=== PATIENT | male | born 1940 | race Caucasian/White ===

== ENCOUNTER 2017-10-26 11:43 | Inpatient (IN) ==
--- NOTE | 2017-10-26 12:15 | Emergency Department Note ---
Disposition Clinical Impression: Dysuria, Acute kidney injury superimposed on chronic kidney disease, Cystitis, Supratherapeutic INR, Ureter, stricture Anemia Qualifiers: Anemia type: unspecified type Qualified Code(s): D64.9 - Anemia, unspecified GI bleed Qualifiers: GI bleed type/associated pathology: unspecified gastrointestinal hemorrhage type Qualified Code(s): K92.2 - Gastrointestinal hemorrhage, unspecified Disposition: Admitted As Inpatient Condition: Fair Referrals: Elysia Sullivan TECHNICAL ASSISTANCE CONSULTANT [Primary Care Provider] - Forms: ED Satisfaction Letter Time of Disposition: 14:42 General Adult HPI - General Chief complaint: ED Urogenital-Male Stated complaint: "UTI, pneumonia" Time Seen by Provider: 10/26/17 11:57 Source: patient Mode of arrival: ambulatory Limitations: no limitations Nursing Notes Reviewed: Yes Vital Signs Reviewed: Yes - History of Present Illness HPI Narrative: 77-year-old male with a history of recurrent UTIs, CKD 3, and prostate radiotherapy, obstructive uropathy, congestive heart failure presents for evaluation of "UTI and pneumonia". Patient states that he does have a history of UTIs in the past. Patient notes over the past few days she has felt some dysuria and feels like he is having a UTI. Patient is incontinent of urine which is at his baseline. Patient does have remote history of radiotherapy with prostate. Patient states he has a history of outlet obstruction and does follow with Dr. Vázquez. States he has appointment with him in 2 days. Patient denies any fevers but does know a nonproductive cough for the past 3 weeks. Denies any chest pain. Denies any abdominal pain. Does not note any significant change in lower extremity edema. States he continues to urinate. No diarrhea or constipation. Also states that he is on Coumadin for his A. fib. Pain Scale: 0 - Related Data Home Medications Medication Instructions Recorded Confirmed Diltiazem HCl [Tiazac] 360 mg PO DAILY 03/16/15 10/26/17 Sotalol [Betapace] 120 mg PO Q12HR 03/16/15 10/26/17 Ergocalciferol (VITAMIN D2) 400 unit PO DAILY 12/08/15 10/26/17 [Vitamin D] Latanoprost [Xalatan] 1 drop OP DAILY 12/08/15 10/26/17 Warfarin [Coumadin] 2 mg PO DAILY 12/08/15 10/26/17 Furosemide [Lasix] 20 mg PO DAILY 10/26/17 10/26/17 Glimepiride [Amaryl] 4 mg PO DAILY 10/26/17 10/26/17 Insulin Glargine,Hum.rec.anlog 30 unit SQ HS 10/26/17 10/26/17 [Rogeraglpatti [place] U-100] Previous Rx's Medication Instructions Recorded Ferrous Sulfate 325 mg PO TIDWM #90 tablet 12/10/15 Allergies Allergy/AdvReac Type Severity Reaction Status Date / Time Erythromycin Base Allergy Mild Rash Verified 10/26/17 14:08 All systems ED: reviewed and negative except as stated. Constitutional: Denies: fever Cardiovascular: Denies: chest pain Respiratory: Reports: cough, dyspnea Gastrointestinal: Denies: abdominal pain, nausea, vomiting Genitourinary: Reports: dysuria Past Medical History - Past Medical History Source: patient Medical history: Reports: cancer, CHF, diabetes, hypertension, other Surgical history: Reports: cholecystectomy, other Psychiatric history: Reports: no psych history - Social History Smoking Status: Never smoker Smokeless Tobacco Status: No Alcohol use: Reports: none Drug use: Reports: none Physical Exam - General Limitations: no limitations General appearance: alert, in no apparent distress, obese - Head Head exam: atraumatic, normocephalic, normal inspection - Eye Eye exam: Present: normal appearance, EOMI - ENT ENT exam: normal exam, mucous membranes moist - Neck Neck exam: Present: normal inspection - Chest Chest inspection: Present: normal inspection, symmetric chest wall rise - Respiratory Respiratory exam: Present: other (Diminished bibasilar). Absent: respiratory distress, accessory muscle use - Cardiovascular Cardiovascular exam: Present: regular rate, normal rhythm - Abdominal Exam Abdominal exam: Present: soft, Non-Tender, distention. Absent: guarding, rebound - Extremities Exam Extremities exam: Present: normal inspection, pedal edema (2+ bilateral) - Expanded Lower Extremity Exam Neurovascular/Tendon exam: Present: normal capillary refill - Back Exam Back exam: Present: normal inspection. Absent: CVA tenderness (R), CVA tenderness (L) - Neurological Exam Neurological exam: Present: alert, oriented X3, CN II-XII intact - Skin Skin exam: Present: warm, dry, intact, normal color Course Course Narrative: Patient seen and examined. Prior CT scan results reviewed shows obstructive uropathy pattern with cystitis. Patient will get basic labs including urinalysis, patient also get a troponin and BNP given complaint of dyspnea cough. Patient will also get a CT scan and pelvis to further evaluate the ureters and any potential outlet obstruction. Patient's urine culture results obtained in the past showed Pseudomonas. Disposition pending. - Reevaluation(s) Reevaluation #1: Patient seen and examined. Patient's resting comfortably. No needs at this time. Time: 14:34 - Consultations Consultation #1: Spoke with Dr. Andrew who will see the patient consult. Time: 14:41 Vital Signs Temperature 98.6 F 10/26/17 11:47 Pulse Rate 73 10/26/17 11:47 Respiratory Rate 16 10/26/17 11:47 Blood Pressure 116/70 10/26/17 11:47 O2 Sat by Pulse Oximetry 97 10/26/17 11:47 Temperature 98.6 F 10/26/17 11:58 Pulse Rate 73 10/26/17 14:52 Respiratory Rate 14 10/26/17 14:52 Blood Pressure 107/59 10/26/17 14:52 O2 Sat by Pulse Oximetry 98 10/26/17 14:52 Oxygen Delivery Oxygen Delivery Room Air Medical Decision Making - MDM Narrative Medical decision making narrative: Patient presents for concerns of UTI with dysuria. Patient also has a history of ureteral strictures also with urology. [id number] strictures likely secondary to his radiation therapy in the past. Patient does appear to have acute on chronic kidney disease likely secondary to post renal obstruction. Patient also has evidence of UTI. Fluid was placed for accurate I'sas the patient is incontinent of urine at baseline. Patient's started on the most appropriate antibiotic given past cultures. CT the pelvis revealed the hydronephrosis and ureteral strictures. Discussed the findings with urologist who will see the patient. Patient is super therapeutic on INR but has no evidence of bleeding. Stool occult blood testing was performed however the patient denies any dark tarry stools or blood in his stool. Patient's CT reading does show evidence of an enlarged appendix however the patient does not have clinical signs symptoms of acute appendicitis likely secondary to the cystitis and inflammation. - Lab Data Lab results reviewed: Yes I reviewed the patient's lab results. Result diagrams: 10/26/17 12:39 10/26/17 12:39 Lab Results 10/26/17 10/26/17 10/26/17 Range/Units 12:39 12:39 12:39 WBC 10.2 (4.3-11.1) K/mcL RBC 2.68 L (4.19-5.50) M/mcL Hgb 7.3 L (12.9-16.9) g/dL Hct 23.6 L (37.5-50.1) % MCV 88.1 (83.0-100.0) fL MCH 27.2 L (28.0-33.3) pg MCHC 30.9 L (31.6-35.5) g/dL RDW 14.8 H (11.5-14.5) % Plt Count 412 H (140-400) K/mcL MPV 9.4 (9.4-12.4) fL Immature Gran % 0.8 (0-4) % Seg Neutrophils % 81.3 % Lymphocytes % 6.9 % Monocytes % 8.8 % Eosinophils % 1.7 % Basophils % 0.5 % Neutrophils # 8.3 (1.6-8.9) K/mcL Lymphocytes # 0.7 (0.6-4.6) K/mcL Monocytes # 0.9 (0.0-1.3) K/mcL Eosinophils # 0.2 (0.0-0.6) K/mcL Basophils # 0.1 (0.0-0.2) K/mcL PT (9.4-12.1) Seconds INR Sodium 136 (136-145) mEq/L Potassium 4.1 (3.5-5.1) mEq/L Chloride 102 (98-107) mEq/L Carbon Dioxide 25 (23-29) mEq/L BUN 52 H (8-23) mg/dL Creatinine 4.23 H (0.70-1.30) mg/dL Est GFR ( Amer) 17 L (> 60) Est GFR (Non-Af Amer) 14 L (> 60) BUN/Creatinine Ratio 12 (6-26) Glucose 75 (70-105) mg/dL Calculated Osmolality 295 (280-300) Lactic Acid 0.5 (0.5-2.2) mmol/L Calcium 8.7 (8.6-10.3) mg/dL Total Bilirubin 0.3 (0.3-1.0) mg/dL Direct Bilirubin 0.1 (0.0-0.2) mg/dL Indirect Bilirubin 0.2 (0.0-1.2) mg/dL AST 8 L (13-39) Units/L ALT 6 L (7-52) Units/L Alkaline Phosphatase 76 (34-104) Units/L Troponin I < 0.03 (< 0.04) ng/mL B-Natriuretic Peptide (Less than 100) pg/mL Serum Total Protein 6.9 (6.4-8.9) g/dL Albumin 3.1 L (3.5-5.7) g/dL Globulin 3.8 H (2.4-3.5) g/dL Albumin/Globulin Ratio 0.8 L (1.1-2.2) Urine Color (Yellow) Urine Clarity (Clear) Urine pH (5.0-8.0) pH Units Ur Specific [place] (1.010-1.025) Urine Protein (Neg-Trace) mg/dL Urine Glucose (UA) (Normal) mg/dL Urine Ketones (Negative) mg/dL Urine Blood (Negative) Urine Nitrite (Negative) Urine Bilirubin (Negative) Urine Urobilinogen (Normal) mg/dL Ur Leukocyte Esterase (Negative) Urine Microscopic RBC (0-3) per hpf Urine Microscopic WBC (0-3) per hpf Ur Squamous Epith Cells (None-Few) per lpf Urine Bacteria (None-Few) per hpf Ur Culture Indicated? (NO) Stool Occult Bld Scrn (Negative) 10/26/17 10/26/17 10/26/17 Range/Units 12:39 12:39 12:54 WBC (4.3-11.1) K/mcL RBC (4.19-5.50) M/mcL Hgb (12.9-16.9) g/dL Hct (37.5-50.1) % MCV (83.0-100.0) fL MCH (28.0-33.3) pg MCHC (31.6-35.5) g/dL RDW (11.5-14.5) % Plt Count (140-400) K/mcL MPV (9.4-12.4) fL Immature Gran % (0-4) % Seg Neutrophils % % Lymphocytes % % Monocytes % % Eosinophils % % Basophils % % Neutrophils # (1.6-8.9) K/mcL Lymphocytes # (0.6-4.6) K/mcL Monocytes # (0.0-1.3) K/mcL Eosinophils # (0.0-0.6) K/mcL Basophils # (0.0-0.2) K/mcL PT 44.9 H* (9.4-12.1) Seconds INR 4.0 Sodium (136-145) mEq/L Potassium (3.5-5.1) mEq/L Chloride (98-107) mEq/L Carbon Dioxide (23-29) mEq/L BUN (8-23) mg/dL Creatinine (0.70-1.30) mg/dL Est GFR ( Amer) (> 60) Est GFR (Non-Af Amer) (> 60) BUN/Creatinine Ratio (6-26) Glucose (70-105) mg/dL Calculated Osmolality (280-300) Lactic Acid (0.5-2.2) mmol/L Calcium (8.6-10.3) mg/dL Total Bilirubin (0.3-1.0) mg/dL Direct Bilirubin (0.0-0.2) mg/dL Indirect Bilirubin (0.0-1.2) mg/dL AST (13-39) Units/L ALT (7-52) Units/L Alkaline Phosphatase (34-104) Units/L Troponin I (< 0.04) ng/mL B-Natriuretic Peptide 604 H (Less than 100) pg/mL Serum Total Protein (6.4-8.9) g/dL Albumin (3.5-5.7) g/dL Globulin (2.4-3.5) g/dL Albumin/Globulin Ratio (1.1-2.2) Urine Color Yellow (Yellow) Urine Clarity Turbid A (Clear) Urine pH 7.5 (5.0-8.0) pH Units Ur Specific [place] 1.005 L (1.010-1.025) Urine Protein 100 H (Neg-Trace) mg/dL Urine Glucose (UA) Normal (Normal) mg/dL Urine Ketones Negative (Negative) mg/dL Urine Blood Large H (Negative) Urine Nitrite Positive A (Negative) Urine Bilirubin Negative (Negative) Urine Urobilinogen Normal (Normal) mg/dL Ur Leukocyte Esterase Large H (Negative) Urine Microscopic RBC 15-30 H (0-3) per hpf Urine Microscopic WBC TNTC H (0-3) per hpf Ur Squamous Epith Cells Many H (None-Few) per lpf Urine Bacteria Few (None-Few) per hpf Ur Culture Indicated? NO. A (NO) Stool Occult Bld Scrn (Negative) 10/26/17 Range/Units 14:30 WBC (4.3-11.1) K/mcL RBC (4.19-5.50) M/mcL Hgb (12.9-16.9) g/dL Hct (37.5-50.1) % MCV (83.0-100.0) fL MCH (28.0-33.3) pg MCHC (31.6-35.5) g/dL RDW (11.5-14.5) % Plt Count (140-400) K/mcL MPV (9.4-12.4) fL Immature Gran % (0-4) % Seg Neutrophils % % Lymphocytes % % Monocytes % % Eosinophils % % Basophils % % Neutrophils # (1.6-8.9) K/mcL Lymphocytes # (0.6-4.6) K/mcL Monocytes # (0.0-1.3) K/mcL Eosinophils # (0.0-0.6) K/mcL Basophils # (0.0-0.2) K/mcL PT (9.4-12.1) Seconds INR Sodium (136-145) mEq/L Potassium (3.5-5.1) mEq/L Chloride (98-107) mEq/L Carbon Dioxide (23-29) mEq/L BUN (8-23) mg/dL Creatinine (0.70-1.30) mg/dL Est GFR ( Amer) (> 60) Est GFR (Non-Af Amer) (> 60) BUN/Creatinine Ratio (6-26) Glucose (70-105) mg/dL Calculated Osmolality (280-300) Lactic Acid (0.5-2.2) mmol/L Calcium (8.6-10.3) mg/dL Total Bilirubin (0.3-1.0) mg/dL Direct Bilirubin (0.0-0.2) mg/dL Indirect Bilirubin (0.0-1.2) mg/dL AST (13-39) Units/L ALT (7-52) Units/L Alkaline Phosphatase (34-104) Units/L Troponin I (< 0.04) ng/mL B-Natriuretic Peptide (Less than 100) pg/mL Serum Total Protein (6.4-8.9) g/dL Albumin (3.5-5.7) g/dL Globulin (2.4-3.5) g/dL Albumin/Globulin Ratio (1.1-2.2) Urine Color (Yellow) Urine Clarity (Clear) Urine pH (5.0-8.0) pH Units Ur Specific [place] (1.010-1.025) Urine Protein (Neg-Trace) mg/dL Urine Glucose (UA) (Normal) mg/dL Urine Ketones (Negative) mg/dL Urine Blood (Negative) Urine Nitrite (Negative) Urine Bilirubin (Negative) Urine Urobilinogen (Normal) mg/dL Ur Leukocyte Esterase (Negative) Urine Microscopic RBC (0-3) per hpf Urine Microscopic WBC (0-3) per hpf Ur Squamous Epith Cells (None-Few) per lpf Urine Bacteria (None-Few) per hpf Ur Culture Indicated? (NO) Stool Occult Bld Scrn Positive A (Negative) - Radiology Data Radiology results reviewed: Yes I reviewed the patient's radiology results. Abdomen/Pelvis CT 10/26/17 12:10 IMPRESSION: Again identified is similar appearing moderate bilateral hydronephrosis, greater on the right as well as hydroureter, likely related to underlying ureteral strictures distally within the ureters or at the ureteral vesicular junction. A Lewis catheter is noted within a decompressed bladder. The appendix in the right lower quadrant measures 2 mm greater in dimension than on the previous examination, with mild increased stranding seen adjacent to the distal appendix. It measures 9.6 mm, previously measuring 7.4 mm. The mild stranding in the retroperitoneum is seen bilaterally, though appears minimally increased on the right when compared to the previous examination. This could be an incidental finding, though early acute appendicitis cannot be excluded. The base of the appendix is normal in caliber, and appears unchanged from the previous examination. Diverticulosis without acute diverticulitis. Other similar findings when compared to the previous examination as above. D/ / Camron Rea MD / Camron Rea MD Interpreting Provider: Camron Rea MD Chest X-Ray 10/26/17 12:12 IMPRESSION: 1. Mild bibasilar atelectasis. 2. No acute focal airspace consolidation. D/ / Oc Brock MD / Oc Brock MD Interpreting Provider: Oc Brock MD - EKG Data EKG #1 EKG attestation: Yes I reviewed and interpreted this EKG. EKG results narrative: AV paced rhythm. No ST elevation. [place]/QRS: left axis deviation T wave inversions noted in: III, aVF Interpretation: no acute changes, nonspecific ST-T wave changes S.B.A.R. - S.B.A.R. Situation: Demographics Background: Presenting Complaint Assessment: Vital Signs, Patient/Family Expectation Recommendation: Barrier(s) to disposition, Recommendation based on pending studies, treatments, or consults S.B.A.R. Report Given to: Dr. Riojas [email or web address] Repor Time: 15:00
--- NOTE | 2017-10-26 12:41 | Emergency Department Note ---
Disposition Clinical Impression: Dysuria, Acute kidney injury superimposed on chronic kidney disease, Cystitis, Supratherapeutic INR, Anemia Disposition: Admitted As Inpatient Condition: Fair Referrals: Elysia Sullivan CNP [Primary Care Provider] - Forms: ED Satisfaction Letter General Adult HPI - General Chief complaint: ED Urogenital-Male Stated complaint: "UTI, pneumonia" Time Seen by Provider: 10/26/17 11:57 Source: patient Mode of arrival: ambulatory Limitations: no limitations Nursing Notes Reviewed: Yes Vital Signs Reviewed: Yes - History of Present Illness Pain Scale: 0 - Related Data Home Medications Medication Instructions Recorded Confirmed Diltiazem HCl [Tiazac] 360 mg PO DAILY 03/16/15 10/26/17 Sotalol [Betapace] 120 mg PO Q12HR 03/16/15 10/26/17 Ergocalciferol (VITAMIN D2) 400 unit PO DAILY 12/08/15 10/26/17 [Vitamin D] Latanoprost [Xalatan] 1 drop OP DAILY 12/08/15 10/26/17 Warfarin [Coumadin] 2 mg PO DAILY 12/08/15 10/26/17 Furosemide [Lasix] 20 mg PO DAILY 10/26/17 10/26/17 Glimepiride [Amaryl] 4 mg PO DAILY 10/26/17 10/26/17 Insulin Glargine,Hum.rec.anlog 30 unit SQ HS 10/26/17 10/26/17 [Basaglar Kwikpen U-100] Previous Rx's Medication Instructions Recorded Ferrous Sulfate 325 mg PO TIDWM #90 tablet 12/10/15 Allergies Allergy/AdvReac Type Severity Reaction Status Date / Time Erythromycin Base Allergy Mild Rash Verified 10/26/17 14:08 Constitutional: Denies: fever Cardiovascular: Denies: chest pain Respiratory: Reports: cough, dyspnea Gastrointestinal: Denies: abdominal pain, nausea, vomiting Genitourinary: Reports: dysuria Past Medical History - Past Medical History Medical history: Reports: cancer, CHF, diabetes, hypertension, other Surgical history: Reports: cholecystectomy, other Psychiatric history: Reports: no psych history - Social History Smoking Status: Never smoker Smokeless Tobacco Status: No Alcohol use: Reports: none Drug use: Reports: none Physical Exam - General Limitations: no limitations General appearance: alert, in no apparent distress, obese Course Vital Signs Temperature 98.6 F 10/26/17 11:47 Pulse Rate 73 10/26/17 11:47 Respiratory Rate 16 10/26/17 11:47 Blood Pressure 116/70 10/26/17 11:47 O2 Sat by Pulse Oximetry 97 10/26/17 11:47 Temperature 98.6 F 10/26/17 11:58 Pulse Rate 73 10/26/17 11:58 Respiratory Rate 16 10/26/17 11:58 Blood Pressure 116/70 10/26/17 11:58 O2 Sat by Pulse Oximetry 97 10/26/17 11:58 Oxygen Delivery Oxygen Delivery Room Air Medical Decision Making - MDM Narrative Medical decision making narrative: 1430 hrs.: Patient's creatinine has worsened. He does have white cells in his urine a few bacteria so we will culture that. And his CT is pending. Abdomen/Pelvis CT 10/26/17 12:10 IMPRESSION: Again identified is similar appearing moderate bilateral hydronephrosis, greater on the right as well as hydroureter, likely related to underlying ureteral strictures distally within the ureters or at the ureteral vesicular junction. A Lewis catheter is noted within a decompressed bladder. The appendix in the right lower quadrant measures 2 mm greater in dimension than on the previous examination, with mild increased stranding seen adjacent to the distal appendix. It measures 9.6 mm, previously measuring 7.4 mm. The mild stranding in the retroperitoneum is seen bilaterally, though appears minimally increased on the right when compared to the previous examination. This could be an incidental finding, though early acute appendicitis cannot be excluded. The base of the appendix is normal in caliber, and appears unchanged from the previous examination. Diverticulosis without acute diverticulitis. Other similar findings when compared to the previous examination as above. D/ / Camron Rea MD / Camron Rea MD Interpreting Provider: Camron Rea MD Chest X-Ray 10/26/17 12:12 IMPRESSION: 1. Mild bibasilar atelectasis. 2. No acute focal airspace consolidation. D/ / Oc Brock MD / Oc Brock MD Interpreting Provider: Oc Brock MD 1430 hrs.: We will speak with urology and then determine whether he needs to be evaluated by them acutely. - Lab Data Result diagrams: 10/26/17 12:39 10/26/17 12:39 Lab Results 10/26/17 10/26/17 10/26/17 Range/Units 12:39 12:39 12:39 WBC 10.2 (4.3-11.1) K/mcL RBC 2.68 L (4.19-5.50) M/mcL Hgb 7.3 L (12.9-16.9) g/dL Hct 23.6 L (37.5-50.1) % MCV 88.1 (83.0-100.0) fL MCH 27.2 L (28.0-33.3) pg MCHC 30.9 L (31.6-35.5) g/dL RDW 14.8 H (11.5-14.5) % Plt Count 412 H (140-400) K/mcL MPV 9.4 (9.4-12.4) fL Immature Gran % 0.8 (0-4) % Seg Neutrophils % 81.3 % Lymphocytes % 6.9 % Monocytes % 8.8 % Eosinophils % 1.7 % Basophils % 0.5 % Neutrophils # 8.3 (1.6-8.9) K/mcL Lymphocytes # 0.7 (0.6-4.6) K/mcL Monocytes # 0.9 (0.0-1.3) K/mcL Eosinophils # 0.2 (0.0-0.6) K/mcL Basophils # 0.1 (0.0-0.2) K/mcL PT (9.4-12.1) Seconds INR Sodium 136 (136-145) mEq/L Potassium 4.1 (3.5-5.1) mEq/L Chloride 102 (98-107) mEq/L Carbon Dioxide 25 (23-29) mEq/L BUN 52 H (8-23) mg/dL Creatinine 4.23 H (0.70-1.30) mg/dL Est GFR ( Amer) 17 L (> 60) Est GFR (Non-Af Amer) 14 L (> 60) BUN/Creatinine Ratio 12 (6-26) Glucose 75 (70-105) mg/dL Calculated Osmolality 295 (280-300) Lactic Acid 0.5 (0.5-2.2) mmol/L Calcium 8.7 (8.6-10.3) mg/dL Total Bilirubin 0.3 (0.3-1.0) mg/dL Direct Bilirubin 0.1 (0.0-0.2) mg/dL Indirect Bilirubin 0.2 (0.0-1.2) mg/dL AST 8 L (13-39) Units/L ALT 6 L (7-52) Units/L Alkaline Phosphatase 76 (34-104) Units/L Troponin I < 0.03 (< 0.04) ng/mL B-Natriuretic Peptide (Less than 100) pg/mL Serum Total Protein 6.9 (6.4-8.9) g/dL Albumin 3.1 L (3.5-5.7) g/dL Globulin 3.8 H (2.4-3.5) g/dL Albumin/Globulin Ratio 0.8 L (1.1-2.2) Urine Color (Yellow) Urine Clarity (Clear) Urine pH (5.0-8.0) pH Units Ur Specific [place] (1.010-1.025) Urine Protein (Neg-Trace) mg/dL Urine Glucose (UA) (Normal) mg/dL Urine Ketones (Negative) mg/dL Urine Blood (Negative) Urine Nitrite (Negative) Urine Bilirubin (Negative) Urine Urobilinogen (Normal) mg/dL Ur Leukocyte Esterase (Negative) Urine Microscopic RBC (0-3) per hpf Urine Microscopic WBC (0-3) per hpf Ur Squamous Epith Cells (None-Few) per lpf Urine Bacteria (None-Few) per hpf Ur Culture Indicated? (NO) 10/26/17 10/26/17 10/26/17 Range/Units 12:39 12:39 12:54 WBC (4.3-11.1) K/mcL RBC (4.19-5.50) M/mcL Hgb (12.9-16.9) g/dL Hct (37.5-50.1) % MCV (83.0-100.0) fL MCH (28.0-33.3) pg MCHC (31.6-35.5) g/dL RDW (11.5-14.5) % Plt Count (140-400) K/mcL MPV (9.4-12.4) fL Immature Gran % (0-4) % Seg Neutrophils % % Lymphocytes % % Monocytes % % Eosinophils % % Basophils % % Neutrophils # (1.6-8.9) K/mcL Lymphocytes # (0.6-4.6) K/mcL Monocytes # (0.0-1.3) K/mcL Eosinophils # (0.0-0.6) K/mcL Basophils # (0.0-0.2) K/mcL PT 44.9 H* (9.4-12.1) Seconds INR 4.0 Sodium (136-145) mEq/L Potassium (3.5-5.1) mEq/L Chloride (98-107) mEq/L Carbon Dioxide (23-29) mEq/L BUN (8-23) mg/dL Creatinine (0.70-1.30) mg/dL Est GFR ( Amer) (> 60) Est GFR (Non-Af Amer) (> 60) BUN/Creatinine Ratio (6-26) Glucose (70-105) mg/dL Calculated Osmolality (280-300) Lactic Acid (0.5-2.2) mmol/L Calcium (8.6-10.3) mg/dL Total Bilirubin (0.3-1.0) mg/dL Direct Bilirubin (0.0-0.2) mg/dL Indirect Bilirubin (0.0-1.2) mg/dL AST (13-39) Units/L ALT (7-52) Units/L Alkaline Phosphatase (34-104) Units/L Troponin I (< 0.04) ng/mL B-Natriuretic Peptide 604 H (Less than 100) pg/mL Serum Total Protein (6.4-8.9) g/dL Albumin (3.5-5.7) g/dL Globulin (2.4-3.5) g/dL Albumin/Globulin Ratio (1.1-2.2) Urine Color Yellow (Yellow) Urine Clarity Turbid A (Clear) Urine pH 7.5 (5.0-8.0) pH Units Ur Specific [place] 1.005 L (1.010-1.025) Urine Protein 100 H (Neg-Trace) mg/dL Urine Glucose (UA) Normal (Normal) mg/dL Urine Ketones Negative (Negative) mg/dL Urine Blood Large H (Negative) Urine Nitrite Positive A (Negative) Urine Bilirubin Negative (Negative) Urine Urobilinogen Normal (Normal) mg/dL Ur Leukocyte Esterase Large H (Negative) Urine Microscopic RBC 15-30 H (0-3) per hpf Urine Microscopic WBC TNTC H (0-3) per hpf Ur Squamous Epith Cells Many H (None-Few) per lpf Urine Bacteria Few (None-Few) per hpf Ur Culture Indicated? NO. A (NO) Attestation Statement - Attestation Attestation: This documentation is done with the assistance of Dragon dictation. Despite efforts made to ensure accuracy, there may be inaccuracies in medicare contact specialist or spelling and typographical errors. I examined this patient and my medical decision-making was reviewed with the Resident Physician. I agree with the documented findings, disposition and treatment plan as described except to the extent set forth below. Pt seen and eval with Dr. De Paz and myself, I agree with his eval and mgt plan. Pt with chronic UTI and CKI, ? uti or obstruction now. WIll check labs, urine, CT and most likely admit.
[2017-10-26 13:04] LABS: Basophils # 0.1 K/mcL (0.0-0.2); Basophils % 0.5 %; Eosinophils # 0.2 K/mcL (0.0-0.6); Eosinophils % 1.7 %; Hematocrit 23.6 % (37.5-50.1); Hemoglobin 7.3 g/dL (12.9-16.9); Immature Granulocytes % 0.8 % (0-4); Lymphocytes # 0.7 K/mcL (0.6-4.6); Lymphocytes % 6.9 %; Mean Corpuscular HGB Conc 30.9 g/dL (31.6-35.5); Mean Corpuscular Hemoglobin 27.2 pg (28.0-33.3); Mean Corpuscular Volume 88.1 fL (83.0-100.0); Mean Platelet Volume 9.4 fL (9.4-12.4); Monocytes # 0.9 K/mcL (0.0-1.3); Monocytes % 8.8 %; Neutrophils # 8.3 K/mcL (1.6-8.9); Platelet Count 412 K/mcL (140-400); Red Blood Count 2.68 M/mcL (4.19-5.50); Red Cell Distribution Width 14.8 % (11.5-14.5); Segmented Neutrophils % 81.3 %
[2017-10-26 13:08] LABS: Bilirubin,Urine Negative (Negative); Blood,Urine Large (Negative); Clarity,Urine Turbid (Clear); Color,Urine Yellow (Yellow); Glucose,Urine (UA) Normal (Normal); Ketones,Urine Negative (Negative); Leukocyte Esterase,Urine Large (Negative); Nitrite,Urine Positive (Negative); PH,Urine 7.5 pH Units (5.0-8.0); Protein,Urine 100 mg/dL (Neg-Trace); Specific Gravity,Urine 1.005 (1.010-1.025); Urobilinogen,Urine Normal (Normal)
[2017-10-26 13:10] LABS: Bacteria,Urine Few per hpf (None-Few); Squamous Epithelial Cell,Urine Many per lpf (None-Few); WBC,Urine TNTC per hpf (0-3)
[2017-10-26 13:12] LABS: Prothrombin Time 44.9 Seconds (9.4-12.1)
[2017-10-26] MEDS ORDERED: Piperacillin/Tazobactam 3.375 GM in 0.9 % Sodium Chloride Mini Bag 100 ML IVPB ONE (13:15)
[2017-10-26 13:18] LABS: Troponin I < 0.03 ng/mL (< 0.04)
[2017-10-26 13:20] LABS: RBC,Urine 15-30 per hpf (0-3)
[2017-10-26 13:38] LABS: Alanine Aminotransferase 6 Units/L (7-52); Albumin 3.1 g/dL (3.5-5.7); Albumin/Globulin Ratio 0.8 (1.1-2.2); Alkaline Phosphatase 76 Units/L (34-104); Aspartate Amino Transferase 8 Units/L (13-39); BUN/Creatinine Ratio 12 (6-26); Bilirubin,Direct 0.1 mg/dL (0.0-0.2); Bilirubin,Indirect 0.2 mg/dL (0.0-1.2); Bilirubin,Total 0.3 mg/dL (0.3-1.0); Blood Urea Nitrogen 52 mg/dL (8-23); Calcium 8.7 mg/dL (8.6-10.3); Carbon Dioxide 25 mEq/L (23-29); Chloride 102 mEq/L (98-107); Globulin 3.8 g/dL (2.4-3.5); Glucose 75 mg/dL (70-105); Osmolality,Calculated 295 (280-300); Potassium 4.1 mEq/L (3.5-5.1); Sodium 136 mEq/L (136-145); Total Protein 6.9 g/dL (6.4-8.9); eGFR For Non-African Americans 14 (> 60)
[2017-10-26] MEDS ORDERED: *HR* Phytonadione 5 MG TABLET PO ONE (15:26)
[2017-10-26] MEDS ORDERED: Naloxone 0.4 MG/ML INJ IVP PRN (15:55)
[2017-10-26] MEDS ORDERED: Dextrose Gel 15 GM/37.5 ML TUBE PO PRN ×2 (16:02)
[2017-10-26] MEDS ORDERED: *HR* Dextrose 50 % in Water (Syg) 50 ML SYRINGE IVP PRN (16:02)
[2017-10-26] MEDS ORDERED: D5% in Water 1,000 ML IVC PRN (16:02)
[2017-10-26] MEDS ORDERED: 0.9 % Sodium Chloride 1,000 ML IVC SCH (16:15)
--- NOTE | 2017-10-26 17:13 | Internal Med History&Physical ---
Date of Encounter: 10/26/17 Time of Encounter: 17:00 Internal Medicine - H&P: HPI Chief complaint: Burning on urination intermittently for 3-5 weeks History of present illness: Mr. Rojas is a 77 year old male with pmh of recurrent UTIS, CKD stage 3, afib , prostate cancer s/p radiation with bladder damage and urinary incontinence presenting with complaints of burning on urination intermittently for 3-5 weeks and generally not feeling well. Patient notes he has been incontinent of urine since he got radiation for prostate cancer and he has been having recurrent UTIs since then about 8 years ago. He noticed he has been having more intense burning on urination recently and he also had a non productive cough, and felt like he was getting sick and that's why he came to the ER. In the ER a CT abdomen showed bilateral hydronephrosis and ureteral strictures. His creatinine was also noted to have worsened to 4 from a baseline of 2. Urology was consulted and he received one dose of zosyn and one dose of oral vitamin K for a supratherapeutic INR of 4. Past Med Surg Social Fam HX - Past Medical History Medical history: cancer, CHF, diabetes, hypertension, other Additional medical history: irregular heart beat. prostate cancer with radiation Psychiatric history: no psych history - Past Surgical History Surgical History: cholecystectomy, other Additional surgical history: pacer - Social History Smoking Status: Never smoker Smokeless Tobacco Status: No Alcohol use: none Drug use: none - Family History Father Hx Family Respiratory Disorders: Yes (Lung cancer) Internal Medicine - H&P: Meds Diltiazem HCl [Tiazac] 360 mg PO DAILY 03/16/15 [History] Sotalol [Betapace] 120 mg PO Q12HR 03/16/15 [History] Ergocalciferol (VITAMIN D2) [Vitamin D] 400 unit PO DAILY 12/08/15 [History] Latanoprost [Xalatan] 1 drop OP DAILY 12/08/15 [History] Warfarin [Coumadin] 2 mg PO DAILY 12/08/15 [History] Ferrous Sulfate 325 mg PO TIDWM #90 tablet 12/10/15 [Rx] Furosemide [Lasix] 20 mg PO DAILY 10/26/17 [History] Glimepiride [Amaryl] 4 mg PO DAILY 10/26/17 [History] Insulin Glargine,Hum.rec.anlog [Javon Alford U-100] 30 unit SQ HS 10/26/17 [ History] 3 Allergy/AdvReac Type Severity Reaction Status Date / Time Erythromycin Base Allergy Mild Rash Verified 10/26/17 14:08 All Systems PM: A 10-system review of systems was performed and is negative for pertinent findings except as documented above in the HPI. - Constitutional Constitutional: no chills, no fever(s), no night sweats - EENT Eyes: no change in vision, no discharge, no pain, no photophobia Ears: no ear discharge, no ear pain, no tinnitus Nose, mouth and throat: no dysphagia, no nasal discharge, no neck pain, no sore throat - Cardiovascular Cardiovascular ROS IM: no chest pain, no diaphoresis, no dyspnea, no lightheadedness, no palpitations, no syncope - Respiratory Respiratory: no cough, no dyspnea, no wheezing, no excessive phlegm production - Gastrointestinal Gastrointestinal: no abdominal pain, no diarrhea, no hematemesis, no hematochezia, no melena, no nausea, no vomiting - Genitourinary Genitourinary ROS male: dysuria, urinary incontinence - Musculoskeletal Musculoskeletal ROS IM: no numbness, no tingling - Integumentary Integumentary IM: no rash, no unusual bruising - Neurological Neurological ROS: no confusion, no convulsions, no focal weakness, no numbness, no tingling, no tremor(s) - Hematologic/Lymphatic Hematologic/Lymphatic: no easy bruising - Constitutional Vitals: Temp Pulse Resp BP Pulse Ox 98.6 F 70 15 100/85 97 10/26/17 11:58 10/26/17 16:17 10/26/17 16:17 10/26/17 16:17 10/26/17 16:17 Exam: Gen - Awake, alert, oriented x 3, no acute distress HEENT - NCAT, PERRLA, EOMI, hearing grossly intact, oropharynx benign CV - RRR, normal S1 and S2, no M/R/G, no BLE edema Resp - Normal WOB, CTAB, no W/R/R GI - Soft, NT/ND, no masses, normal bowel sounds, no HSP Skin - Warm, dry, no rashes/lesions/ulcers Psych - Normal mood and affect, no depression or anxiety - Head Head exam: Present: atraumatic, normocephalic - Eye Eye exam: Present: PERRL, conjuntiva pink, sclera anicteric Pupils: Present: PERRL - Neck Neck exam general surgery: Present: supple, trachea midline. Absent: lymphadenopathy - Respiratory Respiratory exam: Present: CTAB. Absent: accessory muscle use, rales, rhonchi, wheezes - Cardiovascular Cardiovascular exam: Present: RRR, +S1, +S2. Absent: diastolic murmur, gallop, rubs, systolic murmur - GI/Abdominal GI/Abdominal exam: Present: normal bowel sounds, soft, no peritoneal signs. Absent: distended, tenderness - Extremities Exam Extremities exam: Present: pedal edema, warm, radial pulses palpable and symmetrical. Absent: calf tenderness, cyanotic - Neurological Exam Neurological exam: Present: CN II-XII intact, oriented X3, no focal deficits. Absent: pronater drift, facial droop, speech deficit - Skin Skin exam: Present: dry, intact Internal Med - H&P Results - Labs CBC & Chem 7: 10/26/17 12:39 10/26/17 12:39 Labs: Short CBC 10/26/17 Range/Units 12:39 WBC 10.2 (4.3-11.1) K/mcL Hgb 7.3 L (12.9-16.9) g/dL Hct 23.6 L (37.5-50.1) % Plt Count 412 H (140-400) K/mcL Neutrophils # 8.3 (1.6-8.9) K/mcL BMP 10/26/17 12:39 Sodium 136 Potassium 4.1 Chloride 102 Carbon Dioxide 25 BUN 52 H Creatinine 4.23 H Glucose 75 Calcium 8.7 Cardiac Enzymes 10/26/17 Range/Units 12:39 Troponin I < 0.03 (< 0.04) ng/mL Liver Function 10/26/17 Range/Units 12:39 Total Bilirubin 0.3 (0.3-1.0) mg/dL Direct Bilirubin 0.1 (0.0-0.2) mg/dL AST 8 L (13-39) Units/L ALT 6 L (7-52) Units/L Alkaline Phosphatase 76 (34-104) Units/L Albumin 3.1 L (3.5-5.7) g/dL Urine 10/26/17 Range/Units 12:54 Urine Color Yellow (Yellow) Urine Clarity Turbid A (Clear) Urine pH 7.5 (5.0-8.0) pH Units Ur Specific Thomas 1.005 L (1.010-1.025) Urine Protein 100 H (Neg-Trace) mg/dL Urine Glucose (UA) Normal (Normal) mg/dL - Impressions ITS Impressions Abdomen/Pelvis CT 10/26/17 12:10 IMPRESSION: Again identified is similar appearing moderate bilateral hydronephrosis, greater on the right as well as hydroureter, likely related to underlying ureteral strictures distally within the ureters or at the ureteral vesicular junction. A Lewis catheter is noted within a decompressed bladder. The appendix in the right lower quadrant measures 2 mm greater in dimension than on the previous examination, with mild increased stranding seen adjacent to the distal appendix. It measures 9.6 mm, previously measuring 7.4 mm. The mild stranding in the retroperitoneum is seen bilaterally, though appears minimally increased on the right when compared to the previous examination. This could be an incidental finding, though early acute appendicitis cannot be excluded. The base of the appendix is normal in caliber, and appears unchanged from the previous examination. Diverticulosis without acute diverticulitis. Other similar findings when compared to the previous examination as above. D/ / Camron Rea MD / Camron Rea MD Interpreting Provider: Camron Rea MD Chest X-Ray 10/26/17 12:12 IMPRESSION: 1. Mild bibasilar atelectasis. 2. No acute focal airspace consolidation. D/ / Oc Brock MD / Oc Brock MD Interpreting Provider: Oc Brock MD - Assessment and plan (1) Acute renal failure Current Visit: Yes Status: Acute Assessment and plan: Acute renal failure on CKD stage 3 likely 2/2 to hydronephrosis and strictures. Urology has been consulted. Will keep NPO from midnight for possible stent palcement. Pt has a history of CHF and pedal edema so will hold off on IV fluids at this time. Will however discontinue lasix. Consider renal consult in am if creatinine worsens Qualifiers: Acute renal failure type: unspecified Qualified Code(s): N17.9 - Acute kidney failure, unspecified (2) GI bleed Current Visit: Yes Status: Acute Assessment and plan: Acute blood loss anemia r/o GI bleed. Patient denies any blood in stools or urine. But hemoglobin noted to be 7.3 from a baseline of 9.4 in August. Will type and screen. Start on protonix 40mg IV BID. Transfuse for hemoglobin <7. Gi consult in am as patient is stable. Call needs to be made Qualifiers: Qualified Code(s): K92.2 - Gastrointestinal hemorrhage, unspecified (3) Ureter, stricture Current Visit: Yes Status: Acute Assessment and plan: Ureteral strictures with hydronephrosis. Urology following and appreciate recs (4) Complicated UTI (urinary tract infection) Current Visit: Yes Status: Acute Assessment and plan: Persistent incontinence and recurrent UTIs s/p radiation therapy for prostate cancer. Urinalysis shows mmultiple WBCs and patient has dysuria. Obtain urine cultures and start on cefepime. Previous urine cultures were positive for pseudomonas (5) Supratherapeutic INR Current Visit: Yes Status: Acute Assessment and plan: INR was 4.0 on admission. denies hematuria or active bleed. he is on coumadin for afib. Will hold coumadin. Received one 2.5mg dose of vitamin k orally in ER. Repeat INr in am (6) Hydronephrosis Current Visit: Yes Status: Acute Assessment and plan: See plan for ureteral stricture Qualifiers: Hydronephrosis type: other Qualified Code(s): N13.39 - Other hydronephrosis (7) Congestive heart failure Current Visit: Yes Status: Acute Assessment and plan: NO acute exacerbation. Will however hold lasix. LAst echo showed low normal LVEF Qualifiers: Qualified Code(s): I50.9 - Heart failure, unspecified (8) Diabetes mellitus Current Visit: No Status: Chronic Assessment and plan: Continue home insulin regimen Qualifiers: Diabetes mellitus type: type 2 Diabetes mellitus axminster weaver insulin use: without axminster weaver use Diabetes mellitus complication status: without complication Qualified Code(s): E11.9 - Type 2 diabetes mellitus without complications (9) DVT prophylaxis Current Visit: Yes Status: Acute Assessment and plan: On coumadin (10) Atrial fibrillation Current Visit: Yes Status: Acute Assessment and plan: Rate controlled on cardizem. Warfarin held due to supratherapeutic INR Qualifiers: Atrial fibrillation type: unspecified Qualified Code(s): I48.91 - Unspecified atrial fibrillation - Time Spent With Patient Total time spent is greater than 50% in coordination of care (as documented) at patient's floor/unit and/or counseling patient:
--- NOTE | 2017-10-26 19:23 | Urology - Consult Note ---
Date of Encounter: 10/26/17 Time of Encounter: 19:20 - Assessment and Plan (1) Acute renal failure Current Visit: Yes Status: Acute Assessment and plan: 69-year-old man with acute renal failure. 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 He now has an indwelling catheter. We will follow his creatinine to see if it improves. If not, we can consider bilateral nephrostomy tubes versus bilateral ureteral stents. Qualifiers: Acute renal failure type: unspecified Qualified Code(s): N17.9 - Acute kidney failure, unspecified (2) Dysuria Current Visit: Yes Status: Acute Assessment and plan: He has a history of dysuria and purulent urine. He is currently on cefepime. We will await the results of his urine cultures. (3) Hydronephrosis Current Visit: Yes Status: Acute Assessment and plan: 77-year-old man with bilateral hydroureteronephrosis. This is likely due to poor compliance of the bladder and reflux nephropathy. It is possible that he has bilateral ureteral strictures secondary to radiation therapy for his prostate cancer. He is making good urine at this time. We will follow his creatinine. If it worsens or does not significantly improve, we may need to provide ureteral stent drainage bilaterally. Qualifiers: Hydronephrosis type: other Qualified Code(s): N13.39 - Other hydronephrosis Urology CN:HPI Consult date: 10/26/17 Reason for consult Urology: Other (uti) History of present illness: 77-year-old man well-known to the urology service was admitted for cough, dysuria, possible urinary tract infection, and malaise. He has a long-standing history of prostate cancer. His most recent PSA in July 2017 was undetectable. He previously had radiation therapy for his prostate cancer. Since his radiation his bladder has become noncompliant. He did have Botox, but that was not successful. CT scan from September 2017 shows worsening bilateral hydroureteronephrosis. He was admitted for worsening kidney failure. A Lewis catheter has been placed and his urine is draining somewhat purulent urine. He denies any fevers at this time. Past Med Surg Social Fam HX - Past Medical History Medical history: cancer, CHF, diabetes, hypertension, other Additional medical history: irregular heart beat. prostate cancer with radiation Psychiatric history: no psych history - Past Surgical History Surgical History: cholecystectomy, other Additional surgical history: pacer - Social History Smoking Status: Never smoker Smokeless Tobacco Status: No Alcohol use: none Drug use: none - Family History Father Hx Family Respiratory Disorders: Yes (Lung cancer) Medications and Allergies Diltiazem HCl [Tiazac] 360 mg PO DAILY 03/16/15 [History] Sotalol [Betapace] 120 mg PO Q12HR 03/16/15 [History] Ergocalciferol (VITAMIN D2) [Vitamin D] 400 unit PO DAILY 12/08/15 [History] Latanoprost [Xalatan] 1 drop OP DAILY 12/08/15 [History] Warfarin [Coumadin] 2 mg PO DAILY 12/08/15 [History] Ferrous Sulfate 325 mg PO TIDWM #90 tablet 12/10/15 [Rx] Furosemide [Lasix] 20 mg PO DAILY 10/26/17 [History] Glimepiride [Amaryl] 4 mg PO DAILY 10/26/17 [History] Insulin Glargine,Hum.rec.anlog [Basaglar Kwikpen U-100] 30 unit SQ HS 10/26/17 [ History] 3 Allergy/AdvReac Type Severity Reaction Status Date / Time Erythromycin Base Allergy Mild Rash Verified 10/26/17 14:08 Review of Systems - Constitutional no chills, no fever(s) - EENT Nose, mouth and throat: no dizziness - Cardiovascular no chest pain - Respiratory cough, no dyspnea - Gastrointestinal no nausea, no vomiting - Genitourinary dysuria, no flank pain, no hematuria - Musculoskeletal no back pain - Integumentary no erythema, no rash - Neurological no weakness - Psychiatric no suicidal ideation - Hematologic/Lymphatic no easy bleeding - Allergic/Immunologic no wheezing Exam Initial Vital Signs Temp Pulse Resp BP Pulse Ox 98.6 F 73 16 116/70 97 10/26/17 11:47 10/26/17 11:47 10/26/17 11:47 10/26/17 11:47 10/26/17 11:47 - General physical appearance Present: well developed, well nourished, no distress - Eyes Absent: icteric - ENT Present: normal nares - Neck Present: trachea midline - Respiratory Present: normal respiratory effort - Cardiovascular Cardiovascular exam IM: RRR - Abdomen Abdomen: Present: soft - Integumentary Present: no rash - Neurologic Present: normal coordination - Musculoskeletal Present: other (grossly normal) Urology Results - Labs 10/26/17 12:39 10/26/17 12:39 Abnormal lab results RBC 2.68 M/mcL (4.19-5.50) L 10/26/17 12:39 Hgb 7.3 g/dL (12.9-16.9) L 10/26/17 12:39 Hct 23.6 % (37.5-50.1) L 10/26/17 12:39 MCH 27.2 pg (28.0-33.3) L 10/26/17 12:39 MCHC 30.9 g/dL (31.6-35.5) L 10/26/17 12:39 RDW 14.8 % (11.5-14.5) H 10/26/17 12:39 Plt Count 412 K/mcL (140-400) H 10/26/17 12:39 PT 44.9 Seconds (9.4-12.1) H* 10/26/17 12:39 BUN 52 mg/dL (8-23) H 10/26/17 12:39 Creatinine 4.23 mg/dL (0.70-1.30) H 10/26/17 12:39 Est GFR ( Amer) 17 (> 60) L 10/26/17 12:39 Est GFR (Non-Af Amer) 14 (> 60) L 10/26/17 12:39 AST 8 Units/L (13-39) L 10/26/17 12:39 ALT 6 Units/L (7-52) L 10/26/17 12:39 B-Natriuretic Peptide 604 pg/mL (Less than 100) H 10/26/17 12:39 Albumin 3.1 g/dL (3.5-5.7) L 10/26/17 12:39 Globulin 3.8 g/dL (2.4-3.5) H 10/26/17 12:39 Albumin/Globulin Ratio 0.8 (1.1-2.2) L 10/26/17 12:39 Urine Clarity Turbid (Clear) A 10/26/17 12:54 Ur Specific Dyess 1.005 (1.010-1.025) L 10/26/17 12:54 Urine Protein 100 mg/dL (Neg-Trace) H 10/26/17 12:54 Urine Blood Large (Negative) H 10/26/17 12:54 Urine Nitrite Positive (Negative) A 10/26/17 12:54 Ur Leukocyte Esterase Large (Negative) H 10/26/17 12:54 Urine Microscopic RBC 15-30 per hpf (0-3) H 10/26/17 12:54 Urine Microscopic WBC TNTC per hpf (0-3) H 10/26/17 12:54 Ur Squamous Epith Cells Many per lpf (None-Few) H 10/26/17 12:54 Ur Culture Indicated? NO. (NO) A 10/26/17 12:54 Stool Occult Bld Scrn Positive (Negative) A 10/26/17 14:30 All other labs normal. - Imaging CT scan - abdomen: report reviewed, image reviewed CT scan - pelvis: report reviewed, image reviewed Consult Discharge Plan - Plan Referrals: Elysia Sullivan LO[employer]ING [employer]IT OPERATOR [Primary Care Provider] -
[2017-10-26] MEDS: Pantoprazole 40 MG VIAL IVP SCH (21:11)
[2017-10-26] MEDS: Cefepime HCl 1,000 MG in Water for inj. (sterile) 20 ML 10 ML IVP SCH (21:14)
[2017-10-26] MEDS: Insulin LISPRO 300 UNITS/3 ML VIAL SQ SCH (21:16)
[2017-10-26] MEDS: Insulin DETEMIR 100 UNIT/ML X5UNITS SQ SCH (21:27)
[2017-10-27 04:49] LABS: Basophils % 0.3 %; Eosinophils # 0.1 K/mcL (0.0-0.6); Eosinophils % 1.5 %; Hematocrit 24.5 % (37.5-50.1); Hemoglobin 7.7 g/dL (12.9-16.9); Lymphocytes # 1.3 K/mcL (0.6-4.6); Lymphocytes % 13.4 %; Mean Corpuscular HGB Conc 31.4 g/dL (31.6-35.5); Mean Corpuscular Volume 89.1 fL (83.0-100.0); Mean Platelet Volume 9.6 fL (9.4-12.4); Monocytes % 10.4 %; Neutrophils # 6.9 K/mcL (1.6-8.9); Platelet Count 482 K/mcL (140-400); Red Blood Count 2.75 M/mcL (4.19-5.50); Red Cell Distribution Width 14.9 % (11.5-14.5); Segmented Neutrophils % 73.4 %
[2017-10-27 05:07] LABS: Calcium 8.8 mg/dL (8.6-10.3); Magnesium 2.1 mg/dL (1.6-2.6); Phosphorous 4.5 mg/dL (2.7-4.5); Potassium 3.7 mEq/L (3.5-5.1)
[2017-10-27] MEDS: Pantoprazole 40 MG VIAL IVP SCH ×2 (05:07→18:44)
[2017-10-27] MEDS: Cefepime HCl 1,000 MG in Water for inj. (sterile) 20 ML 10 ML IVP SCH ×2 (05:07→18:43)
--- NOTE | 2017-10-27 06:48 | Urology Progress Note ---
Date of Encounter: 10/27/17 Time of Encounter: 06:46 - Assessment and Plan (1) Acute renal failure Current Visit: Yes Status: Acute Qualifiers: Acute renal failure type: unspecified Qualified Code(s): N17.9 - Acute kidney failure, unspecified (2) Dysuria Current Visit: Yes Status: Acute Assessment and plan: Urine culture is still pending. (3) Hydronephrosis Current Visit: Yes Status: Acute Assessment and plan: 77-year-old man with bilateral hydronephrosis. He is making good urine output. Creatinine seems to be improving today. I think it is reasonable to follow for now. We can consider renal and bladder ultrasound in 1-2 days depending upon how his creatinine does to see if the hydronephrosis is resolving. I will hold off on placing stents at this time. If his creatinine does not improve, then we can consider this further. Qualifiers: Hydronephrosis type: other Qualified Code(s): N13.39 - Other hydronephrosis Progress Note Narrative: Doing well today. Urine is clear to cloudy. Creatinine has improved today. Objective Initial Vital Signs Temp Pulse Resp BP Pulse Ox 98.6 F 73 16 116/70 97 10/26/17 11:47 10/26/17 11:47 10/26/17 11:47 10/26/17 11:47 10/26/17 11:47 - General physical appearance Present: well developed, well nourished, no distress - Respiratory Present: normal respiratory effort - Abdomen Present: soft - Genitourinary Present: normal penis with no external lesions Urine Appearance: Present: Clear - Labs 10/27/17 03:49 10/27/17 03:49 Diabetes panel 10/27/17 Range/Units 03:49 Sodium 137 (136-145) mEq/L Potassium 3.7 (3.5-5.1) mEq/L Chloride 103 (98-107) mEq/L Carbon Dioxide 25 (23-29) mEq/L BUN 51 H (8-23) mg/dL Creatinine 3.99 H (0.70-1.30) mg/dL Glucose 43 L (70-105) mg/dL Calcium 8.8 (8.6-10.3) mg/dL Calcium panel 10/27/17 Range/Units 03:49 Calcium 8.8 (8.6-10.3) mg/dL Phosphorus 4.5 (2.7-4.5) mg/dL Pituitary panel 10/27/17 Range/Units 03:49 Sodium 137 (136-145) mEq/L Potassium 3.7 (3.5-5.1) mEq/L Chloride 103 (98-107) mEq/L Carbon Dioxide 25 (23-29) mEq/L BUN 51 H (8-23) mg/dL Creatinine 3.99 H (0.70-1.30) mg/dL Glucose 43 L (70-105) mg/dL Calcium 8.8 (8.6-10.3) mg/dL Adrenal panel 10/27/17 Range/Units 03:49 Sodium 137 (136-145) mEq/L Potassium 3.7 (3.5-5.1) mEq/L Chloride 103 (98-107) mEq/L Carbon Dioxide 25 (23-29) mEq/L BUN 51 H (8-23) mg/dL Creatinine 3.99 H (0.70-1.30) mg/dL Glucose 43 L (70-105) mg/dL Calcium 8.8 (8.6-10.3) mg/dL Consult Discharge Plan - Plan Referrals: Elysia Sullivan CNP [Primary Care Provider] -
[2017-10-27 07:48] LABS: INR 2.8; Prothrombin Time 31.8 Seconds (9.4-12.1)
[2017-10-27] MEDS: Insulin LISPRO 300 UNITS/3 ML VIAL SQ SCH ×3 (08:22→18:17)
--- NOTE | 2017-10-27 08:32 | Event Note ---
Date of Encounter: 10/27/17 Time of Encounter: 08:30 Patient seen and examined sitting upright in bed in no apparent distress. CBI discontinued. Patient is nonverbal. I explained catheter irrigation procedure to patient. I irrigated 1000cc through [address] catheter dislodging multiple small clots. Patient tolerated well.
[2017-10-27] MEDS ORDERED: *HR* Glimepiride 4 MG TABLET PO SCH (09:00)
--- NOTE | 2017-10-27 10:07 | Gastroenterology Consult Note ---
<Sarah Serrato - Last Filed: 10/27/17 10:04> Date of Encounter: 10/27/17 Time of Encounter: 09:15 - Assessment and plan (1) Anemia Status: Chronic Assessment and plan: Pt presents with UTI symptoms and was found to have hgb of 7.3. He denies jovanna GI bleeding but stool was positive for occult blood. He had some blood clots in his urine and a large amount of blood in UA. He was advised EGD and colonoscopy and he is very reluctant to have done at this time. Would monitor H&H, if stable could do scopes as an outpatient, if continues to decrease will need EGD/ colon tomorrow. He denies any abdominal pain or GERD. He needs vitamin K for supratherapeutic INR. He reports having EGD/colonoscopy 7-8 years ago at [facility] will send for those records. Qualifiers: Anemia type: unspecified type Qualified Code(s): D64.9 - Anemia, unspecified (2) UTI (urinary tract infection) Status: Acute Qualifiers: Urinary tract infection type: site unspecified Hematuria presence: without hematuria Qualified Code(s): N39.0 - Urinary tract infection, site not specified (3) Generalized weakness Status: Acute - Time Spent With Patient Total time spent is greater than 50% in coordination of care (as documented) at patient's floor/unit and/or counseling patient: GI History of Present Illness - Data of Consult Patient: new to practice Consult date: 10/27/17 Requesting Physician: Joanna Garcia MD - Consult Narrative Reason for consult: anemia History of present illness: Mr. Rojas is a 77 year old male with pmh of recurrent UTIS, CKD stage 3, afib , prostate cancer s/p radiation with bladder damage and urinary incontinence. He presented with complaints of burning on urination intermittently for 3-5 weeks and generally not feeling well. Patient notes he has been incontinent of urine sincet radiation for prostate cancer and he has been having recurrent UTIs since then about 8 years ago. He noticed he has been having more intense burning on urination recently and he also had a non productive cough, and felt like he was getting sick and that's why he came to the ER. In the ER a CT abdomen showed bilateral hydronephrosis and ureteral strictures. His creatinine was also noted to have worsened to 4 from a baseline of 2. Urology was consulted and he received one dose of zosyn and one dose of oral vitamin K for a supratherapeutic INR of 4. Hgb was 7.3 on admission and GI was consulted for anemia rule out GI bleed. Hgb currently 7.7 and INR currently 2.8. He denies any abdominal pain, nausea, vomiting, diarrhea, bloody or tarry stools. He reports colonoscopy 7-8 years ago in [facility]. He had bergman cath with bladder irrigation and small blood clots were removed. Past Med Surg Social Fam HX - Past Medical History Medical history: cancer, CHF, diabetes, hypertension, other Additional medical history: irregular heart beat. prostate cancer with radiation Psychiatric history: no psych history - Past Surgical History Surgical History: cholecystectomy, other Additional surgical history: pacer - Social History Smoking Status: Never smoker Smokeless Tobacco Status: No Alcohol use: none Drug use: none - Family History Father Hx Family Respiratory Disorders: Yes (Lung cancer) Review of Systems: GI: as per [facility] GENERAL: denies fever, has some chills EYES: denies yellow discoloration ENT: denies pain with swallowing or difficulty swallowing CARDIO: denies chest pain, palpitations RESP: Shortness of breath with exertion : cloudy, dark urine NEURO: chronic weakness HEME: Denies any bruising MS: chronic back and joint pain. DERM: denies rash or itching PSYCH: Denies history of anxiety or depression - Constitutional Vitals: Temp Pulse Resp BP Pulse Ox 97.9 F 70 18 111/71 94 10/27/17 07:16 10/27/17 07:16 10/27/17 07:16 10/27/17 07:16 10/27/17 07:16 Exam: CONSTITUTIONAL:~alert, no acute distress.~HEAD:~normocephalic.~EYES:~no jaundice.~NECK:~no obvious swelling.~HEART:~irregular rate and rhythm, no murmurs.~LUNGS:~bilateral good air entry.~ABDOMEN:~non distended, soft, non tender, no masses palpable, no organomegaly, obese.~RECTAL EXAM:~Deferred.~ EXTREMITIES:~no clubbing, cyanosis, 2+ BLE edema.~SKIN:~pallor noted, no stigmata of chronic liver disease.~NEUROLOGIC:~no obvious focal defect.~~~~ Results - Labs CBC & Chem 7: 10/27/17 03:49 10/27/17 03:49 Labs: Last Result Calcium 8.8 mg/dL (8.6-10.3) 10/27/17 03:49 Troponin I < 0.03 ng/mL (< 0.04) 10/26/17 12:39 Entire Visit Hgb 7.7 g/dL (12.9-16.9) L 10/27/17 03:49 Hct 24.5 % (37.5-50.1) L 10/27/17 03:49 PT 31.8 Seconds (9.4-12.1) H 10/27/17 07:32 Total Bilirubin 0.3 mg/dL (0.3-1.0) 10/26/17 12:39 AST 8 Units/L (13-39) L 10/26/17 12:39 ALT 6 Units/L (7-52) L 10/26/17 12:39 - ABG ABG results: PT/INR, D-dimer PT 31.8 Seconds (9.4-12.1) H 10/27/17 07:32 Consult Discharge Plan - Plan Referrals: Umesh Andrew MD [Partnered Physician] - Sullivan,Elysia Kaufman CNP [Primary Care Provider] - 11/06/17 9:00 am (Please follow up as schedule...) <Clem Barney - Last Filed: 11/24/17 14:49> Date of Encounter: 10/27/17 - Time Spent With Patient Total time spent is greater than 50% in coordination of care (as documented) at patient's floor/unit and/or counseling patient: GI History of Present Illness - Data of Consult Requesting Physician: Joanna Garcia MD - Consult Narrative History of present illness: Mr. Rojas is a 77 year old male - Constitutional Vitals: Temp Pulse Resp BP Pulse Ox 98 F 75 16 125/76 95 11/02/17 15:10 11/02/17 15:10 11/02/17 15:10 11/02/17 15:10 11/02/17 15:10 Results - Labs CBC & Chem 7: 11/02/17 05:38 11/02/17 05:38 Labs: Last Result Calcium 8.6 mg/dL (8.6-10.3) 11/02/17 05:38 Troponin I < 0.03 ng/mL (< 0.04) 10/26/17 12:39 Entire Visit Hgb 8.5 g/dL (12.9-16.9) L 11/02/17 05:38 Hct 27.1 % (37.5-50.1) L 11/02/17 05:38 PT 22.0 Seconds (9.4-12.1) H 11/02/17 05:38 Total Bilirubin 0.3 mg/dL (0.3-1.0) 10/26/17 12:39 AST 8 Units/L (13-39) L 10/26/17 12:39 ALT 6 Units/L (7-52) L 10/26/17 12:39 - ABG ABG results: PT/INR, D-dimer PT 22.0 Seconds (9.4-12.1) H 11/02/17 05:38 - Attending Attestation Patient with severe anemia. Has hematuria also. Refuses endoscopy. So will hold off. Please reconsult us if, things change. I have personally performed a face to face evaluation on this patient. I have reviewed and agree with the care plan. History and Exam by me shows:
[2017-10-27] MEDS ORDERED: *HR* Phytonadione 5 MG TABLET PO ONE (10:21)
[2017-10-27 10:36] LABS: Hematocrit 24.3 % (37.5-50.1); Hemoglobin 7.7 g/dL (12.9-16.9)
[2017-10-27] MEDS: Diltiazem CD (24hr) 180 MG CAPSULE PO SCH (10:40)
[2017-10-27] MEDS: Cholecalciferol (D-3) 1,000 UNIT TABLET PO SCH (10:41)
[2017-10-27] MEDS: Latanoprost 2.5 ML BOTTLE BOTH EYES SCH (12:48)
--- NOTE | 2017-10-27 16:23 | Electrocardiograph Report ---
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
[2017-10-27] MEDS ORDERED: 0.9 % Sodium Chloride 250 ML ONE (18:37)
[2017-10-27] MEDS: *HR* OxyCODONE/APAP 5/325 TABLET PO PRN (18:41)
--- NOTE | 2017-10-27 19:55 | Anesthesia Evaluation PreOp ---
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 Urinary incontinence), Diabetes Type II (IDDM), Other (Prostate Ca s/p radiation) Anesthesia History: No Prior Anesthetic Complications, Past Anesthesia ([place]) Alcohol Use: none Drug use: none Medications and Allergies Diltiazem HCl [Tiazac] 360 mg PO DAILY 03/16/15 [History] Sotalol [Betapace] 120 mg PO Q12HR 03/16/15 [History] Ergocalciferol (VITAMIN D2) [Vitamin D] 400 unit PO DAILY 12/08/15 [History] Latanoprost [Xalatan] 1 drop OP DAILY 12/08/15 [History] Warfarin [Coumadin] 2 mg PO DAILY 12/08/15 [History] Ferrous Sulfate 325 mg PO TIDWM #90 tablet 12/10/15 [Rx] Furosemide [Lasix] 20 mg PO DAILY 10/26/17 [History] Glimepiride [Amaryl] 4 mg PO DAILY 10/26/17 [History] Insulin Glargine,Hum.rec.anlog [Basaglar Kwikpen U-100] 30 unit SQ HS 10/26/17 [ History] 3 Allergy/AdvReac Type Severity Reaction Status Date / Time Erythromycin Base Allergy Mild Rash Verified 10/26/17 14:08 - Meds/Allergy Pre-op Review Medications Reviewed: Yes Allergies Reviewed: Yes Beta Blockers on Current Med List: Yes (Sotalol) If Beta Blockers taken, Date/Time (Last Dose taken): 10/27/2017 @ 0843 Anesthesia Results - Labs 10/27/17 10:08 10/27/17 03:49 Laboratory Tests 08/20/17 10/26/17 10/26/17 14:08 12:39 14:30 WBC Hgb Hct Plt Count PT INR Sodium Potassium Chloride Carbon Dioxide BUN Creatinine Est GFR (Non-Af Amer) Glucose Est Mean Plasma Glucose 194 Hemoglobin A1c 8.4 H B-Natriuretic Peptide 604 H Stool Occult Bld Scrn Positive A 10/27/17 10/27/17 10/27/17 03:49 03:49 07:32 WBC 9.4 Hgb Hct Plt Count 482 H PT 31.8 H INR 2.8 Sodium 137 Potassium 3.7 Chloride 103 Carbon Dioxide 25 BUN 51 H Creatinine 3.99 H Est GFR (Non-Af Amer) 15 L Glucose 43 L Est Mean Plasma Glucose Hemoglobin A1c B-Natriuretic Peptide Stool Occult Bld Scrn 10/27/17 10:08 WBC Hgb 7.7 L Hct 24.3 L Plt Count PT INR Sodium Potassium Chloride Carbon Dioxide BUN Creatinine Est GFR (Non-Af Amer) Glucose Est Mean Plasma Glucose Hemoglobin A1c B-Natriuretic Peptide Stool Occult Bld Scrn Impressions Abdomen/Pelvis CT 10/26/17 12:10 IMPRESSION: Again identified is similar appearing moderate bilateral hydronephrosis, greater on the right as well as hydroureter, likely related to underlying ureteral strictures distally within the ureters or at the ureteral vesicular junction. A Lewis catheter is noted within a decompressed bladder. The appendix in the right lower quadrant measures 2 mm greater in dimension than on the previous examination, with mild increased stranding seen adjacent to the distal appendix. It measures 9.6 mm, previously measuring 7.4 mm. The mild stranding in the retroperitoneum is seen bilaterally, though appears minimally increased on the right when compared to the previous examination. This could be an incidental finding, though early acute appendicitis cannot be excluded. The base of the appendix is normal in caliber, and appears unchanged from the previous examination. Diverticulosis without acute diverticulitis. Other similar findings when compared to the previous examination as above. D/ / Camron Rea MD / Camron Rea MD Interpreting Provider: Camron Rea MD Chest X-Ray 10/26/17 12:12 IMPRESSION: 1. Mild bibasilar atelectasis. 2. No acute focal airspace consolidation. D/ / Oc Brock MD / Oc Brock MD Interpreting Provider: Oc Brock MD - Imaging EKG: image reviewed (78bpm - ELECTRONICAL ATRIAL PACING LEFT ANTERIOR FASCICULAR BLOCK LOW QRS IN THE PRECORDIAL LEADS Electronically Signed On 2017 16:21:59 EDT by Marifer James) Additional studies: ECHO 08/06/2017 EV/EV echocardiogram w enhance Impressions: Technically sub-optimal due to poor echocardiographic windows. Unable to determine LVEF due to poor windows. Definity given, but never visualized in the LV. Grossly, LVEF appears low normal. Mild concentric left ventricular hypertrophy. Right ventricle was not well visualized. Grossly, it is normal in size and function. Atypical septal motion consistent with paced rhythm. No evidence of pulmonary hypertension. No obvious significant valvular dysfunction. Anesthesia Exam Vital Signs Temp Pulse Resp BP Pulse Ox 10/27/17 19:37 98.3 F 71 71 104/61 91 10/27/17 19:20 98.2 F 90 16 109/67 97 10/27/17 16:12 98.1 F 71 16 103/67 97 10/27/17 11:52 97.7 F 76 16 113/71 98 10/27/17 07:16 97.9 F 70 18 111/71 94 10/27/17 04:46 97.8 F 69 16 115/73 100 10/27/17 01:38 97.7 F 74 15 99/61 96 10/26/17 21:15 95 10/26/17 20:40 98.1 F 70 18 111/74 95 Intake and Output 10/27/17 10/27/17 10/27/17 07:59 15:59 23:59 Intake Total 240 / 240 Output Total 400 / 400 1000 / 1000 Balance -390 / -390 -760 / -760 Intake: IV Fluids Maxipime 1,000 MG In Water for inj. (sterile) 10 ML @ 300 mls/ hr IVP Q12HR JOSETTE Rx#:[id number] Oral 240 / 240 Blood Product 0 / 0 Rbcs Leuko Poor As-1 Unit 0 / 0 [id number] Output: Catheter 400 / 400 1000 / 1000 2-way Urethral 400 / 400 Other: Meal Lunch Percent of Meal Consumed 100% Weight 117.9 kg Blood Glucose* 48 94 88 Patient Weight 10/27/17 23:59 Weight 117.9 kg Height: 5'11" Weight: 259# BMI = 36.3 - HEENT Pupil (Motor): Pupils equal, EOMI Mallampati: II Teeth: Edentulous Denture Type: Upper: Complete, Lower: Complete Oral Opening: Greater than 3 - RESIDENTIAL LIVING ASSISTANT LOC: Oriented RESIDENTIAL LIVING ASSISTANT Motor: Normal RUE, Normal LUE, Normal RLE, Normal LLE, Normal Face RESIDENTIAL LIVING ASSISTANT Sensory: Normal: RUE, LUE, RLE, LLE, Face - Cardiac Rhythm: Regular Murmur: None - Pulmonary Breath Sounds: bilateral Clear Respiratory Effort: Symmetrical Anesthesia Assess/Plan ASA Score: 3 Modified [place] Scale for Level of Consciousness: Cooperative, oriented, and tranquil Anesthetic Plan: General Monitoring Plan: Standard Monitors Recovery Plan: PACU Anes Supervising Prov Stmt: Pt seen/evaluated, R&B discussed, questions answered and consent obtained. Krish Hernandez MD
--- NOTE | 2017-10-27 20:32 | Internal Med Progress Note ---
Hospitalist Progress Note - Encounter Date of Encounter: 10/27/17 Time of Encounter: 11:16 - Subjective Interval History: Patient was seen and examined bedside. Denies new complaints. Breathing well. has urinary catheter which shows some more clear urine today. Doing bowel movement no blood in stool. He is ambulating with walker. - Exam Vitals: Temp Pulse Resp BP Pulse Ox 98.3 F 71 71 104/61 91 10/27/17 19:37 10/27/17 19:37 10/27/17 19:37 10/27/17 19:37 10/27/17 19:37 Exam: Gen - Awake, alert, oriented x 3, no acute distress HEENT - NCAT, PERRLA, EOMI, hearing grossly intact, oropharynx benign CV - RRR, normal S1 and S2, no M/R/G, no BLE edema Resp - Normal WOB, CTAB, no W/R/R GI - Soft, NT/ND, no masses, normal bowel sounds, no HSP Skin - Warm, dry, no rashes/lesions/ulcers Psych - Normal mood and affect, no depression or anxiety - Assessment and Plan (1) Supratherapeutic INR Current Visit: Yes Status: Acute Assessment and Plan: INR was 4.0 on admission. denies hematuria or active bleed. he is on coumadin for afib. Received one 2.5mg dose of vitamin k orally in ER. INR 1.5. Will resume coumadin if okay with GI. Hb stable at 8.3 (2) Ureter, stricture Current Visit: Yes Status: Acute Assessment and Plan: Ureteral strictures with hydronephrosis. Urology following and appreciate recs. Hold off on placing stents. Will reconsider if worsening renal function. Follow -up labs (3) Diabetes mellitus Current Visit: No Status: Chronic Assessment and Plan: hypoglycemic at time. No eating welll. Will decrease insulin levemir. (4) Acute renal failure Current Visit: Yes Status: Acute Assessment and Plan: Acute renal failure on CKD stage 3 likely 2/2 to hydronephrosis and strictures. Urology has been consulted. Pt has a history of CHF and pedal edema so will hold off on IV fluids at this time. lasix discontinued. (5) Complicated UTI (urinary tract infection) Current Visit: Yes Status: Acute Assessment and Plan: Persistent incontinence and recurrent UTIs s/p radiation therapy for prostate cancer. Urinalysis shows multiple WBCs and patient has dysuria. Continue cefepime. Previous urine cultures were positive for pseudomonas (6) Hydronephrosis Current Visit: Yes Status: Acute Assessment and Plan: urology following. Hold of stents and monitor renal function. (7) Congestive heart failure Current Visit: Yes Status: Acute Assessment and Plan: NO acute exacerbation. Will however hold lasix. LAst echo showed low normal LVEF (8) DVT prophylaxis Current Visit: Yes Status: Acute Assessment and Plan: On coumadin (9) Atrial fibrillation Current Visit: Yes Status: Acute Assessment and Plan: Rate controlled on cardizem. Warfarin held due to supratherapeutic INR (10) GI bleed Current Visit: Yes Status: Acute Assessment and Plan: Acute blood loss anemia r/o GI bleed. Patient denies any blood in stools or urine. But hemoglobin noted to be 7.3 from a baseline of 9.4 in August. c/w protonix 40mg IV BID. Hb stable. GI rec appreciated. - Time Spent with Patient Total time spent is greater than 50% in coordination of care (as documented) at patient's floor/unit and/or counseling patient: Internal Medicine: Result - Labs CBC & Chem 7: 10/28/17 00:35 10/27/17 03:49 Labs: Short CBC 10/27/17 10/27/17 Range/Units 03:49 10:08 WBC 9.4 (4.3-11.1) K/mcL Hgb 7.7 L 7.7 L (12.9-16.9) g/dL Hct 24.5 L 24.3 L (37.5-50.1) % Plt Count 482 H (140-400) K/mcL Neutrophils # 6.9 (1.6-8.9) K/mcL BMP 10/27/17 03:49 Sodium 137 Potassium 3.7 Chloride 103 Carbon Dioxide 25 BUN 51 H Creatinine 3.99 H Glucose 43 L Calcium 8.8 - ABG Interpretation ABG results: PT/INR, D-dimer PT 31.8 Seconds (9.4-12.1) H 10/27/17 07:32 Consult Discharge Plan - Plan Referrals: Elysia Sullivan BUTTON TUFTING MACHINE OPERATOR [Primary Care Provider] - (3) Diabetes mellitus Qualifiers: Diabetes mellitus type: type 2 Diabetes mellitus computer terminal operator insulin use: without retirement use Diabetes mellitus complication status: without complication Qualified Code(s): E11.9 - Type 2 diabetes mellitus without complications (4) Acute renal failure Qualifiers: Acute renal failure type: unspecified Qualified Code(s): N17.9 - Acute kidney failure, unspecified (6) Hydronephrosis Qualifiers: Hydronephrosis type: other Qualified Code(s): N13.39 - Other hydronephrosis (9) Atrial fibrillation Qualifiers: Atrial fibrillation type: unspecified Qualified Code(s): I48.91 - Unspecified atrial fibrillation
[2017-10-27] MEDS: Insulin DETEMIR 100 UNIT/ML X5UNITS SQ SCH (21:26)
[2017-10-28 01:15] LABS: Hematocrit 25.6 % (37.5-50.1); Hemoglobin 8.3 g/dL (12.9-16.9)
[2017-10-28] MEDS: *HR* OxyCODONE/APAP 5/325 TABLET PO PRN ×3 (03:42→22:17)
[2017-10-28] MEDS: Pantoprazole 40 MG VIAL IVP SCH (05:42)
[2017-10-28] MEDS: Cefepime HCl 1,000 MG in Water for inj. (sterile) 20 ML 10 ML IVP SCH ×2 (05:44→18:00)
[2017-10-28 07:31] LABS: INR 1.5; Prothrombin Time 16.9 Seconds (9.4-12.1)
[2017-10-28 08:55] LABS: Calcium 8.7 mg/dL (8.6-10.3); Potassium 3.9 mEq/L (3.5-5.1)
--- NOTE | 2017-10-28 09:09 | Internal Med Progress Note ---
Hospitalist Progress Note - Encounter Date of Encounter: 10/28/17 Time of Encounter: 09:08 - Subjective Interval History: Patient was seen and examined bedside. Denies new complaints. Breathing well. has urinary catheter which shows some more clear urine today. Doing bowel movement no blood in stool. He is ambulating with walker. - Exam Vitals: Temp Pulse Resp BP Pulse Ox 97.8 F 69 16 105/67 95 10/28/17 06:47 10/28/17 06:47 10/28/17 06:47 10/28/17 06:47 10/28/17 06:47 Exam: Gen - Awake, alert, oriented x 3, no acute distress HEENT - NCAT, PERRLA, EOMI, hearing grossly intact, oropharynx benign CV - RRR, normal S1 and S2, no M/R/G, no BLE edema Resp - Normal WOB, CTAB, no W/R/R GI - Soft, NT/ND, no masses, normal bowel sounds, no HSP Skin - Warm, dry, no rashes/lesions/ulcers Psych - Normal mood and affect, no depression or anxiety - Assessment and Plan (1) Supratherapeutic INR Current Visit: Yes Status: Acute Assessment and Plan: INR was 4.0 on admission. denies hematuria or active bleed. he is on coumadin for afib. Received one 2.5mg dose of vitamin k orally in ER. INR 1.5. Will resume coumadin if okay with GI. Hb stable at 8.3 (2) Ureter, stricture Current Visit: Yes Status: Acute Assessment and Plan: Ureteral strictures with hydronephrosis. Urology following and appreciate recs. Hold off on placing stents. Will reconsider if worsening renal function. Follow -up labs (3) Diabetes mellitus Current Visit: No Status: Chronic Assessment and Plan: hypoglycemic at time. No eating welll. Will decrease insulin levemir. (4) Acute renal failure Current Visit: Yes Status: Acute Assessment and Plan: Acute renal failure on CKD stage 3 likely 2/2 to hydronephrosis and strictures. Urology has been consulted. Pt has a history of CHF and pedal edema so will hold off on IV fluids at this time. lasix discontinued. (5) Complicated UTI (urinary tract infection) Current Visit: Yes Status: Acute Assessment and Plan: Urinalysis shows multiple WBCs and patient has dysuria. Continue cefepime. Previous urine cultures were positive for pseudomonas (6) Hydronephrosis Current Visit: Yes Status: Acute Assessment and Plan: urology following. Hold of stents and monitor renal function. (7) Congestive heart failure Current Visit: Yes Status: Acute Assessment and Plan: NO acute exacerbation. Will however hold lasix. LAst echo showed low normal LVEF (8) DVT prophylaxis Current Visit: Yes Status: Acute Assessment and Plan: On coumadin (9) Atrial fibrillation Current Visit: Yes Status: Acute Assessment and Plan: Rate controlled on cardizem. Warfarin held due to supratherapeutic INR (10) GI bleed Current Visit: Yes Status: Acute Assessment and Plan: Acute blood loss anemia r/o GI bleed. Patient denies any blood in stools or urine. But hemoglobin noted to be 7.3 from a baseline of 9.4 in August. c/w protonix 40mg IV BID. Hb stable. GI rec appreciated. - Time Spent with Patient Total time spent is greater than 50% in coordination of care (as documented) at patient's floor/unit and/or counseling patient: Internal Medicine: Result - Labs CBC & Chem 7: 10/28/17 00:35 10/28/17 07:43 Labs: Short CBC 10/27/17 10/28/17 Range/Units 10:08 00:35 Hgb 7.7 L 8.3 L (12.9-16.9) g/dL Hct 24.3 L 25.6 L (37.5-50.1) % BMP 10/28/17 07:43 Sodium 139 Potassium 3.9 Chloride 106 Carbon Dioxide 24 BUN 45 H Creatinine 3.64 H Glucose 50 L Calcium 8.7 - ABG Interpretation ABG results: PT/INR, D-dimer PT 16.9 Seconds (9.4-12.1) H 10/28/17 06:57 Consult Discharge Plan - Plan Referrals: Elysia Sulliavn, AREA DEVELOPMENT MANAGER [Primary Care Provider] - (3) Diabetes mellitus Qualifiers: Diabetes mellitus type: type 2 Diabetes mellitus termite control 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
[2017-10-28] MEDS: Diltiazem CD (24hr) 180 MG CAPSULE PO SCH (09:58)
[2017-10-28] MEDS: Cholecalciferol (D-3) 1,000 UNIT TABLET PO SCH (09:58)
[2017-10-28] MEDS: Insulin LISPRO 300 UNITS/3 ML VIAL SQ SCH ×3 (09:59→17:35)
[2017-10-28] MEDS: Latanoprost 2.5 ML BOTTLE BOTH EYES SCH (10:00)
--- NOTE | 2017-10-28 10:19 | Urology Progress Note ---
<Rivka Monroy N - Last Filed: 10/28/17 10:16> Date of Encounter: 10/28/17 Time of Encounter: 09:15 - Assessment and Plan (1) Hydronephrosis Current Visit: Yes Status: Acute Assessment and plan: Patient is a 77-year-old male who presents with bilateral hydronephrosis. Bilateral stent placement has been considered pending creatinine result. Creatinine has continued to trend downward, therefore we may proceed with a renal, bladder ultrasound to see if hydronephrosis is resolving. Qualifiers: Hydronephrosis type: other Qualified Code(s): N13.39 - Other hydronephrosis (2) Complicated UTI (urinary tract infection) Current Visit: Yes Status: Acute Assessment and plan: Patient is a 77-year-old male who presents with a urinary tract infection that is cultured for gram-negative rods. Final sensitivity report is pending. At this time, we will continue the indwelling Lewis catheter and await final culture results. Progress Note Subjective: no new complaints, feels better Narrative: Patient is a 77 year old male who presents with bilateral hydronephrosis. Patient states he is feeling better and has no new concerns. Tolerating normal diet. Blood sugar has been lower, thus causing him more lightheadedness. Patient denies discomfort or feeling of obstruction with catheter. Objective Initial Vital Signs Temp Pulse Resp BP Pulse Ox 98.6 F 73 16 116/70 97 10/26/17 11:47 10/26/17 11:47 10/26/17 11:47 10/26/17 11:47 10/26/17 11:47 - General physical appearance Present: well developed, no distress, no pain - Respiratory Present: normal expansion, normal respiratory effort - Abdomen Present: soft, non tender - Genitourinary Urine Appearance: Present: Clear - Integumentary Present: no rash, no abnormal pigmentation - Musculoskeletal Present: normal posture - Psychiatric Present: oriented to time, oriented to person, oriented to place, speech is normal, memory intact - Labs 10/28/17 00:35 10/28/17 07:43 Diabetes panel 10/28/17 Range/Units 07:43 Sodium 139 (136-145) mEq/L Potassium 3.9 (3.5-5.1) mEq/L Chloride 106 (98-107) mEq/L Carbon Dioxide 24 (23-29) mEq/L BUN 45 H (8-23) mg/dL Creatinine 3.64 H (0.70-1.30) mg/dL Glucose 50 L (70-105) mg/dL Calcium 8.7 (8.6-10.3) mg/dL Calcium panel 10/28/17 Range/Units 07:43 Calcium 8.7 (8.6-10.3) mg/dL Pituitary panel 10/28/17 Range/Units 07:43 Sodium 139 (136-145) mEq/L Potassium 3.9 (3.5-5.1) mEq/L Chloride 106 (98-107) mEq/L Carbon Dioxide 24 (23-29) mEq/L BUN 45 H (8-23) mg/dL Creatinine 3.64 H (0.70-1.30) mg/dL Glucose 50 L (70-105) mg/dL Calcium 8.7 (8.6-10.3) mg/dL Adrenal panel 10/28/17 Range/Units 07:43 Sodium 139 (136-145) mEq/L Potassium 3.9 (3.5-5.1) mEq/L Chloride 106 (98-107) mEq/L Carbon Dioxide 24 (23-29) mEq/L BUN 45 H (8-23) mg/dL Creatinine 3.64 H (0.70-1.30) mg/dL Glucose 50 L (70-105) mg/dL Calcium 8.7 (8.6-10.3) mg/dL Consult Discharge Plan - Plan Referrals: Elysia Sullivan CNP [Primary Care Provider] - <Umesh Andrew - Last Filed: 10/28/17 12:34> Date of Encounter: 10/28/17 - Assessment and Plan (1) Acute renal failure Current Visit: Yes Status: Acute Qualifiers: Acute renal failure type: unspecified Qualified Code(s): N17.9 - Acute kidney failure, unspecified (2) Dysuria Current Visit: Yes Status: Acute (3) Hydronephrosis Current Visit: Yes Status: Acute Assessment and plan: Attending addendum: Patient seen and examined with PA. Creatinine improves. Will hold off on stent placement at this time. Await final sensitivities for urine culture. Continue Lewis catheter. Urology will follow along. Qualifiers: Hydronephrosis type: other Qualified Code(s): N13.39 - Other hydronephrosis Objective Initial Vital Signs Temp Pulse Resp BP Pulse Ox 98.6 F 73 16 116/70 97 10/26/17 11:47 10/26/17 11:47 10/26/17 11:47 10/26/17 11:47 10/26/17 11:47 - Labs 10/28/17 00:35 10/28/17 07:43 Diabetes panel 10/28/17 Range/Units 07:43 Sodium 139 (136-145) mEq/L Potassium 3.9 (3.5-5.1) mEq/L Chloride 106 (98-107) mEq/L Carbon Dioxide 24 (23-29) mEq/L BUN 45 H (8-23) mg/dL Creatinine 3.64 H (0.70-1.30) mg/dL Glucose 50 L (70-105) mg/dL Calcium 8.7 (8.6-10.3) mg/dL Calcium panel 10/28/17 Range/Units 07:43 Calcium 8.7 (8.6-10.3) mg/dL Pituitary panel 10/28/17 Range/Units 07:43 Sodium 139 (136-145) mEq/L Potassium 3.9 (3.5-5.1) mEq/L Chloride 106 (98-107) mEq/L Carbon Dioxide 24 (23-29) mEq/L BUN 45 H (8-23) mg/dL Creatinine 3.64 H (0.70-1.30) mg/dL Glucose 50 L (70-105) mg/dL Calcium 8.7 (8.6-10.3) mg/dL Adrenal panel 10/28/17 Range/Units 07:43 Sodium 139 (136-145) mEq/L Potassium 3.9 (3.5-5.1) mEq/L Chloride 106 (98-107) mEq/L Carbon Dioxide 24 (23-29) mEq/L BUN 45 H (8-23) mg/dL Creatinine 3.64 H (0.70-1.30) mg/dL Glucose 50 L (70-105) mg/dL Calcium 8.7 (8.6-10.3) mg/dL
[2017-10-28] MEDS: Benzonatate 100 MG CAPSULE PO PRN ×2 (13:26→22:17)
[2017-10-28] MEDS ORDERED: *HR* Warfarin 4 MG TABLET PO ONE (18:00)
[2017-10-28] MEDS: Warfarin perPT PO SCH (18:00)
[2017-10-28] MEDS ORDERED: *HR* Warfarin 2 MG TABLET PO SCH (18:00)
[2017-10-28] MEDS: Insulin DETEMIR 100 UNIT/ML X5UNITS SQ SCH (20:56)
[2017-10-29] MEDS: Cefepime HCl 1,000 MG in Water for inj. (sterile) 20 ML 10 ML IVP SCH ×2 (05:20→17:16)
[2017-10-29 06:51] LABS: Basophils # 0.1 K/mcL (0.0-0.2); Basophils % 0.8 %; Eosinophils # 0.5 K/mcL (0.0-0.6); Eosinophils % 6.2 %; Hematocrit 25.8 % (37.5-50.1); Immature Granulocytes % 2.4 % (0-4); Lymphocytes # 0.9 K/mcL (0.6-4.6); Lymphocytes % 10.6 %; Mean Corpuscular Hemoglobin 27.8 pg (28.0-33.3); Mean Corpuscular Volume 89.6 fL (83.0-100.0); Mean Platelet Volume 9.5 fL (9.4-12.4); Monocytes # 0.8 K/mcL (0.0-1.3); Neutrophils # 5.9 K/mcL (1.6-8.9); Platelet Count 383 K/mcL (140-400); Red Blood Count 2.88 M/mcL (4.19-5.50); Red Cell Distribution Width 15.1 % (11.5-14.5)
[2017-10-29 07:00] LABS: INR 1.5; Prothrombin Time 16.7 Seconds (9.4-12.1)
[2017-10-29 07:09] LABS: Calcium 8.6 mg/dL (8.6-10.3); Potassium 3.9 mEq/L (3.5-5.1)
[2017-10-29] MEDS: Latanoprost 2.5 ML BOTTLE BOTH EYES SCH (08:15)
[2017-10-29] MEDS: Cholecalciferol (D-3) 1,000 UNIT TABLET PO SCH (08:15)
[2017-10-29] MEDS: Diltiazem CD (24hr) 180 MG CAPSULE PO SCH (08:15)
[2017-10-29] MEDS: Insulin LISPRO 300 UNITS/3 ML VIAL SQ SCH ×3 (08:15→17:15)
--- NOTE | 2017-10-29 08:58 | Urology Progress Note ---
Date of Encounter: 10/29/17 Time of Encounter: 08:56 - Assessment and Plan (1) Hydronephrosis Current Visit: Yes Status: Acute Assessment and plan: Patient is a 77 year old male who presents with bilateral hydronephrosis. Creatinine is consistently improving. Will hold on stent placement for now. Qualifiers: Hydronephrosis type: other Qualified Code(s): N13.39 - Other hydronephrosis (2) Complicated UTI (urinary tract infection) Current Visit: Yes Status: Acute Assessment and plan: Patient is a 77 year old male who presents with complicated urinary tract infection. Preliminary culture is sensitive for gram negative rods. Awaiting final sensitivity report. Progress Note Subjective: no new complaints, feels better Narrative: Patient is a 77 year old male who presents with bilateral hydronephrosis and complicated urinary tract infection. Patient is seen and examined sitting upright in bed with at bedside. Patient is tolerating normal diet. Urine output is sufficient. Patient states feeling much better, and his energy level is improving. Patient denies fever, chills, hematuria. Objective Initial Vital Signs Temp Pulse Resp BP Pulse Ox 98.6 F 73 16 116/70 97 10/26/17 11:47 10/26/17 11:47 10/26/17 11:47 10/26/17 11:47 10/26/17 11:47 - General physical appearance Present: well developed, well nourished, no distress, no pain - Respiratory Present: normal expansion, normal respiratory effort - Abdomen Present: soft, non tender - Genitourinary Urine Appearance: Present: Clear - Integumentary Present: no rash, no abnormal pigmentation - Musculoskeletal Present: normal posture - Psychiatric Present: oriented to time, oriented to person, oriented to place, speech is normal - Labs 10/29/17 05:45 10/29/17 05:45 Diabetes panel 10/29/17 Range/Units 05:45 Sodium 136 (136-145) mEq/L Potassium 3.9 (3.5-5.1) mEq/L Chloride 105 (98-107) mEq/L Carbon Dioxide 23 (23-29) mEq/L BUN 40 H (8-23) mg/dL Creatinine 3.27 H (0.70-1.30) mg/dL Glucose 190 H (70-105) mg/dL Calcium 8.6 (8.6-10.3) mg/dL Calcium panel 10/29/17 Range/Units 05:45 Calcium 8.6 (8.6-10.3) mg/dL Pituitary panel 10/29/17 Range/Units 05:45 Sodium 136 (136-145) mEq/L Potassium 3.9 (3.5-5.1) mEq/L Chloride 105 (98-107) mEq/L Carbon Dioxide 23 (23-29) mEq/L BUN 40 H (8-23) mg/dL Creatinine 3.27 H (0.70-1.30) mg/dL Glucose 190 H (70-105) mg/dL Calcium 8.6 (8.6-10.3) mg/dL Adrenal panel 10/29/17 Range/Units 05:45 Sodium 136 (136-145) mEq/L Potassium 3.9 (3.5-5.1) mEq/L Chloride 105 (98-107) mEq/L Carbon Dioxide 23 (23-29) mEq/L BUN 40 H (8-23) mg/dL Creatinine 3.27 H (0.70-1.30) mg/dL Glucose 190 H (70-105) mg/dL Calcium 8.6 (8.6-10.3) mg/dL Consult Discharge Plan - Plan Referrals: Elysia Sullivan CNP [Primary Care Provider] -
--- NOTE | 2017-10-29 09:03 | Internal Med Progress Note ---
Hospitalist Progress Note - Encounter Date of Encounter: 10/29/17 Time of Encounter: 11:12 - Subjective Interval History: Patient was seen and examined bedside. Denies new complaints. - Exam Vitals: Temp Pulse Resp BP Pulse Ox 97.7 F 73 16 111/74 98 10/29/17 06:54 10/29/17 06:54 10/29/17 06:54 10/29/17 06:54 10/29/17 07:53 Exam: Gen - Awake, alert, oriented x 3, no acute distress HEENT - NCAT, PERRLA, EOMI, hearing grossly intact, oropharynx benign CV - RRR, normal S1 and S2, no M/R/G, no BLE edema Resp - Normal WOB, CTAB, no W/R/R GI - Soft, NT/ND, no masses, normal bowel sounds, no HSP Skin - Warm, dry, no rashes/lesions/. DTI on buttocks Psych - Normal mood and affect, no depression or anxiety - Assessment and Plan (1) Supratherapeutic INR Current Visit: Yes Status: Acute Assessment and Plan: INR was 4.0 on admission. denies hematuria or active bleed. he is on coumadin for afib. Received one 2.5mg dose of vitamin k orally in ER. INR 1.5. coumadin resumed. Hb stable. Will monitor. (2) Ureter, stricture Current Visit: Yes Status: Acute Assessment and Plan: Ureteral strictures with hydronephrosis. Urology following and appreciate recs. - Hold off on placing stents. renal function improving. Continue bergman. (3) Diabetes mellitus Current Visit: No Status: Chronic Assessment and Plan: hypoglycemic at time. No eating welll. levemir dose decreased. Monitor BG. (4) Acute renal failure Current Visit: Yes Status: Acute Assessment and Plan: Acute renal failure on CKD stage 3 likely 2/2 to hydronephrosis and strictures. Pt has a history of CHF and pedal edema so will hold off on IV fluids at this time. lasix discontinued. - Improving renal function with indwelling bergman. (5) Complicated UTI (urinary tract infection) Current Visit: Yes Status: Acute Assessment and Plan: Urinalysis shows multiple WBCs and patient has dysuria. - Continue empiric cefepime. - urine growing gram negative rods. Previous urine cultures were positive for pseudomonas (6) Hydronephrosis Current Visit: Yes Status: Acute Assessment and Plan: urology following. Hold of stents as renal function improving. continue bergman (7) Congestive heart failure Current Visit: Yes Status: Acute Assessment and Plan: NO acute exacerbation. Will however hold lasix. LAst echo showed low normal LVEF (8) DVT prophylaxis Current Visit: Yes Status: Acute Assessment and Plan: On coumadin (9) Atrial fibrillation Current Visit: Yes Status: Acute Assessment and Plan: Rate controlled on cardizem. Warfarin held due to supratherapeutic INR. Now resumed. (10) GI bleed Current Visit: Yes Status: Acute Assessment and Plan: Acute blood loss anemia r/o GI bleed. Patient denies any blood in stools or urine. But hemoglobin noted to be 7.3 from a baseline of 9.4 in August. c/w protonix 40mg IV BID. Hb stable. Patient want to EGD/Colosocopy as outpatient as outpatient. If hemoglobin drops further GI will reconsider scoping. (11) Debility Current Visit: Yes Status: Acute Assessment and Plan: Patient appears significantly weak, however denies palpable physical therapy. Unclear current level of strength. The last social services counselor consult to the patient in order to figure out what is except removed to plan for discharge. DVT Prophylaxis: On coumdin - Time Spent with Patient Total time spent is greater than 50% in coordination of care (as documented) at patient's floor/unit and/or counseling patient: Internal Medicine: Result - Labs CBC & Chem 7: 10/29/17 05:45 10/29/17 05:45 Labs: Short CBC 10/29/17 Range/Units 05:45 WBC 8.3 (4.3-11.1) K/mcL Hgb 8.0 L (12.9-16.9) g/dL Hct 25.8 L (37.5-50.1) % Plt Count 383 (140-400) K/mcL Neutrophils # 5.9 (1.6-8.9) K/mcL BMP 10/29/17 05:45 Sodium 136 Potassium 3.9 Chloride 105 Carbon Dioxide 23 BUN 40 H Creatinine 3.27 H Glucose 190 H Calcium 8.6 - ABG Interpretation ABG results: PT/INR, D-dimer PT 16.7 Seconds (9.4-12.1) H 10/29/17 05:45 Consult Discharge Plan - Plan Referrals: Elysia Sullivan, [employer] [employer] [Primary Care Provider] - (3) Diabetes mellitus Qualifiers: Diabetes mellitus type: type 2 Diabetes mellitus buttermaker insulin use: without buttermaker use Diabetes mellitus complication status: without complication Qualified Code(s): E11.9 - Type 2 diabetes mellitus without complications (4) Acute renal failure Qualifiers: Acute renal failure type: unspecified Qualified Code(s): N17.9 - Acute kidney failure, unspecified (6) Hydronephrosis Qualifiers: Hydronephrosis type: other Qualified Code(s): N13.39 - Other hydronephrosis (9) Atrial fibrillation Qualifiers: Atrial fibrillation type: unspecified Qualified Code(s): I48.91 - Unspecified atrial fibrillation
[2017-10-29] MEDS: Benzonatate 100 MG CAPSULE PO PRN (12:04)
[2017-10-29] MEDS: Warfarin perPT PO SCH (17:16)
[2017-10-29] MEDS ORDERED: *HR* Warfarin 2 MG TABLET PO ONE (18:00)
[2017-10-29] MEDS: Insulin DETEMIR 100 UNIT/ML X5UNITS SQ SCH (20:34)
[2017-10-30 05:39] LABS: INR 1.8; Prothrombin Time 19.8 Seconds (9.4-12.1)
[2017-10-30] MEDS: Cefepime HCl 1,000 MG in Water for inj. (sterile) 20 ML 10 ML IVP SCH ×2 (06:29→17:00)
[2017-10-30] MEDS ORDERED: Warfarin perPT PO PRN (07:45)
[2017-10-30] MEDS: Diltiazem CD (24hr) 180 MG CAPSULE PO SCH (07:48)
[2017-10-30] MEDS: Cholecalciferol (D-3) 1,000 UNIT TABLET PO SCH (07:48)
[2017-10-30] MEDS: Insulin LISPRO 300 UNITS/3 ML VIAL SQ SCH ×3 (07:48→17:00)
[2017-10-30] MEDS: Latanoprost 2.5 ML BOTTLE BOTH EYES SCH (07:51)
--- NOTE | 2017-10-30 10:08 | Internal Med Progress Note ---
Hospitalist Progress Note - Encounter Date of Encounter: 10/30/17 Time of Encounter: 10:07 - Subjective Interval History: Patient was seen and examined bedside. Denies new complaints. Sitting in chair. ambulating somewhat with walker - Exam Vitals: Temp Pulse Resp BP Pulse Ox 98.1 F 75 16 121/73 97 10/30/17 07:02 10/30/17 07:02 10/30/17 07:02 10/30/17 07:02 10/30/17 07:02 Exam: Gen - Awake, alert, oriented x 3, no acute distress HEENT - NCAT, PERRLA, EOMI, hearing grossly intact, oropharynx benign CV - RRR, normal S1 and S2, no M/R/G, no BLE edema Resp - Normal WOB, CTAB, no W/R/R GI - Soft, NT/ND, no masses, normal bowel sounds, no HSP Skin - Warm, dry, no rashes/lesions/. DTI on buttocks. Lichenification on the legs Psych - Normal mood and affect, no depression or anxiety - Assessment and Plan (1) Acute renal failure Current Visit: Yes Status: Acute Assessment and Plan: - Acute renal failure on CKD stage 3 likely 2/2 to hydronephrosis and strictures. - Pt has a history of CHF and is on lasix at home. Currently Lasix is discontinued. - Improving renal function with indwelling bergman. (2) Supratherapeutic INR Current Visit: Yes Status: Acute Assessment and Plan: INR was 4.0 on admission. denies hematuria or active bleed. he is on coumadin for afib. Received one 2.5mg dose of vitamin k orally in ER. - coumadin resumed. - Hb was stable. Will monitor. (3) Ureter, stricture Current Visit: Yes Status: Acute Assessment and Plan: - Ureteral strictures with hydronephrosis. Urology following and appreciate recs. - Hold off on placing stents. renal function improving. Continue bergman on DC. (4) Diabetes mellitus Current Visit: No Status: Chronic Assessment and Plan: - hypoglycemic occasionally previously. Levemir was decreased. Now BG slighlty elevated. - eating well now. - levemir dose increased to 20. Monitor BG. (5) Complicated UTI (urinary tract infection) Current Visit: Yes Status: Acute Assessment and Plan: - Urinalysis shows multiple WBCs and patient has dysuria. - Continue empiric cefepime. - urine growing gram negative rods. Previous urine cultures on previous admissions were positive for pseudomonas. Waiting final culture and sensitivity - May need PICC line placement based on C&S (6) Hydronephrosis Current Visit: Yes Status: Acute Assessment and Plan: - urology following. - Hold of stents as renal function improving. - continue bergman (7) Congestive heart failure Current Visit: Yes Status: Acute Assessment and Plan: - NO acute exacerbation. - Holding lasix due to EDIS. LAst echo showed low normal LVEF (8) DVT prophylaxis Current Visit: Yes Status: Acute Assessment and Plan: On coumadin (9) Atrial fibrillation Current Visit: Yes Status: Acute Assessment and Plan: -Rate controlled on cardizem. - Warfarin held due to supratherapeutic INR. Now resumed. (10) GI bleed Current Visit: Yes Status: Acute Assessment and Plan: - Acute blood loss anemia r/o GI bleed. Patient denies any blood in stools or urine. But hemoglobin noted to be 7.3 from a baseline of 9.4 in August. - PPI changed to PO. Hb stable. - Patient want to EGD/Colosocopy as outpatient. If hemoglobin drops further GI will reconsider scoping. GI onboard. (11) Debility Current Visit: Yes Status: Acute Assessment and Plan: -Patient appears significantly weak, however denies physical therapy. - Patient want to go home. DVT Prophylaxis: On coumdin - Time Spent with Patient Total time spent is greater than 50% in coordination of care (as documented) at patient's floor/unit and/or counseling patient: Internal Medicine: Result - Labs CBC & Chem 7: 10/29/17 05:45 10/29/17 05:45 - ABG Interpretation ABG results: PT/INR, D-dimer PT 19.8 Seconds (9.4-12.1) H 10/30/17 04:32 Consult Discharge Plan - Plan Referrals: Elysia Sullivan CNP [Primary Care Provider] - 11/06/17 9:00 am (Please follow up as schedule...) (1) Acute renal failure Qualifiers: Acute renal failure type: unspecified Qualified Code(s): N17.9 - Acute kidney failure, unspecified (4) Diabetes mellitus Qualifiers: Diabetes mellitus type: type 2 Diabetes mellitus jail insulin use: without jail use Diabetes mellitus complication status: without complication Qualified Code(s): E11.9 - Type 2 diabetes mellitus without complications (6) Hydronephrosis Qualifiers: Hydronephrosis type: other Qualified Code(s): N13.39 - Other hydronephrosis (9) Atrial fibrillation Qualifiers: Atrial fibrillation type: unspecified Qualified Code(s): I48.91 - Unspecified atrial fibrillation
[2017-10-30] MEDS ORDERED: *HR* Warfarin 2 MG TABLET PO ONE (18:00)
[2017-10-30] MEDS: Insulin DETEMIR 100 UNIT/ML X5UNITS SQ SCH (22:27)
[2017-10-31] MEDS: Cefepime HCl 1,000 MG in Water for inj. (sterile) 20 ML 10 ML IVP SCH (05:44)
[2017-10-31 05:51] LABS: Prothrombin Time 22.9 Seconds (9.4-12.1)
[2017-10-31] MEDS: Cholecalciferol (D-3) 1,000 UNIT TABLET PO SCH (07:56)
[2017-10-31] MEDS: Latanoprost 2.5 ML BOTTLE BOTH EYES SCH (07:56)
[2017-10-31] MEDS: Diltiazem CD (24hr) 180 MG CAPSULE PO SCH (07:56)
[2017-10-31] MEDS: Insulin LISPRO 300 UNITS/3 ML VIAL SQ SCH ×3 (08:20→16:51)
--- NOTE | 2017-10-31 09:25 | Internal Med Progress Note ---
Hospitalist Progress Note - Encounter Date of Encounter: 10/31/17 Time of Encounter: 09:18 - Subjective Interval History: Patient was seen and examined bedside. Denies new complaints. Sitting in chair. ambulating with walker by himself. Does not want to see PT. - Exam Vitals: Temp Pulse Resp BP Pulse Ox 98.9 F 75 16 119/72 98 10/31/17 08:08 10/31/17 08:08 10/31/17 08:08 10/31/17 08:08 10/31/17 08:08 Exam: Gen - Awake, alert, oriented x 3, no acute distress HEENT - NCAT, PERRLA, EOMI, hearing grossly intact, oropharynx benign CV - RRR, normal S1 and S2, no M/R/G, no BLE edema Resp - Normal WOB, CTAB, no W/R/R GI - Soft, NT/ND, no masses, normal bowel sounds, no HSP Skin - Warm, dry, no rashes/lesions/. DTI on buttocks. Lichenification on the legs Psych - Normal mood and affect, no depression or anxiety - Assessment and Plan (1) Complicated UTI (urinary tract infection) Current Visit: Yes Status: Acute Assessment and Plan: - Urinalysis shows multiple WBCs and patient has dysuria. - Continue empiric cefepime. - urine growing gram negative rods. Previous urine cultures on previous admissions were positive for pseudomonas. Waiting final culture and sensitivity - May need PICC line placement based on C&S (2) Acute renal failure Current Visit: Yes Status: Acute Assessment and Plan: - Acute renal failure on CKD stage 3 likely 2/2 to hydronephrosis and strictures. - Pt has a history of CHF and is on lasix at home. Currently Lasix is discontinued. - Improving renal function with indwelling bergman. (3) Supratherapeutic INR Current Visit: Yes Status: Acute Assessment and Plan: INR was 4.0 on admission. denies hematuria or active bleed. he is on coumadin for afib. Received one 2.5mg dose of vitamin k orally in ER. - coumadin resumed. - Hb was stable. Will monitor. (4) Ureter, stricture Current Visit: Yes Status: Acute Assessment and Plan: - Ureteral strictures with hydronephrosis. Urology following and appreciate recs. - Hold off on placing stents. renal function improving. Continue bergman on DC. (5) Diabetes mellitus Current Visit: No Status: Chronic Assessment and Plan: - hypoglycemic occasionally previously. Levemir was decreased. Now BG slighlty elevated. - eating well now. - levemir dose increased to 20. Monitor BG. (6) Hydronephrosis Current Visit: Yes Status: Acute Assessment and Plan: - urology on case. - Hold of stents as renal function improving. - continue bergman (7) Congestive heart failure Current Visit: Yes Status: Acute Assessment and Plan: - NO acute exacerbation. - Holding lasix due to EDIS. LAst echo showed low normal LVEF (8) DVT prophylaxis Current Visit: Yes Status: Acute Assessment and Plan: On coumadin (9) Atrial fibrillation Current Visit: Yes Status: Acute Assessment and Plan: -Rate controlled on cardizem. - Warfarin held due to supratherapeutic INR. Now resumed. (10) GI bleed Current Visit: Yes Status: Acute Assessment and Plan: - Acute blood loss anemia r/o GI bleed. Patient denies any blood in stools or urine. But hemoglobin noted to be 7.3 from a baseline of 9.4 in August. - PPI changed to PO. Hb stable. - Patient want to EGD/Colosocopy as outpatient. If hemoglobin drops further GI will reconsider scoping. GI onboard. (11) Debility Current Visit: Yes Status: Acute - Time Spent with Patient Total time spent is greater than 50% in coordination of care (as documented) at patient's floor/unit and/or counseling patient: 25 - 35 minutes Internal Medicine: Result - Labs CBC & Chem 7: 10/29/17 05:45 10/29/17 05:45 - ABG Interpretation ABG results: PT/INR, D-dimer PT 22.9 Seconds (9.4-12.1) H 10/31/17 05:08 Consult Discharge Plan - Plan Referrals: Elysia Sullivan CNP [Primary Care Provider] - 11/06/17 9:00 am (Please follow up as schedule...) (2) Acute renal failure Qualifiers: Acute renal failure type: unspecified Qualified Code(s): N17.9 - Acute kidney failure, unspecified (5) Diabetes mellitus Qualifiers: Diabetes mellitus type: type 2 Diabetes mellitus senior living insulin use: without senior living use Diabetes mellitus complication status: without complication Qualified Code(s): E11.9 - Type 2 diabetes mellitus without complications (6) Hydronephrosis Qualifiers: Hydronephrosis type: other Qualified Code(s): N13.39 - Other hydronephrosis (9) Atrial fibrillation Qualifiers: Atrial fibrillation type: unspecified Qualified Code(s): I48.91 - Unspecified atrial fibrillation
[2017-10-31] MEDS ORDERED: *HR* Warfarin 2 MG TABLET PO ONE (18:00)
[2017-10-31] MEDS: Insulin DETEMIR 100 UNIT/ML X5UNITS SQ SCH (20:22)
[2017-11-01 05:18] LABS: Prothrombin Time 22.3 Seconds (9.4-12.1)
[2017-11-01] MEDS: Cefepime HCl 1,000 MG in Water for inj. (sterile) 20 ML 10 ML IVP SCH (05:20)
[2017-11-01] MEDS: Diltiazem CD (24hr) 180 MG CAPSULE PO SCH (08:31)
[2017-11-01] MEDS: Latanoprost 2.5 ML BOTTLE BOTH EYES SCH (08:31)
[2017-11-01] MEDS: Cholecalciferol (D-3) 1,000 UNIT TABLET PO SCH (08:31)
[2017-11-01] MEDS: Insulin LISPRO 300 UNITS/3 ML VIAL SQ SCH ×3 (08:31→17:15)
[2017-11-01] MEDS ORDERED: Insulin DETEMIR 100 UNIT/ML X5UNITS SQ SCH (10:30)
--- NOTE | 2017-11-01 10:36 | Internal Med Progress Note ---
Hospitalist Progress Note - Encounter Date of Encounter: 11/01/17 Time of Encounter: 08:16 - Subjective Interval History: Patient was seen and examined bedside. Denies new complaints. Sitting in chair. - Exam Vitals: Temp Pulse Resp BP Pulse Ox 97.6 F 75 18 127/79 97 11/01/17 07:29 11/01/17 07:29 11/01/17 07:29 11/01/17 07:29 11/01/17 07:29 Exam: Gen - Awake, alert, oriented x 3, no acute distress HEENT - NCAT, PERRLA, EOMI, hearing grossly intact, oropharynx benign CV - RRR, normal S1 and S2, no M/R/G, no BLE edema Resp - Normal WOB, CTAB, no W/R/R GI - Soft, NT/ND, no masses, normal bowel sounds, no HSP Skin - Warm, dry, no rashes/lesions/. DTI on buttocks. Lichenification on the legs Psych - Normal mood and affect, no depression or anxiety - Assessment and Plan (1) Complicated UTI (urinary tract infection) Current Visit: Yes Status: Acute (2) Acute renal failure Current Visit: Yes Status: Acute (3) Supratherapeutic INR Current Visit: Yes Status: Acute (4) Ureter, stricture Current Visit: Yes Status: Acute (5) Diabetes mellitus Current Visit: No Status: Chronic (6) Hydronephrosis Current Visit: Yes Status: Acute (7) Congestive heart failure Current Visit: Yes Status: Acute (8) DVT prophylaxis Current Visit: Yes Status: Acute (9) Atrial fibrillation Current Visit: Yes Status: Acute (10) GI bleed Current Visit: Yes Status: Acute (11) Debility Current Visit: Yes Status: Acute - Summary of Assessment and Plan Summary of Assessment and Plan: Acute renal failure - Acute renal failure on CKD stage 3 likely 2/2 to hydronephrosis and strictures. - Pt has a history of CHF and is on lasix at home. Currently Lasix is discontinued. - Improving renal function with indwelling bergman. Bilateral Hydronephrosis - urology following. - Hold of stents as renal function improving. - continue Bergman - f/u labs tomorrow. Complicated UTI - Urinalysis shows multiple WBCs and patient has dysuria. - Continue empiric cefepime. - urine growing gram negative rods. Previous urine cultures on previous admissions were positive for pseudomonas. Waiting final culture and sensitivity - May need PICC line placement based on C&S Ureter, stricture - Ureteral strictures with hydronephrosis. Urology following and appreciate recs. - Hold off on placing stents. renal function improving. Continue bergman on DC. Supratherapeutic INR - INR was 4.0 on admission. No hematuria or active bleed. - On coumadin for afib. Received one 2.5mg dose of vitamin k orally in ER. Initially held - coumadin now resumed and bridged with coumadin. INR now therapeutic. - Hb stable. Will monitor. - f/u labs tomorrow. Diabetes mellitus - hypoglycemic occasionally previously. Levemir was decreased. Now BG slighlty elevated. - eating well now. - levemir dose increased to 25 today. Monitor BG. Congestive heart failure - NO acute exacerbation. - Holding lasix due to EDIS. LAst echo showed low normal LVEF Atrial fibrillation -Rate controlled on cardizem. - Warfarin held due to supratherapeutic INR. Now resumed. GI bleed - Acute blood loss anemia r/o GI bleed. Stool occult positive. Initial Hb 7.3 from a baseline of 9.4 in August. - PPI changed to PO. Hb stable. - Patient wants to do EGD/Colosocopy as outpatient. If hemoglobin drops further GI will reconsider scoping. GI onboard. Debility - Patient appears significantly weak, however denies physical therapy. - Patient want to go home. DVT Prophylaxis: On coumdin Regular diet Awaiting culture and sensitivity for disposition. - Time Spent with Patient Total time spent is greater than 50% in coordination of care (as documented) at patient's floor/unit and/or counseling patient: Internal Medicine: Result - Labs CBC & Chem 7: 10/29/17 05:45 10/29/17 05:45 - ABG Interpretation ABG results: PT/INR, D-dimer PT 22.3 Seconds (9.4-12.1) H 11/01/17 04:55 Consult Discharge Plan - Plan Referrals: Elysia Sullivan CNP [Primary Care Provider] - 11/06/17 9:00 am (Please follow up as schedule...) (2) Acute renal failure Qualifiers: Acute renal failure type: unspecified Qualified Code(s): N17.9 - Acute kidney failure, unspecified (5) Diabetes mellitus Qualifiers: Diabetes mellitus type: type 2 Diabetes mellitus detention insulin use: without long term care administrator use Diabetes mellitus complication status: without complication Qualified Code(s): E11.9 - Type 2 diabetes mellitus without complications (6) Hydronephrosis Qualifiers: Hydronephrosis type: other Qualified Code(s): N13.39 - Other hydronephrosis (9) Atrial fibrillation Qualifiers: Atrial fibrillation type: unspecified Qualified Code(s): I48.91 - Unspecified atrial fibrillation
[2017-11-01] MEDS ORDERED: *HR* Warfarin 2 MG TABLET PO ONE (18:00)
[2017-11-02] MEDS: Cefepime HCl 1,000 MG in Water for inj. (sterile) 20 ML 10 ML IVP SCH (05:41)
[2017-11-02 06:21] LABS: Basophils # 0.1 K/mcL (0.0-0.2); Basophils % 0.6 %; Eosinophils # 0.5 K/mcL (0.0-0.6); Hematocrit 27.1 % (37.5-50.1); Hemoglobin 8.5 g/dL (12.9-16.9); Immature Granulocytes % 3.9 % (0-4); Lymphocytes # 1.4 K/mcL (0.6-4.6); Lymphocytes % 12.8 %; Mean Corpuscular HGB Conc 31.4 g/dL (31.6-35.5); Mean Corpuscular Hemoglobin 28.6 pg (28.0-33.3); Mean Corpuscular Volume 91.2 fL (83.0-100.0); Mean Platelet Volume 9.5 fL (9.4-12.4); Monocytes # 0.7 K/mcL (0.0-1.3); Monocytes % 6.6 %; Neutrophils # 7.5 K/mcL (1.6-8.9); Platelet Count 372 K/mcL (140-400); Red Blood Count 2.97 M/mcL (4.19-5.50); Red Cell Distribution Width 15.3 % (11.5-14.5); Segmented Neutrophils % 71.1 %
[2017-11-02 06:39] LABS: Calcium 8.6 mg/dL (8.6-10.3)
[2017-11-02] MEDS: Insulin LISPRO 300 UNITS/3 ML VIAL SQ SCH ×3 (09:22→17:27)
[2017-11-02] MEDS: Diltiazem CD (24hr) 180 MG CAPSULE PO SCH (09:24)
[2017-11-02] MEDS: Cholecalciferol (D-3) 1,000 UNIT TABLET PO SCH (09:24)
[2017-11-02] MEDS: Latanoprost 2.5 ML BOTTLE BOTH EYES SCH (09:24)
--- NOTE | 2017-11-02 10:16 | Internal Med Progress Note ---
Hospitalist Progress Note - Encounter Date of Encounter: 11/02/17 Time of Encounter: 10:38 - Subjective Interval History: Patient was seen and examined bedside. Denies new complaints. Sitting in chair. - Exam Vitals: Temp Pulse Resp BP Pulse Ox 97.9 F 75 18 143/80 97 11/02/17 07:50 11/02/17 07:50 11/02/17 07:50 11/02/17 07:50 11/02/17 07:50 Exam: Gen - Awake, alert, oriented x 3, no acute distress HEENT - NCAT, PERRLA, EOMI, hearing grossly intact, oropharynx benign CV - RRR, normal S1 and S2, no M/R/G, no BLE edema Resp - Normal WOB, CTAB, no W/R/R GI - Soft, NT/ND, no masses, normal bowel sounds, no HSP Skin - Warm, dry, no rashes/lesions/. DTI on buttocks. Lichenification on the legs Psych - Normal mood and affect, no depression or anxiety - Assessment and Plan (1) Complicated UTI (urinary tract infection) Current Visit: Yes Status: Acute (2) Acute renal failure Current Visit: Yes Status: Acute (3) Supratherapeutic INR Current Visit: Yes Status: Acute (4) Ureter, stricture Current Visit: Yes Status: Acute (5) Diabetes mellitus Current Visit: No Status: Chronic (6) Hydronephrosis Current Visit: Yes Status: Acute (7) Congestive heart failure Current Visit: Yes Status: Acute (8) DVT prophylaxis Current Visit: Yes Status: Acute (9) Atrial fibrillation Current Visit: Yes Status: Acute (10) GI bleed Current Visit: Yes Status: Acute (11) Debility Current Visit: Yes Status: Acute - Summary of Assessment and Plan Summary of Assessment and Plan: Acute renal failure - Acute renal failure on CKD stage 3 likely 2/2 to hydronephrosis and strictures. - Pt has a history of CHF and is on lasix at home. Currently Lasix is discontinued. - Improving renal function with indwelling bergman. Bilateral Hydronephrosis - urology following. - Hold of stents as renal function improving. - continue Bergman - Renal function improving. Complicated UTI - Urinalysis shows multiple WBCs and patient has dysuria. - Culture growing Psuedomonas sensitive to Cefepime - Will need PICC line for 7 days of antibiotic treatment. Ureter, stricture - Ureteral strictures with hydronephrosis. Urology following and appreciate recs. - Hold off on placing stents. renal function improving. Continue bergman on DC. Supratherapeutic INR - INR was 4.0 on admission. No hematuria or active bleed. - On coumadin for afib. Received one 2.5mg dose of vitamin k orally in ER. Initially held - coumadin now resumed and bridged with coumadin. INR now therapeutic. - Hb stable. Will monitor. - f/u labs tomorrow. Diabetes mellitus - hypoglycemic occasionally previously. Levemir was decreased. Now BG slighlty elevated. - eating well now. - levemir dose increased to 25 today. Monitor BG. Congestive heart failure - NO acute exacerbation. - Holding lasix due to EDIS. LAst echo showed low normal LVEF Atrial fibrillation - Rate controlled on cardizem. - Warfarin held due to supratherapeutic INR. Now resumed. GI bleed - Acute blood loss anemia r/o GI bleed. Stool occult positive. Initial Hb 7.3 from a baseline of 9.4 in August. - PPI changed to PO. Hb stable. - Patient wants to do EGD/Colosocopy as outpatient. If hemoglobin drops further GI will reconsider scoping. GI onboard. Debility - Patient appears significantly weak, however denies physical therapy. - Patient want to go home. DVT Prophylaxis: On coumdin Regular diet Plan for picc line and DC with 7 days of iv abx. - Time Spent with Patient Total time spent is greater than 50% in coordination of care (as documented) at patient's floor/unit and/or counseling patient: Internal Medicine: Result - Labs CBC & Chem 7: 11/02/17 05:38 11/02/17 05:38 Labs: Short CBC 11/02/17 Range/Units 05:38 WBC 10.6 (4.3-11.1) K/mcL Hgb 8.5 L (12.9-16.9) g/dL Hct 27.1 L (37.5-50.1) % Plt Count 372 (140-400) K/mcL Neutrophils # 7.5 (1.6-8.9) K/mcL BMP 11/02/17 05:38 Sodium 138 Potassium 4.0 Chloride 108 H Carbon Dioxide 23 BUN 40 H Creatinine 2.30 H Glucose 174 H Calcium 8.6 - ABG Interpretation ABG results: PT/INR, D-dimer PT 22.0 Seconds (9.4-12.1) H 11/02/17 05:38 Consult Discharge Plan - Plan Referrals: Elysia Sullivan CNP [Primary Care Provider] - 11/06/17 9:00 am (Please follow up as schedule...) (2) Acute renal failure Qualifiers: Acute renal failure type: unspecified Qualified Code(s): N17.9 - Acute kidney failure, unspecified (5) Diabetes mellitus Qualifiers: Diabetes mellitus type: type 2 Diabetes mellitus intermediate school teacher insulin use: without intermediate school teacher use Diabetes mellitus complication status: without complication Qualified Code(s): E11.9 - Type 2 diabetes mellitus without complications (6) Hydronephrosis Qualifiers: Hydronephrosis type: other Qualified Code(s): N13.39 - Other hydronephrosis (9) Atrial fibrillation Qualifiers: Atrial fibrillation type: unspecified Qualified Code(s): I48.91 - Unspecified atrial fibrillation
[2017-11-02 15:14] VITALS: BP 125/76
--- NOTE | 2017-11-02 16:13 | Discharge Summary ---
- NOTES TO OUTPATIENT PROVIDER Notes to Outpatient Provider: On known IV cefepime. We will need to monitor renal function. We will also need EGD/colonoscopy for possible slow GI bleeding. We will need to follow with urology. Will have indwelling Lewis until then. Orders not resulted at time of discharge: Pending orders 11/03/17 04:00 PT/INR [Prothrombin Time INR] [COAG] AM 0400 11/04/17 04:00 PT/INR [Prothrombin Time INR] [COAG] AM 0400 11/05/17 04:00 PT/INR [Prothrombin Time INR] [COAG] AM 0400 Date of Encounter: 11/02/17 Time of Encounter: 16:10 - Discharge Diagnosis (1) Complicated UTI (urinary tract infection) Priority: Primary Status: Acute (2) Acute renal failure Priority: Primary Status: Acute Qualifiers: Acute renal failure type: unspecified Qualified Code(s): N17.9 - Acute kidney failure, unspecified (3) Supratherapeutic INR Priority: Primary Status: Acute (4) Ureter, stricture Priority: Primary Status: Acute (5) Diabetes mellitus Priority: Secondary Status: Chronic Qualifiers: Diabetes mellitus type: type 2 Diabetes mellitus longterm insulin use: without longterm use Diabetes mellitus complication status: without complication Qualified Code(s): E11.9 - Type 2 diabetes mellitus without complications (6) Hydronephrosis Priority: Primary Status: Acute Qualifiers: Hydronephrosis type: other Qualified Code(s): N13.39 - Other hydronephrosis (7) Congestive heart failure Priority: Secondary Status: Acute Qualifiers: Qualified Code(s): I50.9 - Heart failure, unspecified (8) DVT prophylaxis Priority: Secondary Status: Acute (9) Atrial fibrillation Priority: Secondary Status: Acute Qualifiers: Atrial fibrillation type: unspecified Qualified Code(s): I48.91 - Unspecified atrial fibrillation (10) GI bleed Priority: Secondary Status: Acute Qualifiers: Qualified Code(s): K92.2 - Gastrointestinal hemorrhage, unspecified (11) Debility Priority: Secondary Status: Acute Hospital course: Mr. Rojas is a 77 year old male with past medical history of prostate cancer status post radiation, hypertension, diabetes, CHF, security stage III, A. fib was admitted and treated for complicated UTI with cefepime. Patient also had supratherapeutic INR for which Coumadin was held initially and later on resumed. Patient also had a worsening renal function which resolved after placement of Lewis catheter gradually. Urology followed the patient. No stenting was done. Cultures grew pseudomonas aeruginosa sensitive to cefepime. Patient also had positive stool occult blood, and GI was consulted, however she did not wanted to undergo EGD or colonoscopy and would like to do as outpatient. His Lasix were held due to ARF. His renal function is gradually getting better. Patient will be discharged home with IV cefepime for 8 more days. We will need to follow up for renal function monitoring, EGD/ colonoscopy and with the urology for definitive management of urethral strictures. . Discharge discussed with: patient, family, nurse, social work, case management - Time Spent with Patient Total time spent providing and/or coordinating discharge services: Greater than 30 minutes - Discharge Medications Home Medications: Diltiazem HCl [Tiazac] 360 mg PO DAILY 03/16/15 [History] Sotalol [Betapace] 120 mg PO Q12HR 03/16/15 [History] Ergocalciferol (VITAMIN D2) [Vitamin D] 400 unit PO DAILY 12/08/15 [History] Latanoprost [Xalatan] 1 drop OP DAILY 12/08/15 [History] Warfarin [Coumadin] 2 mg PO DAILY 12/08/15 [History] Ferrous Sulfate 325 mg PO TIDWM #90 tablet 12/10/15 [Rx] Glimepiride [Amaryl] 4 mg PO DAILY 10/26/17 [History] Insulin Glargine,Hum.rec.anlog [Basaglar Kwikpen U-100] 30 unit SQ HS 10/26/17 [ History] Allergies/Adverse Reactions: 3 Allergy/AdvReac Type Severity Reaction Status Date / Time Erythromycin Base Allergy Mild Rash Verified 10/26/17 14:08 Date of admission: 10/28/17 14:08 Primary care physician: Elysia Sullivan CNP Consults: 11/02/17 12:30 Consult to Invasive Line Access Team [CONS] Routine Reason for Consult: d/c with iv atb Line Type: EPIV Discharging clinician: Joanna Garcia - Constitutional Vitals: Temp Pulse Resp BP Pulse Ox 98 F 75 16 125/76 95 08/27/18 15:10 11/02/17 15:10 11/02/17 15:10 11/02/17 15:10 11/02/17 15:10 Exam: Gen - Awake, alert, oriented x 3, no acute distress HEENT - NCAT, PERRLA, EOMI, hearing grossly intact, oropharynx benign CV - RRR, normal S1 and S2, no M/R/G, no BLE edema Resp - Normal WOB, CTAB, no W/R/R GI - Soft, NT/ND, no masses, normal bowel sounds, no HSP Skin - Warm, dry, no rashes/lesions/. DTI on buttocks. Lichenification on the legs Psych - Normal mood and affect, no depression or anxiety - Patient Status Disposition: Home, Self-Care - Discharge Instructions Follow Up With: Elysia Sullivan CNP [Primary Care Provider] - 11/06/17 9:00 am (Please follow up as schedule...) Umesh Andrew MD [Partnered Physician] -
--- NOTE | 2017-11-02 16:26 | Physician Discharge Referral ---
Home Health/Hosp Referral Info Transfer to: Home Health - Diagnosis (1) Complicated UTI (urinary tract infection) Priority: Primary Status: Acute (2) Acute renal failure Priority: Primary Status: Acute (3) Supratherapeutic INR Priority: Primary Status: Acute (4) Ureter, stricture Priority: Primary Status: Acute (5) Diabetes mellitus Priority: Secondary Status: Chronic (6) Hydronephrosis Priority: Primary Status: Acute (7) Congestive heart failure Priority: Secondary Status: Acute (8) DVT prophylaxis Priority: Secondary Status: Acute (9) Atrial fibrillation Priority: Secondary Status: Acute (10) GI bleed Priority: Secondary Status: Acute (11) Debility Priority: Secondary Status: Acute - Respiratory Orders Smoking Cessation: Smoking cessation has been advised. For more information, call the [employer] Tobacco Quit Line at 8-304-LQNN-NOW. - Diet/Nutrition Diet/Nutrition Orders: Cardiac - Activity Activity Orders: Up ad fernando - Services Needed Following services are medically necessary services: Home Health Aide - Transfer Medications Home Medications: Diltiazem HCl [Tiazac] 360 mg PO DAILY 03/16/15 [History] Sotalol [Betapace] 120 mg PO Q12HR 03/16/15 [History] Ergocalciferol (VITAMIN D2) [Vitamin D] 400 unit PO DAILY 12/08/15 [History] Latanoprost [Xalatan] 1 drop OP DAILY 12/08/15 [History] Warfarin [Coumadin] 2 mg PO DAILY 12/08/15 [History] Ferrous Sulfate 325 mg PO TIDWM #90 tablet 12/10/15 [Rx] Glimepiride [Amaryl] 4 mg PO DAILY 10/26/17 [History] Insulin Glargine,Hum.rec.anlog [Basaglar Kwikpen U-100] 30 unit SQ HS 10/26/17 [ History] Allergies/Adverse Reactions: 3 Allergy/AdvReac Type Severity Reaction Status Date / Time Erythromycin Base Allergy Mild Rash Verified 10/26/17 14:08 Certification: Further, I certify that my clinical findings support that this patient is homebound (i.e. absences from home require considerable and taxing effort and are for medical reasons or christian services or infrequently or short duration when for other reasons) because: Homebound Reason: Patient requires assistance of a person or device to safely leave home Attestation: My signature below is to certify that this patient is under my care and that I, or nurse practitioner, or a physician's shop assistant working with me, has a face-to -face encounter with this patient.
[2017-11-02] MEDS ORDERED: Cefepime HCl 1,000 MG in Water for inj. (sterile) 20 ML 10 ML IVP SCH (18:00)
[2017-11-02] MEDS ORDERED: *HR* Warfarin 2 MG TABLET PO ONE (18:00)
== END 2017-11-02 19:15 | disposition home or self-care (01) | DRG 690 ==
LOC: EMEROOARM 11:43 → 2ANU 11:43 → SUATTDRO 17:31 → 2ANU 18:09
PROVIDERS: ADMIT Internal Medicine; ATTEND Internal Medicine

== ENCOUNTER 2017-12-22 12:26 | Inpatient (IN) ==
[2017-12-22] MEDS ORDERED: 0.9 % Sodium Chloride 1,000 ML IVC ONE (12:37)
[2017-12-22] MEDS ORDERED: Isovue-370 500 ML INFUS..BTL IV ONE (12:43)
[2017-12-22] MEDS ORDERED: Ondansetron 4 MG/2 ML VIAL IVP ONE (12:44)
--- NOTE | 2017-12-22 12:51 | Urgent Care Visit Notes ---
History of Present Illness - General Stated complaint: General Weakness Time Seen by Provider: 12/22/17 12:31 - History of Present Illness Pt Subjective Complaint: generalized weakness/fatigue Onset (ago): day(s) Duration: gradually worsening Location: generalized Migration: none Pain Severity: moderate Pain Scale: 4 Associated symptoms: Reports: nausea/vomiting, myalgias, syncope. Denies: chest pain, confusion, dark stools, diaphoresis, fever/chills, rash, shortness of breath - Related Data Home Medications Medication Instructions Recorded Confirmed Diltiazem HCl [Tiazac] 360 mg PO DAILY 03/16/15 10/26/17 Sotalol [Betapace] 120 mg PO Q12HR 03/16/15 10/26/17 Ergocalciferol (VITAMIN D2) 400 unit PO DAILY 12/08/15 10/26/17 [Vitamin D] Latanoprost [Xalatan] 1 drop OP DAILY 12/08/15 10/26/17 Warfarin [Coumadin] 2 mg PO DAILY 12/08/15 10/26/17 Glimepiride [Amaryl] 4 mg PO DAILY 10/26/17 10/26/17 Insulin Glargine,Hum.rec.anlog 30 unit SQ HS 10/26/17 10/26/17 [Basaglar Kwikpen U-100] Previous Rx's Medication Instructions Recorded Ferrous Sulfate 325 mg PO TIDWM #90 tablet 12/10/15 Cefepime HCl/Dextrose, Iso-Osm 2 gm IV BID #19 [id number] 12/15/17 [Cefepime 2 gm Injection] Allergies Allergy/AdvReac Type Severity Reaction Status Date / Time Erythromycin Base Allergy Mild Rash Verified 10/26/17 14:08 All systems ED: reviewed and negative except as stated. Review of Systems: As Per HPI Constitutional: Reports: as per HPI, weakness. Denies: fever, chills Eyes: Reports: as per HPI. Denies: eye pain ENT ED: Reports: as per HPI. Denies: ear pain, throat pain Cardiovascular: Reports: as per HPI. Denies: chest pain, palpitations Respiratory: Reports: as per HPI. Denies: cough, dyspnea, wheezes Gastrointestinal: Reports: as per HPI, nausea, vomiting. Denies: abdominal pain, diarrhea, constipation Genitourinary: Reports: as per HPI. Denies: urgency, dysuria Musculoskeletal: Reports: as per HPI. Denies: back pain, neck pain Integumentary: Reports: as per HPI. Denies: rash, abrasion Neurological: Reports: as per HPI, weakness. Denies: headache, numbness, paresthesias Psychiatric: Reports: as per HPI. Denies: anxiety, depression Endocrine: Reports: as per HPI, fatigue Hematological/Lymphatic: Reports: as per HPI. Denies: easy bleeding Allergic/Immunologic: Reports: as per HPI. Denies: facial swelling Past Medical History - Past Medical History Medical history: Reports: cancer, CHF, diabetes, hypertension, other Surgical history: Reports: cholecystectomy, other Psychiatric history: Reports: no psych history - Social History Smoking Status: Never smoker Smokeless Tobacco Status: No Alcohol use: Reports: none Drug use: Reports: none Course Vital Signs Pulse Rate 74 12/22/17 12:42 Respiratory Rate 15 12/22/17 12:42 Blood Pressure 130/109 12/22/17 12:42 O2 Sat by Pulse Oximetry 99 12/22/17 12:42 Pulse Rate 74 12/22/17 12:42 Respiratory Rate 15 12/22/17 12:42 Blood Pressure 130/109 12/22/17 12:42 O2 Sat by Pulse Oximetry 99 12/22/17 12:42 Oxygen Delivery Oxygen Delivery Room Air
[2017-12-22 13:34] LABS: VBG HCO3 22 mEq/L (21-27); VBG PCO2 45 mmHg (41-51); VBG PH 7.29 pH Units (7.32-7.42); VBG PO2 34 mmHg (25-50)
[2017-12-22 13:40] LABS: Basophils # 0.1 K/mcL (0.0-0.2); Basophils % 0.5 %; Eosinophils # 0.6 K/mcL (0.0-0.6); Eosinophils % 5.5 %; Hematocrit 28.3 % (37.5-50.1); Hemoglobin 8.8 g/dL (12.9-16.9); Immature Granulocytes % 1.9 % (0-4); Lymphocytes # 1.1 K/mcL (0.6-4.6); Lymphocytes % 10.1 %; Mean Corpuscular HGB Conc 31.1 g/dL (31.6-35.5); Mean Corpuscular Hemoglobin 27.8 pg (28.0-33.3); Mean Corpuscular Volume 89.6 fL (83.0-100.0); Mean Platelet Volume 9.7 fL (9.4-12.4); Monocytes # 0.8 K/mcL (0.0-1.3); Neutrophils # 8.4 K/mcL (1.6-8.9); Platelet Count 390 K/mcL (140-400); Red Blood Count 3.16 M/mcL (4.19-5.50); Red Cell Distribution Width 14.8 % (11.5-14.5)
[2017-12-22 13:45] LABS: INR 4.2
[2017-12-22 13:51] LABS: Prothrombin Time 47.5 Seconds (9.4-12.1)
[2017-12-22 14:01] LABS: Troponin I < 0.03 ng/mL (< 0.04)
[2017-12-22 14:07] LABS: Alanine Aminotransferase 5 Units/L (7-52); Albumin 2.9 g/dL (3.5-5.7); Albumin/Globulin Ratio 0.8 (1.1-2.2); Alkaline Phosphatase 88 Units/L (34-104); Aspartate Amino Transferase 6 Units/L (13-39); BUN/Creatinine Ratio 14 (6-26); Bilirubin,Direct 0.1 mg/dL (0.0-0.2); Bilirubin,Indirect 0.3 mg/dL (0.0-1.2); Bilirubin,Total 0.4 mg/dL (0.3-1.0); Blood Urea Nitrogen 44 mg/dL (8-23); Calcium 8.8 mg/dL (8.6-10.3); Carbon Dioxide 23 mEq/L (23-29); Chloride 109 mEq/L (98-107); Globulin 3.8 g/dL (2.4-3.5); Glucose 126 mg/dL (70-105); Lipase 14 Units/L (11-82); Magnesium 1.8 mg/dL (1.6-2.6); Osmolality,Calculated 303 (280-300); Potassium 4.3 mEq/L (3.5-5.1); Sodium 140 mEq/L (136-145); Total Protein 6.7 g/dL (6.4-8.9); eGFR For Non-African Americans 19 (> 60)
[2017-12-22 14:14] LABS: Thyroid Stimulating Hormone 6.141 mcIU/mL (0.340-5.600)
--- NOTE | 2017-12-22 14:17 | Emergency Department Note ---
Disposition Clinical Impression: Supratherapeutic INR, TIA (transient ischemic attack) Hypothyroidism Qualifiers: Hypothyroidism type: unspecified Qualified Code(s): E03.9 - Hypothyroidism, unspecified Disposition: Admitted As Inpatient Condition: Good Referrals: Elysia Sullivan CNP [Primary Care Provider] - Forms: ED Satisfaction Letter Time of Disposition: 16:22 General Adult HPI - General Chief complaint: ED Weakness Stated complaint: General Weakness Time Seen by Provider: 12/22/17 12:31 Source: patient Mode of arrival: ambulatory Limitations: no limitations Nursing Notes Reviewed: Yes Vital Signs Reviewed: Yes - History of Present Illness HPI Narrative: 77 year old male presents to the ED with complaints of not feeling well and vomitting at [facility] and formerly [facility] that he is not nauseated and is not haing adbominal pernell but he is having generlized weakness and fatigue and is unsure why. He has a history of supratherapuetic INR and is currenlty on coumadin for pacemaker in addition to having slurred speech over the past 3 days. Darek states that he henderson snot typically have slurred speech and this si a first time occurance and it has been improving. Toshia states that he henderson snot have a history of strokes or brain aneurysms and denies any headaches or neck pain at this time. He states that he has a history of prostate cancer and then he was getting radation but has not currently recieved any treatment as he is in remission. Vomitting started today NBNB. No chest pain or abdominal pain, no othr neuro defecits. He states that his dog did pounce on him the other tday and he has some skin tears to the bilateral hands but thery are not painful and they do not appear infected Pain Scale: 4 - Related Data Home Medications Medication Instructions Recorded Confirmed Diltiazem HCl [Tiazac] 360 mg PO DAILY 03/16/15 12/22/17 Sotalol [Betapace] 120 mg PO Q12HR 03/16/15 12/22/17 Ergocalciferol (VITAMIN D2) 400 unit PO DAILY 12/08/15 12/22/17 [Vitamin D] Latanoprost [Xalatan] 1 drop OP DAILY 12/08/15 12/22/17 Warfarin [Coumadin] 2 mg PO DAILY 12/08/15 12/22/17 Insulin Glargine,Hum.rec.anlog 30 unit SQ HS 10/26/17 12/22/17 [Basaglar Kwikpen U-100] Brimonidine 0.2% [Alphagan] 1 drop BOTH EYES DAILY 12/22/17 12/22/17 Furosemide [Lasix] 20 mg PO DAILY 12/22/17 12/22/17 Previous Rx's Medication Instructions Recorded Ferrous Sulfate 325 mg PO TIDWM #90 tablet 12/10/15 Cefepime HCl/Dextrose, Iso-Osm 2 gm IV BID #19 [email or web address] 12/15/17 [Cefepime 2 gm Injection] Allergies Allergy/AdvReac Type Severity Reaction Status Date / Time Erythromycin Base Allergy Mild Rash Verified 10/26/17 14:08 Review of Systems: As Per HPI Constitutional: Reports: as per HPI, weakness. Denies: fever, chills Eyes: Reports: as per HPI. Denies: eye pain ENT ED: Reports: as per HPI. Denies: ear pain, throat pain Cardiovascular: Reports: as per HPI. Denies: chest pain, palpitations Respiratory: Reports: as per HPI. Denies: cough, dyspnea, wheezes Gastrointestinal: Reports: as per HPI, nausea, vomiting. Denies: abdominal pain , diarrhea, constipation Genitourinary: Reports: as per HPI. Denies: urgency, dysuria Musculoskeletal: Reports: as per HPI. Denies: back pain, neck pain Integumentary: Reports: as per HPI. Denies: rash, abrasion Neurological: Reports: as per HPI, weakness, other (slurred speech). Denies: headache, numbness, paresthesias Psychiatric: Reports: as per HPI. Denies: anxiety, depression Endocrine: Reports: as per HPI, fatigue Hematological/Lymphatic: Reports: as per HPI. Denies: easy bleeding Allergic/Immunologic: Reports: as per HPI. Denies: facial swelling Past Medical History - Past Medical History Medical history: Reports: cancer, CHF, diabetes, hypertension, other Surgical history: Reports: cholecystectomy, other Psychiatric history: Reports: no psych history - Social History Smoking Status: Never smoker Smokeless Tobacco Status: No Alcohol use: Reports: none Drug use: Reports: none Physical Exam bilateral mutliple arm ecchymosis for coumadin therapy. Skin tear to the dorsal side of bilateral hands, without infection or bleeding - General Limitations: no limitations General appearance: alert, in no apparent distress - Head Head exam: atraumatic, normocephalic, normal inspection - Eye Eye exam: Present: normal appearance, PERRL, EOMI - Expanded Eye Exam Pupils: Bilateral: reactive - ENT ENT exam: normal exam, normal oropharynx, mucous membranes moist - Expanded ENT Exam External ear exam: Present: normal external inspection Mouth exam: Present: normal external inspection Teeth exam: Present: normal inspection Throat exam: Present: normal inspection - Neck Neck exam: Present: normal inspection, full ROM, trachea midline - Chest Chest inspection: Present: normal inspection, symmetric chest wall rise - Respiratory Respiratory exam: Present: normal lung sounds bilaterally - Cardiovascular Cardiovascular exam: Present: regular rate, normal rhythm, normal heart sounds - Abdominal Exam Abdominal exam: Present: soft, Non-Tender. Absent: tenderness, distention, guarding, rebound, rigidity - Extremities Exam Extremities exam: Present: normal inspection, full ROM. Absent: tenderness, pedal edema - Expanded Upper Extremity Exam Shoulder exam: Present: normal inspection, full ROM Arm exam: Present: normal inspection, full ROM Elbow exam: Present: normal inspection, full ROM Forearm/Wrist exam: Present: normal inspection, full ROM Hand exam: Present: normal inspection, full ROM Vascular exam: Normal: capillary refill, radial pulse - Expanded Lower Extremity Exam Hip/Pelvis exam: Present: normal inspection, full ROM Upper leg exam: Present: normal inspection, full ROM Knee exam: Present: normal inspection, full ROM Lower leg exam: Present: normal inspection, full ROM Ankle exam: Present: normal inspection, full ROM Foot/toe exam: Present: normal inspection, full ROM Neurovascular/Tendon exam: Absent: motor deficit, sensory deficit, tendon deficit - Back Exam Back exam: Present: normal inspection, full ROM. Absent: tenderness - Neurological Exam Neurological exam: Present: alert, oriented X3 - Expanded Neurological Exam Patient oriented to: Present: person, place, time Speech: Present: fluid speech Cranial nerves: EOM function (II, III, IV, ): Normal, facial sensation (V): Normal, facial palsy (VII): Normal, gag reflex (IX): Normal, spinal accessory function (XI): Normal, tongue deviation (XII): Normal Cerebellar function: finger to nose: Normal, heel to travis: Normal Cerebellar function: normal gait, Romberg normal Motor strength - LUE: 5/5 Motor strength - RUE: 5/5 Motor strength - LLE: 5/5 Motor strength - RLE: 5/5 Upper motor neuron exam: silas neglect: Absent bilaterally, pronator drift: Absent bilaterally Sensory exam upper extremity: light touch: Normal, pin prick: Normal Sensory exam lower extremity: light touch: Normal, pin prick: Normal Coma Scale Eye Opening: Spontaneous Coma Scale Motor Response: Obeys Commands Coma Scale Verbal Response: Oriented Coma Scale Total: 15 - Psychiatric Psychiatric exam: Present: normal affect, normal mood - Skin Skin exam: Present: warm, dry, intact, normal color Course Course Narrative: we will do a generlaized weakness workup and HCT to rule out bleed and TIA workup - Reevaluation(s) Reevaluation #1: florencia benoit on results and is agreeable to admission. Time: 16:21 - Consultations Consultation #1: dicussed case with hospitalist and he accepts patine to his service Time: 16:21 Vital Signs Pulse Rate 74 12/22/17 12:42 Respiratory Rate 15 12/22/17 12:42 Blood Pressure 130/109 12/22/17 12:42 O2 Sat by Pulse Oximetry 99 12/22/17 12:42 Temperature 98.1 F 12/22/17 15:00 Pulse Rate 75 12/22/17 15:00 Respiratory Rate 15 12/22/17 15:00 Blood Pressure 148/82 12/22/17 15:00 O2 Sat by Pulse Oximetry 99 12/22/17 15:00 Oxygen Delivery Oxygen Delivery Room Air Medical Decision Making - Medical Records Medical records reviewed: Yes I reviewed the patient's medical records. - Lab Data Lab results reviewed: Yes I reviewed the patient's lab results. Result diagrams: 12/22/17 12:37 12/22/17 12:37 Lab Results 12/22/17 12/22/17 12/22/17 Range/Units 12:37 12:37 12:37 WBC 11.1 (4.3-11.1) K/mcL RBC 3.16 L (4.19-5.50) M/mcL Hgb 8.8 L (12.9-16.9) g/dL Hct 28.3 L (37.5-50.1) % MCV 89.6 (83.0-100.0) fL MCH 27.8 L (28.0-33.3) pg MCHC 31.1 L (31.6-35.5) g/dL RDW 14.8 H (11.5-14.5) % Plt Count 390 (140-400) K/mcL MPV 9.7 (9.4-12.4) fL Immature Gran % 1.9 (0-4) % Seg Neutrophils % 75.0 % Lymphocytes % 10.1 % Monocytes % 7.0 % Eosinophils % 5.5 % Basophils % 0.5 % Neutrophils # 8.4 (1.6-8.9) K/mcL Lymphocytes # 1.1 (0.6-4.6) K/mcL Monocytes # 0.8 (0.0-1.3) K/mcL Eosinophils # 0.6 (0.0-0.6) K/mcL Basophils # 0.1 (0.0-0.2) K/mcL PT 47.5 H* (9.4-12.1) Seconds INR 4.2 VBG pH (7.32-7.42) pH Units VBG pCO2 (41-51) mmHg VBG pO2 (25-50) mmHg VBG HCO3 (21-27) mEq/L Sodium 140 (136-145) mEq/L Potassium 4.3 (3.5-5.1) mEq/L Chloride 109 H (98-107) mEq/L Carbon Dioxide 23 (23-29) mEq/L BUN 44 H (8-23) mg/dL Creatinine 3.21 H (0.70-1.30) mg/dL Est GFR ( Amer) 23 L (> 60) Est GFR (Non-Af Amer) 19 L (> 60) BUN/Creatinine Ratio 14 (6-26) Glucose 126 H (70-105) mg/dL Calculated Osmolality 303 H (280-300) Lactic Acid (0.5-2.2) mmol/L Calcium 8.8 (8.6-10.3) mg/dL Phosphorus 3.0 (2.7-4.5) mg/dL Magnesium 1.8 (1.6-2.6) mg/dL Total Bilirubin 0.4 (0.3-1.0) mg/dL Direct Bilirubin 0.1 (0.0-0.2) mg/dL Indirect Bilirubin 0.3 (0.0-1.2) mg/dL AST 6 L (13-39) Units/L ALT 5 L (7-52) Units/L Alkaline Phosphatase 88 (34-104) Units/L Troponin I < 0.03 (< 0.04) ng/mL Serum Total Protein 6.7 (6.4-8.9) g/dL Albumin 2.9 L (3.5-5.7) g/dL Globulin 3.8 H (2.4-3.5) g/dL Albumin/Globulin Ratio 0.8 L (1.1-2.2) Lipase 14 (11-82) Units/L Beta-Hydroxybutyric Acd (0.02-0.27) mmol/L TSH 6.141 H (0.340-5.600) mcIU/mL Blood Type Antibody Screen 12/22/17 12/22/17 12/22/17 Range/Units 13:07 13:19 13:19 WBC (4.3-11.1) K/mcL RBC (4.19-5.50) M/mcL Hgb (12.9-16.9) g/dL Hct (37.5-50.1) % MCV (83.0-100.0) fL MCH (28.0-33.3) pg MCHC (31.6-35.5) g/dL RDW (11.5-14.5) % Plt Count (140-400) K/mcL MPV (9.4-12.4) fL Immature Gran % (0-4) % Seg Neutrophils % % Lymphocytes % % Monocytes % % Eosinophils % % Basophils % % Neutrophils # (1.6-8.9) K/mcL Lymphocytes # (0.6-4.6) K/mcL Monocytes # (0.0-1.3) K/mcL Eosinophils # (0.0-0.6) K/mcL Basophils # (0.0-0.2) K/mcL PT (9.4-12.1) Seconds INR VBG pH (7.32-7.42) pH Units VBG pCO2 (41-51) mmHg VBG pO2 (25-50) mmHg VBG HCO3 (21-27) mEq/L Sodium (136-145) mEq/L Potassium (3.5-5.1) mEq/L Chloride (98-107) mEq/L Carbon Dioxide (23-29) mEq/L BUN (8-23) mg/dL Creatinine (0.70-1.30) mg/dL Est GFR ( Amer) (> 60) Est GFR (Non-Af Amer) (> 60) BUN/Creatinine Ratio (6-26) Glucose (70-105) mg/dL Calculated Osmolality (280-300) Lactic Acid 0.5 (0.5-2.2) mmol/L Calcium (8.6-10.3) mg/dL Phosphorus (2.7-4.5) mg/dL Magnesium (1.6-2.6) mg/dL Total Bilirubin (0.3-1.0) mg/dL Direct Bilirubin (0.0-0.2) mg/dL Indirect Bilirubin (0.0-1.2) mg/dL AST (13-39) Units/L ALT (7-52) Units/L Alkaline Phosphatase (34-104) Units/L Troponin I (< 0.04) ng/mL Serum Total Protein (6.4-8.9) g/dL Albumin (3.5-5.7) g/dL Globulin (2.4-3.5) g/dL Albumin/Globulin Ratio (1.1-2.2) Lipase (11-82) Units/L Beta-Hydroxybutyric Acd 0.26 (0.02-0.27) mmol/L TSH (0.340-5.600) mcIU/mL Blood Type O POSITIVE Antibody Screen NEGATIVE 12/22/17 Range/Units 13:30 WBC (4.3-11.1) K/mcL RBC (4.19-5.50) M/mcL Hgb (12.9-16.9) g/dL Hct (37.5-50.1) % MCV (83.0-100.0) fL MCH (28.0-33.3) pg MCHC (31.6-35.5) g/dL RDW (11.5-14.5) % Plt Count (140-400) K/mcL MPV (9.4-12.4) fL Immature Gran % (0-4) % Seg Neutrophils % % Lymphocytes % % Monocytes % % Eosinophils % % Basophils % % Neutrophils # (1.6-8.9) K/mcL Lymphocytes # (0.6-4.6) K/mcL Monocytes # (0.0-1.3) K/mcL Eosinophils # (0.0-0.6) K/mcL Basophils # (0.0-0.2) K/mcL PT (9.4-12.1) Seconds INR VBG pH 7.29 L (7.32-7.42) pH Units VBG pCO2 45 (41-51) mmHg VBG pO2 34 (25-50) mmHg VBG HCO3 22 (21-27) mEq/L Sodium (136-145) mEq/L Potassium (3.5-5.1) mEq/L Chloride (98-107) mEq/L Carbon Dioxide (23-29) mEq/L BUN (8-23) mg/dL Creatinine (0.70-1.30) mg/dL Est GFR ( Amer) (> 60) Est GFR (Non-Af Amer) (> 60) BUN/Creatinine Ratio (6-26) Glucose (70-105) mg/dL Calculated Osmolality (280-300) Lactic Acid (0.5-2.2) mmol/L Calcium (8.6-10.3) mg/dL Phosphorus (2.7-4.5) mg/dL Magnesium (1.6-2.6) mg/dL Total Bilirubin (0.3-1.0) mg/dL Direct Bilirubin (0.0-0.2) mg/dL Indirect Bilirubin (0.0-1.2) mg/dL AST (13-39) Units/L ALT (7-52) Units/L Alkaline Phosphatase (34-104) Units/L Troponin I (< 0.04) ng/mL Serum Total Protein (6.4-8.9) g/dL Albumin (3.5-5.7) g/dL Globulin (2.4-3.5) g/dL Albumin/Globulin Ratio (1.1-2.2) Lipase (11-82) Units/L Beta-Hydroxybutyric Acd (0.02-0.27) mmol/L TSH (0.340-5.600) mcIU/mL Blood Type Antibody Screen - Radiology Data Radiology results reviewed: Yes I reviewed the patient's radiology results. - EKG Data EKG #1 EKG attestation: Yes I reviewed and interpreted this EKG. EKG results narrative: atrial-paced rhythm with rate of 75. NO STEMI. nnormal intervals. no change from 10/26/17
[2017-12-22] MEDS ORDERED: Naloxone 0.4 MG/ML INJ IVP PRN (16:26)
[2017-12-22] MEDS ORDERED: Dextrose Gel 15 GM/37.5 ML TUBE PO PRN ×2 (16:34)
[2017-12-22] MEDS ORDERED: *HR* Dextrose 50 % in Water (Syg) 50 ML SYRINGE IVP PRN (16:34)
[2017-12-22] MEDS ORDERED: D5% in Water 1,000 ML IVC PRN (16:34)
[2017-12-22] MEDS ORDERED: *HR* Phytonadione 10 MG/ML AMPUL SQ ONE (16:37)
--- NOTE | 2017-12-22 17:04 | Internal Med History&Physical ---
Date of Encounter: 12/22/17 Time of Encounter: 17:04 Internal Medicine - H&P: HPI Chief complaint: generalized weakness. slurred speech Admitted From: Home Plans for Post Hospital Care: Home History of present illness: Mr. Rojas is a 77 year old male PMH A. fib s/p pacemaker, CHF?, DM, HTN, CKD stage 3, prostate CA s/p radiation about 8 years ago, chronic UTI. Patient was sent from his PCP office due to slurred speech and generalized weakness. As per patient's when they arrived to the PCP office the patient had some changes in his speech for which he was sent to the ED, the patient denies any focal weakness. Slurred speech resolved, before arriving to the ED. Patient reports that after he had radiation done for his prostate CA, his strength in the lower extremities has significantly worsen. Reports that a the begenning he was able to ambulate using a walker, but that for the past couple of months he can just take a couple of steps with the walker. recently he has been having difficulty getting up from sitting position due to the weakness. Past Med Surg Social Fam HX - Past Medical History Medical history: cancer, CHF, diabetes, hypertension, other Additional medical history: irregular heart beat. prostate cancer with radiation Psychiatric history: no psych history - Past Surgical History Surgical History: cholecystectomy, other Additional surgical history: pacer - Social History Smoking Status: Never smoker Smokeless Tobacco Status: No Alcohol use: none Drug use: none - Family History Father Hx Family Respiratory Disorders: Yes (Lung cancer) Internal Medicine - H&P: Meds Diltiazem HCl [Tiazac] 360 mg PO DAILY 03/16/15 [History] Sotalol [Betapace] 120 mg PO Q12HR 03/16/15 [History] Ergocalciferol (VITAMIN D2) [Vitamin D] 400 unit PO DAILY 12/08/15 [History] Latanoprost [Xalatan] 1 drop OP DAILY 12/08/15 [History] Warfarin [Coumadin] 2 mg PO DAILY 12/08/15 [History] Ferrous Sulfate 325 mg PO TIDWM #90 tablet 12/10/15 [Rx] Insulin Glargine,Hum.rec.anlog [Basaglar Kwikpen U-100] 30 unit SQ HS 10/26/17 [ History] Cefepime HCl/Dextrose, Iso-Osm [Cefepime 2 gm Injection] 2 gm IV BID #19 [email or web address] 12/15/17 [Rx] Brimonidine 0.2% [Alphagan] 1 drop BOTH EYES DAILY 12/22/17 [History] Furosemide [Lasix] 20 mg PO DAILY 12/22/17 [History] 3 Allergy/AdvReac Type Severity Reaction Status Date / Time Erythromycin Base Allergy Mild Rash Verified 10/26/17 14:08 All Systems PM: A 10-system review of systems was performed and is negative for pertinent findings except as documented above in the HPI. - Constitutional Constitutional: weakness, no chills, no fever(s), no falls, no lethargy, no malaise, no weight gain - EENT Eyes: no blurry vision, no floaters, no photophobia Nose, mouth and throat: no bleeding gums, no mouth pain - Cardiovascular Cardiovascular ROS IM: no chest pain, no dyspnea, no dyspnea on exertion, no lightheadedness, no paroxysmal nocturnal dyspnea - Respiratory Respiratory: no cough, no wheezing - Gastrointestinal Gastrointestinal: belching, nausea, vomiting, no abdominal pain, no diarrhea, no loose stools - Genitourinary Genitourinary ROS male: no dysuria, no hematuria, no nocturia - Musculoskeletal Musculoskeletal ROS IM: no back pain - Neurological Neurological ROS: weakness, no lack of coordination - Endocrine Endocrine IM: no cold intolerance, no fatigue - Allergic/Immunologic Allergic/Immunologic: no wheezing (rest of the physical exam negative. ) - Constitutional Vitals: Temp Pulse Resp BP Pulse Ox 98.1 F 75 15 148/82 99 12/22/17 15:00 12/22/17 15:00 12/22/17 15:00 12/22/17 15:00 12/22/17 15:00 Exam: General: Patient is alert, oriented, in mild distress due to weakness. Head: atraumatic, normocephalic, ENT: mucous membranes dry, normal external ear exam Respiratory: Clear to auscultation bilaterally, no rales, crackles or wheezing. Cardiovascular: irregularly, irregular, normal s1 and s2, No rubs, gallops, or murmors. Abdomen: Obese, Bowel sounds present normoactive x-4 quadrants. Abdomen is soft , nondistended. No guarding or rebound. Musculoskeletal: 1+ pitting edema in the lower extr. Stage II sacral decubitus ulcer. strength 5/5 in the upper ext, 2/5 in the lower extr b/l. Skin: warm, dry, intact. Neuro: Alert and oriented x4. Sensation light touch intact. Cranial nerves 2- 12 is intact. Not aphasic, gait is steady, rapid hand movements intact, finger- to-nose intact. Abnormal heel to travis due to weakness. Psych: Patient's affect is normal Internal Med - H&P Results - Labs CBC & Chem 7: 12/22/17 12:37 12/22/17 12:37 - Assessment and plan (1) Slurred speech Current Visit: Yes Status: Acute Assessment and plan: patient sent from his PCP office due to slurred speech and generalized weakness. Possible due to TIA? slurred speech has resolved. Head CT negative for acute abnormalities Aspirin 81mg/PO Neurology consult Patient unable to have an MRI of the brain of to having a Pacemaker. (2) Nausea & vomiting Current Visit: No Status: Acute Assessment and plan: Patient reports 3 episodes of non bilious, non bloody vomiting started on Ondansetron 4mg/IV Q4HR PRN for nausea and vomiting. started on gentle iv fluids. Qualifiers: Vomiting type: unspecified Vomiting Intractability: intractable Qualified Code(s): R11.2 - Nausea with vomiting, unspecified (3) Supratherapeutic INR Current Visit: Yes Status: Acute Assessment and plan: Patient on warfarin due to A. fib with high CHADSVASC score Hold today's dose of warfarin INR in the morning Vitamin k 10mg SubQ x1 (4) Complicated UTI (urinary tract infection) Current Visit: No Status: Acute Assessment and plan: Patient with a history of complicated UTI. Recently discharged on cefepime to complete a day. We will resume antibiotic. ID consult for antibiotic management. (5) Acute kidney injury superimposed on chronic kidney disease Current Visit: No Status: Acute Assessment and plan: Possible due to Low preload due to dehydration in the setting of nausea & vomiting. Interstitial nephritis? unlikely Plan Avoid nephrotoxic medications started on gentle IV hydration with D5/0.45% @75mls/hr Consider nephrology evaluation. (6) DVT prophylaxis Current Visit: No Status: Acute Assessment and plan: Patient on Warfarin with supra therapeutic INR. Will hold warfarin dose. (7) Generalized weakness Current Visit: No Status: Acute Assessment and plan: Patient with a Hx of Protaste CA. Reports worsening lower extremities weakness. Pt/OT Lumbar spine CT w/o contrast. (8) A-fib Current Visit: No Status: Chronic Assessment and plan: On cardizem, sotalol and Warfarin. Will continue home dose of Cardizem. Hold Warfarin dose. Qualifiers: Atrial fibrillation type: chronic Qualified Code(s): I48.2 - Chronic atrial fibrillation (9) Anemia Current Visit: No Status: Chronic Assessment and plan: H&H stable. No signs of active bleeding. Will continue to monitor. Consider transfusing if Hb <7 or Hct <23 or patient becomes hemodynamically unstable. Qualifiers: Anemia type: unspecified type Qualified Code(s): D64.9 - Anemia, unspecified (10) Diabetes mellitus Current Visit: No Status: Chronic Assessment and plan: Carb controlled diet. Started on Low dose levemir plus Lispro sliding scale. 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 will continue cardizem. Hold furosemide for now. Qualifiers: Hypertension type: essential hypertension Qualified Code(s): I10 - Essential (primary) hypertension (12) Sacral decubitus ulcer, stage II Current Visit: Yes Status: Chronic Assessment and plan: wound care daily. - Time Spent With Patient Total time spent is greater than 50% in coordination of care (as documented) at patient's floor/unit and/or counseling patient: 25 - 35 minutes
[2017-12-22 18:03] LABS: Bilirubin,Urine Negative (Negative); Blood,Urine Moderate (Negative); Clarity,Urine Turbid (Clear); Color,Urine Yellow (Yellow); Glucose,Urine (UA) Normal (Normal); Ketones,Urine Negative (Negative); Leukocyte Esterase,Urine Large (Negative); Nitrite,Urine Negative (Negative); PH,Urine 6.5 pH Units (5.0-8.0); Protein,Urine 100 mg/dL (Neg-Trace); Specific Gravity,Urine 1.012 (1.010-1.025); Urobilinogen,Urine Normal (Normal)
[2017-12-22 18:05] LABS: Hyaline Casts,Urine None Seen per lpf (None-Few); RBC,Urine 30-50 per hpf (0-3); Squamous Epithelial Cell,Urine Moderate per lpf (None-Few); WBC,Urine TNTC per hpf (0-3)
[2017-12-22 18:25] LABS: Bacteria,Urine Many per hpf (None-Few)
[2017-12-22] MEDS: D5% in 0.45% NACL 1,000 ML IVC SCH (18:53)
[2017-12-22] MEDS: Ondansetron 4 MG/2 ML VIAL IVP SCH (20:29)
[2017-12-22] MEDS: Insulin DETEMIR 100 UNIT/ML X5UNITS SQ SCH (20:30)
[2017-12-23] MEDS: Ondansetron 4 MG/2 ML VIAL IVP SCH ×7 (00:59→23:45)
[2017-12-23 06:05] LABS: Hematocrit 24.9 % (37.5-50.1); Hemoglobin 7.9 g/dL (12.9-16.9); Mean Corpuscular HGB Conc 31.7 g/dL (31.6-35.5); Mean Corpuscular Hemoglobin 28.2 pg (28.0-33.3); Mean Corpuscular Volume 88.9 fL (83.0-100.0); Platelet Count 362 K/mcL (140-400); Red Cell Distribution Width 15.1 % (11.5-14.5)
[2017-12-23 06:28] LABS: Calcium 8.5 mg/dL (8.6-10.3); Magnesium 1.8 mg/dL (1.6-2.6); Phosphorous 3.6 mg/dL (2.7-4.5); Potassium 4.3 mEq/L (3.5-5.1)
--- NOTE | 2017-12-23 07:51 | Electrocardiograph Report ---
[facility] Test Date: 2017-12-22 Pat Name: Rich Rojas Department: [id number] Room: 3B53 Gender: M [employer]: : 1940 Requested By: Lynette Miller Order Number: [id number] Reading MD: Mars Robles Measurements Intervals [place] Rate: 75 P: MT: 159 QRS: -30 QRSD: 125 T: -26 QT: 519 QTc: 580 Interpretive Statements Atrial-paced rhythm Nonspecific intraventricular conduction delay Nonspecific T abnormalities, diffuse leads Electronically Signed On 12-23-2017 7:49:27 EDT by Mars Robles
[2017-12-23] MEDS: Aspirin Enteric Coated 81 MG Tablet PO SCH (09:25)
[2017-12-23] MEDS: Insulin LISPRO 300 UNITS/3 ML VIAL SQ SCH ×3 (09:25→17:25)
[2017-12-23] MEDS: D5% in 0.45% NACL 1,000 ML IVC SCH (09:25)
[2017-12-23] MEDS: Diltiazem CD (24hr) 180 MG CAPSULE PO SCH (09:25)
[2017-12-23] MEDS: Fluticasone Propionate Nasal 50 MCG/SPRAY BOTTLE NS SCH (09:26)
[2017-12-23] MEDS ORDERED: Cefepime HCl 2,000 MG in Water for inj. (sterile) 20 ML 20 ML IVP SCH (10:01)
--- NOTE | 2017-12-23 10:03 | Internal Med Progress Note ---
Hospitalist Progress Note - Encounter Date of Encounter: 12/23/17 Time of Encounter: 11:00 - Exam Vitals: Temp Pulse Resp BP Pulse Ox 98 F 75 18 140/78 97 12/23/17 08:47 12/23/17 07:50 12/23/17 07:50 12/23/17 08:47 12/23/17 08:47 Exam: General: Patient is alert, oriented, in mild distress due to weakness. Head: atraumatic, normocephalic, ENT: mucous membranes dry, normal external ear exam Respiratory: Clear to auscultation bilaterally, no rales, crackles or wheezing. Cardiovascular: irregularly, irregular, normal s1 and s2, No rubs, gallops, or murmors. Abdomen: Obese, Bowel sounds present normoactive x-4 quadrants. Abdomen is soft , nondistended. No guarding or rebound. Musculoskeletal: 1+ pitting edema in the lower extr. Stage II sacral decubitus ulcer. strength 5/5 in the upper ext, 2/5 in the lower extr b/l. Skin: warm, dry, intact. Neuro: Alert and oriented x4. Sensation light touch intact. Cranial nerves 2- 12 is intact. Not aphasic, gait is steady, rapid hand movements intact, finger- to-nose intact. Abnormal heel to travis due to weakness. Psych: Patient's affect is normal - Assessment and Plan (1) TIA (transient ischemic attack) Current Visit: Yes Status: Acute Assessment and Plan: r/o acute CVA. patient sent from his PCP office due to slurred speech and generalized weakness. Possible due to TIA? slurred speech has resolved. Head CT negative for acute abnormalities. Patient has pacemaker and is unable to get MRI Aspirin 81mg/PO . Neuro consulted and appreciate recs (2) Complicated UTI (urinary tract infection) Current Visit: No Status: Acute Assessment and Plan: Patient with a history of complicated UTI. Recently discharged on cefepime and says he is due for 8 more days of IV antibiotics Came in with nausea and vomiting. Continue IV cefepime (3) Generalized weakness Current Visit: No Status: Acute Assessment and Plan: Patient with a Hx of Protaste CA. Reports worsening lower extremities weakness. Pt/OT Lumbar spine CT w/o contrast. (4) A-fib Current Visit: No Status: Chronic Assessment and Plan: On cardizem, sotalol and Warfarin. Will continue home dose of Cardizem. Hold Warfarin dose. (5) Diabetes mellitus Current Visit: No Status: Chronic Assessment and Plan: Carb controlled diet. Started on Low dose levemir plus Lispro sliding scale. (6) Hypertension Current Visit: No Status: Chronic Assessment and Plan: BP well controlled patient on cardizem and furosemide. will continue cardizem. Hold furosemide for now. (7) Anemia Current Visit: No Status: Chronic Assessment and Plan: H&H stable. No signs of active bleeding. Will continue to monitor. Consider transfusing if Hb <7 or Hct <23 or patient becomes hemodynamically unstable. (8) Acute kidney injury superimposed on chronic kidney disease Current Visit: No Status: Acute Assessment and Plan: Possible due to Low preload due to dehydration in the setting of nausea & vomiting. Continue IV fluids (9) Supratherapeutic INR Current Visit: Yes Status: Acute Assessment and Plan: Patient on warfarin due to A. fib with high CHADSVASC score INR was 4.0 on admission. Warfarin was held and one dose of vitamin K given Repeat coags today. Warfarin dosing per pharmacy (10) Sacral decubitus ulcer, stage II Current Visit: Yes Status: Chronic Assessment and Plan: wound care daily. (11) DVT prophylaxis Current Visit: No Status: Acute Assessment and Plan: Patient on Warfarin with supra therapeutic INR. Will hold warfarin dose. - Time Spent with Patient Total time spent is greater than 50% in coordination of care (as documented) at patient's floor/unit and/or counseling patient: Internal Medicine: Result - Labs CBC & Chem 7: 12/23/17 05:20 12/23/17 05:20 Labs: Short CBC 12/23/17 Range/Units 05:20 WBC 10.3 (4.3-11.1) K/mcL Hgb 7.9 L (12.9-16.9) g/dL Hct 24.9 L (37.5-50.1) % Plt Count 362 (140-400) K/mcL BMP 12/23/17 05:20 Sodium 140 Potassium 4.3 Chloride 110 H Carbon Dioxide 19 L BUN 44 H Creatinine 3.16 H Glucose 158 H Calcium 8.5 L Urine 12/22/17 Range/Units 17:40 Urine Color Yellow (Yellow) Urine Clarity Turbid A (Clear) Urine pH 6.5 (5.0-8.0) pH Units Ur Specific [place] 1.012 (1.010-1.025) Urine Protein 100 H (Neg-Trace) mg/dL Urine Glucose (UA) Normal (Normal) mg/dL - ABG Interpretation ABG results: PT/INR, D-dimer PT 47.5 Seconds (9.4-12.1) H* 12/22/17 12:37 - Impressions Impressions Lumbar Spine CT 12/22/17 17:14 IMPRESSION: Grade 1 anterolisthesis at L4-5. The central canal is severely stenotic at this level. Moderate central canal stenosis at L2-L3 and L3-L4. Moderate scoliosis. Severe bilateral hydronephrosis which is partially visualized on this finding. Renal stone CT may be of value if clinically warranted. No evidence for osseous metastatic disease within the lumbar spine. D/ / 12/22/2017 22:36:28 Chucky Ramírez MD / hni Interpreting Provider: Chucky Ramírez MD Consult Discharge Plan - Plan Referrals: Elysia Sullivan ROLLER MACHINE OPERATOR [Primary Care Provider] - (4) A-fib Qualifiers: Atrial fibrillation type: chronic Qualified Code(s): I48.2 - Chronic atrial fibrillation (5) Diabetes mellitus Qualifiers: Diabetes mellitus type: type 2 Diabetes mellitus snf insulin use: without snf use Diabetes mellitus complication status: without complication Qualified Code(s): E11.9 - Type 2 diabetes mellitus without complications (6) Hypertension Qualifiers: Hypertension type: essential hypertension Qualified Code(s): I10 - Essential (primary) hypertension (7) Anemia Qualifiers: Anemia type: unspecified type Qualified Code(s): D64.9 - Anemia, unspecified
--- NOTE | 2017-12-23 10:35 | Neurology - Consult Note ---
<Giles Acosta N - Last Filed: 12/23/17 15:55> Date of Encounter: 12/23/17 Time of Encounter: 10:35 Assessment and Plan (1) Slurred speech Current Visit: Yes Status: Acute 77-year-old male with multiple episodes of transient and intermittent slurred speech over the past few days. Symptoms persist for a few minutes and spontaneously resolve. This is associated with a sensation of generalized weakness which improved as well. Patient has a history of A. fib and is on Coumadin and his INR was supratherapeutic on admission. Unable to obtain MRI as patient has pacemaker in place. CT head was normal, CT lumbar spine did show severe central spinal stenosis at the L4-L5 level. -History and physical exam not consistent with an acute infarct or TIA -Patient has a history of A. fib but is on anticoagulation and his INR was supratherapeutic on admission -Symptoms probably secondary to metabolic encephalopathy, possibly from an EDIS -We will obtain carotid ultrasound and echocardiogram History of Present Illness Chief complaint: Generalized weakness, slurred speech HPI: Mr. Rojas is a 77 year old male with a past medical history of A. fib on Coumadin, pacemaker placement, and previous prostate cancer who presents to the hospital from his PCPs office due to slurring of his speech and generalized lower extremity weakness. Patient states that he visited his PCP due to changes in his speech and he was advised to go to the ED. On arrival to the ED his speech had improved and was back to baseline. He states that over the past few days he has experienced acute onset slurring of his speech which lasts a few minutes and then resolve spontaneously. These episodes have been occurring almost daily with the most recent episode overnight while in the hospital which was unwitnessed. As per his lower extremity weakness he says that this has been ongoing since his prostate cancer surgery and aggressively getting worse. Stating that he has had to transition from walking independently to using a cane to now having to be reliant on a mobility scooter. He is also had a three- year history of urinary incontinence. Denies any headaches, neck pain, or lower back pain. Denies any unilateral sensory or motor changes. He describes his speech changes as slurred speech, he denies difficulty with producing words for creating proper sentences. He denies any confusion, vision changes, or any other focal neurological deficits. Past Med Surg Social Fam HX - Past Medical History Medical history: cancer, CHF, diabetes, hypertension, other Additional medical history: irregular heart beat. prostate cancer with radiation Psychiatric history: no psych history - Past Surgical History Surgical History: cholecystectomy, other Additional surgical history: pacer - Social History Smoking Status: Never smoker Smokeless Tobacco Status: No Alcohol use: none Drug use: none - Family History Father Living Status: Age at : 57 Hx Family Respiratory Disorders: Yes (Lung cancer) Hx Family Cancer: Yes (lung cancer) Mother Living Status: Age at : 80 Hx Family Cancer: Yes (breast cancer) Hx Family Genitourinary Disorders: Yes (kidney) Medications and Allergies Diltiazem HCl [Tiazac] 360 mg PO DAILY 03/16/15 [History] Sotalol [Betapace] 120 mg PO Q12HR 03/16/15 [History] Ergocalciferol (VITAMIN D2) [Vitamin D] 400 unit PO DAILY 12/08/15 [History] Latanoprost [Xalatan] 1 drop OP DAILY 12/08/15 [History] Warfarin [Coumadin] 2 mg PO DAILY 12/08/15 [History] Ferrous Sulfate 325 mg PO TIDWM #90 tablet 12/10/15 [Rx] Insulin Glargine,Hum.rec.anlog [Basaglar Kwikpen U-100] 30 unit SQ HS 10/26/17 [ History] Cefepime HCl/Dextrose, Iso-Osm [Cefepime 2 gm Injection] 2 gm IV BID #19 froz.piggy 12/15/17 [Rx] Brimonidine 0.2% [Alphagan] 1 drop BOTH EYES DAILY 12/22/17 [History] Furosemide [Lasix] 20 mg PO DAILY 12/22/17 [History] 3 Allergy/AdvReac Type Severity Reaction Status Date / Time Erythromycin Base Allergy Mild Rash Verified 10/26/17 14:08 All Systems: The remainder of the systems were reviewed and are negative - Constitutional Constitutional ROS IM: as per HPI Physical Examination - Vital Signs Vital Signs: Initial Vital Signs Pulse Resp BP Pulse Ox 74 15 130/109 99 12/22/17 12:42 12/22/17 12:42 12/22/17 12:42 12/22/17 12:42 - Exam Exam: Constitutional: Awake and alert, resting comfortably in bed Neurological: -Cranial Nerves: Left pupil is poorly responsive to light, patient states that he has had an intraocular bleed on that side and his vision is severely compromised on the left and that this is at his baseline. Extraocular muscles are intact. Facial sensation and strength are intact and symmetrical, there is no facial droop. Speech is fluent. Hearing grossly intact. Uvula is midline and tongue protrudes midline. Normal SCM and trapezius strength. -Upper extremities: Patient can raise both arms against gravity, but has proximal right-sided weakness at the shoulder which he states is at his baseline and he attributes to overuse injury. Rest of upper extremity strength is symmetrical bilaterally, and sensation is intact throughout. 1/4 biceps reflex bilaterally. No pronator drift. -Lower extremities: Nonpitting edema present both sides. Patient has decreased sensation slightly at both feet which he attributes to his neuropathy. Babinski 's negative. Strength is 4/5 bilaterally and symmetric. Patellar reflexes are intact and 2/4. Results - Laboratory Findings CBC and BMP: 12/23/17 05:20 12/23/17 05:20 Abnormal lab findings: Abnormal lab results RBC 2.80 M/mcL (4.19-5.50) L 12/23/17 05:20 Hgb 7.9 g/dL (12.9-16.9) L 12/23/17 05:20 Hct 24.9 % (37.5-50.1) L 12/23/17 05:20 RDW 15.1 % (11.5-14.5) H 12/23/17 05:20 PT 47.5 Seconds (9.4-12.1) H* 12/22/17 12:37 VBG pH 7.29 pH Units (7.32-7.42) L 12/22/17 13:30 Chloride 110 mEq/L (98-107) H 12/23/17 05:20 Carbon Dioxide 19 mEq/L (23-29) L 12/23/17 05:20 BUN 44 mg/dL (8-23) H 12/23/17 05:20 Creatinine 3.16 mg/dL (0.70-1.30) H 12/23/17 05:20 Est GFR ( Amer) 23 (> 60) L 12/23/17 05:20 Est GFR (Non-Af Amer) 19 (> 60) L 12/23/17 05:20 Glucose 158 mg/dL (70-105) H 12/23/17 05:20 Calculated Osmolality 304 (280-300) H 12/23/17 05:20 Calcium 8.5 mg/dL (8.6-10.3) L 12/23/17 05:20 AST 6 Units/L (13-39) L 12/22/17 12:37 ALT 5 Units/L (7-52) L 12/22/17 12:37 Albumin 2.9 g/dL (3.5-5.7) L 12/22/17 12:37 Globulin 3.8 g/dL (2.4-3.5) H 12/22/17 12:37 Albumin/Globulin Ratio 0.8 (1.1-2.2) L 12/22/17 12:37 TSH 6.141 mcIU/mL (0.340-5.600) H 12/22/17 12:37 Urine Clarity Turbid (Clear) A 12/22/17 17:40 Urine Protein 100 mg/dL (Neg-Trace) H 12/22/17 17:40 Urine Blood Moderate (Negative) H 12/22/17 17:40 Ur Leukocyte Esterase Large (Negative) H 12/22/17 17:40 Urine Microscopic RBC 30-50 per hpf (0-3) H 12/22/17 17:40 Urine Microscopic WBC TNTC per hpf (0-3) H 12/22/17 17:40 Ur Squamous Epith Cells Moderate per lpf (None-Few) H 12/22/17 17:40 Urine Bacteria Many per hpf (None-Few) H 12/22/17 17:40 Ur Culture Indicated? YES (NO) A 12/22/17 17:40 Consult Discharge Plan - Plan Referrals: Nate,Elysia Kaufman DECK CADET [Primary Care Provider] - <Samara Lizama - Last Filed: 12/23/17 16:22> Date of Encounter: 12/23/17 History of Present Illness HPI: Mr. Rojas is a 77 year old male All Systems: The remainder of the systems were reviewed and are negative Physical Examination - Vital Signs Vital Signs: Initial Vital Signs Pulse Resp BP Pulse Ox 74 15 130/109 99 12/22/17 12:42 12/22/17 12:42 12/22/17 12:42 12/22/17 12:42 Results - Laboratory Findings CBC and BMP: 12/23/17 05:20 12/23/17 05:20 Abnormal lab findings: Abnormal lab results RBC 2.80 M/mcL (4.19-5.50) L 12/23/17 05:20 Hgb 7.9 g/dL (12.9-16.9) L 12/23/17 05:20 Hct 24.9 % (37.5-50.1) L 12/23/17 05:20 RDW 15.1 % (11.5-14.5) H 12/23/17 05:20 PT 33.1 Seconds (9.4-12.1) H 12/23/17 14:00 VBG pH 7.29 pH Units (7.32-7.42) L 12/22/17 13:30 Chloride 110 mEq/L (98-107) H 12/23/17 05:20 Carbon Dioxide 19 mEq/L (23-29) L 12/23/17 05:20 BUN 44 mg/dL (8-23) H 12/23/17 05:20 Creatinine 3.16 mg/dL (0.70-1.30) H 12/23/17 05:20 Est GFR ( Amer) 23 (> 60) L 12/23/17 05:20 Est GFR (Non-Af Amer) 19 (> 60) L 12/23/17 05:20 Glucose 158 mg/dL (70-105) H 12/23/17 05:20 Calculated Osmolality 304 (280-300) H 12/23/17 05:20 Calcium 8.5 mg/dL (8.6-10.3) L 12/23/17 05:20 AST 6 Units/L (13-39) L 12/22/17 12:37 ALT 5 Units/L (7-52) L 12/22/17 12:37 Albumin 2.9 g/dL (3.5-5.7) L 12/22/17 12:37 Globulin 3.8 g/dL (2.4-3.5) H 12/22/17 12:37 Albumin/Globulin Ratio 0.8 (1.1-2.2) L 12/22/17 12:37 TSH 6.141 mcIU/mL (0.340-5.600) H 12/22/17 12:37 Urine Clarity Turbid (Clear) A 12/22/17 17:40 Urine Protein 100 mg/dL (Neg-Trace) H 12/22/17 17:40 Urine Blood Moderate (Negative) H 12/22/17 17:40 Ur Leukocyte Esterase Large (Negative) H 12/22/17 17:40 Urine Microscopic RBC 30-50 per hpf (0-3) H 12/22/17 17:40 Urine Microscopic WBC TNTC per hpf (0-3) H 12/22/17 17:40 Ur Squamous Epith Cells Moderate per lpf (None-Few) H 12/22/17 17:40 Urine Bacteria Many per hpf (None-Few) H 12/22/17 17:40 Ur Culture Indicated? YES (NO) A 12/22/17 17:40
[2017-12-23] MEDS: 0.9 % Sodium Chloride 1,000 ML IVC SCH (12:34)
[2017-12-23 14:34] LABS: INR 2.9; Prothrombin Time 33.1 Seconds (9.4-12.1)
--- NOTE | 2017-12-23 17:56 | Infectious Disease Consult ---
Date of Encounter: 12/23/17 Time of Encounter: 17:51 Assessment and Plan (1) [id number] kidney injury Status: Acute Assessment and plan: Likely multifactorial secondary to sepsis and dehydration Nephrology to evaluate Dose adjust antibiotics based on the new creatinine clearance Qualifiers: Acute renal failure type: unspecified Chronic kidney disease stage: stage 4 (severe) Qualified Code(s): N17.9 - Acute kidney failure, unspecified; N18.4 - Chronic kidney disease, stage 4 (severe) (2) UTI (urinary tract infection) Status: Acute Assessment and plan: Initial UTI noted on 10/26/2017 with pseudomonas aeruginosa resistant to fluoroquinolone Treated with cefepime for 14 days Recurrence of infection with milky urine on 12/15/2017 Unable to get a urine culture because the urinalysis was contaminated with epithelial cells but there was clear pyuria, nitrites and leukocyte esterase Patient was restarted on cefepime and is currently doing well clinically My measured creatinine clearance on the patient is less than 30 about 28 so I will switch the cefepime 21 g every 24 hours from 2 g every 24 hours We will ask pharmacy to help with the dosing Duration of treatment probably 14 days total through 12/29/2017 Monitor labs and for drug toxicity and dose adjust antibiotics based on the creatinine clearance Qualifiers: Urinary tract infection type: site unspecified Hematuria presence: with hematuria Qualified Code(s): N39.0 - Urinary tract infection, site not specified; R31.9 - Hematuria, unspecified (3) Supratherapeutic INR Status: Acute (4) TIA (transient ischemic attack) Status: Acute (5) Sacral decubitus ulcer, stage II Status: Chronic Assessment and plan: Patient needs wound care to follow Infectious Disease HPI - Data of Consult Patient: new to practice Consult date: 12/23/17 Requesting Physician: Pavel Carr MD Primary Care Provider: Elysia Sullivan CNP - Consult Narrative Reason for consult: Complicated UTI History of present illness: Mr. Rojas is a 77 year old male Patient is a 77-year-old gentleman who presented to [facility] on 12/22/2017 with generalized weakness and slurred speech. We are consulted today for chronic UTI and antibiotic recommendations. Patient is an 77-year-old gentleman with extensive past medical history mentioned below including diabetes mellitus type 2, CHF, hypertension, chronic kidney disease stage III and history of prostate cancer apparently has been having urinary incontinence and recurrent UTI. Patient was admitted here back in October and on 10/26/2017 was found to have pseudomonas aeruginosa in the urine that was resistant to fluoroquinolones otherwise sensitive to everything else. Patient was discharged on cefepime with a PICC line placement or 2 weeks. Patient apparently was doing well until about a week ago where he presented to [facility] because his urine was milky colored per patient and family. At that time patient had a urinalysis done which showed positive nitrites large leukocyte esterase and WBCs are too numerous to count but there was also many epithelial cells and the culture was not sent. Apparently patient was restarted on cefepime and discharged home on 12/15/2017. Currently patient is asymptomatic has no urinary symptoms. Denies any dysuria. Denies any suprapubic tenderness. Denies any CVA tenderness or pain. Patient denies any nausea or vomiting. Apparently has been having altered mental status per family but that is not new Since admission, patient has been afebrile, no tachycardia and no leukocytosis. CC: Pavel Carr MD Past Med Surg Social Fam HX - Past Medical History Medical history: cancer, CHF, diabetes, hypertension, other Additional medical history: irregular heart beat. prostate cancer with radiation Psychiatric history: no psych history - Past Surgical History Surgical History: cholecystectomy, other Additional surgical history: pacer - Social History Smoking Status: Never smoker Smokeless Tobacco Status: No Alcohol use: none Drug use: none - Family History Father Living Status: Age at : 57 Hx Family Respiratory Disorders: Yes (Lung cancer) Hx Family Cancer: Yes (lung cancer) Mother Living Status: Age at : 80 Hx Family Cancer: Yes (breast cancer) Hx Family Genitourinary Disorders: Yes (kidney) Infectious Disease-CN:Meds Diltiazem HCl [Tiazac] 360 mg PO DAILY 03/16/15 [History] Sotalol [Betapace] 120 mg PO Q12HR 03/16/15 [History] Ergocalciferol (VITAMIN D2) [Vitamin D] 400 unit PO DAILY 12/08/15 [History] Latanoprost [Xalatan] 1 drop OP DAILY 12/08/15 [History] Warfarin [Coumadin] 2 mg PO DAILY 12/08/15 [History] Ferrous Sulfate 325 mg PO TIDWM #90 tablet 12/10/15 [Rx] Insulin Glargine,Hum.rec.anlog [Basaglar Kwikpen U-100] 30 unit SQ HS 10/26/17 [ History] Cefepime HCl/Dextrose, Iso-Osm [Cefepime 2 gm Injection] 2 gm IV BID #19 froz.piggy 12/15/17 [Rx] Brimonidine 0.2% [Alphagan] 1 drop BOTH EYES DAILY 12/22/17 [History] Furosemide [Lasix] 20 mg PO DAILY 12/22/17 [History] 3 Allergy/AdvReac Type Severity Reaction Status Date / Time Erythromycin Base Allergy Mild Rash Verified 10/26/17 14:08 Review of systems: 10 point review of systems done, negative other for what is mentioned in history of present illness Exam - Constitutional Vitals: Temp Pulse Resp BP Pulse Ox 98.2 F 74 18 132/66 93 12/23/17 15:41 12/23/17 15:41 12/23/17 15:41 12/23/17 15:41 12/23/17 15:41 Infectious Disease CN: Results - Labs CBC & Chem 7: 12/23/17 05:20 12/23/17 05:20 Serology: Serology 12/22/17 Range/Units 17:40 Urine Color Yellow (Yellow) Urine Clarity Turbid A (Clear) Urine pH 6.5 (5.0-8.0) pH Units Ur Specific [place] 1.012 (1.010-1.025) Urine Protein 100 H (Neg-Trace) mg/dL Urine Glucose (UA) Normal (Normal) mg/dL Urine Ketones Negative (Negative) mg/dL Urine Blood Moderate H (Negative) Urine Nitrite Negative (Negative) Urine Bilirubin Negative (Negative) Urine Urobilinogen Normal (Normal) mg/dL Ur Leukocyte Esterase Large H (Negative) Urine Microscopic RBC 30-50 H (0-3) per hpf Urine Microscopic WBC TNTC H (0-3) per hpf Ur Squamous Epith Cells Moderate H (None-Few) per lpf Urine Bacteria Many H (None-Few) per hpf Hyaline Casts None Seen (None-Few) per lpf Ur Culture Indicated? YES A (NO) Consult Discharge Plan - Plan Referrals: Elysia Sullivan WILDLIFE ECOLOGY PROFESSOR [Primary Care Provider] -
[2017-12-23] MEDS ORDERED: *HR* Warfarin 2 MG TABLET PO ONE (18:00)
[2017-12-23] MEDS ORDERED: Warfarin perPT PO PRN (18:00)
[2017-12-23] MEDS ORDERED: Perflutren Lipid Microsphere 1.3 ML in 0.9 % Sodium Chloride 8.7 ML IVP ONE (20:02)
[2017-12-23] MEDS: Insulin DETEMIR 100 UNIT/ML X5UNITS SQ SCH (20:52)
[2017-12-24] MEDS: 0.9 % Sodium Chloride 1,000 ML IVC SCH (01:42)
[2017-12-24] MEDS: Ondansetron 4 MG/2 ML VIAL IVP SCH ×5 (04:00→20:40)
[2017-12-24] MEDS: Insulin LISPRO 300 UNITS/3 ML VIAL SQ SCH ×3 (07:30→16:56)
[2017-12-24] MEDS ORDERED: Cefepime HCl 1,000 MG in Water for inj. (sterile) 20 ML 10 ML IVP SCH (09:00)
[2017-12-24 11:04] LABS: INR 1.7
[2017-12-24 11:42] LABS: Basophils % 0.4 %; Eosinophils # 0.4 K/mcL (0.0-0.6); Eosinophils % 3.8 %; Hemoglobin 7.4 g/dL (12.9-16.9); Immature Granulocytes % 1.8 % (0-4); Immature Platelets 3.3 % (1.1-6.1); Mean Corpuscular HGB Conc 30.8 g/dL (31.6-35.5); Mean Corpuscular Volume 90.9 fL (83.0-100.0); Mean Platelet Volume 10.2 fL (9.4-12.4); Monocytes # 0.8 K/mcL (0.0-1.3); Monocytes % 7.8 %; Platelet Count 349 K/mcL (140-400); Red Blood Count 2.64 M/mcL (4.19-5.50); Red Cell Distribution Width 15.5 % (11.5-14.5); Segmented Neutrophils % 76.2 %
[2017-12-24 11:49] LABS: Calcium 8.1 mg/dL (8.6-10.3); Potassium 4.2 mEq/L (3.5-5.1)
[2017-12-24 12:33] LABS: Prothrombin Time 19.2 Seconds (9.4-12.1)
[2017-12-24] MEDS ORDERED: Lidocaine Viscous Oral Soln 15 ML SOLUTION MM PRN (13:26)
[2017-12-24] MEDS ORDERED: *HR* FentaNYL (PF) 100 MCG/2 ML VIAL IVP PRN (13:26)
[2017-12-24] MEDS ORDERED: *HR* Midazolam HCl 5 MG/5 ML VIAL IVP PRN (13:27)
[2017-12-24] MEDS ORDERED: Tetracaine/Benzocaine/Butamben 1 SPRAY AEROSOL MM ONE (13:27)
[2017-12-24] MEDS ORDERED: 0.9 % Sodium Chloride 500 ML IVC ONE (13:27)
--- NOTE | 2017-12-24 13:36 | Infectious Disease Progress No ---
Date of Encounter: 12/24/17 Time of Encounter: 10:10 - Assessment and Plan (1) UTI (urinary tract infection) Current Visit: No Status: Acute Initial UTI noted on 10/26/17 with Pseudomonas aeruginosa resistant to fluoroquinolones. Treated with cefepime x 14 days. Recurrence of infection with milky urine on 12/15/17. Urinalysis positive, but appeared contaminated. Culture is pending. Doing well clinically on Cefepime. Continue cefepime 1 gram Q24H, dose-adjusted for diminished CrCl. Duration of treatment depends on the clinical picture, but likely a total of 14 days. Treat through 12/29/17. Monitor renal function and dose-adjust antibiotics. No further recommendations from the ID team. We will sign off. Please re-consult if needed. Qualifiers: Urinary tract infection type: site unspecified Hematuria presence: with hematuria Qualified Code(s): N39.0 - Urinary tract infection, site not specified; R31.9 - Hematuria, unspecified (2) Uyrav-mu-umjwrhw kidney injury Current Visit: Yes Status: Acute Likely multifactorial secondary to sepsis and dehydration. Recommend nephrology to evaluate. Continue to trend. Dose-adjust antibiotics. Avoid nephrotoxins. Qualifiers: Acute renal failure type: unspecified Chronic kidney disease stage: stage 4 (severe) Qualified Code(s): N17.9 - Acute kidney failure, unspecified; N18.4 - Chronic kidney disease, stage 4 (severe) (3) Sacral decubitus ulcer, stage II Current Visit: Yes Status: Chronic Wound care and aggressive offloading. Wound care team to evaluate for dressing change recommendations. (4) Supratherapeutic INR Current Visit: Yes Status: Resolved (5) TIA (transient ischemic attack) Current Visit: Yes Status: Acute Neurology consulted and following. - Subjective Interval history: Patient seen and examined. No acute events noted overnight. Patient states that he felt terrible earlier this morning, but now feels great. Denies fevers, chills, or rigors. Denies chest pain, shortness of breath, or cough. Denies nausea, vomiting, or diarrhea. Denies abdominal pain or urinary complaints. States he was having hallucinations yesterday and thinks it might be from the antibiotics. Denies oral thrush or skin rashes. Infect Dis PN-Objective Data - Labs CBC & Chem 7: 12/25/17 06:14 12/24/17 05:45 Labs: Laboratory Results - last 24 hr 12/22/17 12/23/17 12/23/17 20:24 14:00 16:37 WBC RBC Hgb Hct MCV MCH MCHC RDW Plt Count MPV Immature Gran % Seg Neutrophils % Lymphocytes % Monocytes % Eosinophils % Basophils % Neutrophils # Lymphocytes # Monocytes # Eosinophils # Basophils # Immature Plt Fraction PT 33.1 H INR 2.9 Sodium Potassium Chloride Carbon Dioxide BUN Creatinine Est GFR ( Amer) Est GFR (Non-Af Amer) BUN/Creatinine Ratio Glucose POC Glucose 167 H 205 H Calculated Osmolality Calcium 12/23/17 12/24/17 12/24/17 20:27 05:45 05:45 WBC RBC Hgb Hct MCV MCH MCHC RDW Plt Count MPV Immature Gran % Seg Neutrophils % Lymphocytes % Monocytes % Eosinophils % Basophils % Neutrophils # Lymphocytes # Monocytes # Eosinophils # Basophils # Immature Plt Fraction PT 19.2 H INR 1.7 Sodium 138 Potassium 4.2 Chloride 113 H Carbon Dioxide 19 L BUN 46 H Creatinine 3.53 H Est GFR ( Amer) 20 L Est GFR (Non-Af Amer) 17 L BUN/Creatinine Ratio 13 Glucose 144 H POC Glucose 176 H Calculated Osmolality 300 Calcium 8.1 L 12/24/17 05:45 WBC 10.5 RBC 2.64 L Hgb 7.4 L Hct 24.0 L MCV 90.9 MCH 28.0 MCHC 30.8 L RDW 15.5 H Plt Count 349 MPV 10.2 Immature Gran % 1.8 Seg Neutrophils % 76.2 Lymphocytes % 10.0 Monocytes % 7.8 Eosinophils % 3.8 Basophils % 0.4 Neutrophils # 8.0 Lymphocytes # 1.0 Monocytes # 0.8 Eosinophils # 0.4 Basophils # 0.0 Immature Plt Fraction 3.3 PT INR Sodium Potassium Chloride Carbon Dioxide BUN Creatinine Est GFR ( Amer) Est GFR (Non-Af Amer) BUN/Creatinine Ratio Glucose POC Glucose Calculated Osmolality Calcium Cultures: Cultures 12/22/17 13:28 Blood Culture - Preliminary Peripheral Venipuncture Culture is incubating and being continuously monitored for growth. Final report to follow. 12/22/17 13:19 Blood Culture - Preliminary Peripheral Venipuncture Culture is incubating and being continuously monitored for growth. Final report to follow. Serology 12/22/17 Range/Units 17:40 Urine Color Yellow (Yellow) Urine Clarity Turbid A (Clear) Urine pH 6.5 (5.0-8.0) pH Units Ur Specific [place] 1.012 (1.010-1.025) Urine Protein 100 H (Neg-Trace) mg/dL Urine Glucose (UA) Normal (Normal) mg/dL Urine Ketones Negative (Negative) mg/dL Urine Blood Moderate H (Negative) Urine Nitrite Negative (Negative) Urine Bilirubin Negative (Negative) Urine Urobilinogen Normal (Normal) mg/dL Ur Leukocyte Esterase Large H (Negative) Urine Microscopic RBC 30-50 H (0-3) per hpf Urine Microscopic WBC TNTC H (0-3) per hpf Ur Squamous Epith Cells Moderate H (None-Few) per lpf Urine Bacteria Many H (None-Few) per hpf Hyaline Casts None Seen (None-Few) per lpf Ur Culture Indicated? YES A (NO) - Impressions Impressions Echocardiogram Limited Views 12/23/17 15:55 Impressions: Technically challenging due to poor echocardiographic windows. Probably low normal to mild left ventricular systolic dysfunction. Unable to evaluate segmental wall motion due to technical quality. Atypical septal motion consistent with paced rhythm. Definity echo contrast was used. LV chamber size is upper limits of normal. Exam - Constitutional Vitals: Temp Pulse Resp BP Pulse Ox 98.5 F 71 15 141/71 97 12/23/17 23:31 12/23/17 23:31 12/23/17 23:31 12/23/17 23:31 12/23/17 23:31 General appearance: cooperative, morbidly obese, no acute distress - Head Head exam: Present: atraumatic, normal inspection, normocephalic - Eye Eye exam: Present: EOMI, normal appearance, PERRL Pupils: Present: normal accommodation - ENT ENT exam: Present: mucous membranes moist - Neck Neck exam: Present: normal inspection - Respiratory Respiratory exam: Present: CTAB. Absent: rales, respiratory distress, rhonchi, wheezes - Cardiovascular Cardiovascular exam: Present: RRR, +S1, +S2 - GI/Abdominal GI/Abdominal exam: Present: distended (obese), normal bowel sounds, soft. Absent: tenderness - Extremities Exam Extremities exam: Present: normal inspection. Absent: joint swelling, pedal edema, tenderness - Neurological Exam Neurological exam: Present: alert, oriented X3, no focal deficits - Psychiatric Psychiatric exam: Present: normal affect, normal mood - Skin Skin exam: Present: dry, intact, normal color, warm Consult Discharge Plan - Plan Referrals: Elysia Sullivan CNP [Primary Care Provider] - (YOUR APPOINTMENT HAS BEEN REQUESTED. OUR OFFICES WILL CALL YOU WITH AN APPOINTMENT TIME AND DATE.) - Attending Attestation I examined this patient and my medical decision-making was reviewed with the Resident Physician. I agree with the documented findings, disposition and treatment plan as described except to the extent set forth below.
--- NOTE | 2017-12-24 16:14 | Neurology Progress Note ---
Date of Encounter: 12/24/17 Time of Encounter: 16:11 Assessment and Plan (1) Altered mental status Current Visit: Yes Status: Acute Likely secondary to encephalopathy secondary to medical conditions especially renal insufficiency. He has had mild right sided weakness which is chronic in nature. Speech is fluent. Visual hallucinations likely provoked by encephalopathy, no intervention appears necessary at this time. Is already on coumadin with therapeutic INR, (4.2-->1.7 now) New infarct unlikely. Await carotid doppler result, if returns unremarkable then will continue medical treatment with no change. Please continue medical and supportive care. Will sign off at this time please call if any questions Qualifiers: Altered mental status type: disorientation Qualified Code(s): R41.0 - Disorientation, unspecified Subjective Principal diagnosis: Weakness and hallucinations and confusion Interval history: Patient seen and examined. He has been doing the same, has fatigue and grogginess but no focal neurological deficits. He still has episodes of visual hallucinations by seeing cat out of the window, and also also sentences on a paper, this occurred while he was wide awake and in the midst of him talking normal to his relatives. He is mildly weak to the right arm and leg which is chronic. Speech is fluent. NO headaches Echocardiography completed and please refer to the bulk of report for details Objective - Constitutional Vitals: Temp Pulse Resp BP Pulse Ox 97.7 F 75 18 115/73 98 12/24/17 15:15 12/24/17 15:15 12/24/17 15:15 12/24/17 15:15 12/24/17 15:15 - Neurological Exam Motor Examination: Present: other (Moves all extremities, right slightly weaker. Legs with difficulty flex his hips) Motor examination - right side: 4/5: deltoids, biceps, triceps, wrist flexion, wrist extension, head setter, hip flexors, tibialis Anterior, quadriceps, toe extension (EHL), plantarflexion Motor examination - left side: 5/5: deltoids, biceps, triceps, wrist flexion, wrist extension, hip flexors, head setter, quadriceps, tibialis Anterior, toe extension (EHL), plantarflexion Sensation intact: Present: intact Posture: Present: other (None) Reflexes: Biceps: 1+, Triceps: 1+, Brachioradialis: 1+, Patella: 1+, Achilles: 1+ Mental Status Examination: Present: awake, alert, oriented to person, oriented to place, oriented to time, follows commands appropriately, answers questions appropriately, no agnosia, no aphasia, no aproxia Cranial nerve examination: Present: PERRL, EOMI, visual hill intact, corneal reflexes brisk symmetrically, sensory to face intact, mastication intact, no facial asymmetry is present, no dysarthria, hearing is intact symmetrically, soft palate elevates bilaterally upon phonation, gag reflex intact Results - Laboratory Findings CBC and BMP: 12/24/17 05:45 12/24/17 05:45 Abnormal lab findings: Abnormal lab results RBC 2.64 M/mcL (4.19-5.50) L 12/24/17 05:45 Hgb 7.4 g/dL (12.9-16.9) L 12/24/17 05:45 Hct 24.0 % (37.5-50.1) L 12/24/17 05:45 MCHC 30.8 g/dL (31.6-35.5) L 12/24/17 05:45 RDW 15.5 % (11.5-14.5) H 12/24/17 05:45 PT 19.2 Seconds (9.4-12.1) H 12/24/17 05:45 VBG pH 7.29 pH Units (7.32-7.42) L 12/22/17 13:30 Chloride 113 mEq/L (98-107) H 12/24/17 05:45 Carbon Dioxide 19 mEq/L (23-29) L 12/24/17 05:45 BUN 46 mg/dL (8-23) H 12/24/17 05:45 Creatinine 3.53 mg/dL (0.70-1.30) H 12/24/17 05:45 Est GFR ( Amer) 20 (> 60) L 12/24/17 05:45 Est GFR (Non-Af Amer) 17 (> 60) L 12/24/17 05:45 Glucose 144 mg/dL (70-105) H 12/24/17 05:45 POC Glucose 176 mg/dL (70-99) H 12/23/17 20:27 Calcium 8.1 mg/dL (8.6-10.3) L 12/24/17 05:45 AST 6 Units/L (13-39) L 12/22/17 12:37 ALT 5 Units/L (7-52) L 12/22/17 12:37 Albumin 2.9 g/dL (3.5-5.7) L 12/22/17 12:37 Globulin 3.8 g/dL (2.4-3.5) H 12/22/17 12:37 Albumin/Globulin Ratio 0.8 (1.1-2.2) L 12/22/17 12:37 TSH 6.141 mcIU/mL (0.340-5.600) H 12/22/17 12:37 Urine Clarity Turbid (Clear) A 12/22/17 17:40 Urine Protein 100 mg/dL (Neg-Trace) H 12/22/17 17:40 Urine Blood Moderate (Negative) H 12/22/17 17:40 Ur Leukocyte Esterase Large (Negative) H 12/22/17 17:40 Urine Microscopic RBC 30-50 per hpf (0-3) H 12/22/17 17:40 Urine Microscopic WBC TNTC per hpf (0-3) H 12/22/17 17:40 Ur Squamous Epith Cells Moderate per lpf (None-Few) H 12/22/17 17:40 Urine Bacteria Many per hpf (None-Few) H 12/22/17 17:40 Ur Culture Indicated? YES (NO) A 12/22/17 17:40 - Diagnostic Findings Additional findings: limited echo w enhance Impressions: Technically challenging due to poor echocardiographic windows. Probably low normal to mild left ventricular systolic dysfunction. Unable to evaluate segmental wall motion due to technical quality. Atypical septal motion consistent with paced rhythm. Definity echo contrast was used. LV chamber size is upper limits of normal. Consult Discharge Plan - Plan Referrals: Elysia Sullivan HR PAYROLL COORDINATOR [Primary Care Provider] - (YOUR APPOINTMENT HAS BEEN REQUESTED. OUR OFFICES WILL CALL YOU WITH AN APPOINTMENT TIME AND DATE.)
[2017-12-24] MEDS: Diltiazem CD (24hr) 180 MG CAPSULE PO SCH (16:45)
[2017-12-24] MEDS: Fluticasone Propionate Nasal 50 MCG/SPRAY BOTTLE NS SCH (16:45)
[2017-12-24] MEDS: Aspirin Enteric Coated 81 MG Tablet PO SCH (16:45)
[2017-12-24] MEDS: traMADol 50 MG TABLET PO PRN ×2 (16:59→23:07)
[2017-12-24] MEDS ORDERED: *HR* Warfarin 2 MG TABLET PO ONE (18:00)
--- NOTE | 2017-12-24 18:39 | Internal Med Progress Note ---
Hospitalist Progress Note - Encounter Date of Encounter: 12/24/17 Time of Encounter: 15:00 - Subjective Interval History: Mr. Rojas is a 77-year-old male who was admitted through the emergency room for possible TIA due to slurred speech. He states that he is having visual hullcinsations. Reports seeing a cat on the outside window of his room yesterda y. Also states that his family member brought him a cup of soda pop, and the cup had writing that referred to him as Grandpa,. Reports they took a picture to show him that therer was no writing on the cup, and he could see the writing in the picuture as well. Today states he awoke around 4 AM, and thought he had been moved to another room . States that the room was backwards, and that someone had, moved the wall closet and window; switching them and there positions. Reports that he knows he is seeing things that are not there, "but they are still there". Reports that he sits and sleeps in a recliner chair, and is unable to get out of the chair w/o assistance. He has developed stage 1 and 2 decubitus on the buttock and testicles. States he has purchased a lift chair, however, he must pay someone to deliver it to his home. Review of echo shows limited views,, and is technically challenging d/t poor echocardiography windows. Urine c/s no growth blood c/s pending HGB low @ 7.4. HCT 24, RBC 2.64 - Exam Vitals: Temp Pulse Resp BP Pulse Ox 97.7 F 75 18 115/73 98 12/24/17 15:15 12/24/17 15:15 12/24/17 15:15 12/24/17 15:15 12/24/17 15:15 Exam: as above - Assessment and Plan (1) A-fib Current Visit: No Status: Chronic Assessment and Plan: On cardizem, sotalol and Warfarin. Will continue home dose of Cardizem. Hold Warfarin dose. (2) Diabetes mellitus Current Visit: No Status: Chronic Assessment and Plan: glucose 144 today will continue with insulin and monitoring bloods sugars per protocol (3) Hypertension Current Visit: No Status: Chronic Assessment and Plan: controlled at present time. will continue with present treatment (4) Anemia Current Visit: No Status: Chronic Assessment and Plan: H&H decreased < 8, with decreased RBC of 2.64 . Will transfuse 1 unit RPC. and repeat CBC with dif (5) Generalized weakness Current Visit: No Status: Acute Assessment and Plan: reports he had chemo for prostate cancer, however, a few years after completion of treatment, started with mild leg weakness. Now states that he must use a walker for short distance of ambulation. Reports that he sleeps and sits in a recliner, and once he is seated he is unable to stand w/o assistance. Reports that he sits most of the day and night in the recliner, is incontinent of urine, wears depends. Reports his bathroom is no handicap accissable to narrow doors and he is unable to get his walker through the doors . Reports no control of his bladder since irritation of the prostate. PT/OT was consulted, patient refused to talk with them today. Unwilling to attempt to get out of bed. Bilateral leg strength 2+ with push pull of the feet dorsal flexion, and pulling feet back in flexion of the ankles, Patellar DTR's 2+. Will get aids social worker involved for home PT (6) Acute kidney injury superimposed on chronic kidney disease Current Visit: No Status: Acute Assessment and Plan: see todays labs will continue with current treatment (7) Supratherapeutic INR Current Visit: Yes Status: Resolved Assessment and Plan: INR 1.7 today will continue to monitor (8) Complicated UTI (urinary tract infection) Current Visit: No Status: Resolved Assessment and Plan: Urine negative for significant growth. Will d/c IV ATB. (9) DVT prophylaxis Current Visit: No Status: Acute Assessment and Plan: will continue per protochol, Coumadin dosing per pharmacy . (10) TIA (transient ischemic attack) Current Visit: Yes Status: Acute Assessment and Plan: Continues with visual hullcinations, neurology consult pending (11) Sacral decubitus ulcer, stage II Current Visit: Yes Status: Chronic Assessment and Plan: Stage 1 and 2 decubitus on the buttock, testicle, d/t prolonged sitting , and decreased mobility , urinary incontinence Wound care consult - Time Spent with Patient Total time spent is greater than 50% in coordination of care (as documented) at patient's floor/unit and/or counseling patient: less than 15 minutes Plan of Care Discussed with: patient Internal Medicine: Result - Labs CBC & Chem 7: 12/24/17 05:45 12/24/17 05:45 Labs: Short CBC 12/24/17 Range/Units 05:45 WBC 10.5 (4.3-11.1) K/mcL Hgb 7.4 L (12.9-16.9) g/dL Hct 24.0 L (37.5-50.1) % Plt Count 349 (140-400) K/mcL Neutrophils # 8.0 (1.6-8.9) K/mcL BMP 12/24/17 05:45 Sodium 138 Potassium 4.2 Chloride 113 H Carbon Dioxide 19 L BUN 46 H Creatinine 3.53 H Glucose 144 H Calcium 8.1 L - ABG Interpretation ABG results: PT/INR, D-dimer PT 19.2 Seconds (9.4-12.1) H 12/24/17 05:45 - Impressions Impressions Echocardiogram Limited Views 12/23/17 15:55 Impressions: Technically challenging due to poor echocardiographic windows. Probably low normal to mild left ventricular systolic dysfunction. Unable to evaluate segmental wall motion due to technical quality. Atypical septal motion consistent with paced rhythm. Definity echo contrast was used. LV chamber size is upper limits of normal. Consult Discharge Plan - Plan Referrals: Elysia Sullivan, [facility] THERAPIST [Primary Care Provider] - (YOUR APPOINTMENT HAS BEEN REQU ESTED. OUR OFFICES WILL CALL YOU WITH AN APPOINTMENT TIME AND DATE.) __ (1) A-fib Qualifiers: Atrial fibrillation type: chronic Qualified Code(s): I48.2 - Chronic atrial fibrillation (2) Diabetes mellitus Qualifiers: Diabetes mellitus type: type 2 Diabetes mellitus halfway insulin use: without halfway use Diabetes mellitus complication status: without complication Qualified Code(s): E11.9 - Type 2 diabetes mellitus without complications (3) Hypertension Qualifiers: Hypertension type: essential hypertension Qualified Code(s): I10 - Essential (primary) hypertension (4) Anemia Qualifiers: Anemia type: other cause Other causes of anemia: chronic disease, other Qualified Code(s): D63.8 - Anemia in other chronic diseases classified elsewhere
[2017-12-24] MEDS ORDERED: 0.9 % Sodium Chloride 500 ML ONE (20:30)
[2017-12-24] MEDS: Insulin DETEMIR 100 UNIT/ML X5UNITS SQ SCH (20:54)
[2017-12-25] MEDS: Ondansetron 4 MG/2 ML VIAL IVP SCH ×6 (00:14→21:02)
[2017-12-25] MEDS: 0.9 % Sodium Chloride 1,000 ML IVC SCH ×2 (04:34→17:20)
[2017-12-25 06:31] LABS: Basophils % 0.4 %; Eosinophils # 0.5 K/mcL (0.0-0.6); Eosinophils % 4.3 %; Hematocrit 28.3 % (37.5-50.1); Hemoglobin 8.7 g/dL (12.9-16.9); Immature Granulocytes % 1.5 % (0-4); Lymphocytes % 8.9 %; Mean Corpuscular HGB Conc 30.7 g/dL (31.6-35.5); Mean Corpuscular Hemoglobin 28.2 pg (28.0-33.3); Mean Corpuscular Volume 91.9 fL (83.0-100.0); Mean Platelet Volume 9.9 fL (9.4-12.4); Monocytes # 0.8 K/mcL (0.0-1.3); Monocytes % 7.3 %; Neutrophils # 8.7 K/mcL (1.6-8.9); Platelet Count 294 K/mcL (140-400); Red Blood Count 3.08 M/mcL (4.19-5.50); Red Cell Distribution Width 15.3 % (11.5-14.5); Segmented Neutrophils % 77.6 %
[2017-12-25 07:02] LABS: INR 1.4; Prothrombin Time 16.3 Seconds (9.4-12.1)
[2017-12-25] MEDS: Diltiazem CD (24hr) 180 MG CAPSULE PO SCH (08:21)
[2017-12-25] MEDS: Aspirin Enteric Coated 81 MG Tablet PO SCH (08:21)
[2017-12-25] MEDS: Insulin LISPRO 300 UNITS/3 ML VIAL SQ SCH ×3 (08:22→18:11)
[2017-12-25] MEDS: Fluticasone Propionate Nasal 50 MCG/SPRAY BOTTLE NS SCH (08:23)
[2017-12-25] MEDS: Cefepime HCl 1,000 MG in Water for inj. (sterile) 20 ML 10 ML IVP SCH (10:08)
--- NOTE | 2017-12-25 11:57 | Infectious Disease Progress No ---
Date of Encounter: 12/25/17 Time of Encounter: 11:54 - Assessment and Plan (1) UTI (urinary tract infection) Current Visit: No Status: Acute Initial UTI noted on 10/26/17 with Pseudomonas aeruginosa resistant to fluoroquinolones. Treated with cefepime x 14 days. Recurrence of infection with milky urine on 12/15/17. Urinalysis positive, but appeared contaminated. Repeat culture on 12/22/2017 no growth Doing well clinically on Cefepime. Continue cefepime 1 gram Q24H, dose-adjusted for diminished CrCl. Treat through 12/29/17. Monitor renal function and dose-adjust antibiotics. No further recommendations from the ID team. We will sign off. Please re-consult if needed. Family had multiple concerns about taking the patient home with confusion points and with the fact that he has week and has not been out of bed. I did relay this information to the case making machine operator who informed me that the patient has been refusing PT/OT. I requested that the hospital school speak with the family and addressed their concerns. I did notify the family that the repeat urine culture was negative and the patient has no sepsis criteria and clinically from an infectious disease point of view things are going as planned no further recommendations needed. Qualifiers: Urinary tract infection type: site unspecified Hematuria presence: with hematuria Qualified Code(s): N39.0 - Urinary tract infection, site not specified; R31.9 - Hematuria, unspecified (2) [id number] kidney injury Current Visit: Yes Status: Acute Likely multifactorial secondary to sepsis and dehydration. Recommend nephrology to evaluate. Continue to trend. Dose-adjust antibiotics. Avoid nephrotoxins. Qualifiers: Acute renal failure type: unspecified Chronic kidney disease stage: stage 4 (severe) Qualified Code(s): N17.9 - Acute kidney failure, unspecified; N18.4 - Chronic kidney disease, stage 4 (severe) (3) Sacral decubitus ulcer, stage II Current Visit: Yes Status: Chronic Wound care and aggressive offloading. Wound care team to evaluate for dressing change recommendations. (4) Supratherapeutic INR Current Visit: Yes Status: Resolved (5) TIA (transient ischemic attack) Current Visit: Yes Status: Acute Neurology consulted and following. - Subjective Interval history: Patient seen and examined. Appears comfortable. Family at bedside. No chest pain. No shortness of breath. No cough. No nausea or vomiting, no diarrhea or constipation. No urinary symptoms. Lori tells me that he still has moments of confusion. Infect Dis PN-Objective Data - Labs CBC & Chem 7: 12/25/17 06:14 12/25/17 11:30 Labs: Laboratory Results - last 24 hr 12/22/17 12/23/17 12/23/17 13:19 07:25 11:37 WBC RBC Hgb Hct MCV MCH MCHC RDW Plt Count MPV Immature Gran % Seg Neutrophils % Lymphocytes % Monocytes % Eosinophils % Basophils % Neutrophils # Lymphocytes # Monocytes # Eosinophils # Basophils # Immature Plt Fraction PT INR Sodium Potassium Chloride Carbon Dioxide BUN Creatinine Est GFR ( Amer) Est GFR (Non-Af Amer) BUN/Creatinine Ratio Glucose POC Glucose 145 H 165 H Calculated Osmolality Calcium Blood Type O POSITIVE Antibody Screen NEGATIVE Crossmatch See Detail 12/23/17 12/24/17 12/24/17 16:37 05:45 05:45 WBC RBC Hgb Hct MCV MCH MCHC RDW Plt Count MPV Immature Gran % Seg Neutrophils % Lymphocytes % Monocytes % Eosinophils % Basophils % Neutrophils # Lymphocytes # Monocytes # Eosinophils # Basophils # Immature Plt Fraction PT 19.2 H INR 1.7 Sodium 138 Potassium 4.2 Chloride 113 H Carbon Dioxide 19 L BUN 46 H Creatinine 3.53 H Est GFR ( Amer) 20 L Est GFR (Non-Af Amer) 17 L BUN/Creatinine Ratio 13 Glucose 144 H POC Glucose 205 H Calculated Osmolality 300 Calcium 8.1 L Blood Type Antibody Screen Crossmatch 12/24/17 12/24/17 12/24/17 05:45 07:41 11:49 WBC 10.5 RBC 2.64 L Hgb 7.4 L Hct 24.0 L MCV 90.9 MCH 28.0 MCHC 30.8 L RDW 15.5 H Plt Count 349 MPV 10.2 Immature Gran % 1.8 Seg Neutrophils % 76.2 Lymphocytes % 10.0 Monocytes % 7.8 Eosinophils % 3.8 Basophils % 0.4 Neutrophils # 8.0 Lymphocytes # 1.0 Monocytes # 0.8 Eosinophils # 0.4 Basophils # 0.0 Immature Plt Fraction 3.3 PT INR Sodium Potassium Chloride Carbon Dioxide BUN Creatinine Est GFR ( Amer) Est GFR (Non-Af Amer) BUN/Creatinine Ratio Glucose POC Glucose 143 H 125 H Calculated Osmolality Calcium Blood Type Antibody Screen Crossmatch 12/24/17 12/24/17 12/25/17 16:34 19:52 06:14 WBC RBC Hgb Hct MCV MCH MCHC RDW Plt Count MPV Immature Gran % Seg Neutrophils % Lymphocytes % Monocytes % Eosinophils % Basophils % Neutrophils # Lymphocytes # Monocytes # Eosinophils # Basophils # Immature Plt Fraction PT 16.3 H INR 1.4 Sodium Potassium Chloride Carbon Dioxide BUN Creatinine Est GFR ( Amer) Est GFR (Non-Af Amer) BUN/Creatinine Ratio Glucose POC Glucose 120 H 183 H Calculated Osmolality Calcium Blood Type Antibody Screen Crossmatch 12/25/17 06:14 WBC 11.2 H RBC 3.08 L Hgb 8.7 L Hct 28.3 L MCV 91.9 MCH 28.2 MCHC 30.7 L RDW 15.3 H Plt Count 294 MPV 9.9 Immature Gran % 1.5 Seg Neutrophils % 77.6 Lymphocytes % 8.9 Monocytes % 7.3 Eosinophils % 4.3 Basophils % 0.4 Neutrophils # 8.7 Lymphocytes # 1.0 Monocytes # 0.8 Eosinophils # 0.5 Basophils # 0.0 Immature Plt Fraction PT INR Sodium Potassium Chloride Carbon Dioxide BUN Creatinine Est GFR ( Amer) Est GFR (Non-Af Amer) BUN/Creatinine Ratio Glucose POC Glucose Calculated Osmolality Calcium Blood Type Antibody Screen Crossmatch Cultures: Cultures 12/22/17 13:28 Blood Culture - Preliminary Peripheral Venipuncture Culture is incubating and being continuously monitored for growth. Final report to follow. 12/22/17 13:19 Blood Culture - Preliminary Peripheral Venipuncture Culture is incubating and being continuously monitored for growth. Final report to follow. 12/22/17 17:40 Urine Culture - Final Urine,Catheterized No significant growth. Serology 12/22/17 Range/Units 17:40 Urine Color Yellow (Yellow) Urine Clarity Turbid A (Clear) Urine pH 6.5 (5.0-8.0) pH Units Ur Specific [place] 1.012 (1.010-1.025) Urine Protein 100 H (Neg-Trace) mg/dL Urine Glucose (UA) Normal (Normal) mg/dL Urine Ketones Negative (Negative) mg/dL Urine Blood Moderate H (Negative) Urine Nitrite Negative (Negative) Urine Bilirubin Negative (Negative) Urine Urobilinogen Normal (Normal) mg/dL Ur Leukocyte Esterase Large H (Negative) Urine Microscopic RBC 30-50 H (0-3) per hpf Urine Microscopic WBC TNTC H (0-3) per hpf Ur Squamous Epith Cells Moderate H (None-Few) per lpf Urine Bacteria Many H (None-Few) per hpf Hyaline Casts None Seen (None-Few) per lpf Ur Culture Indicated? YES A (NO) Exam - Constitutional Vitals: Temp Pulse Resp BP Pulse Ox 98.0 F 76 17 126/71 97 12/25/17 11:26 12/25/17 11:26 12/25/17 11:26 12/25/17 11:26 12/25/17 11:26 General appearance: cooperative, no febrile - Respiratory Respiratory exam: Present: CTAB. Absent: wheezes - Cardiovascular Cardiovascular exam: Present: RRR, +S1, +S2 - GI/Abdominal GI/Abdominal exam: Present: soft. Absent: tenderness - Extremities Exam Extremities exam: Present: full ROM, normal inspection Consult Discharge Plan - Plan Referrals: Elysia Sullivan CNP [Primary Care Provider] - (YOUR APPOINTMENT HAS BEEN REQUESTED. OUR OFFICES WILL CALL YOU WITH AN APPOINTMENT TIME AND DATE.)
[2017-12-25 12:37] LABS: Calcium 8.1 mg/dL (8.6-10.3); Potassium 4.5 mEq/L (3.5-5.1)
--- NOTE | 2017-12-25 13:28 | Discharge Summary ---
- NOTES TO OUTPATIENT PROVIDER Notes to Outpatient Provider: follow up with urology about chronic stable hydronephrosis. monitor renal functions and electrolytes frequently. restart lasix once renal function return back to baseline. follow TFTs and adjust Synthroid accordingly in 4 weeks Orders not resulted at time of discharge: Pending orders 12/22/17 12:37 Occult Blood,Stool [BF] Stat 12/22/17 13:28 Culture,Blood [BC] Stat 12/24/17 13:06 Complete Blood Count [HEME] Stat 12/26/17 04:00 CBC [Complete Blood Count] [HEME] AM 0400 12/27/17 04:00 CBC [Complete Blood Count] [HEME] AM 0400 12/28/17 04:00 CBC [Complete Blood Count] [HEME] AM 0400 12/29/17 04:00 CBC [Complete Blood Count] [HEME] AM 0400 Date of Encounter: 12/25/17 Time of Encounter: 13:24 - Discharge Diagnosis (1) TIA (transient ischemic attack) Priority: Primary Status: Acute (2) A-fib Priority: Secondary Status: Chronic Qualifiers: Atrial fibrillation type: chronic Qualified Code(s): I48.2 - Chronic atrial fibrillation (3) Diabetes mellitus Priority: Secondary Status: Chronic Qualifiers: Diabetes mellitus type: type 2 Diabetes mellitus bed bug exterminator insulin use: without custodial use Diabetes mellitus complication status: without complication Qualified Code(s): E11.9 - Type 2 diabetes mellitus without complications (4) Hypertension Priority: Secondary Status: Chronic Qualifiers: Hypertension type: essential hypertension Qualified Code(s): I10 - Essential (primary) hypertension (5) Anemia Priority: Secondary Status: Chronic Qualifiers: Anemia type: other cause Other causes of anemia: chronic disease, other Qualified Code(s): D63.8 - Anemia in other chronic diseases classified elsewhere (6) Generalized weakness Priority: Secondary Status: Acute (7) Acute kidney injury superimposed on chronic kidney disease Priority: Secondary Status: Acute (8) Supratherapeutic INR Priority: Secondary Status: Resolved (9) Complicated UTI (urinary tract infection) Priority: Secondary Status: Resolved (10) DVT prophylaxis Priority: Secondary Status: Acute (11) Sacral decubitus ulcer, stage II Priority: Secondary Status: Chronic (12) Hypothyroidism Priority: Secondary Status: Acute Qualifiers: Hypothyroidism type: acquired Qualified Code(s): E03.9 - Hypothyroidism, unspecified Hospital course: Mr. Rojas is a 77-year-old gentleman with history of history of A. fib on Coumadin, pacemaker placement, and previous prostate cancer who presented to [facility] on 12/22/2017 with generalized weakness and slurred speech. On arrival to the ED his speech had improved and was back to baseline. He states that over the past few days he has experienced acute onset slurring of his speech which lasts a few minutes and then resolve spontaneously. These episodes have been occurring almost daily with the most recent episode overnight while in the hospital which was unwitnessed. As per his lower extremity weakness he says that this has been ongoing since his prostate cancer surgery. CT head, carotid doppler and TTE performed, results below. neurology consulted and recommendations followed - to continue current medical management with out change I discussed the lumbar CT findings with him adn he reports that he has had this problem for a long period and does not wish to have invasive surgery performed. will refer him to Spine center as OP. patient has been following with [facility] for his ongoing urological difficulties. his care was discussed with Dr. gilbert who reported that the patient has a choice to have IR perform nephrostomies or to go on dialysis in near future. i discussed Dr. Gilbert's with patient and family at bedside and he would not like to have invasive surgery performed at this time. i discussed with the family that his renal function and Creatitine has been anywhere from 3-4 sin ce october 2017. they understand however he would not like invasive measure currently. risks and benefits discussed in depth and he understands. I also discussed the other findings on CT A/P with Dr. Gilbert who recommended to have him follow up at urology office as OP. ID was consulted for complicated UTI and he is to finish IV Abx until 12/29 - dose adjusted to his CrCl PT/OT came to bed side to work with patient however he refused. i discusssed with the patient and family the need to have PT/ot evaluate him. PT/OT recommended ECF however he is refusing ECF. family is assuming care/ responsi bility for the patient and SW and CM have made referral for [employer] [employer] and PT for home. he is to follow up with coumadin clinic for INR checks. TSH was found mildly elevated- synthroid 25 mcg started for his PCP to follow TFTs in 4 weeks and titrate he was counseled on oral hydration for PCP to follow renal functions and resume lasix as per their discretion nursing staff aware to provide patietn with OP appointmment with PCP, coumadin clinic, urology and spine center carotid duplex : Findings: Bilateral carotid system has nonstenotic plaque. CT A/P IMPRESSION: 1. No acute process 2. Stable severe hydroureteronephrosis to the level of the urinary bladder 3. Colonic diverticulosis 4. Wall thickening of the urinary bladder could be due to chronic outlet obstruction. Stable fat stranding of the prevesical fat is of uncertain etiology, but should be correlated with any previous surgery or bladder rupture 5. Fluid collection adjacent to the bulbar urethra may represent a urethral diverticulum or urinoma if there has been previous urethral perforation CXR: IMPRESSION: Negative low volume portable chest. head ct: IMPRESSION: No acute intracranial abnormality. lumbar spine CT: IMPRESSION: Grade 1 anterolisthesis at L4-5. The central canal is severely stenotic at this level. Moderate central canal stenosis at L2-L3 and L3-L4. Moderate scoliosis. Severe bilateral hydronephrosis which is partially visualized on this finding. Renal stone CT may be of value if clinically warranted. No evidence for osseous metastatic disease within the lumbar spine. TTE: Impressions: Technically challenging due to poor echocardiographic windows. Probably low normal to mild left ventricular systolic dysfunction. Unable to evaluate segmental wall motion due to technical quality. Atypical septal motion consistent with paced rhythm. Definity echo contrast was used. LV chamber size is upper limits of normal. Discharge discussed with: patient, family, nurse, social work, case management, chain sales consultant - Time Spent with Patient Total time spent providing and/or coordinating discharge services: Greater than 30 minutes (40) - Discharge Medications Prescriptions: Aspirin Enteric Coated [Aspirin EC] 81 mg PO DAILY #30 tablet. Levothyroxine [Synthroid] 25 mcg PO 0630 #30 tablet Home Medications: Diltiazem HCl [Tiazac] 360 mg PO DAILY 03/16/15 [History] Sotalol [Betapace] 120 mg PO Q12HR 03/16/15 [History] Ergocalciferol (VITAMIN D2) [Vitamin D] 400 unit PO DAILY 12/08/15 [History] Latanoprost [Xalatan] 1 drop OP DAILY 12/08/15 [History] Warfarin [Coumadin] 2 mg PO DAILY 12/08/15 [History] Ferrous Sulfate 325 mg PO TIDWM #90 tablet 12/10/15 [Rx] Insulin Glargine,Hum.rec.anlog [Basaglar Kwikpen U-100] 30 unit SQ HS 10/26/17 [History] Brimonidine 0.2% [Alphagan] 1 drop BOTH EYES DAILY 12/22/17 [History] Aspirin Enteric Coated [Aspirin EC] 81 mg PO DAILY #30 tablet. 12/25/17 [Rx] Levothyroxine [Synthroid] 25 mcg PO 0630 #30 tablet 12/25/17 [Rx] Allergies/Adverse Reactions: Allergy/AdvReac Type Severity Reaction Status Date / Time Erythromycin Base Allergy Mild Rash Verified 10/26/17 14:08 Date of admission: 12/22/17 16:26 Primary care physician: Elysia Sullivan CNP Consults: 12/22/17 16:36 Consult to Neurology [CONS] Routine Consulting Provider: Neurology [facility] Reason for Consult: slurred speech. Call Completed: No 12/22/17 17:03 Consult to Infectious Diseases [CONS] Routine Consulting Provider: Infectious Disease [facility] Reason for Consult: On cefepine. Antibiotics clarification. Call Completed: No 12/22/17 17:15 Consult to Physical Therapy [CONS] Routine Comment: Evaluate, develop and implement POC Reason for Consult: Generalized weakness Does patient have active BEDREST order?: No Is patient medically & hemodynamically stable?: Yes 12/24/17 18:37 Consult to Wound Care [CONS] Routine Reason for Consult: stage 1 and 2 decubitus buttock and scrotum Time Notified: 18:38 Call Completed: No 12/24/17 18:51 Consult to Airplane Navigator [CONS] Routine Reason for SW Consult: home evaluation for PT and OT to be completed in home visit, to increase mobility 12/25/17 10:45 Consult to Urology [CONS] Routine Consulting Provider: [facility] Reason for Consult: kala, has severe hydronephrosis- follows with [facility] OP Call Completed: No 12/25/17 12:47 Consult to Occupational Therapy [CONS] Stat Comment: Evaluate, develop and implement POC Reason for Consult: WEAKNESS, POSSIBLE PLACEMENT Does patient have active BEDREST order?: No Is patient medically & hemodynamically stable?: Yes Consult to Physical Therapy [CONS] Stat Comment: Evaluate, develop and implement POC Reason for Consult: WEAKNESS, EVAL FOR PLACEMENT Does patient have active BEDREST order?: No Is patient medically & hemodynamically stable?: Yes - Constitutional Vitals: Temp Pulse Resp BP Pulse Ox 98.0 F 76 17 126/71 97 12/25/17 11:26 12/25/17 11:26 12/25/17 11:26 12/25/17 11:26 12/25/17 11:26 Exam: Constitutional: Awake and alert, resting comfortably in bed NC/At, poor dentition anicteric, EOMI intact irregular rate, S1 and s2 , no murmurs lunsg are clear to auscultation Abdomen is obese, bs +ve, soft , nontender and non-distended could not appreciate organomegaly Neurological: -Cranial Nerves: Left pupil is poorly responsive to light, patient states that he has had an intraocular bleed on that side and his vision is severely compromised on the left and that this is at his baseline. Extraocular muscles are intact. Facial sensation and strength are intact and symmetrical, there is no facial droop. Speech is fluent. Hearing grossly intact. Uvula is midline and tongue protrudes midline. Normal SCM and trapezius strength. -Upper extremities: Patient can raise both arms against gravity, but has proximal right-sided weakness at the shoulder which he states is at his baseline and he attributes to overuse injury. Rest of upper extremity strength is symmetrical bilaterally, and sensation is intact throughout. 1/4 biceps reflex bilaterally. No pronator drift. -Lower extremities: Nonpitting edema present both sides. Patient has decreased sensation slightly at both feet which he attributes to his neuropathy. Babinski's negative. Strength is 4/5 bilaterally and symmetric. Patellar reflexes are intact and 2/4. - Patient Status Disposition: Home Health Service Condition: Good Functional capacity at discharge: uses cane/walker Overall status at discharge: patient is progressing back to baseline - Discharge Instructions Follow Up With: Elysia Sullivan CNP [Primary Care Provider] - (YOUR APPOINTMENT HAS BEEN REQUESTED. OUR OFFICES WILL CALL YOU WITH AN APPOINTMENT TIME AND DATE.) - Diet and Activity Activity: ambulate only with your walker, as per physical therapy Diet: advance to your usual diet
--- NOTE | 2017-12-25 17:09 | Physician Discharge Referral ---
Home Health/Hosp Referral Info Transfer to: Home Health Provider in Charge Post Discharge: PCP - Diagnosis (1) TIA (transient ischemic attack) Priority: Primary Status: Acute (2) A-fib Priority: Secondary Status: Chronic (3) Diabetes mellitus Priority: Secondary Status: Chronic (4) Hypertension Priority: Secondary Status: Chronic (5) Anemia Priority: Secondary Status: Chronic (6) Generalized weakness Priority: Secondary Status: Acute (7) Acute kidney injury superimposed on chronic kidney disease Priority: Secondary Status: Acute (8) Supratherapeutic INR Priority: Secondary Status: Resolved (9) Complicated UTI (urinary tract infection) Priority: Secondary Status: Resolved (10) DVT prophylaxis Priority: Secondary Status: Acute (11) Sacral decubitus ulcer, stage II Priority: Secondary Status: Chronic (12) Hypothyroidism Priority: Secondary Status: Acute - Respiratory Orders Smoking Cessation: Smoking cessation has been advised. For more information, call the [place] Tobacco Quit Line at 6-816-VGFD-NOW. - Services Needed Following services are medically necessary services: Nursing, Home Health Aide, Physical Therapy - Transfer Medications Prescriptions: Aspirin Enteric Coated [Aspirin EC] 81 mg PO DAILY #30 tablet. Atorvastatin [Lipitor] 40 mg PO HS #30 tablet Levothyroxine [Synthroid] 25 mcg PO 0630 #30 tablet Home Medications: Diltiazem HCl [Tiazac] 360 mg PO DAILY 03/16/15 [History] Sotalol [Betapace] 120 mg PO Q12HR 03/16/15 [History] Ergocalciferol (VITAMIN D2) [Vitamin D] 400 unit PO DAILY 12/08/15 [History] Latanoprost [Xalatan] 1 drop OP DAILY 12/08/15 [History] Warfarin [Coumadin] 2 mg PO DAILY 12/08/15 [History] Ferrous Sulfate 325 mg PO TIDWM #90 tablet 12/10/15 [Rx] Insulin Glargine,Hum.rec.anlog [Basaglar Kwikpen U-100] 30 unit SQ HS 10/26/17 [History] Brimonidine 0.2% [Alphagan] 1 drop BOTH EYES DAILY 12/22/17 [History] Aspirin Enteric Coated [Aspirin EC] 81 mg PO DAILY #30 tablet. 12/25/17 [Rx] Atorvastatin [Lipitor] 40 mg PO HS #30 tablet 12/25/17 [Rx] Levothyroxine [Synthroid] 25 mcg PO 0630 #30 tablet 12/25/17 [Rx] Allergies/Adverse Reactions: Allergy/AdvReac Type Severity Reaction Status Date / Time Erythromycin Base Allergy Mild Rash Verified 10/26/17 14:08 Certification: Further, I certify that my clinical findings support that this patient is homebound (i.e. absences from home require considerable and taxing effort and are for medical reasons or taoism services or infrequently or short duration when for other reasons) because: Homebound Reason: Patient requires assistance of a person or device to safely leave home Attestation: My signature below is to certify that this patient is under my care and that I, or nurse practitioner, or a physician's teachers assistant working with me, has a [id number] encounter with this patient.
--- NOTE | 2017-12-25 17:45 | Urology - Consult Note ---
Date of Encounter: 12/25/17 Time of Encounter: 17:43 - Assessment and Plan (1) Prostate cancer Current Visit: Yes Status: Acute Assessment and plan: Status post radiation therapy in the past. Last PSA less than 0.01. No evidenc e of recurrence at this time. (2) Ygwih-nb-djembws kidney injury Current Visit: Yes Status: Acute Assessment and plan: Patient serum creatinine continues to rise. Likely related to distal obstruction given bilateral hydronephrosis with dilated ureters Qualifiers: Acute renal failure type: unspecified Chronic kidney disease stage: stage 4 (severe) Qualified Code(s): N17.9 - Acute kidney failure, unspecified; N18.4 - Chronic kidney disease, stage 4 (severe) (3) Hydronephrosis Current Visit: No Status: Acute Assessment and plan: Likely secondary to either reflux or distal obstruction. I discussed with the patient options regarding his hydronephrosis and rising creatinine. These included observation, catheter drainage, nephrostomy tubes. At this point we are going to proceed with catheter placement. We will need to repeat serum creatinine tomorrow to see if we have any improvement. Patient was prepped and draped in normal sterile fashion. I then proceeded placed a 16-Upper Sorbian catheter into the patient's bladder. There was some resistance around the meatus and in the prostatic urethra but I was able to ne gotiate a catheter into the patient's bladder. Immediate return of cloudy urine was noted. There was some bloody urine at the end. I have encouraged the patient to drink more fluids. Patient will most likely need to keep this catheter indefinitely depending on improvement of serum creatinine. Qualifiers: Hydronephrosis type: other Qualified Code(s): N13.39 - Other hydronephrosis Urology CN:HPI Consult date: 12/25/17 Reason for consult Urology: Hydronephrosis Requesting physician: Cierra Hi History of present illness: Rich is a 77-year-old male well-known to the urology service secondary to prostate cancer status post radiation therapy in the past. Patient has had bilateral hydronephrosis for quite some time. Patient now admitted secondary to lower extremity weakness. CT scan done 2 days ago showed significant bilateral hydronephrosis. Patient's serum creatinine has progressively increased to 4. Patient denies any change in his voiding pattern but does have continual leakage requiring a adult diaper. Patient's most recent PSA is less than 0.01. Past Med Surg Social Fam HX - Past Medical History Medical history: cancer, CHF, diabetes, hypertension, other Additional medical history: irregular heart beat. prostate cancer with radiation Psychiatric history: no psych history - Past Surgical History Surgical History: cholecystectomy, other Additional surgical history: pacer - Social History Smoking Status: Never smoker Smokeless Tobacco Status: No Alcohol use: none Drug use: none - Family History Father Living Status: Age at : 57 Hx Family Respiratory Disorders: Yes (Lung cancer) Hx Family Cancer: Yes (lung cancer) Mother Living Status: Age at : 80 Hx Family Cancer: Yes (breast cancer) Hx Family Genitourinary Disorders: Yes (kidney) Medications and Allergies Diltiazem HCl [Tiazac] 360 mg PO DAILY 03/16/15 [History] Sotalol [Betapace] 120 mg PO Q12HR 03/16/15 [History] Ergocalciferol (VITAMIN D2) [Vitamin D] 400 unit PO DAILY 12/08/15 [History] Latanoprost [Xalatan] 1 drop OP DAILY 12/08/15 [History] Warfarin [Coumadin] 2 mg PO DAILY 12/08/15 [History] Ferrous Sulfate 325 mg PO TIDWM #90 tablet 12/10/15 [Rx] Insulin Glargine,Hum.rec.anlog [Basaglar Kwikpen U-100] 30 unit SQ HS 10/26/17 [History] Brimonidine 0.2% [Alphagan] 1 drop BOTH EYES DAILY 12/22/17 [History] Aspirin Enteric Coated [Aspirin EC] 81 mg PO DAILY #30 tablet.dr 12/25/17 [Rx] Atorvastatin [Lipitor] 40 mg PO HS #30 tablet 12/25/17 [Rx] Levothyroxine [Synthroid] 25 mcg PO 0630 #30 tablet 12/25/17 [Rx] Allergy/AdvReac Type Severity Reaction Status Date / Time Erythromycin Base Allergy Mild Rash Verified 10/26/17 14:08 Review of Systems - Constitutional no chills, no fever(s) - EENT Nose, mouth and throat: no dizziness - Cardiovascular no chest pain - Respiratory no cough - Gastrointestinal no abdominal pain, no nausea, no vomiting - Musculoskeletal no back pain - Integumentary no erythema, no swelling - Neurological no confusion - Psychiatric no anxiety - Hematologic/Lymphatic no lymphadenopathy - Allergic/Immunologic no wheezing Exam Initial Vital Signs Pulse Resp BP Pulse Ox 74 15 130/109 99 12/22/17 12:42 12/22/17 12:42 12/22/17 12:42 12/22/17 12:42 General/Neuological: alert and oriented x 3 Eyes: normal pupils, non-icteric Neck: no lymphadenopathy noted, supple to touch Cardiovascular: RRR, no murmurs Respiratory: normal respiratory effort, clear bilaterally ABD: soft, nontender, no masses palpated, good bowel sounds Back: no pain on percussion bilaterally : normal phallus, normal scrotum, testicles and epididymides normal, urethral meatus normal. Skin: no rashes noted Musculoskeletal: normal gait, FROMx4 Urology Results - Labs 12/25/17 06:14 12/25/17 11:30 Abnormal lab results WBC 11.2 K/mcL (4.3-11.1) H 12/25/17 06:14 RBC 3.08 M/mcL (4.19-5.50) L 12/25/17 06:14 Hgb 8.7 g/dL (12.9-16.9) L 12/25/17 06:14 Hct 28.3 % (37.5-50.1) L 12/25/17 06:14 MCHC 30.7 g/dL (31.6-35.5) L 12/25/17 06:14 RDW 15.3 % (11.5-14.5) H 12/25/17 06:14 PT 16.3 Seconds (9.4-12.1) H 12/25/17 06:14 VBG pH 7.29 pH Units (7.32-7.42) L 12/22/17 13:30 Chloride 113 mEq/L (98-107) H 12/25/17 11:30 Carbon Dioxide 19 mEq/L (23-29) L 12/25/17 11:30 BUN 47 mg/dL (8-23) H 12/25/17 11:30 Creatinine 4.06 mg/dL (0.70-1.30) H 12/25/17 11:30 Est GFR ( Amer) 17 (> 60) L 12/25/17 11:30 Est GFR (Non-Af Amer) 14 (> 60) L 12/25/17 11:30 Glucose 131 mg/dL (70-105) H 12/25/17 11:30 POC Glucose 179 mg/dL (70-99) H 12/25/17 16:01 Calcium 8.1 mg/dL (8.6-10.3) L 12/25/17 11:30 AST 6 Units/L (13-39) L 12/22/17 12:37 ALT 5 Units/L (7-52) L 12/22/17 12:37 Albumin 2.9 g/dL (3.5-5.7) L 12/22/17 12:37 Globulin 3.8 g/dL (2.4-3.5) H 12/22/17 12:37 Albumin/Globulin Ratio 0.8 (1.1-2.2) L 12/22/17 12:37 TSH 6.141 mcIU/mL (0.340-5.600) H 12/22/17 12:37 Urine Clarity Turbid (Clear) A 12/22/17 17:40 Urine Protein 100 mg/dL (Neg-Trace) H 12/22/17 17:40 Urine Blood Moderate (Negative) H 12/22/17 17:40 Ur Leukocyte Esterase Large (Negative) H 12/22/17 17:40 Urine Microscopic RBC 30-50 per hpf (0-3) H 12/22/17 17:40 Urine Microscopic WBC TNTC per hpf (0-3) H 12/22/17 17:40 Ur Squamous Epith Cells Moderate per lpf (None-Few) H 12/22/17 17:40 Urine Bacteria Many per hpf (None-Few) H 12/22/17 17:40 Ur Culture Indicated? YES (NO) A 12/22/17 17:40 Diabetes panel 12/25/17 Range/Units 11:30 Sodium 138 (136-145) mEq/L Potassium 4.5 (3.5-5.1) mEq/L Chloride 113 H (98-107) mEq/L Carbon Dioxide 19 L (23-29) mEq/L BUN 47 H (8-23) mg/dL Creatinine 4.06 H (0.70-1.30) mg/dL Glucose 131 H (70-105) mg/dL Calcium 8.1 L (8.6-10.3) mg/dL Calcium panel 12/25/17 Range/Units 11:30 Calcium 8.1 L (8.6-10.3) mg/dL Pituitary panel 12/25/17 Range/Units 11:30 Sodium 138 (136-145) mEq/L Potassium 4.5 (3.5-5.1) mEq/L Chloride 113 H (98-107) mEq/L Carbon Dioxide 19 L (23-29) mEq/L BUN 47 H (8-23) mg/dL Creatinine 4.06 H (0.70-1.30) mg/dL Glucose 131 H (70-105) mg/dL Calcium 8.1 L (8.6-10.3) mg/dL Adrenal panel 12/25/17 Range/Units 11:30 Sodium 138 (136-145) mEq/L Potassium 4.5 (3.5-5.1) mEq/L Chloride 113 H (98-107) mEq/L Carbon Dioxide 19 L (23-29) mEq/L BUN 47 H (8-23) mg/dL Creatinine 4.06 H (0.70-1.30) mg/dL Glucose 131 H (70-105) mg/dL Calcium 8.1 L (8.6-10.3) mg/dL All other labs normal. Consult Discharge Plan - Plan Additional Instructions: Coumadin Clinic appointment needing scheduled as soon as possible. Unable to schedule due to office being closed. Referrals: Vamshi Harrison Jr, MD [Partnered Physician] - (Your appointment has been requested. Our offices will call you with an appointment ) Elysia Sullivan CNP [Primary Care Provider] - (YOUR APPOINTMENT HAS BEEN REQUESTED. OUR OFFICES WILL CALL YOU WITH AN APPOINTMENT TIME AND DATE.) Rosalio Vázquez MD [Partnered Physician] - (Your appointment has been scheduled. Our offices will call you with an appointment time and date) Prescriptions: Aspirin Enteric Coated [Aspirin EC] 81 mg PO DAILY #30 tablet. Atorvastatin [Lipitor] 40 mg PO HS #30 tablet Levothyroxine [Synthroid] 25 mcg PO 0630 #30 tablet
[2017-12-25] MEDS ORDERED: *HR* Warfarin 4 MG TABLET PO ONE (18:00)
[2017-12-25] MEDS: Latanoprost 2.5 ML BOTTLE LEFT EYE SCH (21:03)
[2017-12-25] MEDS: Insulin DETEMIR 100 UNIT/ML X5UNITS SQ SCH (21:03)
[2017-12-26] MEDS: Ondansetron 4 MG/2 ML VIAL IVP SCH ×6 (00:39→20:38)
[2017-12-26 06:00] LABS: Basophils % 0.4 %; Eosinophils # 0.4 K/mcL (0.0-0.6); Eosinophils % 3.3 %; Hematocrit 27.9 % (37.5-50.1); Hemoglobin 8.7 g/dL (12.9-16.9); Immature Granulocytes % 1.5 % (0-4); Lymphocytes # 0.9 K/mcL (0.6-4.6); Lymphocytes % 8.8 %; Mean Corpuscular HGB Conc 31.2 g/dL (31.6-35.5); Mean Corpuscular Hemoglobin 27.6 pg (28.0-33.3); Mean Corpuscular Volume 88.6 fL (83.0-100.0); Mean Platelet Volume 9.9 fL (9.4-12.4); Monocytes # 0.7 K/mcL (0.0-1.3); Monocytes % 6.5 %; Neutrophils # 8.4 K/mcL (1.6-8.9); Platelet Count 312 K/mcL (140-400); Red Blood Count 3.15 M/mcL (4.19-5.50); Red Cell Distribution Width 15.8 % (11.5-14.5); Segmented Neutrophils % 79.5 %
[2017-12-26 06:19] LABS: Calcium 8.4 mg/dL (8.6-10.3); Potassium 4.7 mEq/L (3.5-5.1)
--- NOTE | 2017-12-26 07:33 | Urology Progress Note ---
Date of Encounter: 12/26/17 Time of Encounter: 07:31 - Assessment and Plan (1) Prostate cancer Current Visit: Yes Status: Acute (2) Byvbx-be-lojlutb kidney injury Current Visit: Yes Status: Acute Assessment and plan: Improving with catheter drainage. Recommend to keep catheter in place and repeat serum creatinine tomorrow. Qualifiers: Acute renal failure type: unspecified Chronic kidney disease stage: stage 4 (severe) Qualified Code(s): N17.9 - Acute kidney failure, unspecified; N18.4 - Chronic kidney disease, stage 4 (severe) (3) Hydronephrosis Current Visit: No Status: Acute Qualifiers: Hydronephrosis type: other Qualified Code(s): N13.39 - Other hydronephrosis Progress Note Narrative: Patient seen this morning. Patient does appear slightly more confused this morning than yesterday evening. Serum creatinine down to 3.65. Good urine output overnight. Objective Initial Vital Signs Pulse Resp BP Pulse Ox 74 15 130/109 99 12/22/17 12:42 12/22/17 12:42 12/22/17 12:42 12/22/17 12:42 - General physical appearance Present: well developed, well nourished - Respiratory Present: normal expansion - Abdomen Present: soft - Genitourinary Present: other (Catheter draining clear urine) - Labs 12/26/17 05:45 12/26/17 05:45 Diabetes panel 12/25/17 12/26/17 Range/Units 11:30 05:45 Sodium 138 138 (136-145) mEq/L Potassium 4.5 4.7 (3.5-5.1) mEq/L Chloride 113 H 113 H (98-107) mEq/L Carbon Dioxide 19 L 17 L (23-29) mEq/L BUN 47 H 44 H (8-23) mg/dL Creatinine 4.06 H 3.65 H (0.70-1.30) mg/dL Glucose 131 H 156 H (70-105) mg/dL Calcium 8.1 L 8.4 L (8.6-10.3) mg/dL Calcium panel 12/25/17 12/26/17 Range/Units 11:30 05:45 Calcium 8.1 L 8.4 L (8.6-10.3) mg/dL Pituitary panel 12/25/17 12/26/17 Range/Units 11:30 05:45 Sodium 138 138 (136-145) mEq/L Potassium 4.5 4.7 (3.5-5.1) mEq/L Chloride 113 H 113 H (98-107) mEq/L Carbon Dioxide 19 L 17 L (23-29) mEq/L BUN 47 H 44 H (8-23) mg/dL Creatinine 4.06 H 3.65 H (0.70-1.30) mg/dL Glucose 131 H 156 H (70-105) mg/dL Calcium 8.1 L 8.4 L (8.6-10.3) mg/dL Adrenal panel 12/25/17 12/26/17 Range/Units 11:30 05:45 Sodium 138 138 (136-145) mEq/L Potassium 4.5 4.7 (3.5-5.1) mEq/L Chloride 113 H 113 H (98-107) mEq/L Carbon Dioxide 19 L 17 L (23-29) mEq/L BUN 47 H 44 H (8-23) mg/dL Creatinine 4.06 H 3.65 H (0.70-1.30) mg/dL Glucose 131 H 156 H (70-105) mg/dL Calcium 8.1 L 8.4 L (8.6-10.3) mg/dL Consult Discharge Plan - Plan Additional Instructions: Coumadin Clinic appointment needing scheduled as soon as possible. Unable to schedule due to office being closed. Referrals: Vamshi Harrison Jr, MD [Partnered Physician] - (Your appointment has been requested. Our offices will call you with an appointment ) Elysia Sullivan CNP [Primary Care Provider] - (YOUR APPOINTMENT HAS BEEN REQUESTED. OUR OFFICES WILL CALL YOU WITH AN APPOINTMENT TIME AND DATE.) Rosalio Vázquez MD [Partnered Physician] - (Your appointment has been scheduled. Our offices will call you with an appointment time and date) Prescriptions: Aspirin Enteric Coated [Aspirin EC] 81 mg PO DAILY #30 tablet. Atorvastatin [Lipitor] 40 mg PO HS #30 tablet Levothyroxine [Synthroid] 25 mcg PO 0630 #30 tablet
[2017-12-26] MEDS: Diltiazem CD (24hr) 180 MG CAPSULE PO SCH (08:42)
[2017-12-26] MEDS: Aspirin Enteric Coated 81 MG Tablet PO SCH (08:42)
[2017-12-26] MEDS: Cefepime HCl 1,000 MG in Water for inj. (sterile) 20 ML 10 ML IVP SCH (08:43)
[2017-12-26] MEDS: Fluticasone Propionate Nasal 50 MCG/SPRAY BOTTLE NS SCH (08:45)
[2017-12-26] MEDS: Insulin LISPRO 300 UNITS/3 ML VIAL SQ SCH ×3 (08:45→16:58)
--- NOTE | 2017-12-26 10:49 | Internal Med Progress Note ---
Hospitalist Progress Note - Encounter Date of Encounter: 12/26/17 Time of Encounter: 08:00 - Subjective Interval History: reports that he feels much better after catheter was placed. denies fever, chills, N/v/D. is tolerating PO diet denies pain - Exam Vitals: Temp Pulse Resp BP Pulse Ox 97.6 F 70 15 114/69 92 12/26/17 07:49 12/26/17 07:49 12/26/17 07:49 12/26/17 07:49 12/26/17 07:49 Exam: Constitutional: Awake and alert, resting comfortably in bed NC/At, poor dentition anicteric, EOMI intact irregular rate, S1 and s2 , no murmurs lunsg are clear to auscultation Abdomen is obese, bs +ve, soft , nontender and non-distended could not appreciate organomegaly Neurological: -Cranial Nerves: Left pupil is poorly responsive to light, patient states that he has had an intraocular bleed on that side and his vision is severely compromised on the left and that this is at his baseline. Extraocular muscles are intact. Facial sensation and strength are intact and symmetrical, there is no facial droop. Speech is fluent. Hearing grossly intact. Uvula is midline and tongue protrudes midline. Normal SCM and trapezius strength. -Upper extremities: Patient can raise both arms against gravity, but has proximal right-sided weakness at the shoulder which he states is at his baseline and he attributes to overuse injury. Rest of upper extremity strength is symmetrical bilaterally, and sensation is intact throughout. 1/4 biceps reflex bilaterally. No pronator drift. -Lower extremities: Nonpitting edema present both sides. Patient has decreased sensation slightly at both feet which he attributes to his neuropathy. Babinski's negative. Strength is 4/5 bilaterally and symmetric. Patellar reflexes are intact and 2/4. - Assessment and Plan (1) Acute renal failure Current Visit: Yes Status: Acute Assessment and Plan: most likely secondary to chronic hydronephrosis / obstruction urology was consulted and bergman catheter placed on 12/25 will follow BMP daily for renal functions creatinine is trending down strict i/O patient has refused nehrostomy tube placement he is refusing dialysis (2) Hydronephrosis Current Visit: No Status: Acute Assessment and Plan: urology consulted S/P bergman placement follows with [facility] as OP CT A/P IMPRESSION: 1. No acute process 2. Stable severe hydroureteronephrosis to the level of the urinary bladder 3. Colonic diverticulosis 4. Wall thickening of the urinary bladder could be due to chronic outlet obstruction. Stable fat stranding of the prevesical fat is of uncertain etiology, but should be correlated with any previous surgery or bladder rupture 5. Fluid collection adjacent to the bulbar urethra may represent a urethral diverticulum or urinoma if there has been previous urethral perforation (3) TIA (transient ischemic attack) Current Visit: Yes Status: Acute Assessment and Plan: neurology on board recommended current management on statin and ASA Pt/Ot on board outpatient follow up with spine surgery- is refusing invasive procedures CT head: IMPRESSION: No acute intracranial abnormality. Chronic small-vessel white matter ischemic changes. Generalized cerebral atrophy. Doppler Findings: Bilateral carotid system has nonstenotic plaque lumbar spine CT: IMPRESSION: Grade 1 anterolisthesis at L4-5. The central canal is severely stenotic at this level. Moderate central canal stenosis at L2-L3 and L3-L4. Moderate scoliosis. Severe bilateral hydronephrosis which is partially visualized on this finding. Renal stone CT may be of value if clinically warranted. No evidence for osseous metastatic disease within the lumbar spine. (4) A-fib Current Visit: No Status: Chronic Assessment and Plan: rate controlled - continue home medications on coumadin - pharmacy to dose INR sub therapeutic (5) Hypertension Current Visit: No Status: Chronic Assessment and Plan: controlled at present time. will continue with present treatment (6) Anemia Current Visit: No Status: Chronic Assessment and Plan: remains stable >8 continue to monitor h/H (7) Complicated UTI (urinary tract infection) Current Visit: No Status: Resolved Assessment and Plan: on cefepime to contiue until 12/29 (8) Hypothyroidism Current Visit: Yes Status: Acute Assessment and Plan: TSH 6.141 started on synthroid 25 mcg for PCP to follow TFTs in 4-6 weeks (9) Sacral decubitus ulcer, stage II Current Visit: Yes Status: Chronic Assessment and Plan: Stage 1 and 2 decubitus on the buttock, testicle, d/t prolonged sitting , and decreased mobility , urinary incontinence - bergman placed by urology Wound care consult (10) Diabetes mellitus Current Visit: No Status: Chronic Assessment and Plan: continue long acting and SS as per protocol (11) Supratherapeutic INR Current Visit: Yes Status: Resolved Assessment and Plan: resolved. restarted on Coumadin for pharmacy to dose (12) DVT prophylaxis Current Visit: No Status: Acute Assessment and Plan: on coumadin . - Time Spent with Patient Total time spent is greater than 50% in coordination of care (as documented) at patient's floor/unit and/or counseling patient: Internal Medicine: Result - Labs CBC & Chem 7: 12/26/17 05:45 12/26/17 05:45 Labs: Short CBC 12/26/17 Range/Units 05:45 WBC 10.6 (4.3-11.1) K/mcL Hgb 8.7 L (12.9-16.9) g/dL Hct 27.9 L (37.5-50.1) % Plt Count 312 (140-400) K/mcL Neutrophils # 8.4 (1.6-8.9) K/mcL BMP 12/25/17 12/26/17 11:30 05:45 Sodium 138 138 Potassium 4.5 4.7 Chloride 113 H 113 H Carbon Dioxide 19 L 17 L BUN 47 H 44 H Creatinine 4.06 H 3.65 H Glucose 131 H 156 H Calcium 8.1 L 8.4 L - ABG Interpretation ABG results: PT/INR, D-dimer PT 16.3 Seconds (9.4-12.1) H 12/25/17 06:14 Consult Discharge Plan - Plan Additional Instructions: Coumadin Clinic appointment needing scheduled as soon as possible. Unable to schedule due to office being closed. Referrals: Vamshi Harrison Jr, MD [Partnered Physician] - (Your appointment has been requested. Our offices will call you with an appointment ) Elysia Sullivan CNP [Primary Care Provider] - (YOUR APPOINTMENT HAS BEEN REQUESTED. OUR OFFICES WILL CALL YOU WITH AN APPOINTMENT TIME AND DATE.) Rosalio Vázquez MD [Partnered Physician] - (Your appointment has been deborah eduled. Our offices will call you with an appointment time and date) Prescriptions: Aspirin Enteric Coated [Aspirin EC] 81 mg PO DAILY #30 tablet. Atorvastatin [Lipitor] 40 mg PO HS #30 tablet Levothyroxine [Synthroid] 25 mcg PO 0630 #30 tablet (2) Hydronephrosis Qualifiers: Hydronephrosis type: other Qualified Code(s): N13.39 - Other hydronephrosis (4) A-fib Qualifiers: Atrial fibrillation type: chronic Qualified Code(s): I48.2 - Chronic atrial fibrillation (5) Hypertension Qualifiers: Hypertension type: essential hypertension Qualified Code(s): I10 - Essential (primary) hypertension (6) Anemia Qualifiers: Anemia type: other cause Other causes of anemia: chronic disease, other Qualified Code(s): D63.8 - Anemia in other chronic diseases classified elsewhere (8) Hypothyroidism Qualifiers: Hypothyroidism type: acquired Qualified Code(s): E03.9 - Hypothyroidism, unspecified (10) Diabetes mellitus Qualifiers: Diabetes mellitus type: type 2 Diabetes mellitus senior care insulin use: without senior care use Diabetes mellitus complication status: without complication Qualified Code(s): E11.9 - Type 2 diabetes mellitus without complications
[2017-12-26] MEDS: traMADol 50 MG TABLET PO PRN ×2 (12:33→20:37)
[2017-12-26 15:08] LABS: INR 1.7; Prothrombin Time 18.9 Seconds (9.4-12.1)
[2017-12-26] MEDS ORDERED: Aspirin Enteric Coated 81 MG Tablet PO ONE (15:37)
[2017-12-26] MEDS ORDERED: Ondansetron 4 MG/2 ML VIAL IVP ONE (15:37)
[2017-12-26] MEDS ORDERED: *HR* Water for inj. (Sterile) 20 ML VIAL IV ONE (15:37)
[2017-12-26] MEDS ORDERED: Diltiazem CD (24hr) 180 MG CAPSULE PO ONE (15:37)
[2017-12-26] MEDS ORDERED: *HR* Warfarin 4 MG TABLET PO ONE (16:00)
[2017-12-26] MEDS ORDERED: *HR* Warfarin 2 MG TABLET PO ONE (18:00)
[2017-12-26] MEDS: Insulin DETEMIR 100 UNIT/ML X5UNITS SQ SCH (20:38)
[2017-12-26] MEDS: Latanoprost 2.5 ML BOTTLE LEFT EYE SCH (20:39)
[2017-12-27] MEDS: Ondansetron 4 MG/2 ML VIAL IVP SCH ×6 (00:47→20:55)
[2017-12-27] MEDS: Levothyroxine 25 MCG TABLET PO SCH (05:47)
[2017-12-27] MEDS: D5% in 0.45% NACL 1,000 ML IVC SCH (07:22)
[2017-12-27] MEDS: 0.9 % Sodium Chloride 1,000 ML IVC SCH (07:22)
[2017-12-27] MEDS: Cefepime HCl 1,000 MG in Water for inj. (sterile) 20 ML 10 ML IVP SCH (08:31)
[2017-12-27] MEDS: Cholecalciferol (D-3) 1,000 UNIT TABLET PO SCH (08:34)
[2017-12-27] MEDS: Aspirin Enteric Coated 81 MG Tablet PO SCH (08:34)
[2017-12-27] MEDS: Diltiazem CD (24hr) 180 MG CAPSULE PO SCH (08:34)
[2017-12-27] MEDS: Fluticasone Propionate Nasal 50 MCG/SPRAY BOTTLE NS SCH (08:35)
[2017-12-27] MEDS: Insulin LISPRO 300 UNITS/3 ML VIAL SQ SCH ×3 (08:35→17:32)
[2017-12-27 09:07] LABS: Basophils % 0.5 %; Eosinophils # 0.4 K/mcL (0.0-0.6); Eosinophils % 4.2 %; Hematocrit 28.5 % (37.5-50.1); Immature Granulocytes % 1.4 % (0-4); Lymphocytes # 1.2 K/mcL (0.6-4.6); Lymphocytes % 13.4 %; Mean Corpuscular HGB Conc 31.6 g/dL (31.6-35.5); Mean Corpuscular Hemoglobin 28.3 pg (28.0-33.3); Mean Corpuscular Volume 89.6 fL (83.0-100.0); Mean Platelet Volume 9.9 fL (9.4-12.4); Monocytes # 0.6 K/mcL (0.0-1.3); Monocytes % 7.2 %; Neutrophils # 6.3 K/mcL (1.6-8.9); Platelet Count 300 K/mcL (140-400); Red Blood Count 3.18 M/mcL (4.19-5.50); Red Cell Distribution Width 15.9 % (11.5-14.5); Segmented Neutrophils % 73.3 %
[2017-12-27 09:15] LABS: INR 1.8; Prothrombin Time 20.5 Seconds (9.4-12.1)
[2017-12-27 09:25] LABS: Calcium 8.4 mg/dL (8.6-10.3); Potassium 4.3 mEq/L (3.5-5.1)
--- NOTE | 2017-12-27 10:54 | Internal Med Progress Note ---
Hospitalist Progress Note - Encounter Date of Encounter: 12/27/17 Time of Encounter: 11:12 - Subjective Interval History: reports that he feels much better after catheter was placed. denies fever, chills, N/v/D. is tolerating PO diet denies pain - Exam Vitals: Temp Pulse Resp BP Pulse Ox 97.9 F 74 18 142/78 98 12/27/17 07:31 12/27/17 07:31 12/27/17 07:31 12/27/17 07:31 12/27/17 07:31 Exam: Constitutional: Awake and alert, resting comfortably in bed NC/At, poor dentition anicteric, EOMI intact irregular rate, S1 and s2 , no murmurs lunsg are clear to auscultation Abdomen is obese, bs +ve, soft , nontender and non-distended could not appreciate organomegaly Neurological: -Cranial Nerves: Left pupil is poorly responsive to light, patient states that he has had an intraocular bleed on that side and his vision is severely compromised on the left and that this is at his baseline. Extraocular muscles are intact. Facial sensation and strength are intact and symmetrical, there is no facial droop. Speech is fluent. Hearing grossly intact. Uvula is midline and tongue protrudes midline. Normal SCM and trapezius strength. -Upper extremities: Patient can raise both arms against gravity, but has proximal right-sided weakness at the shoulder which he states is at his baseline and he attributes to overuse injury. Rest of upper extremity strength is symmetrical bilaterally, and sensation is intact throughout. 1/4 biceps reflex bilaterally. No pronator drift. -Lower extremities: Nonpitting edema present both sides. Patient has decreased sensation slightly at both feet which he attributes to his neuropathy. Babinski's negative. Strength is 4/5 bilaterally and symmetric. Patellar reflexes are intact and 2/4. - Assessment and Plan (1) Acute renal failure Current Visit: Yes Status: Acute Assessment and Plan: most likely secondary to chronic hydronephrosis / obstruction urology was consulted and bergman catheter placed on 12/25 will follow BMP daily for renal functions creatinine is trending down strict i/O patient has refused nehrostomy tube placement he is refusing dialysis (2) Hydronephrosis Current Visit: No Status: Acute Assessment and Plan: urology consulted S/P bergman placement follows with [facility] as OP CT A/P IMPRESSION: 1. No acute process 2. Stable severe hydroureteronephrosis to the level of the urinary bladder 3. Colonic diverticulosis 4. Wall thickening of the urinary bladder could be due to chronic outlet obstruction. Stable fat stranding of the prevesical fat is of uncertain etiology, but should be correlated with any previous surgery or bladder rupture 5. Fluid collection adjacent to the bulbar urethra may represent a urethral diverticulum or urinoma if there has been previous urethral perforation (3) TIA (transient ischemic attack) Current Visit: Yes Status: Acute Assessment and Plan: neurology on board recommended current management on statin and ASA Pt/Ot on board outpatient follow up with spine surgery- is refusing invasive procedures CT head: IMPRESSION: No acute intracranial abnormality. Chronic small-vessel white matter ischemic changes. Generalized cerebral atrophy. Doppler Findings: Bilateral carotid system has nonstenotic plaque lumbar spine CT: IMPRESSION: Grade 1 anterolisthesis at L4-5. The central canal is severely stenotic at this level. Moderate central canal stenosis at L2-L3 and L3-L4. Moderate scoliosis. Severe bilateral hydronephrosis which is partially visualized on this finding. Renal stone CT may be of value if clinically warranted. No evidence for osseous metastatic disease within the lumbar spine. (4) A-fib Current Visit: No Status: Chronic Assessment and Plan: rate controlled - continue home medications on coumadin - pharmacy to dose INR sub therapeutic (5) Hypertension Current Visit: No Status: Chronic Assessment and Plan: controlled at present time. will continue with present treatment (6) Anemia Current Visit: No Status: Chronic Assessment and Plan: remains stable >8 continue to monitor h/H (7) Complicated UTI (urinary tract infection) Current Visit: No Status: Resolved Assessment and Plan: on cefepime to contiue until 12/29 (8) Hypothyroidism Current Visit: Yes Status: Acute Assessment and Plan: TSH 6.141 started on synthroid 25 mcg for PCP to follow TFTs in 4-6 weeks (9) Sacral decubitus ulcer, stage II Current Visit: Yes Status: Chronic Assessment and Plan: Stage 1 and 2 decubitus on the buttock, testicle, d/t prolonged sitting , and decreased mobility , urinary incontinence - bergman placed by urology Wound care consult (10) Diabetes mellitus Current Visit: No Status: Chronic Assessment and Plan: increased long acting insulin for better control A1c in AM SS as per protocol (11) Supratherapeutic INR Current Visit: Yes Status: Resolved Assessment and Plan: resolved. restarted on Coumadin for pharmacy to dose (12) DVT prophylaxis Current Visit: No Status: Acute Assessment and Plan: on coumadin . - Time Spent with Patient Total time spent is greater than 50% in coordination of care (as documented) at patient's floor/unit and/or counseling patient: Internal Medicine: Result - Labs CBC & Chem 7: 12/27/17 08:45 12/27/17 08:45 Labs: Short CBC 12/27/17 Range/Units 08:45 WBC 8.6 (4.3-11.1) K/mcL Hgb 9.0 L (12.9-16.9) g/dL Hct 28.5 L (37.5-50.1) % Plt Count 300 (140-400) K/mcL Neutrophils # 6.3 (1.6-8.9) K/mcL BMP 12/27/17 08:45 Sodium 138 Potassium 4.3 Chloride 113 H Carbon Dioxide 19 L BUN 40 H Creatinine 3.05 H Glucose 204 H Calcium 8.4 L - ABG Interpretation ABG results: PT/INR, D-dimer PT 20.5 Seconds (9.4-12.1) H 12/27/17 08:45 Consult Discharge Plan - Plan Additional Instructions: Coumadin Clinic appointment needing scheduled as soon as possible. Unable to schedule due to office being closed. Referrals: Vamshi Harrison Jr, MD [Partnered Physician] - (Your appointment has been requested. Our offices will call you with an appointment ) Elysia Sullivan CNP [Primary Care Provider] - (YOUR APPOINTMENT HAS BEEN REQUESTED. OUR OFFICES WILL CALL YOU WITH AN APPOINTMENT TIME AND DATE.) Rosalio Vázquez MD [Partnered Physician] - (Your appointment has been scheduled. Our offices will call you with an appointment time and date) (2) Hydronephrosis Qualifiers: Hydronephrosis type: other Qualified Code(s): N13.39 - Other hydronephrosis (4) A-fib Qualifiers: Atrial fibrillation type: chronic Qualified Code(s): I48.2 - Chronic atrial fibrillation (5) Hypertension Qualifiers: Hypertension type: essential hypertension Qualified Code(s): I10 - Essential (primary) hypertension (6) Anemia Qualifiers: Anemia type: other cause Other causes of anemia: chronic disease, other Qualified Code(s): D63.8 - Anemia in other chronic diseases classified elsewhere (8) Hypothyroidism Qualifiers: Hypothyroidism type: acquired Qualified Code(s): E03.9 - Hypothyroidism, unspecified (10) Diabetes mellitus Qualifiers: Diabetes mellitus type: type 2 Diabetes mellitus terminal gauger insulin use: without terminal gauger use Diabetes mellitus complication status: without complication Qualified Code(s): E11.9 - Type 2 diabetes mellitus without complications
--- NOTE | 2017-12-27 13:52 | Urology Progress Note ---
Date of Encounter: 12/27/17 Time of Encounter: 13:51 - Assessment and Plan (1) Prostate cancer Current Visit: Yes Status: Acute (2) Lkksq-lo-hvmflqa kidney injury Current Visit: Yes Status: Acute Assessment and plan: improving with cath drainage Qualifiers: Acute renal failure type: unspecified Chronic kidney disease stage: stage 4 (severe) Qualified Code(s): N17.9 - Acute kidney failure, unspecified; N18.4 - Chronic kidney disease, stage 4 (severe) (3) Hydronephrosis Current Visit: No Status: Acute Assessment and plan: likely improving with drainage as renal fx improving. Qualifiers: Hydronephrosis type: other Qualified Code(s): N13.39 - Other hydronephrosis Progress Note Narrative: patient seen. cr down to 3.05. tolerating cath well. Objective Initial Vital Signs Pulse Resp BP Pulse Ox 74 15 130/109 99 12/22/17 12:42 12/22/17 12:42 12/22/17 12:42 12/22/17 12:42 - General physical appearance Present: well developed, well nourished - Abdomen Present: soft. Absent: tender - Genitourinary Present: other (clear urine in tubing) - Labs 12/27/17 08:45 12/27/17 08:45 Diabetes panel 12/27/17 Range/Units 08:45 Sodium 138 (136-145) mEq/L Potassium 4.3 (3.5-5.1) mEq/L Chloride 113 H (98-107) mEq/L Carbon Dioxide 19 L (23-29) mEq/L BUN 40 H (8-23) mg/dL Creatinine 3.05 H (0.70-1.30) mg/dL Glucose 204 H (70-105) mg/dL Calcium 8.4 L (8.6-10.3) mg/dL Calcium panel 12/27/17 Range/Units 08:45 Calcium 8.4 L (8.6-10.3) mg/dL Pituitary panel 12/27/17 Range/Units 08:45 Sodium 138 (136-145) mEq/L Potassium 4.3 (3.5-5.1) mEq/L Chloride 113 H (98-107) mEq/L Carbon Dioxide 19 L (23-29) mEq/L BUN 40 H (8-23) mg/dL Creatinine 3.05 H (0.70-1.30) mg/dL Glucose 204 H (70-105) mg/dL Calcium 8.4 L (8.6-10.3) mg/dL Adrenal panel 12/27/17 Range/Units 08:45 Sodium 138 (136-145) mEq/L Potassium 4.3 (3.5-5.1) mEq/L Chloride 113 H (98-107) mEq/L Carbon Dioxide 19 L (23-29) mEq/L BUN 40 H (8-23) mg/dL Creatinine 3.05 H (0.70-1.30) mg/dL Glucose 204 H (70-105) mg/dL Calcium 8.4 L (8.6-10.3) mg/dL Consult Discharge Plan - Plan Additional Instructions: Coumadin Clinic appointment needing scheduled as soon as possible. Unable to schedule due to office being closed. Referrals: Vamshi Harrison Jr, MD [Partnered Physician] - (Your appointment has been requested. Our offices will call you with an appointment ) Elysia Sullivan CNP [Primary Care Provider] - (YOUR APPOINTMENT HAS BEEN REQUESTED. OUR OFFICES WILL CALL YOU WITH AN APPOINTMENT TIME AND DATE.) Rosalio Vázquez MD [Partnered Physician] - (Your appointment has been sched uled. Our offices will call you with an appointment time and date)
[2017-12-27] MEDS: traMADol 50 MG TABLET PO PRN (17:49)
[2017-12-27] MEDS ORDERED: *HR* Warfarin 2 MG TABLET PO ONE (18:00)
[2017-12-27] MEDS: Latanoprost 2.5 ML BOTTLE BOTH EYES SCH (20:54)
[2017-12-27] MEDS: Insulin DETEMIR 100 UNIT/ML X5UNITS SQ SCH (20:55)
[2017-12-28] MEDS: Ondansetron 4 MG/2 ML VIAL IVP SCH ×6 (00:43→21:31)
[2017-12-28] MEDS: traMADol 50 MG TABLET PO PRN (02:06)
[2017-12-28] MEDS: Levothyroxine 25 MCG TABLET PO SCH (05:40)
[2017-12-28 06:23] LABS: Basophils # 0.1 K/mcL (0.0-0.2); Basophils % 0.7 %; Eosinophils # 0.4 K/mcL (0.0-0.6); Eosinophils % 4.2 %; Hematocrit 29.7 % (37.5-50.1); Hemoglobin 9.1 g/dL (12.9-16.9); Immature Granulocytes % 1.7 % (0-4); Lymphocytes % 12.2 %; Mean Corpuscular HGB Conc 30.6 g/dL (31.6-35.5); Mean Corpuscular Hemoglobin 27.9 pg (28.0-33.3); Mean Corpuscular Volume 91.1 fL (83.0-100.0); Mean Platelet Volume 10.3 fL (9.4-12.4); Monocytes # 0.7 K/mcL (0.0-1.3); Monocytes % 7.7 %; Neutrophils # 6.2 K/mcL (1.6-8.9); Platelet Count 308 K/mcL (140-400); Red Blood Count 3.26 M/mcL (4.19-5.50); Red Cell Distribution Width 16.1 % (11.5-14.5); Segmented Neutrophils % 73.5 %
[2017-12-28 06:34] LABS: INR 1.9; Prothrombin Time 21.9 Seconds (9.4-12.1)
[2017-12-28 06:43] LABS: Calcium 8.5 mg/dL (8.6-10.3); Potassium 4.3 mEq/L (3.5-5.1)
[2017-12-28] MEDS: Insulin LISPRO 300 UNITS/3 ML VIAL SQ SCH ×3 (08:10→17:02)
[2017-12-28] MEDS: Aspirin Enteric Coated 81 MG Tablet PO SCH (08:14)
[2017-12-28] MEDS: Fluticasone Propionate Nasal 50 MCG/SPRAY BOTTLE NS SCH (08:14)
[2017-12-28] MEDS: Diltiazem CD (24hr) 180 MG CAPSULE PO SCH (08:14)
[2017-12-28] MEDS: Cholecalciferol (D-3) 1,000 UNIT TABLET PO SCH (08:15)
[2017-12-28] MEDS: Cefepime HCl 1,000 MG in Water for inj. (sterile) 20 ML 10 ML IVP SCH (08:15)
--- NOTE | 2017-12-28 11:21 | Internal Med Progress Note ---
Hospitalist Progress Note - Encounter Date of Encounter: 12/28/17 Time of Encounter: 11:18 - Subjective Interval History: Patient with history of atrial fibrillation, has a pacemaker, diabetes, obesity, hypertension, CK D, prostate cancer had radiation and chronic UTI he was admitted due to slurred speech and generalized weakness CT of the head was unremarkable patient has been seen by neurology MRI could not be done because of pacemaker patient had also acute kidney injury which is improved patient was to be discharged but develop obstructive uropathy with hydronephrosis patient seen by urology and Lewis catheter is placed and being followed patient is stable and the patient understanding he could be discharged today awaiting ur ology follow-up evaluation and clearance for discharge - Exam Vitals: Temp Pulse Resp BP Pulse Ox 97.9 F 85 15 127/82 91 12/28/17 11:04 12/28/17 11:04 12/28/17 11:04 12/28/17 11:04 12/28/17 11:04 Exam: Constitutional: Awake and alert, resting comfortably in bed NC/At, poor dentition anicteric, EOMI intact irregular rate, S1 and s2 , no murmurs lunsg are clear to auscultation Abdomen is obese, bs +ve, soft , nontender and non-distended could not appreciate organomegaly Neurological: -Cranial Nerves: Left pupil is poorly responsive to light, patient states that he has had an intraocular bleed on that side and his vision is severely compromised on the left and that this is at his baseline. Extraocular muscles are intact. Facial sensation and strength are intact and symmetrical, there is no facial droop. Speech is fluent. Hearing grossly intact. Uvula is midline and tongue protrudes midline. Normal SCM and trapezius strength. -Upper extremities: Patient can raise both arms against gravity, but has proximal right-sided weakness at the shoulder which he states is at his baseline and he attributes to overuse injury. Rest of upper extremity strength is symmetrical bilaterally, and sensation is intact throughout. 1/4 biceps reflex bilaterally. No pronator drift. -Lower extremities: Nonpitting edema present both sides. Patient has decreased sensation slightly at both feet which he attributes to his neuropathy. Babinski's negative. Strength is 4/5 bilaterally and symmetric. Patellar reflexes are intact and 2/4. - Assessment and Plan (1) UTI (urinary tract infection) Current Visit: No Status: Acute Assessment and Plan: Patient was seen and followed by infection disease and infection (2) A-fib Current Visit: No Status: Chronic Assessment and Plan: Chronic and well controlled (3) Diabetes mellitus Current Visit: No Status: Chronic Assessment and Plan: Chronic and on sliding scale (4) Chronic kidney disease, stage 3 Current Visit: No Status: Chronic Assessment and Plan: Acute on chronic kidney injury renal function has improved patient follows up outpatient with Dr. Sandoval (5) Hypertension Current Visit: No Status: Chronic Assessment and Plan: Chronic and well controlled (6) Generalized weakness Current Visit: No Status: Acute Assessment and Plan: Clinically has improved (8) Hydronephrosis Current Visit: No Status: Acute Assessment and Plan: Patient being followed by urology follow-up evaluation today is pending and awaiting his clearance for discharge (9) Atrial fibrillation Current Visit: No Status: Acute (10) Prostate cancer Current Visit: Yes Status: Acute Assessment and Plan: follows up by urology recent PSA is unremarkable - Time Spent with Patient Total time spent is greater than 50% in coordination of care (as documented) at patient's floor/unit and/or counseling patient: Internal Medicine: Result - Labs CBC & Chem 7: 12/28/17 05:12 12/28/17 05:12 Labs: Short CBC 12/28/17 Range/Units 05:12 WBC 8.4 (4.3-11.1) K/mcL Hgb 9.1 L (12.9-16.9) g/dL Hct 29.7 L (37.5-50.1) % Plt Count 308 (140-400) K/mcL Neutrophils # 6.2 (1.6-8.9) K/mcL BMP 12/28/17 05:12 Sodium 139 Potassium 4.3 Chloride 114 H Carbon Dioxide 19 L BUN 35 H Creatinine 2.76 H Glucose 202 H Calcium 8.5 L - ABG Interpretation ABG results: PT/INR, D-dimer PT 21.9 Seconds (9.4-12.1) H 12/28/17 05:12 Consult Discharge Plan - Plan Additional Instructions: Coumadin Clinic appointment needing scheduled as soon as possible. Unable to schedule due to office being closed. Referrals: Vamshi Harrison Jr, MD [Partnered Physician] - (Your appointment has been requested. Our offices will call you with an appointment ) Elysia Sullivan CNP [Primary Care Provider] - (YOUR APPOINTMENT HAS BEEN REQUESTED. OUR OFFICES WILL CALL YOU WITH AN APPOINTMENT TIME AND DATE.) Rosalio Vázquez MD [Partnered Physician] - (Your appointment has been scheduled. Our offices will call you with an appointment time and date) (1) UTI (urinary tract infection) Qualifiers: Urinary tract infection type: site unspecified Hematuria presence: with hematuria Qualified Code(s): N39.0 - Urinary tract infection, site not specified; R31.9 - Hematuria, unspecified (2) A-fib Qualifiers: Atrial fibrillation type: chronic Qualified Code(s): I48.2 - Chronic atrial fibrillation (3) Diabetes mellitus Qualifiers: Diabetes mellitus type: type 2 Diabetes mellitus long term acute care registered nurse insulin use: without usp use Diabetes mellitus complication status: without complication Qualified Code(s): E11.9 - Type 2 diabetes mellitus without complications (5) Hypertension Qualifiers: Hypertension type: essential hypertension Qualified Code(s): I10 - Essential (primary) hypertension (8) Hydronephrosis Qualifiers: Hydronephrosis type: other Qualified Code(s): N13.39 - Other hydronephrosis (9) Atrial fibrillation Qualifiers: Atrial fibrillation type: unspecified Qualified Code(s): I48.91 - Unspecified atrial fibrillation
[2017-12-28 11:22] LABS: Estimated Average Glucose 186 mg/dl; Hemoglobin A1C 8.1 %
--- NOTE | 2017-12-28 13:59 | Urology Progress Note ---
Date of Encounter: 12/28/17 Time of Encounter: 13:57 - Assessment and Plan (1) Prostate cancer Current Visit: Yes Status: Acute (2) Ecamg-gb-cokidiz kidney injury Current Visit: Yes Status: Acute Assessment and plan: keep cath in place. f/u with DR. rubin in 1-2 weeks. recommend to allow patient to finish abx tomorrow before discharge. Qualifiers: Acute renal failure type: unspecified Chronic kidney disease stage: stage 4 (severe) Qualified Code(s): N17.9 - Acute kidney failure, unspecified; N18.4 - Chronic kidney disease, stage 4 (severe) (3) Hydronephrosis Current Visit: No Status: Acute Qualifiers: Hydronephrosis type: other Qualified Code(s): N13.39 - Other hydronephrosis Progress Note Narrative: patient seen. feeling better. serum creatinine improved. patient with one more dose of IV abx to complete course Objective Initial Vital Signs Pulse Resp BP Pulse Ox 74 15 130/109 99 12/22/17 12:42 12/22/17 12:42 12/22/17 12:42 12/22/17 12:42 - General physical appearance Present: well developed, well nourished - Abdomen Present: soft. Absent: tender - Labs 12/28/17 05:12 12/28/17 05:12 Diabetes panel 12/28/17 12/28/17 Range/Units 05:12 05:12 Sodium 139 (136-145) mEq/L Potassium 4.3 (3.5-5.1) mEq/L Chloride 114 H (98-107) mEq/L Carbon Dioxide 19 L (23-29) mEq/L BUN 35 H (8-23) mg/dL Creatinine 2.76 H (0.70-1.30) mg/dL Glucose 202 H (70-105) mg/dL Hemoglobin A1c 8.1 H ( - 5.6) % Calcium 8.5 L (8.6-10.3) mg/dL Calcium panel 12/28/17 Range/Units 05:12 Calcium 8.5 L (8.6-10.3) mg/dL Pituitary panel 12/28/17 Range/Units 05:12 Sodium 139 (136-145) mEq/L Potassium 4.3 (3.5-5.1) mEq/L Chloride 114 H (98-107) mEq/L Carbon Dioxide 19 L (23-29) mEq/L BUN 35 H (8-23) mg/dL Creatinine 2.76 H (0.70-1.30) mg/dL Glucose 202 H (70-105) mg/dL Calcium 8.5 L (8.6-10.3) mg/dL Adrenal panel 12/28/17 Range/Units 05:12 Sodium 139 (136-145) mEq/L Potassium 4.3 (3.5-5.1) mEq/L Chloride 114 H (98-107) mEq/L Carbon Dioxide 19 L (23-29) mEq/L BUN 35 H (8-23) mg/dL Creatinine 2.76 H (0.70-1.30) mg/dL Glucose 202 H (70-105) mg/dL Calcium 8.5 L (8.6-10.3) mg/dL Consult Discharge Plan - Plan Additional Instructions: Coumadin Clinic appointment needing scheduled as soon as possible. Unable to s chedule due to office being closed. Referrals: Vamshi Harrison Jr, MD [Partnered Physician] - (Your appointment has been requested. Our offices will call you with an appointment ) Elysia Sullivan CNP [Primary Care Provider] - (YOUR APPOINTMENT HAS BEEN REQUESTED. OUR OFFICES WILL CALL YOU WITH AN APPOINTMENT TIME AND DATE.) Rosalio Vázquez MD [Partnered Physician] - (Your appointment has been scheduled. Our offices will call you with an appointment time and date)
[2017-12-28] MEDS ORDERED: *HR* Warfarin 2 MG TABLET PO ONE (18:00)
[2017-12-28] MEDS: Insulin DETEMIR 100 UNIT/ML X5UNITS SQ SCH (21:32)
[2017-12-28] MEDS: Latanoprost 2.5 ML BOTTLE BOTH EYES SCH (21:33)
[2017-12-29 05:14] LABS: Basophils # 0.1 K/mcL (0.0-0.2); Basophils % 0.8 %; Eosinophils # 0.4 K/mcL (0.0-0.6); Eosinophils % 4.7 %; Hematocrit 32.2 % (37.5-50.1); Immature Granulocytes % 1.2 % (0-4); Lymphocytes # 0.9 K/mcL (0.6-4.6); Mean Corpuscular HGB Conc 31.1 g/dL (31.6-35.5); Mean Corpuscular Hemoglobin 28.2 pg (28.0-33.3); Monocytes # 0.5 K/mcL (0.0-1.3); Monocytes % 6.3 %; Neutrophils # 6.6 K/mcL (1.6-8.9); Platelet Count 310 K/mcL (140-400); Red Blood Count 3.54 M/mcL (4.19-5.50)
[2017-12-29 05:22] LABS: Prothrombin Time 22.1 Seconds (9.4-12.1)
[2017-12-29 05:32] LABS: Calcium 8.4 mg/dL (8.6-10.3); Potassium 4.1 mEq/L (3.5-5.1)
[2017-12-29] MEDS: Ondansetron 4 MG/2 ML VIAL IVP SCH ×4 (05:35→11:29)
[2017-12-29] MEDS: Levothyroxine 25 MCG TABLET PO SCH (05:43)
[2017-12-29] MEDS: Insulin LISPRO 300 UNITS/3 ML VIAL SQ SCH ×2 (08:06→12:23)
[2017-12-29] MEDS: Aspirin Enteric Coated 81 MG Tablet PO SCH (08:09)
[2017-12-29] MEDS: Diltiazem CD (24hr) 180 MG CAPSULE PO SCH (08:09)
[2017-12-29] MEDS: Cholecalciferol (D-3) 1,000 UNIT TABLET PO SCH (08:09)
[2017-12-29] MEDS: Fluticasone Propionate Nasal 50 MCG/SPRAY BOTTLE NS SCH (08:09)
[2017-12-29] MEDS: Cefepime HCl 1,000 MG in Water for inj. (sterile) 20 ML 10 ML IVP SCH (08:10)
[2017-12-29 11:07] VITALS: BP 136/83
--- NOTE | 2017-12-29 11:28 | Discharge Summary ---
- NOTES TO OUTPATIENT PROVIDER Notes to Outpatient Provider: Patient was admitted for acute on chronic kidney failure due to obstructive uropathy and will be discharged home on Bergman catheter. To follow up with Urology in 1-2 weeks. He completed IV Abx till 12/29 for complicated UTI per ID recommendation. He has also started on low-dose Synthroid for hypothyroidism and will need TFT monitoring in 4-6 weeks. His home dose of Lasix 20 mg QD remains on hold to be restarted as an outpatient. Orders not resulted at time of discharge: Pending orders 12/22/17 12:37 Occult Blood,Stool [BF] Stat 12/30/17 04:00 CBC no Diff [Complete Blood Count w/o Diff] [HEME] AM 0400 INR/PT [Prothrombin Time INR] [COAG] AM 0400 12/31/17 04:00 INR/PT [Prothrombin Time INR] [COAG] AM 0400 01/01/18 04:00 INR/PT [Prothrombin Time INR] [COAG] AM 0400 Date of Encounter: 12/29/17 Time of Encounter: 08:45 - Discharge Diagnosis (1) A-fib Priority: Secondary Status: Chronic Qualifiers: Atrial fibrillation type: chronic Qualified Code(s): I48.2 - Chronic atrial fibrillation (2) Diabetes mellitus Priority: Secondary Status: Chronic Qualifiers: Diabetes mellitus type: type 2 Diabetes mellitus 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 insulin use: without care home use Diabetes mellitus complication status: without complication Qualified Code(s): E11.9 - Type 2 diabetes mellitus without complications (3) Hypertension Priority: Secondary Status: Chronic Qualifiers: Hypertension type: essential hypertension Qualified Code(s): I10 - Essential (primary) hypertension (4) Anemia Priority: Secondary Status: Chronic Qualifiers: Anemia type: other cause Other causes of anemia: chronic disease, other Qualified Code(s): D63.8 - Anemia in other chronic diseases classified elsewhere (5) Supratherapeutic INR Priority: Secondary Status: Resolved (6) Complicated UTI (urinary tract infection) Priority: Secondary Status: Resolved (7) Hydronephrosis Priority: Secondary Status: Acute Qualifiers: Hydronephrosis type: other Qualified Code(s): N13.39 - Other hydronephrosis (8) DVT prophylaxis Priority: Secondary Status: Acute (9) TIA (transient ischemic attack) Priority: Secondary Status: Acute (10) Sacral decubitus ulcer, stage II Priority: Secondary Status: Chronic (11) Hypothyroidism Priority: Secondary Status: Acute Qualifiers: Hypothyroidism type: acquired Qualified Code(s): E03.9 - Hypothyroidism, unspecified (12) [id number] kidney injury Priority: Primary Status: Acute Qualifiers: Acute renal failure type: unspecified Chronic kidney disease stage: stage 4 (severe) Qualified Code(s): N17.9 - Acute kidney failure, unspecified; N18.4 - Chronic kidney disease, stage 4 (severe) (13) Congestive heart failure Priority: Secondary Status: Acute Assessment and Plan: Clinically unable to determine due to limited echo findings Qualifiers: Heart failure type: systolic Heart failure chronicity: unspecified Qualified Code(s): I50.20 - Unspecified systolic (congestive) heart failure Hospital course: Mr. Rojas is a 77 year old male with history of atrial fibrillation, diabetes, COPD, prostate cancer, initially presented with generalized weakness and a concern for TIA. CT head was negative but he was found to have acute on chronic kidney failure secondary to obstructive uropathy requiring Bergman catheter insertion. Clinically improved after Bergman insertion. Completed antibiotics for complicated UTI on 12/29 per ID recommendation. He was suggested to have PT/OT evaluation for possible placement but patient refused. His Lasix remains on hold, to be restarted as an outpatient once creatinine is determined to be stable. He was also started on low-dose Synthroid for newly diagnosed hypothyroidism. He will need to follow up with urology in 1-2 weeks. Discharge discussed with: patient, family - Time Spent with Patient Total time spent providing and/or coordinating discharge services: Greater than 30 minutes - Discharge Medications Home Medications: Diltiazem HCl [Tiazac] 360 mg PO DAILY 03/16/15 [History] Sotalol [Betapace] 120 mg PO Q12HR 03/16/15 [History] Ergocalciferol (VITAMIN D2) [Vitamin D] 400 unit PO DAILY 12/08/15 [History] Latanoprost [Xalatan] 1 drop BOTH EYES DAILY 12/08/15 [History] Warfarin [Coumadin] 2 mg PO DAILY 12/08/15 [History] Ferrous Sulfate 325 mg PO TIDWM #90 tablet 10/03/16 [Rx] Insulin Glargine,Hum.rec.anlog [Javon Alford U-100] 30 unit SQ HS 10/26/17 [History] Brimonidine 0.2% [Alphagan] 1 drop LEFT EYE BID 12/22/17 [History] Aspirin Enteric Coated [Aspirin EC] 81 mg PO DAILY #30 tablet. 12/25/17 [Rx] Atorvastatin [Lipitor] 40 mg PO HS #30 tablet 12/25/17 [Rx] Levothyroxine [Synthroid] 25 mcg PO 0630 #30 tablet 12/25/17 [Rx] Allergies/Adverse Reactions: Allergy/AdvReac Type Severity Reaction Status Date / Time Erythromycin Base Allergy Mild Rash Verified 10/26/17 14:08 Date of admission: 12/26/17 16:18 Primary care physician: Elysia Sullivan CNP Consults: 12/22/17 16:36 Consult to Neurology [CONS] Routine Consulting Provider: Neu[facility] Reason for Consult: slurred speech. Call Completed: No 12/22/17 17:03 Consult to Infectious Diseases [CONS] Routine Consulting Provider: Infectious Disease Kelly Reason for Consult: On cefepine. Antibiotics clarification. Call Completed: No 12/22/17 17:15 Consult to Physical Therapy [CONS] Routine Comment: Evaluate, develop and implement POC Reason for Consult: Generalized weakness Does patient have active BEDREST order?: No Is patient medically & hemodynamically stable?: Yes 12/24/17 18:37 Consult to Wound Care [CONS] Routine Reason for Consult: stage 1 and 2 decubitus buttock and scrotum Time Notified: 18:38 Call Completed: No 12/24/17 18:51 Consult to Preventative Maintenance Technician [CONS] Routine Reason for SW Consult: home evaluation for PT and OT to be completed in home visit, to increase mobility 12/25/17 10:45 Consult to Urology [CONS] Routine Consulting Provider: Urology Kelly Reason for Consult: kala, has severe hydronephrosis- follows with [facility] OP Call Completed: No 12/25/17 12:47 Consult to Occupational Therapy [CONS] Stat Comment: Evaluate, develop and implement POC Reason for Consult: WEAKNESS, POSSIBLE PLACEMENT Does patient have active BEDREST order?: No Is patient medically & hemodynamically stable?: Yes Consult to Physical Therapy [CONS] Stat Comment: Evaluate, develop and implement POC Reason for Consult: WEAKNESS, EVAL FOR PLACEMENT Does patient have active BEDREST order?: No Is patient medically & hemodynamically stable?: Yes - Constitutional Vitals: Temp Pulse Resp BP Pulse Ox 97.9 F 76 16 136/83 97 12/29/17 11:00 12/29/17 11:00 12/29/17 11:00 12/29/17 11:00 12/29/17 11:00 Exam: Constitutional: Awake and alert, resting comfortably in bed Heart: regular rate, S1 and s2 , no murmurs Lungs: CTA Abdomen: Soft, nontender, not distended : bergman catheter in situ draining clear urine - Patient Status Disposition: Home, Self-Care Condition: Good - Discharge Instructions Instructions: Hypothyroidism (DC), Atrial Fibrillation (DC), Urinary Tract Infection in Men (DC) Follow Up With: Vamshi Harrison Jr, MD [Partnered Physician] - (Your appointment has been requested. Our offices will call you with an appointment ) Elysia Sullivan CNP [Primary Care Provider] - (YOUR APPOINTMENT HAS BEEN REQUESTED. OUR OFFICES WILL CALL YOU WITH AN APPOINTMENT TIME AND DATE.) Rosalio Vázquez MD [Partnered Physician] - 01/06/18 10:30 am () Additional Instructions: Coumadin Clinic appointment Follow up with Urology in 1-2 weeks - Diet and Activity Activity: resume usual activities as tolerated Diet: diabetic diet
--- NOTE | 2017-12-29 13:10 | Physician Discharge Referral ---
Home Health/Hosp Referral Info Transfer to: Home Health - Diagnosis (1) A-fib Priority: Secondary Status: Chronic (2) Diabetes mellitus Priority: Secondary Status: Chronic (3) Hypertension Priority: Secondary Status: Chronic (4) Anemia Priority: Secondary Status: Chronic (5) Supratherapeutic INR Priority: Secondary Status: Resolved (6) Complicated UTI (urinary tract infection) Priority: Secondary Status: Resolved (7) Hydronephrosis Priority: Secondary Status: Acute (8) DVT prophylaxis Priority: Secondary Status: Acute (9) TIA (transient ischemic attack) Priority: Secondary Status: Acute (10) Sacral decubitus ulcer, stage II Priority: Secondary Status: Chronic (11) Hypothyroidism Priority: Secondary Status: Acute (12) Xvreb-ku-dvpenjd kidney injury Priority: Primary Status: Acute (13) Congestive heart failure Priority: Secondary Status: Acute - Respiratory Orders Smoking Cessation: Smoking cessation has been advised. For more information, call the [place] Tobacco Quit Line at 7-282-FTBV-NOW. - Services Needed Following services are medically necessary services: Nursing, Home Health Aide (bath aide and correction for lab draws and vitals as needed) - Transfer Medications Home Medications: Diltiazem HCl [Tiazac] 360 mg PO DAILY 03/16/15 [History] Sotalol [Betapace] 120 mg PO Q12HR 03/16/15 [History] Ergocalciferol (VITAMIN D2) [Vitamin D] 400 unit PO DAILY 12/08/15 [History] Latanoprost [Xalatan] 1 drop BOTH EYES DAILY 12/08/15 [History] Warfarin [Coumadin] 2 mg PO DAILY 12/08/15 [History] Ferrous Sulfate 325 mg PO TIDWM #90 tablet 12/10/15 [Rx] Insulin Glargine,Hum.rec.anlog [Basaglar Kwikpen U-100] 30 unit SQ HS 10/26/17 [History] Brimonidine 0.2% [Alphagan] 1 drop LEFT EYE BID 12/22/17 [History] Aspirin Enteric Coated [Aspirin EC] 81 mg PO DAILY #30 tablet 12/25/17 [Rx] Atorvastatin [Lipitor] 40 mg PO HS #30 tablet 12/25/17 [Rx] Levothyroxine [Synthroid] 25 mcg PO 0630 #30 tablet 12/25/17 [Rx] Allergies/Adverse Reactions: Allergy/AdvReac Type Severity Reaction Status Date / Time Erythromycin Base Allergy Mild Rash Verified 10/26/17 14:08 Certification: Further, I certify that my clinical findings support that this patient is homebound (i.e. absences from home require considerable and taxing effort and are for medical reasons or synagogue services or infrequently or short duration when for other reasons) because: Homebound Reason: Patient requires assistance of a person or device to safely leave home Attestation: My signature below is to certify that this patient is under my care and that I, or nurse practitioner, or a physician's urgent care physician assistant working with me, has a [id number] encounter with this patient.
[2017-12-29] MEDS ORDERED: *HR* Warfarin 2 MG TABLET PO SCH (18:00)
== END 2017-12-29 15:38 | disposition home or self-care (01) | DRG 690 ==
LOC: 3BNU 12:26 → EMEROOARM 12:26 → 3BNU 17:50 → SUATTDRO 12-26 16:18
PROVIDERS: ADMIT Internal Medicine; ATTEND Internal Medicine

== ENCOUNTER 2018-05-17 12:56 | Inpatient (IN) ==
--- NOTE | 2018-05-17 13:27 | Emergency Department Note ---
Disposition Clinical Impression: Pyonephrosis, Septic shock Disposition: Admitted As Inpatient Condition: Critical Time of Disposition: 16:05 Male Urogenital HPI - General Chief complaint: ED Urogenital-Male Stated complaint: needs admit from IR Time Seen by Provider: 05/17/18 13:04 Source: patient Mode of arrival: wheelchair Limitations: no limitations Nursing Notes Reviewed: Yes Vital Signs Reviewed: Yes - History of Present Illness HPI Narrative: Patient is a 78-year-old male presenting with dysuria. Patient has history of prostate cancer which underwent radiation therapy proximally 8 years ago, patient states that over the past 3 years he has had intermittent urinary tract infections. Up until the past few months he has been managed with Lewis catheter, however approximately one week ago the Lewis catheter was removed by at home nursing, and per Dr. Vázquez's request, nephrostomy tubes were placed. Patient was at interventional radiology today, having in her posterior tubes placed, when they noticed pyonephrosis. He was sent to the ER for further evaluation. Patient states that over the past week since his Lewis catheter was removed, he has had generalized chills as well as body aches with dysuria. He denies any chest pain, shortness of breath, abdominal pain or difficulty with bowel movements. - Related Data Home Medications Medication Instructions Recorded Confirmed Diltiazem HCl [Tiazac] 360 mg PO DAILY 03/16/15 05/17/18 Sotalol [Betapace] 120 mg PO Q12HR 03/16/15 05/17/18 Ergocalciferol (VITAMIN D2) 400 unit PO DAILY 12/08/15 05/17/18 [Vitamin D] Latanoprost [Xalatan] 1 drop BOTH EYES DAILY 12/08/15 05/17/18 Warfarin [Coumadin] 2 mg PO DAILY 12/08/15 05/17/18 Insulin Glargine,Hum.rec.anlog 30 unit SQ HS 10/26/17 05/17/18 [Basaglar Kwikpen U-100] Brimonidine 0.2% [Alphagan] 1 drop LEFT EYE BID 12/22/17 05/17/18 Previous Rx's Medication Instructions Recorded Ferrous Sulfate 325 mg PO TIDWM #90 tablet 12/10/15 Allergies Allergy/AdvReac Type Severity Reaction Status Date / Time Erythromycin Base Allergy Mild Rash Verified 10/26/17 14:08 All systems ED: reviewed and negative except as stated. Review of Systems: As Per HPI Constitutional: Reports: chills. Denies: fever, weakness ENT ED: Denies: congestion Cardiovascular: Denies: chest pain Respiratory: Denies: cough Gastrointestinal: Denies: abdominal pain, nausea, vomiting Genitourinary: Reports: urgency, dysuria. Denies: frequency, hematuria Musculoskeletal: Denies: back pain Integumentary: Denies: rash Neurological: Denies: weakness Hematological/Lymphatic: Denies: easy bleeding Past Medical History - Past Medical History Medical history: Reports: cancer, CHF, diabetes, hypertension, other Surgical history: Reports: cholecystectomy, other Psychiatric history: Reports: no psych history - Social History Smoking Status: Never smoker Smokeless Tobacco Status: No Alcohol use: Reports: none Drug use: Reports: none Physical Exam - General Limitations: no limitations General appearance: alert, in no apparent distress - Head Head exam: normal inspection - Eye Eye exam: Present: normal appearance - ENT ENT exam: normal oropharynx, mucous membranes dry, normal external ear exam - Neck Neck exam: Present: normal inspection, full ROM, trachea midline - Chest Chest inspection: Present: normal inspection, symmetric chest wall rise - Respiratory Respiratory exam: Present: normal lung sounds bilaterally - Cardiovascular Cardiovascular exam: Present: regular rate, normal rhythm - Abdominal Exam Abdominal Exam: Present: soft, Non-Tender, other (Patient with bilateral nephrostomy tubes to the lateral aspect on the left and right side, appeared to be draining appropriately with what appears to be dark urine with sediment) - Extremities Exam Extremities exam: Present: other (Chronic skin changes, with normal cap refill in the distal upper and lower extremities) - Neurological Exam Neurological exam: Present: alert, oriented X3, normal gait - Psychiatric Psychiatric exam: Present: normal affect, normal mood - Skin Skin exam: Present: warm, dry, intact, normal color Course Course Narrative: Patient is a 78-year-old male presenting with dysuria status post nephrostomy tubes on 05/17/2018 by interventional radiology with noted pyonephrosis during placement. On arrival, patient is in no acute distress, is alert and oriented 3, he is afebrile. Patient does have bilateral nephrostomy tubes, actively draining. Given concern for history of recurrent urinary tract infections with pyonephrosis seen during nephrostomy tube placement, CBC, BMP as well as urinalysis, urine culture and blood culture will be performed. Patient was also started on fluids. CBC does show leukopenia at 2.3 which is significant change from baseline. Patient was started on fluids, Urine and blood cultures severity been obtained. BMP shows creatinine at 2.11, appears slightly better than baseline. Per urology request, patient was started on Zosyn. Given this information, patient has been admitted by Dr. Echeverria, for further evaluation. Patient and family agree with the disposition at this point in time. At 1500, I was called by the nursing staff to the patient's room, as the patient was going to the restroom having a bowel movement and had a syncopal episode, was called to the room as the patient was starting to desat in the mid 70%. On arrival, chin thrust was performed and patient was placed on nonrebreather, imm ediately went up to 97%. Blood pressure was obtained which was hypertensive with a 60 systolic, over 30 diastolic, patient was immediately given 1 L bolus and a second IV line was placed. Given this, patient will get a chest x-ray as well as an EKG. EKG was performed which shows an atrial paced rhythm, with no acute change from previous. Following 1 L of fluid, patient remained hypotensive with a blood pressure of 76 systolic. Given this and recent interventional radiology for feet procedure, we will order CT of the abdomen and pelvis without contrast given CKD. CT of abdomen and pelvis shows no acute bleed, does show some stranding which is appropriate given recent surgery. Patient's blood pressures continued to be hypotensive despite adequate fluid resuscitation. Per ICU recommendation, patient will also be started on vancomycin at 1710. At this point in time, patient is considered septic shock, he has been given a total of 2-1/2 L without change in blood pressure. Central line will be placed by the ICU resident. - Consultations Consultation #1: I spoke with Dr. Pozo, urology, who recommends starting Zosyn with admission. Will see the patient during admission Time: 14:00 Vital Signs Blood Pressure 131/73 05/17/18 13:00 Temperature 98.6 F 05/17/18 13:02 Pulse Rate 75 05/17/18 15:41 Respiratory Rate 20 05/17/18 15:41 Blood Pressure 75/29 05/17/18 16:40 O2 Sat by Pulse Oximetry 98 05/17/18 15:41 Oxygen Delivery Oxygen Delivery Non Rebreather Mask Urogenital-Male - Medical Records Medical records reviewed: Yes I reviewed the patient's medical records. - Lab Data Lab results reviewed: Yes I reviewed the patient's lab results. Result diagrams: 05/17/18 14:00 05/17/18 14:00 Lab Results 05/17/18 05/17/18 05/17/18 Range/Units 14:00 14:00 14:00 WBC 2.3 L D (4.3-11.1) K/mcL RBC 3.81 L (4.19-5.50) M/mcL Hgb 10.9 L (12.9-16.9) g/dL Hct 34.6 L (37.5-50.1) % MCV 90.8 (83.0-100.0) fL MCH 28.6 (28.0-33.3) pg MCHC 31.5 L (31.6-35.5) g/dL RDW 14.4 (11.5-14.5) % Plt Count 244 (140-400) K/mcL MPV 9.3 L (9.4-12.4) fL Immature Gran % 1.3 (0-4) % Seg Neutrophils % 85.4 % Lymphocytes % 8.2 % Monocytes % 0.4 % Eosinophils % 4.3 % Basophils % 0.4 % Neutrophils # 2.0 (1.6-8.9) K/mcL Lymphocytes # 0.2 L (0.6-4.6) K/mcL Monocytes # 0.0 (0.0-1.3) K/mcL Eosinophils # 0.1 (0.0-0.6) K/mcL Basophils # 0.0 (0.0-0.2) K/mcL PT (9.4-12.1) Seconds INR Sodium 135 L (136-145) mEq/L Potassium 4.1 (3.5-5.1) mEq/L Chloride 107 (98-107) mEq/L Carbon Dioxide 24 (23-29) mEq/L BUN 31 H (8-23) mg/dL Creatinine 2.11 H (0.70-1.30) mg/dL Est GFR ( Amer) 37 L (> 60) Est GFR (Non-Af Amer) 30 L (> 60) BUN/Creatinine Ratio 15 (6-26) Glucose 269 H (70-105) mg/dL Calculated Osmolality 296 (280-300) Lactic Acid 2.1 (0.5-2.2) mmol/L Calcium 8.9 (8.6-10.3) mg/dL Ur Specimen Adequacy Urine Color (Yellow) Urine Clarity (Clear) Urine pH (5.0-8.0) pH Units Ur Specific [place] (1.010-1.025) Urine Protein (Neg-Trace) mg/dL Urine Glucose (UA) (Normal) mg/dL Urine Ketones (Negative) mg/dL Urine Blood (Negative) Urine Nitrite (Negative) Urine Bilirubin (Negative) Urine Urobilinogen (Normal) mg/dL Ur Leukocyte Esterase (Negative) 05/17/18 05/17/18 Range/Units 14:00 14:31 WBC (4.3-11.1) K/mcL RBC (4.19-5.50) M/mcL Hgb (12.9-16.9) g/dL Hct (37.5-50.1) % MCV (83.0-100.0) fL MCH (28.0-33.3) pg MCHC (31.6-35.5) g/dL RDW (11.5-14.5) % Plt Count (140-400) K/mcL MPV (9.4-12.4) fL Immature Gran % (0-4) % Seg Neutrophils % % Lymphocytes % % Monocytes % % Eosinophils % % Basophils % % Neutrophils # (1.6-8.9) K/mcL Lymphocytes # (0.6-4.6) K/mcL Monocytes # (0.0-1.3) K/mcL Eosinophils # (0.0-0.6) K/mcL Basophils # (0.0-0.2) K/mcL PT 13.0 H (9.4-12.1) Seconds INR 1.2 Sodium (136-145) mEq/L Potassium (3.5-5.1) mEq/L Chloride (98-107) mEq/L Carbon Dioxide (23-29) mEq/L BUN (8-23) mg/dL Creatinine (0.70-1.30) mg/dL Est GFR ( Amer) (> 60) Est GFR (Non-Af Amer) (> 60) BUN/Creatinine Ratio (6-26) Glucose (70-105) mg/dL Calculated Osmolality (280-300) Lactic Acid (0.5-2.2) mmol/L Calcium (8.6-10.3) mg/dL Ur Specimen Adequacy See below A Urine Color Yellow (Yellow) Urine Clarity Cloudy A (Clear) Urine pH 7.0 (5.0-8.0) pH Units Ur Specific [place] 1.014 (1.010-1.025) Urine Protein >=1000 H (Neg-Trace) mg/dL Urine Glucose (UA) 250 H (Normal) mg/dL Urine Ketones Negative (Negative) mg/dL Urine Blood Moderate H (Negative) Urine Nitrite Negative (Negative) Urine Bilirubin Negative (Negative) Urine Urobilinogen Normal (Normal) mg/dL Ur Leukocyte Esterase Moderate H (Negative) - Radiology Data Radiology results reviewed: Yes I reviewed the patient's radiology results. - EKG Data EKG attestation: Yes I reviewed and interpreted this EKG. EKG results narrative: EKG was performed at 1529 with ventricular rate of 75, patient is atrial paced rhythm, with no acute change from prior performed on 12/22/2017 SHelen - Jignesh Situation: Demographics, MOA Background: Presenting Complaint, Relevant PMH, Meds, & Allergies Assessment: Vital Signs, Course and respsone to treatment, Exam Concerns, Patient/Family Expectation, Pertinant Lab Results, Outstanding Labs Recommendation: Barrier(s) to disposition, Recommendation based on pending studies, treatments, or consults S.B.ABecky Report Given to: Dr. Juwan Egan Repor Time: 15:00 (accepted)
[2018-05-17 14:15] LABS: Basophils % 0.4 %; Eosinophils # 0.1 K/mcL (0.0-0.6); Eosinophils % 4.3 %; Hematocrit 34.6 % (37.5-50.1); Hemoglobin 10.9 g/dL (12.9-16.9); Immature Granulocytes % 1.3 % (0-4); Lymphocytes # 0.2 K/mcL (0.6-4.6); Lymphocytes % 8.2 %; Mean Corpuscular HGB Conc 31.5 g/dL (31.6-35.5); Mean Corpuscular Hemoglobin 28.6 pg (28.0-33.3); Mean Corpuscular Volume 90.8 fL (83.0-100.0); Mean Platelet Volume 9.3 fL (9.4-12.4); Monocytes % 0.4 %; Platelet Count 244 K/mcL (140-400); Red Blood Count 3.81 M/mcL (4.19-5.50); Red Cell Distribution Width 14.4 % (11.5-14.5); Segmented Neutrophils % 85.4 %
[2018-05-17] MEDS ORDERED: Ondansetron 4 MG/2 ML VIAL IVP ONE (14:32)
[2018-05-17] MEDS ORDERED: 0.9 % Sodium Chloride 1,000 ML IVC ONE ×3 (14:32→17:02)
--- NOTE | 2018-05-17 14:32 | Emergency Department Note ---
Disposition Clinical Impression: Pyonephrosis Disposition: Admitted As Inpatient Forms: ED Satisfaction Letter General Adult HPI - General Chief complaint: ED Urogenital-Male Stated complaint: needs admit from IR Time Seen by Provider: 05/17/18 13:04 Source: patient Limitations: no limitations - History of Present Illness Pain Scale: 0 - Related Data Home Medications Medication Instructions Recorded Confirmed Diltiazem HCl [Tiazac] 360 mg PO DAILY 03/16/15 05/17/18 Sotalol [Betapace] 120 mg PO Q12HR 03/16/15 05/17/18 Ergocalciferol (VITAMIN D2) 400 unit PO DAILY 12/08/15 05/17/18 [Vitamin D] Latanoprost [Xalatan] 1 drop BOTH EYES DAILY 12/08/15 05/17/18 Warfarin [Coumadin] 2 mg PO DAILY 12/08/15 05/17/18 Insulin Glargine,Hum.rec.anlog 30 unit SQ HS 10/26/17 05/17/18 [Basaglar Kwikpen U-100] Brimonidine 0.2% [Alphagan] 1 drop LEFT EYE BID 12/22/17 05/17/18 Previous Rx's Medication Instructions Recorded Ferrous Sulfate 325 mg PO TIDWM #90 tablet 12/10/15 Allergies Allergy/AdvReac Type Severity Reaction Status Date / Time Erythromycin Base Allergy Mild Rash Verified 10/26/17 14:08 Past Medical History - Past Medical History Medical history: Reports: cancer, CHF, diabetes, hypertension, other Surgical history: Reports: cholecystectomy, other Psychiatric history: Reports: no psych history - Social History Smoking Status: Never smoker Smokeless Tobacco Status: No Alcohol use: Reports: none Drug use: Reports: none Physical Exam - General Limitations: no limitations General appearance: alert, in no apparent distress Course Vital Signs Temperature 98.6 F 05/17/18 13:02 Pulse Rate 74 05/17/18 13:02 Respiratory Rate 18 05/17/18 13:02 Blood Pressure 131/73 05/17/18 13:02 O2 Sat by Pulse Oximetry 99 05/17/18 13:02 Temperature 98.6 F 05/17/18 13:02 Pulse Rate 74 05/17/18 13:02 Respiratory Rate 18 05/17/18 13:02 Blood Pressure 131/73 05/17/18 13:02 O2 Sat by Pulse Oximetry 99 05/17/18 13:02 Oxygen Delivery Oxygen Delivery Room Air Medical Decision Making - Lab Data Result diagrams: 05/17/18 14:00 Lab Results 05/17/18 05/17/18 Range/Units 14:00 14:00 WBC 2.3 L D (4.3-11.1) K/mcL RBC 3.81 L (4.19-5.50) M/mcL Hgb 10.9 L (12.9-16.9) g/dL Hct 34.6 L (37.5-50.1) % MCV 90.8 (83.0-100.0) fL MCH 28.6 (28.0-33.3) pg MCHC 31.5 L (31.6-35.5) g/dL RDW 14.4 (11.5-14.5) % Plt Count 244 (140-400) K/mcL MPV 9.3 L (9.4-12.4) fL Immature Gran % 1.3 (0-4) % Seg Neutrophils % 85.4 % Lymphocytes % 8.2 % Monocytes % 0.4 % Eosinophils % 4.3 % Basophils % 0.4 % Neutrophils # 2.0 (1.6-8.9) K/mcL Lymphocytes # 0.2 L (0.6-4.6) K/mcL Monocytes # 0.0 (0.0-1.3) K/mcL Eosinophils # 0.1 (0.0-0.6) K/mcL Basophils # 0.0 (0.0-0.2) K/mcL Lactic Acid 2.1 (0.5-2.2) mmol/L Attestation Statement - Attestation Attestation: I examined this patient and my medical decision-making was reviewed with the Resident Physician. I agree with the documented findings, disposition and treatment plan as described except to the extent set forth below. 78-year-old male in presented to the emergency room for concerns for infection after a nephrostomy tube was placed. Patient had bilateral nephrostomy tubes placed by interventional radiology and they noticed some urine that appeared to contain pus in it. They sent him to the ER for evaluation. Patient follows with urology. Interventional radiology did send the fluid down to the lab for analysis. We will start the patient on IV antibiotics and urology's requests. Patient will be admitted to the hospitalist. We have ordered blood cultures and screening labs.
[2018-05-17 14:33] LABS: Calcium 8.9 mg/dL (8.6-10.3); Potassium 4.1 mEq/L (3.5-5.1)
[2018-05-17] MEDS ORDERED: Piperacillin/Tazobactam 3.375 GM in 0.9 % Sodium Chloride Mini Bag 100 ML IVPB ONE (14:49)
[2018-05-17 14:53] LABS: Bilirubin,Urine Negative (Negative); Blood,Urine Moderate (Negative); Clarity,Urine Cloudy (Clear); Color,Urine Yellow (Yellow); Glucose,Urine (UA) 250 mg/dL (Normal); Ketones,Urine Negative (Negative); Leukocyte Esterase,Urine Moderate (Negative); Nitrite,Urine Negative (Negative); Protein,Urine >=1000 mg/dL (Neg-Trace); Specific Gravity,Urine 1.014 (1.010-1.025); Urobilinogen,Urine Normal (Normal)
[2018-05-17] MEDS ORDERED: Naloxone 0.4 MG/ML INJ IVP PRN (15:39)
[2018-05-17] MEDS ORDERED: Ringers Solution, Lactated 1,000 ML IVC SCH (15:45)
[2018-05-17] MEDS ORDERED: Dextrose Gel 15 GM/37.5 ML TUBE PO PRN ×2 (15:47)
[2018-05-17] MEDS ORDERED: D5% in Water 1,000 ML IVC PRN (15:47)
[2018-05-17] MEDS ORDERED: *HR* Dextrose 50 % in Water (Syg) 50 ML SYRINGE IVP PRN (15:47)
[2018-05-17] MEDS ORDERED: Dextrose 4 GM Chewable Tablets PO PRN ×2 (15:47)
[2018-05-17] MEDS ORDERED: Ondansetron 4 MG/2 ML VIAL IVP PRN (16:15)
[2018-05-17 16:18] LABS: INR 1.2
--- NOTE | 2018-05-17 16:26 | Internal Med History&Physical ---
Date of Encounter: 05/17/18 Time of Encounter: 16:17 Internal Medicine - H&P: HPI Chief complaint: sent following nephrostomy tube placement Admitted From: Home Plans for Post Hospital Care: Home History of present illness: Mr. Rojas is a 78 year old male PMH A. fib s/p pacemaker, CHF?, DM, HTN, CKD stage 3, prostate CA s/p radiation about 9 years ago, chronic UTI. Patient was sent to the ED after an incidental finding of b/l pyonephrosis following nephrostomy tube placement. As per patient he has a Hx of UTI, and had a chronic Lewis catheter which got occluded a couple of days ago. His urologist recommended to have nephrostomy tube insertion to avoid worsening of his kidney function and to prevent recurrent UTIs. Today patient had IR guided nephrostomy tube insertion, while the tubes were being inserted the radiologist noticed some pus mixed with the urine. Bilateral percutaneous antegrade pyelogram: showed Successful bilateral percutaneous nephrostomy tube placement. An unexpected finding was bilateral pyonephrosis. And the patient was sent to the ED for IV antibiotics. During my evaluation patient found to be hypotensive with BP 76/63, not tachycardic. In no distress. Past Med Surg Social Fam HX - Past Medical History Medical history: cancer, CHF, diabetes, hypertension, other Additional medical history: irregular heart beat. prostate cancer with radiation Psychiatric history: no psych history - Past Surgical History Surgical History: cholecystectomy, other Additional surgical history: pacer - Social History Smoking Status: Never smoker Smokeless Tobacco Status: No Alcohol use: none Drug use: none - Family History Father Living Status: Hx Family Respiratory Disorders: Yes (Lung cancer) Hx Family Cancer: Yes (lung cancer) Mother Living Status: Hx Family Cancer: Yes (breast cancer) Internal Medicine - H&P: Meds Diltiazem HCl [Tiazac] 360 mg PO DAILY 03/16/15 [History] Sotalol [Betapace] 120 mg PO Q12HR 03/16/15 [History] Ergocalciferol (VITAMIN D2) [Vitamin D] 400 unit PO DAILY 12/08/15 [History] Latanoprost [Xalatan] 1 drop BOTH EYES DAILY 12/08/15 [History] Warfarin [Coumadin] 2 mg PO DAILY 12/08/15 [History] Ferrous Sulfate 325 mg PO TIDWM #90 tablet 12/10/15 [Rx] Insulin Glargine,Hum.rec.anlog [Rogeraglpatti Ansaripen U-100] 30 unit SQ HS 10/26/17 [History] Brimonidine 0.2% [Alphagan] 1 drop LEFT EYE BID 12/22/17 [History] Allergy/AdvReac Type Severity Reaction Status Date / Time Erythromycin Base Allergy Mild Rash Verified 10/26/17 14:08 All Systems PM: A 10-system review of systems was performed and is negative for pertinent findings except as documented above in the HPI. - Constitutional Constitutional: chills, weakness, no fever(s) - EENT Eyes: no change in vision - Cardiovascular Cardiovascular ROS IM: no chest pain, no dyspnea on exertion, no lightheadedness, no palpitations, no syncope - Respiratory Respiratory: no cough, no dyspnea, no wheezing - Gastrointestinal Gastrointestinal: no abdominal pain - Genitourinary Genitourinary ROS male: no dysuria, no hematuria, no urinary frequency, no urinary urgency - Musculoskeletal Musculoskeletal ROS IM: muscle weakness, no muscle cramps - Integumentary Integumentary IM: no rash, no sores - Neurological Neurological ROS: no abnormal speech, no headache(s) - Psychiatric Psychiatric: no anxiety, no depression, no irritability - Endocrine Endocrine IM: no cold intolerance, no excessive sweating, no fatigue - Hematologic/Lymphatic Hematologic/Lymphatic: no lymphadenopathy - Allergic/Immunologic Allergic/Immunologic: no GI upset with certain foods Additional comments: rest of a 10 review of system negative - Constitutional Vitals: Temp Pulse Resp BP Pulse Ox 98.6 F 75 20 76/55 98 05/17/18 13:02 05/17/18 15:41 05/17/18 15:41 05/17/18 15:41 05/17/18 15:41 Exam: Vitals: Reviewed General: Alert and oriented x4. In no distress HEENT: Dry mucus membrane. EOM, pupils equal, round and reactive. Cardiovascular: Irregularly, irregular, normal S1 & S2, no rubs, murmurs or gallops. Lungs: CTA b/l, no wheezes or crackles. Abdomen: Obses, soft, non-tender, no rigidity. Extremities: No edema Neurological:Normal cognition Rest of the physical exam is non contributory Internal Med - H&P Results - Labs CBC & Chem 7: 05/17/18 14:00 05/17/18 14:00 Labs: Short CBC 05/17/18 Range/Units 14:00 WBC 2.3 L D (4.3-11.1) K/mcL Hgb 10.9 L (12.9-16.9) g/dL Hct 34.6 L (37.5-50.1) % Plt Count 244 (140-400) K/mcL Neutrophils # 2.0 (1.6-8.9) K/mcL BMP 05/17/18 14:00 Sodium 135 L Potassium 4.1 Chloride 107 Carbon Dioxide 24 BUN 31 H Creatinine 2.11 H Glucose 269 H Calcium 8.9 Urine 05/17/18 Range/Units 14:31 Urine Color Yellow (Yellow) Urine Clarity Cloudy A (Clear) Urine pH 7.0 (5.0-8.0) pH Units Ur Specific [place] 1.014 (1.010-1.025) Urine Protein >=1000 H (Neg-Trace) mg/dL Urine Glucose (UA) 250 H (Normal) mg/dL - Impressions ITS Impressions Chest X-Ray 05/17/18 15:26 IMPRESSION: Small left-sided effusion. D/ / Humberto Hernandez MD / Humberto Hernandez MD Interpreting Provider: Humberto Hernandez MD - Diagnostic Studies Chest x-ray Status: image reviewed by me (small left sided effusion) - Assessment and Plan (1) Hypotension Current Visit: Yes Status: Acute Assessment and plan: possible due to sepsis vs r/o intra-abdominal cause. patient s/p nephrostomy tube placement Plan patient will be aggressively resuscitated with IV fluids 1 litter NS bolus ordered LR @125 ml/hr for maintenance will give fluid bolus as needed blood culture ordered started on broad spectrum IV antibiotics. Patient has a Hx of brdoy sensitive P. [place] UTI. CT abd/Pelv w/o contrast stat repeat cbc stat ICU has been consulted consider consulting urology pending CT abd/pelvis results NPO accu-checks Q6HRs plus lispro low dose sliding scale ths, cortisol ordered serial trops ordered Qualifiers: Hypotension type: unspecified hypotension type Qualified Code(s): I95.9 - Hypotension, unspecified (2) Pyonephrosis Current Visit: Yes Status: Acute Assessment and plan: patient started on broad spectrum IV antibiotics Urine culture sent (3) Atrial fibrillation Current Visit: No Status: Chronic Assessment and plan: rate controlled. patient on multiple medications for rate control. On sotalol and diltiazem. Hold home medications due to hypotension will hold anticoagulation pending CT abd/pelvis report. Qualifiers: Atrial fibrillation type: unspecified Qualified Code(s): I48.91 - Unspecified atrial fibrillation (4) DVT prophylaxis Current Visit: No Status: Acute Assessment and plan: mechanical DVT prophylaxis (5) Hydronephrosis Current Visit: No Status: Acute Assessment and plan: patient s/p b/l bilateral percutaneous nephrostomy tube placement. Qualifiers: Hydronephrosis type: other Qualified Code(s): N13.39 - Other hydronephrosis (6) Nausea & vomiting Current Visit: No Status: Acute Assessment and plan: NPO. started on PPI and anti-emetics Qualifiers: Vomiting type: unspecified Vomiting Intractability: intractable Qualified Code(s): R11.2 - Nausea with vomiting, unspecified (7) Prostate cancer Current Visit: No Status: Acute (8) UTI (urinary tract infection) Current Visit: No Status: Acute Assessment and plan: patient on piperacillint/tazobactam 3.375mg/IV Q8HRs IV Qualifiers: Urinary tract infection type: site unspecified Hematuria presence: with hematuria Qualified Code(s): N39.0 - Urinary tract infection, site not specified; R31.9 - Hematuria, unspecified (9) Chronic kidney disease, stage 3 Current Visit: No Status: Chronic Assessment and plan: kidney function at baseline. patient started on IV hydration due to hypotension. avoid nephrotoxic medications (10) Diabetes mellitus Current Visit: No Status: Chronic Assessment and plan: started on lispro low dose sliding scale. NPO. accu-checks Q6HRs. Qualifiers: Diabetes mellitus type: type 2 Diabetes mellitus halfway insulin use: without halfway use Diabetes mellitus complication status: without complication Qualified Code(s): E11.9 - Type 2 diabetes mellitus without complications - Time Spent With Patient Total time spent is greater than 50% in coordination of care (as documented) at patient's floor/unit and/or counseling patient: Greater than 35 minutes (45)
[2018-05-17] MEDS ORDERED: Insulin LISPRO 300 UNITS/3 ML VIAL SQ SCH (17:00)
[2018-05-17 17:31] LABS: Basophils % 0.3 %; Hematocrit 32.4 % (37.5-50.1); Hemoglobin 10.1 g/dL (12.9-16.9); Lymphocytes # 0.1 K/mcL (0.6-4.6); Lymphocytes % 3.1 %; Mean Corpuscular HGB Conc 31.2 g/dL (31.6-35.5); Mean Corpuscular Hemoglobin 28.5 pg (28.0-33.3); Mean Corpuscular Volume 91.5 fL (83.0-100.0); Mean Platelet Volume 9.6 fL (9.4-12.4); Monocytes % 0.5 %; Neutrophils # 3.7 K/mcL (1.6-8.9); Platelet Count 240 K/mcL (140-400); Red Blood Count 3.54 M/mcL (4.19-5.50); Red Cell Distribution Width 14.5 % (11.5-14.5); Segmented Neutrophils % 94.1 %
[2018-05-17 17:51] LABS: Platelet Clumps Few (Not Present); Reactive Lymphocytes Present (Not Present); Toxic Granulation Present (Not Present); Toxic Vacuolation Present (Not Present)
[2018-05-17] MEDS: Norepinephrine 4 MG in D5% in Water 250 ML IVC SCH (18:20)
[2018-05-17] MEDS: Piperacillin/Tazobactam 3.375 GM in 0.9 % Sodium Chloride Mini Bag 100 ML IVPB SCH (18:29)
--- NOTE | 2018-05-17 18:29 | Pulmonology Consult Note ---
<Jaz Hannah - Last Filed: 05/17/18 19:12> Date of Encounter: 05/17/18 Time of Encounter: 18:29 Assessment and Plan (1) Hypotension Current Visit: Yes Status: Acute * Systolic maintains in the 80s after vasovagal episode in ED while awaiting floor transfer * Patient mentating appropriately and otherwise stable, not tachycardic * Central line placed by myself with supervision by Dr. Du in the ED. Post procedure chest x-ray shows no pneumothorax. * Levophed titration overnight to maintain adequate BP * lactate ordered, received IVF in ED * Troponin negative 1 Qualifiers: Hypotension type: unspecified hypotension type Qualified Code(s): I95.9 - Hypotension, unspecified (2) Pyonephrosis Current Visit: Yes Status: Acute * Per reports patient had bilateral nephrostomy tubes placed with return of jovanna pus * We will place the patient on vancomycin and and Zosyn * Urine/blood cultures pending * Patient has history of pansensitive pseudomonas aeruginosa UTI * CT abdomen/pelvis reviewed * Continue with IV fluid rehydration * Accu-Cheks per protocol with sliding scale insulin * TSH and cortisol ordered for a.m. labs * NPO, on PPI and anti-emetics * CBC and BMP in AM (3) Congestive heart failure Current Visit: Yes Status: Acute * Limited echo in 2018 showed probable reduced ejection fraction but technically limited study * Given the patient's aggressive fluid rehydration will monitor the patient's fluid status and diurese as it becomes necessary Qualifiers: Heart failure type: systolic Heart failure chronicity: unspecified Qualified Code(s): I50.20 - Unspecified systolic (congestive) heart failure (4) DVT prophylaxis Current Visit: Yes Status: Acute History of Present Illness Consult date: 05/17/18 Requesting physician: Margie Echeverria Reason for consult: other (hypotension) History of present illness: 78 yo male with history of A. fib status post pacemaker, diabetes, hypertension, CK D stage III, rustic cancer and chronic UTI who presented to the emergency department with complaints of bilateral pyonephritis status post recent nephrostomy tube placement. In the emergency department the patient was found to be significantly hypotensive after a bowel movement without return to normotensive. The patient is no acute distress. He notes that he feels tired and fatigued but otherwise denies any chest pain, shortness of breath, abdominal pain, headache, visual changes or dizziness. Past Med Surg Social Fam HX - Past Medical History Medical history: cancer, CHF, diabetes, hypertension, other Additional medical history: irregular heart beat. prostate cancer with radiation Psychiatric history: no psych history - Past Surgical History Surgical History: cholecystectomy, other Additional surgical history: pacer - Social History Smoking Status: Never smoker Smokeless Tobacco Status: No Alcohol use: none Drug use: none - Family History Father Living Status: Hx Family Respiratory Disorders: Yes (Lung cancer) Hx Family Cancer: Yes (lung cancer) Mother Living Status: Hx Family Cancer: Yes (breast cancer) Medications and Allergies Diltiazem HCl [Tiazac] 360 mg PO DAILY 03/16/15 [History] Sotalol [Betapace] 120 mg PO Q12HR 03/16/15 [History] Ergocalciferol (VITAMIN D2) [Vitamin D] 400 unit PO DAILY 12/08/15 [History] Latanoprost [Xalatan] 1 drop BOTH EYES DAILY 12/08/15 [History] Warfarin [Coumadin] 2 mg PO DAILY 12/08/15 [History] Ferrous Sulfate 325 mg PO TIDWM #90 tablet 12/10/15 [Rx] Insulin Glargine,Hum.rec.anlog [Basaglar Kwikpen U-100] 30 unit SQ HS 10/26/17 [History] Brimonidine 0.2% [Alphagan] 1 drop LEFT EYE BID 12/22/17 [History] Allergy/AdvReac Type Severity Reaction Status Date / Time Erythromycin Base Allergy Mild Rash Verified 10/26/17 14:08 All Systems: The remainder of the systems were reviewed and are negative - Constitutional Constitutional: as per HPI - EENT Eyes: as per HPI - Cardiovascular Cardiovascular: as per HPI - Respiratory Respiratory: as per HPI - Gastrointestinal Gastrointestinal: nausea, vomiting - Genitourinary Genitourinary: as per HPI - Neurological Neurological: as per HPI - Psychiatric Psychiatric: as per HPI - Endocrine Endocrine: as per HPI Physical Examination Vital Signs: Vital Signs, Last 4 Hours Pulse Resp BP Pulse Ox 05/17/18 18:25 88/57 05/17/18 18:23 75 16 87/55 93 05/17/18 18:05 75 18 88/71 100 03/11/19 16:40 75/29 05/17/18 15:41 75 20 76/55 98 05/17/18 15:22 75 28 61/38 100 General appearance: no acute distress, alert Eyes: nonicteric ENT: oropharynx moist Neck: supple Effort: normal Inspection: normal Auscultation: bilateral: clear Cardiovascular: regular rate and rhythm Gastrointestinal: normoactive bowel sounds Integumentary: normal Extremities: no cyanosis Musculoskeletal: no deformities normal mental status, non-focal exam mood appropriate, affect normal Results - Laboratory Findings CBC and BMP: 05/17/18 17:09 05/17/18 14:00 PT/INR, D-dimer PT 13.0 Seconds (9.4-12.1) H 05/17/18 14:00 Abnormal lab findings: Abnormal lab results WBC 3.9 K/mcL (4.3-11.1) L D 05/17/18 17:09 RBC 3.54 M/mcL (4.19-5.50) L 05/17/18 17:09 Hgb 10.1 g/dL (12.9-16.9) L 05/17/18 17:09 Hct 32.4 % (37.5-50.1) L 05/17/18 17:09 MCHC 31.2 g/dL (31.6-35.5) L 05/17/18 17:09 Lymphocytes # 0.1 K/mcL (0.6-4.6) L 05/17/18 17:09 Reactive Lymphocytes Present (Not Present) A 05/17/18 17:09 Toxic Granulation Present (Not Present) A 05/17/18 17:09 Toxic Vacuolation Present (Not Present) A 05/17/18 17:09 Clumped Platelets Few (Not Present) A 05/17/18 17:09 PT 13.0 Seconds (9.4-12.1) H 05/17/18 14:00 Sodium 135 mEq/L (136-145) L 05/17/18 14:00 BUN 31 mg/dL (8-23) H 05/17/18 14:00 Creatinine 2.11 mg/dL (0.70-1.30) H 05/17/18 14:00 Est GFR ( Amer) 37 (> 60) L 05/17/18 14:00 Est GFR (Non-Af Amer) 30 (> 60) L 05/17/18 14:00 Glucose 269 mg/dL (70-105) H 05/17/18 14:00 POC Glucose 215 mg/dL (70-99) H 05/17/18 17:04 TSH 5.674 mcIU/mL (0.340-5.600) H 05/17/18 17:09 Ur Specimen Adequacy See below A 05/17/18 14:31 Urine Clarity Cloudy (Clear) A 05/17/18 14:31 Urine Protein >=1000 mg/dL (Neg-Trace) H 05/17/18 14:31 Urine Glucose (UA) 250 mg/dL (Normal) H 05/17/18 14:31 Urine Blood Moderate (Negative) H 05/17/18 14:31 Ur Leukocyte Esterase Moderate (Negative) H 05/17/18 14:31 - Microbiology Findings Microbiology Findings: Microbiology, Last 48 Hours 05/17/18 14:31 Urine Culture - Preliminary Urine,Catheterized (Straight) Culture is incubating. 05/17/18 15:30 Blood Culture - Preliminary Peripheral Venipuncture Culture is incubating and being continuously monitored for growth. Final report to follow. 05/17/18 14:00 Blood Culture - Preliminary Peripheral Venipuncture Culture is incubating and being continuously monitored for growth. Final report to follow. - Clinical Findings Intake & Output: Intake & Output 05/17/18 05/17/18 05/17/18 07:59 15:59 23:59 Intake Total 1999 Balance 1999 Weight 122.016 kg Consult Discharge Plan - Plan Referrals: Elysia Sullivan CNP [Primary Care Provider] - <Renee Tay - Last Filed: 05/17/18 20:03> Date of Encounter: 05/17/18 All Systems: The remainder of the systems were reviewed and are negative Physical Examination Vital Signs: Vital Signs, Last 4 Hours Pulse Resp BP Pulse Ox 05/17/18 19:43 75 82/53 05/17/18 19:30 75 14 90/57 94 05/17/18 19:19 75 18 94/57 94 05/17/18 19:04 75 16 88/58 92 05/17/18 18:42 75 16 100/56 94 05/17/18 18:30 75 95/60 93 05/17/18 18:25 88/57 03/11/19 18:23 75 16 87/55 93 05/17/18 18:05 75 18 88/71 100 05/17/18 16:40 75/29 Results - Laboratory Findings CBC and BMP: 05/17/18 17:09 05/17/18 14:00 PT/INR, D-dimer PT 13.0 Seconds (9.4-12.1) H 05/17/18 14:00 Abnormal lab findings: Abnormal lab results WBC 3.9 K/mcL (4.3-11.1) L D 05/17/18 17:09 RBC 3.54 M/mcL (4.19-5.50) L 05/17/18 17:09 Hgb 10.1 g/dL (12.9-16.9) L 05/17/18 17:09 Hct 32.4 % (37.5-50.1) L 05/17/18 17:09 MCHC 31.2 g/dL (31.6-35.5) L 05/17/18 17:09 Lymphocytes # 0.1 K/mcL (0.6-4.6) L 05/17/18 17:09 Reactive Lymphocytes Present (Not Present) A 05/17/18 17:09 Toxic Granulation Present (Not Present) A 05/17/18 17:09 Toxic Vacuolation Present (Not Present) A 05/17/18 17:09 Clumped Platelets Few (Not Present) A 05/17/18 17:09 PT 13.0 Seconds (9.4-12.1) H 05/17/18 14:00 Sodium 135 mEq/L (136-145) L 05/17/18 14:00 BUN 31 mg/dL (8-23) H 05/17/18 14:00 Creatinine 2.11 mg/dL (0.70-1.30) H 05/17/18 14:00 Est GFR ( Amer) 37 (> 60) L 05/17/18 14:00 Est GFR (Non-Af Amer) 30 (> 60) L 05/17/18 14:00 Glucose 269 mg/dL (70-105) H 05/17/18 14:00 POC Glucose 204 mg/dL (70-99) H 05/17/18 18:35 Lactic Acid 4.3 mmol/L (0.5-2.2) H* 05/17/18 18:03 TSH 5.674 mcIU/mL (0.340-5.600) H 05/17/18 17:09 Ur Specimen Adequacy See below A 05/17/18 14:31 Urine Clarity Cloudy (Clear) A 05/17/18 14:31 Urine Protein >=1000 mg/dL (Neg-Trace) H 05/17/18 14:31 Urine Glucose (UA) 250 mg/dL (Normal) H 05/17/18 14:31 Urine Blood Moderate (Negative) H 05/17/18 14:31 Ur Leukocyte Esterase Moderate (Negative) H 05/17/18 14:31 - Microbiology Findings Microbiology Findings: Microbiology, Last 48 Hours 05/17/18 14:31 Urine Culture - Preliminary Urine,Catheterized (Straight) Culture is incubating. 05/17/18 15:30 Blood Culture - Preliminary Peripheral Venipuncture Culture is incubating and being continuously monitored for growth. Final report to follow. 05/17/18 14:00 Blood Culture - Preliminary Peripheral Venipuncture Culture is incubating and being continuously monitored for growth. Final report to follow. - Clinical Findings Intake & Output: Intake & Output 05/17/18 05/17/18 05/17/18 07:59 15:59 23:59 Intake Total 2151.3 / 2151.3 Balance 2151.3 / 2151.3 Weight 122.016 kg - Attending Attestation I saw and evaluated this patient and my medical decision-making was reviewed with the Resident Physician. I agree with the documented findings, disposition and treatment plan as described except to the extent set forth below. We independently had [id number] contact with the patient I spent 45 minutes of Critical Care time with this patient. It involved decision making of high complexity to assess, manipulate, and support vital organ system failure and/or to prevent further life threatening deterioration of the patient's condition. The time involved in the performance of separately reportable procedures was not counted toward critical care time. Patient seen and examined at bedside Labs, radiology, chart personally reviewed. Management was reviewed during multidisciplinary critical care rounds. HAND TOUCH UP PAINTER: Patient is conscious oriented 3 no evidence of acute HAND TOUCH UP PAINTER issues possible mild toxic/metabolic encephalopathy Pulm: Patient is acceptable oxygenation and ventilation patient has minimal left-sided pleural effusion in the chest x-ray did not show any evidence of pne umonia Cards: Patient has past medical history as congestive heart failure now and sept ic shock after he got bilateral nephrostomy tubes FEN-GI: We will give clear liquid diet if he tolerates Renal: Patient has acute on chronic kidney injury most likely due to obstructive uropathy with bilateral pyelonephrosis patient had bilateral nephrostomy tube ID: To cover with broad-spectrum antibiotics as patient had bilateral nephrostomy tube for pyelonephrosis. Vancomycin renally dosed. Heme/Onc: Leukopenia most likely due to sepsis Endo: Glucose Monitored Integ/MSK: Skin Care per routine ICU Nursing Protocol to prevent ulcers. Lines: All lines examined without evidence of infection : Dispo: critically ill circulatory failure septic shock CODE: Full code
--- NOTE | 2018-05-17 18:38 | Emergency Department Note ---
Disposition Clinical Impression: Pyonephrosis, Septic shock Disposition: Admitted As Inpatient Condition: Critical General Adult HPI - General Chief complaint: ED Urogenital-Male Stated complaint: needs admit from IR Time Seen by Provider: 05/17/18 13:04 Source: patient Mode of arrival: wheelchair Limitations: no limitations Nursing Notes Reviewed: Yes - History of Present Illness HPI Narrative: This is a procedure note. Please see Vimal Piña and Florian notes for full HPI, physical exam, MDM, and final disposition. Pain Scale: 0 - Related Data Home Medications Medication Instructions Recorded Confirmed Diltiazem HCl [Tiazac] 360 mg PO DAILY 03/16/15 05/17/18 Sotalol [Betapace] 120 mg PO Q12HR 03/16/15 05/17/18 Ergocalciferol (VITAMIN D2) 400 unit PO DAILY 12/08/15 05/17/18 [Vitamin D] Latanoprost [Xalatan] 1 drop BOTH EYES DAILY 12/08/15 05/17/18 Warfarin [Coumadin] 2 mg PO DAILY 12/08/15 05/17/18 Insulin Glargine,Hum.rec.anlog 30 unit SQ HS 10/26/17 05/17/18 [Basaglar Kwikpen U-100] Brimonidine 0.2% [Alphagan] 1 drop LEFT EYE BID 12/22/17 05/17/18 Previous Rx's Medication Instructions Recorded Ferrous Sulfate 325 mg PO TIDWM #90 tablet 12/10/15 Allergies Allergy/AdvReac Type Severity Reaction Status Date / Time Erythromycin Base Allergy Mild Rash Verified 10/26/17 14:08 Constitutional: Reports: chills. Denies: fever, weakness ENT ED: Denies: congestion Cardiovascular: Denies: chest pain Respiratory: Denies: cough Gastrointestinal: Denies: abdominal pain, nausea, vomiting Genitourinary: Reports: urgency, dysuria. Denies: frequency, hematuria Musculoskeletal: Denies: back pain Integumentary: Denies: rash Neurological: Denies: weakness Hematological/Lymphatic: Denies: easy bleeding Past Medical History - Past Medical History Medical history: Reports: cancer, CHF, diabetes, hypertension, other Surgical history: Reports: cholecystectomy, other Psychiatric history: Reports: no psych history - Social History Smoking Status: Never smoker Smokeless Tobacco Status: No Alcohol use: Reports: none Drug use: Reports: none Physical Exam - General Limitations: no limitations General appearance: alert, in no apparent distress Course Vital Signs Blood Pressure 131/73 05/17/18 13:00 Temperature 98.6 F 05/17/18 13:02 Pulse Rate 75 05/17/18 18:30 Respiratory Rate 16 05/17/18 18:23 Blood Pressure 95/60 05/17/18 18:30 O2 Sat by Pulse Oximetry 93 05/17/18 18:30 Oxygen Delivery Oxygen Delivery Room Air Procedures - Central Line Placement Right IJ Central Line Inserted*: Yes Central Line Catheter Replacement*: Yes Central Line Insertion: emergent Consent Obtained: verbal consent, written consent Procedural Pause: verify patient name and date of , timeout performed per policy, nico and assess the site, assemble equipment and verify supplies, perform hand hygiene Patient Placed on Monitor/Pulse Ox: Yes During the Procedure: clinician is wearing sterile gloves, cap, mask,& gown during insertion, sterile field and sterile technique are maintained, patient's face is covered with drape or mask and wearing a cap, everyone in room is wearing a mask Central Line Prep: Chlorhexidine scrub Prep the Procedure Site: apply chloraprep to the skin using a back and forth scrubbing motion, apply chloraprep for 30 seconds (upper body), 1-2 min (femoral sites), allow prep to dry, drape the patient with a full body drape Local Anesthetic: lidocaine 1% Amount of anesthesia used (mL): 2 Ultrasound Used for Placement: Yes Central Line Lumen Inserted: triple Post Procedure: sutured in place, good blood return, all ports aspirated, flushed, capped, sterile dressing applied, guide wire removed and visualized, dressing is dated Post Procedure X-Ray: tip of catheter in good position, no pneumothorax seen Patient Tolerated Procedure: well Complications: none Name of Clinician Inserting Central Line: Jaz Hannah DO Clinician Assisting/Completing Checklist: Dr. Migue Du Date: 05/17/18 Time: 18:47 Medical Decision Making - Lab Data Result diagrams: 05/17/18 17:09 05/17/18 14:00 Lab Results 05/17/18 05/17/18 05/17/18 Range/Units 13:28 14:00 14:00 WBC 2.3 L D (4.3-11.1) K/mcL RBC 3.81 L (4.19-5.50) M/mcL Hgb 10.9 L (12.9-16.9) g/dL Hct 34.6 L (37.5-50.1) % MCV 90.8 (83.0-100.0) fL MCH 28.6 (28.0-33.3) pg MCHC 31.5 L (31.6-35.5) g/dL RDW 14.4 (11.5-14.5) % Plt Count 244 (140-400) K/mcL MPV 9.3 L (9.4-12.4) fL Immature Gran % 1.3 (0-4) % Seg Neutrophils % 85.4 % Lymphocytes % 8.2 % Monocytes % 0.4 % Eosinophils % 4.3 % Basophils % 0.4 % Neutrophils # 2.0 (1.6-8.9) K/mcL Lymphocytes # 0.2 L (0.6-4.6) K/mcL Monocytes # 0.0 (0.0-1.3) K/mcL Eosinophils # 0.1 (0.0-0.6) K/mcL Basophils # 0.0 (0.0-0.2) K/mcL PT (9.4-12.1) Seconds INR Sodium 135 L (136-145) mEq/L Potassium 4.1 (3.5-5.1) mEq/L Chloride 107 (98-107) mEq/L Carbon Dioxide 24 (23-29) mEq/L BUN 31 H (8-23) mg/dL Creatinine 2.11 H (0.70-1.30) mg/dL Est GFR ( Amer) 37 L (> 60) Est GFR (Non-Af Amer) 30 L (> 60) BUN/Creatinine Ratio 15 (6-26) Glucose 269 H (70-105) mg/dL POC Glucose 283 H (70-99) mg/dL Calculated Osmolality 296 (280-300) Lactic Acid (0.5-2.2) mmol/L Calcium 8.9 (8.6-10.3) mg/dL Ur Specimen Adequacy Urine Color (Yellow) Urine Clarity (Clear) Urine pH (5.0-8.0) pH Units Ur Specific [place] (1.010-1.025) Urine Protein (Neg-Trace) mg/dL Urine Glucose (UA) (Normal) mg/dL Urine Ketones (Negative) mg/dL Urine Blood (Negative) Urine Nitrite (Negative) Urine Bilirubin (Negative) Urine Urobilinogen (Normal) mg/dL Ur Leukocyte Esterase (Negative) 05/17/18 05/17/18 05/17/18 Range/Units 14:00 14:00 14:31 WBC (4.3-11.1) K/mcL RBC (4.19-5.50) M/mcL Hgb (12.9-16.9) g/dL Hct (37.5-50.1) % MCV (83.0-100.0) fL MCH (28.0-33.3) pg MCHC (31.6-35.5) g/dL RDW (11.5-14.5) % Plt Count (140-400) K/mcL MPV (9.4-12.4) fL Immature Gran % (0-4) % Seg Neutrophils % % Lymphocytes % % Monocytes % % Eosinophils % % Basophils % % Neutrophils # (1.6-8.9) K/mcL Lymphocytes # (0.6-4.6) K/mcL Monocytes # (0.0-1.3) K/mcL Eosinophils # (0.0-0.6) K/mcL Basophils # (0.0-0.2) K/mcL PT 13.0 H (9.4-12.1) Seconds INR 1.2 Sodium (136-145) mEq/L Potassium (3.5-5.1) mEq/L Chloride (98-107) mEq/L Carbon Dioxide (23-29) mEq/L BUN (8-23) mg/dL Creatinine (0.70-1.30) mg/dL Est GFR ( Amer) (> 60) Est GFR (Non-Af Amer) (> 60) BUN/Creatinine Ratio (6-26) Glucose (70-105) mg/dL POC Glucose (70-99) mg/dL Calculated Osmolality (280-300) Lactic Acid 2.1 (0.5-2.2) mmol/L Calcium (8.6-10.3) mg/dL Ur Specimen Adequacy See below A Urine Color Yellow (Yellow) Urine Clarity Cloudy A (Clear) Urine pH 7.0 (5.0-8.0) pH Units Ur Specific [place] 1.014 (1.010-1.025) Urine Protein >=1000 H (Neg-Trace) mg/dL Urine Glucose (UA) 250 H (Normal) mg/dL Urine Ketones Negative (Negative) mg/dL Urine Blood Moderate H (Negative) Urine Nitrite Negative (Negative) Urine Bilirubin Negative (Negative) Urine Urobilinogen Normal (Normal) mg/dL Ur Leukocyte Esterase Moderate H (Negative)
[2018-05-17] MEDS: Insulin LISPRO 300 UNITS/3 ML VIAL SQ SCH ×2 (20:26→20:28)
[2018-05-17] MEDS: Ringers Solution, Lactated 1,000 ML IVC SCH (20:27)
[2018-05-17] MEDS ORDERED: Insulin DETEMIR 100 UNIT/ML X5UNITS SQ SCH (21:00)
[2018-05-18] MEDS: Piperacillin/Tazobactam 3.375 GM in 0.9 % Sodium Chloride Mini Bag 100 ML IVPB SCH ×3 (02:24→17:14)
[2018-05-18] MEDS: Ringers Solution, Lactated 1,000 ML IVC SCH ×4 (04:11→21:39)
[2018-05-18 04:20] LABS: Hematocrit 28.6 % (37.5-50.1); Hemoglobin 9.1 g/dL (12.9-16.9); Mean Corpuscular HGB Conc 31.8 g/dL (31.6-35.5); Mean Corpuscular Hemoglobin 28.9 pg (28.0-33.3); Mean Corpuscular Volume 90.8 fL (83.0-100.0); Mean Platelet Volume 9.9 fL (9.4-12.4); Platelet Count 168 K/mcL (140-400); Red Blood Count 3.15 M/mcL (4.19-5.50); Red Cell Distribution Width 14.6 % (11.5-14.5)
[2018-05-18 04:37] LABS: Potassium 3.8 mEq/L (3.5-5.1)
[2018-05-18 04:38] LABS: Calcium 8.1 mg/dL (8.6-10.3); Magnesium 1.4 mg/dL (1.6-2.6); Phosphorous 3.2 mg/dL (2.7-4.5)
[2018-05-18 04:54] LABS: Monocytes # 1.3 K/mcL (0.0-1.3); Neutrophils # 20.6 K/mcL (1.6-8.9); Platelet Estimate Normal (Normal)
[2018-05-18] MEDS: Norepinephrine 4 MG in D5% in Water 250 ML IVC SCH ×3 (05:23→12:00)
[2018-05-18] MEDS: traMADol 50 MG TABLET PO PRN ×3 (05:30→20:02)
--- NOTE | 2018-05-18 07:26 | Pulmonology Progress Note ---
<Jaz Hannah - Last Filed: 05/18/18 15:31> Date of Encounter: 05/18/18 Time of Encounter: 07:26 Assessment and Plan (1) Hypotension Current Visit: Yes Status: Acute * Secondary to severe sepsis * Patients blood pressure persists in 90s systolic with brief interval in 110s * Added albumin for continued hypotension * Worsening renal function overnight with creatinine from 2.11 to now 2.84, will continue IVF rehydration with LR at 125/hr * ABG shows pH 7.32, CO2 33, O2 84, HCO3 17 with base excess of -9: non-anion gap metabolic acidosis * Given sodium bicarb 150 mEq at 150mL/hour * Continue levophed at 25mcg/min * Qualifiers: Hypotension type: unspecified hypotension type Qualified Code(s): I95.9 - Hypotension, unspecified (2) Pyonephrosis Current Visit: Yes Status: Acute * Worsening leukocytosis up to 35.2 today, up from 3.9 and 21.9 * Day 2 Vancomycin and Zosyn * Urology following, recommend continued antibiotics * Renal US pending * Blood culture shows gram negative rodsx2 * Urine culture pending * Lactate fown from 4.3 to 2.6 (3) Congestive heart failure Current Visit: Yes Status: Acute * Continuing to monitor volume status, patient denies any chest pain or shortness of breath Qualifiers: Heart failure type: systolic Heart failure chronicity: unspecified Qualified Code(s): I50.20 - Unspecified systolic (congestive) heart failure (4) DVT prophylaxis Current Visit: Yes Status: Acute Subjective Interval history: 78-year-old male who was admitted to the ICU on 05/17/18 due to severe sepsis likely secondary to urinary source. The patient had significant episode of hypotension status post placement of nephrostomy tubes on the same day. The patient has a history of prostate cancer treated by radiation therefore outlet obstruction and chronic indwelling Lewis. He was undergoing bilateral neck thought nephrostomy tubes for urinary diversion. Today the patient states he continues to feel weak and has chills but denies any chest pain, shortness of breath. is at bedside and states he is mentating appropriately. He does note intermittent back pain. Objective PUL Vital signs: Last Vital Signs Temp 97.8 F 05/18/18 06:45 Pulse 75 05/18/18 06:00 Resp 19 05/18/18 06:00 BP 100/55 05/18/18 06:00 Pulse Ox 99 05/18/18 06:00 General appearance: no acute distress Eyes: nonicteric ENT: oropharynx moist Neck: supple Effort: normal Cardiovascular: regular rate and rhythm Gastrointestinal: normoactive bowel sounds Integumentary: normal Extremities: no cyanosis Musculoskeletal: no deformities normal mental status mood appropriate, affect normal Results - Laboratory Findings CBC and BMP: 05/18/18 11:10 05/18/18 11:10 PT/INR, D-dimer PT 13.0 Seconds (9.4-12.1) H 05/17/18 14:00 Abnormal lab findings: Abnormal lab results WBC 21.9 K/mcL (4.3-11.1) H D 05/18/18 04:05 RBC 3.15 M/mcL (4.19-5.50) L 05/18/18 04:05 Hgb 9.1 g/dL (12.9-16.9) L 05/18/18 04:05 Hct 28.6 % (37.5-50.1) L 05/18/18 04:05 RDW 14.6 % (11.5-14.5) H 05/18/18 04:05 Band Neutrophils % 28.0 % (0-4) H 05/18/18 04:05 Neutrophils # 20.6 K/mcL (1.6-8.9) H 05/18/18 04:05 Reactive Lymphocytes Present (Not Present) A 05/17/18 17:09 Toxic Granulation Present (Not Present) A 05/17/18 17:09 Toxic Vacuolation Present (Not Present) A 05/17/18 17:09 Clumped Platelets Few (Not Present) A 05/17/18 17:09 PT 13.0 Seconds (9.4-12.1) H 05/17/18 14:00 Carbon Dioxide 18 mEq/L (23-29) L 05/18/18 04:05 BUN 34 mg/dL (8-23) H 05/18/18 04:05 Creatinine 2.56 mg/dL (0.70-1.30) H 05/18/18 04:05 Est GFR ( Amer) 30 (> 60) L 05/18/18 04:05 Est GFR (Non-Af Amer) 24 (> 60) L 05/18/18 04:05 POC Glucose 122 mg/dL (70-99) H 05/18/18 06:49 Lactic Acid 2.5 mmol/L (0.5-2.2) H 05/18/18 04:20 Calcium 8.1 mg/dL (8.6-10.3) L 05/18/18 04:05 Magnesium 1.4 mg/dL (1.6-2.6) L 05/18/18 04:05 TSH 5.674 mcIU/mL (0.340-5.600) H 05/17/18 17:09 Ur Specimen Adequacy See below A 05/17/18 14:31 Urine Clarity Cloudy (Clear) A 05/17/18 14:31 Urine Protein >=1000 mg/dL (Neg-Trace) H 05/17/18 14:31 Urine Glucose (UA) 250 mg/dL (Normal) H 05/17/18 14:31 Urine Blood Moderate (Negative) H 05/17/18 14:31 Ur Leukocyte Esterase Moderate (Negative) H 05/17/18 14:31 - Microbiology Findings Microbiology Findings: Microbiology, Last 48 Hours 05/17/18 14:00 Blood Culture - Preliminary Peripheral Venipuncture Gram Positive Rods 05/17/18 14:31 Urine Culture - Preliminary Urine,Catheterized (Straight) Culture is incubating. 05/17/18 15:30 Blood Culture - Preliminary Peripheral Venipuncture Culture is incubating and being continuously monitored for growth. Final report to follow. - Diagnostic Findings Chest x-ray: report reviewed, image reviewed - Clinical Findings Intake & Output: Intake & Output 05/17/18 05/17/18 05/18/18 15:59 23:59 07:59 Intake Total 2401.3 / 2401.3 1701.7 / 1701.7 Output Total 200 / 200 150 / 150 Balance 2201.3 / 2201.3 1551.7 / 1551.7 Weight 122.016 kg 114.3 kg 114.3 kg Consult Discharge Plan - Plan Referrals: Elysia Sullivan INFECTION PREVENTION COORDINATOR [Primary Care Provider] - <Renee Tay - Last Filed: 05/18/18 16:13> Date of Encounter: 05/18/18 Objective PUL Vital signs: Last Vital Signs Temp 98.0 F 05/18/18 15:46 Pulse 75 05/18/18 15:00 Resp 18 05/18/18 15:00 BP 91/62 05/18/18 15:00 Pulse Ox 100 05/18/18 15:00 Results - Laboratory Findings CBC and BMP: 05/18/18 11:10 05/18/18 11:10 ABG ABG pH 7.32 pH Units (7.32-7.45) 05/18/18 11:15 ABG pCO2 33 mmHg (35-45) L 05/18/18 11:15 ABG pO2 84 mmHg (85-104) L 05/18/18 11:15 ABG O2 Saturation 96 % (95-98) 05/18/18 11:15 PT/INR, D-dimer PT 13.0 Seconds (9.4-12.1) H 05/17/18 14:00 Abnormal lab findings: Abnormal lab results WBC 35.2 K/mcL (4.3-11.1) H* D 05/18/18 11:10 RBC 3.35 M/mcL (4.19-5.50) L 05/18/18 11:10 Hgb 9.7 g/dL (12.9-16.9) L 05/18/18 11:10 Hct 30.3 % (37.5-50.1) L 05/18/18 11:10 RDW 14.8 % (11.5-14.5) H 05/18/18 11:10 Band Neutrophils % 28.0 % (0-4) H 05/18/18 04:05 Neutrophils # 20.6 K/mcL (1.6-8.9) H 05/18/18 04:05 Reactive Lymphocytes Present (Not Present) A 05/17/18 17:09 Toxic Granulation Present (Not Present) A 05/17/18 17:09 Toxic Vacuolation Present (Not Present) A 05/17/18 17:09 Clumped Platelets Few (Not Present) A 05/17/18 17:09 PT 13.0 Seconds (9.4-12.1) H 05/17/18 14:00 ABG pCO2 33 mmHg (35-45) L 05/18/18 11:15 ABG pO2 84 mmHg (85-104) L 05/18/18 11:15 ABG HCO3 17 mEq/L (21-27) L 05/18/18 11:15 ABG Total CO2 18 mEq/L (20-26) L 05/18/18 11:15 ABG Base Excess -9 mEq/L (-2 to 3) L 05/18/18 11:15 Sodium 135 mEq/L (136-145) L 05/18/18 11:10 Carbon Dioxide 17 mEq/L (23-29) L 05/18/18 11:10 BUN 37 mg/dL (8-23) H 05/18/18 11:10 Creatinine 2.84 mg/dL (0.70-1.30) H 05/18/18 11:10 Est GFR ( Amer) 26 (> 60) L 05/18/18 11:10 Est GFR (Non-Af Amer) 22 (> 60) L 05/18/18 11:10 Glucose 175 mg/dL (70-105) H 05/18/18 11:10 POC Glucose 191 mg/dL (70-99) H 05/18/18 15:48 Lactic Acid 2.6 mmol/L (0.5-2.2) H 05/18/18 11:10 Calcium 8.0 mg/dL (8.6-10.3) L 05/18/18 11:10 Venous Ioniz Calcium 1.11 mmol/L (1.15-1.35) L 05/18/18 11:35 Magnesium 1.4 mg/dL (1.6-2.6) L 05/18/18 04:05 TSH 5.674 mcIU/mL (0.340-5.600) H 05/17/18 17:09 Ur Specimen Adequacy See below A 05/17/18 14:31 Urine Clarity Cloudy (Clear) A 05/17/18 14:31 Urine Protein >=1000 mg/dL (Neg-Trace) H 05/17/18 14:31 Urine Glucose (UA) 250 mg/dL (Normal) H 05/17/18 14:31 Urine Blood Moderate (Negative) H 05/17/18 14:31 Ur Leukocyte Esterase Moderate (Negative) H 05/17/18 14:31 - Microbiology Findings Microbiology Findings: Microbiology, Last 48 Hours 05/17/18 14:31 Urine Culture - Preliminary Urine,Catheterized (Straight) Gram Negative Greg Gram Negative Greg#2 Gram Positive Cocci 05/17/18 15:30 Blood Culture - Preliminary Peripheral Venipuncture Gram Negative Greg 05/17/18 14:00 Blood Culture - Preliminary Peripheral Venipuncture Gram Negative Greg - Clinical Findings Intake & Output: Intake & Output 05/18/18 05/18/18 05/18/18 07:59 15:59 23:59 Intake Total 1955.7 / 1955.7 1084 / 1084 Output Total 150 / 150 90 / 90 Balance 1805.7 / 1805.7 994 / 994 Weight 114.3 kg - Attending Attestation - Attending Attestation I saw and evaluated this patient and my medical decision-making was reviewed with the Resident Physician. I agree with the documented findings, disposition and treatment plan as described except to the extent set forth below. We inde pendently had [id number] contact with the patient I spent 50 minutes of Critical Care time with this patient. It involved decision making of high complexity to assess, manipulate, and support vital organ system failure and/or to prevent further life threatening deterioration of the patient's condition. The time involved in the performance of separately reportable procedures was not counted toward critical care time. Patient seen and examined at bedside Labs, radiology, chart personally reviewed. Management was reviewed during multidisciplinary critical care rounds. HAND SALTER: Patient is conscious oriented 3 has some episodic confusion most likely due to toxic/metabolic encephalopathy secondary to sepsis Pulm: Patient is acceptable oxygenation and ventilation patient has minimal left-sided pleural effusion in the chest x-ray did not show any evidence of pneumonia Cards: Patient has past medical history as congestive heart failure now and s eptic shock after he got bilateral nephrostomy tubes . Patient was worsening septic shock FEN-GI: We will give clear liquid diet if he tolerates Renal: Patient has acute on chronic kidney injury most likely due to obstructive uropathy with bilateral pyelonephrosis patient had bilateral nephrostomy tube. Kidney functioning worsening with the non-gap acidosis will start on bicarbonate drip we will give him a liter and stop. If he is not turning around we will consider nephrology consult. Urology was consulted and they signed off any issues with nephrostomy tube should be referred to IR. ID: To cover with broad-spectrum antibiotics as patient had bilateral nephrostomy tube for pyelonephrosis. Vancomycin renally dosed.. Blood cultures growing gram-negative rods but urine culture growing both gram-negative rods and gram-positive cocci. To continue current regimen of antibiotics Heme/Onc: Leukopenia most likely due to sepsis Endo: Glucose Monitored Integ/MSK: Skin Care per routine ICU Nursing Protocol to prevent ulcers. Lines: All lines examined without evidence of infection : Dispo: critically ill circulatory failure septic shock CODE: Full code
[2018-05-18] MEDS: Pantoprazole 40 MG VIAL IVP SCH (08:58)
--- NOTE | 2018-05-18 09:36 | Urology - Consult Note ---
<Rivka Monroy N - Last Filed: 05/18/18 09:34> Date of Encounter: 05/18/18 Time of Encounter: 09:34 - Assessment and Plan (1) Sepsis Current Visit: Yes Status: Acute Assessment and plan: Patient is 78-year-old male who presents the history of prostate cancer, pyonephrosis, and sepsis. Preliminary blood cultures suggest gram-positive rods. Vital signs are currently stable and afebrile. White blood cell count is markedly elevated at 21.9. Patient is being closely monitored in ICU and receiving IV Zosyn. At this time, there is no urologic surgical intervention anticipated. Urology is available as needed. Consult to IR if any issues with nephrostomy tubes. Qualifiers: Sepsis type: sepsis due to unspecified organism Qualified Code(s): A41.9 - Sepsis, unspecified organism (2) Pyonephrosis Current Visit: Yes Status: Acute Assessment and plan: Patient is a 78-year-old male who presents with outlet obstruction secondary to prostate cancer and radiation history. Patient was being managed with chronic, indwelling Lewis catheter, but renal function continued to worsen. Patient underwent bilateral nephrostomy tube placement by interventional radiology revealing pyonephrosis. Blood cultures are positive. Patient is receiving IV antibiotics. (3) Prostate cancer Current Visit: Yes Status: Chronic Assessment and plan: Patient is a 78-year-old male who presents the history of prostate cancer. Patient was treated with radiation and is off androgen ablation. Last documented PSA in July 2017 is <0.01. Patient is following yearly with Dr. Vázquez. Urology CN:[facility] Consult date: 05/18/18 Reason for consult Urology: Other (bilateral nephrostomy tubes; prostate cancer; sepsis) History of present illness: Patient is a 78-year-old male well known to the urology service who presents with a history of prostate cancer treated by radiation. Patient sustained outlet obstruction and subsequent bilateral hydronephrosis with worsening kidney function. Ultimately, it was decided to proceed with bilateral nephrostomy tube placement for urinary diversion. Patient underwent nephrostomy tube placement by interventional radiology one day ago, and interventional radiology noted bilateral pyonephrosis. Patient was sent to the emergency department for further evaluation. On evaluation, patient was found to be hypotensive, leukopenic, and tachypnic meeting sepsis criteria, and he was subsequently admitted to ICU. Preliminary blood culture is positive for gram-positive rods. Currently, patient is sitting upright in bed in no apparent distress. Bilateral nephrostomy tubes are draining transparent, blood tinged urine into bilateral nephrostomy bags. Patient admits to feeling weak and is experiencing some chills, but he denies any chest pain, dyspnea, or flank pain. Past Med Surg Social Fam HX - Past Medical History Medical history: cancer, CHF, diabetes, hypertension, other Additional medical history: irregular heart beat. prostate cancer with radiation Psychiatric history: no psych history - Past Surgical History Surgical History: cholecystectomy, other, pacemaker Additional surgical history: pacer - Social History Smoking Status: Never smoker Smokeless Tobacco Status: No Alcohol use: none Drug use: none - Family History Father Living Status: Hx Family Respiratory Disorders: Yes (Lung cancer) Hx Family Cancer: Yes (lung cancer) Mother Living Status: Hx Family Cancer: Yes (breast cancer) Medications and Allergies RX: Diltiazem HCl [Tiazac] 360 mg PO DAILY 03/16/15 [History] RX: Sotalol [Betapace] 120 mg PO Q12HR 03/16/15 [History] RX: Ergocalciferol (VITAMIN D2) [Vitamin D] 400 unit PO DAILY 12/08/15 [History] RX: Latanoprost [Xalatan] 1 drop BOTH EYES DAILY 12/08/15 [History] RX: Warfarin [Coumadin] 2 mg PO DAILY 12/08/15 [History] RX: Ferrous Sulfate 325 mg PO TIDWM #90 tablet 12/10/15 [Rx] RX: Insulin Glargine,Hum.rec.anlog [Basaglar Kwikpen U-100] 30 unit SQ HS 10/26/17 [History] RX: Brimonidine 0.2% [Alphagan] 1 drop LEFT EYE BID 12/22/17 [History] Allergy/AdvReac Type Severity Reaction Status Date / Time Erythromycin Base Allergy Mild Rash Verified 10/26/17 14:08 Review of Systems - Constitutional chills, fatigue, weakness, no fever(s) - EENT Nose, mouth and throat: no dizziness, no headache(s) - Cardiovascular no chest pain, no diaphoresis, no dyspnea - Respiratory no cough, no dyspnea - Gastrointestinal no abdominal pain, no nausea, no vomiting - Genitourinary hematuria, no difficulty urinating, no dysuria, no erectile dysfunction, no urinary frequency, no urinary hesitancy, no urinary incontinence, no urinary urgency - Musculoskeletal no back pain, no muscle weakness - Integumentary no erythema, no rash - Neurological no confusion, no sensory deficit - Psychiatric no anxiety, no confusion - Hematologic/Lymphatic no easy bleeding, no easy bruising Exam Initial Vital Signs BP 131/73 05/17/18 13:00 - General physical appearance Present: no distress, no pain - Eyes Present: PERRL, normal ocular movement - ENT Present: normal nares, no congestion, decreased hearing - Neck Present: no masses, trachea midline - Respiratory Present: normal respiratory effort - Abdomen Abdomen: Present: soft, non tender, wound (Bilateral nephrostomy sites benign; bilateral nephrostomy tubes are draining transparent, blood tinged urine into nephrostomy bags) - Integumentary Present: no rash, no abnormal pigmentation - Neurologic Present: normal coordination Urology Results - Labs 05/18/18 04:05 05/18/18 04:05 Abnormal lab results WBC 21.9 K/mcL (4.3-11.1) H D 05/18/18 04:05 RBC 3.15 M/mcL (4.19-5.50) L 05/18/18 04:05 Hgb 9.1 g/dL (12.9-16.9) L 05/18/18 04:05 Hct 28.6 % (37.5-50.1) L 05/18/18 04:05 RDW 14.6 % (11.5-14.5) H 05/18/18 04:05 Band Neutrophils % 28.0 % (0-4) H 05/18/18 04:05 Neutrophils # 20.6 K/mcL (1.6-8.9) H 05/18/18 04:05 Reactive Lymphocytes Present (Not Present) A 05/17/18 17:09 Toxic Granulation Present (Not Present) A 05/17/18 17:09 Toxic Vacuolation Present (Not Present) A 05/17/18 17:09 Clumped Platelets Few (Not Present) A 05/17/18 17:09 PT 13.0 Seconds (9.4-12.1) H 05/17/18 14:00 Carbon Dioxide 18 mEq/L (23-29) L 05/18/18 04:05 BUN 34 mg/dL (8-23) H 05/18/18 04:05 Creatinine 2.56 mg/dL (0.70-1.30) H 05/18/18 04:05 Est GFR ( Amer) 30 (> 60) L 05/18/18 04:05 Est GFR (Non-Af Amer) 24 (> 60) L 05/18/18 04:05 POC Glucose 122 mg/dL (70-99) H 05/18/18 06:49 Lactic Acid 2.5 mmol/L (0.5-2.2) H 05/18/18 04:20 Calcium 8.1 mg/dL (8.6-10.3) L 05/18/18 04:05 Magnesium 1.4 mg/dL (1.6-2.6) L 05/18/18 04:05 TSH 5.674 mcIU/mL (0.340-5.600) H 05/17/18 17:09 Ur Specimen Adequacy See below A 05/17/18 14:31 Urine Clarity Cloudy (Clear) A 05/17/18 14:31 Urine Protein >=1000 mg/dL (Neg-Trace) H 05/17/18 14:31 Urine Glucose (UA) 250 mg/dL (Normal) H 05/17/18 14:31 Urine Blood Moderate (Negative) H 05/17/18 14:31 Ur Leukocyte Esterase Moderate (Negative) H 05/17/18 14:31 Diabetes panel 05/17/18 05/18/18 Range/Units 14:00 04:05 Sodium 135 L 138 (136-145) mEq/L Potassium 4.1 3.8 (3.5-5.1) mEq/L Chloride 107 107 (98-107) mEq/L Carbon Dioxide 24 18 L (23-29) mEq/L BUN 31 H 34 H (8-23) mg/dL Creatinine 2.11 H 2.56 H (0.70-1.30) mg/dL Glucose 269 H 93 (70-105) mg/dL Calcium 8.9 8.1 L (8.6-10.3) mg/dL Thyroid panel 05/17/18 Range/Units 17:09 TSH 5.674 H (0.340-5.600) mcIU/mL Calcium panel 05/17/18 05/18/18 Range/Units 14:00 04:05 Calcium 8.9 8.1 L (8.6-10.3) mg/dL Phosphorus 3.2 (2.7-4.5) mg/dL Pituitary panel 05/17/18 05/17/18 05/18/18 Range/Units 14:00 17:09 04:05 Sodium 135 L 138 (136-145) mEq/L Potassium 4.1 3.8 (3.5-5.1) mEq/L Chloride 107 107 (98-107) mEq/L Carbon Dioxide 24 18 L (23-29) mEq/L BUN 31 H 34 H (8-23) mg/dL Creatinine 2.11 H 2.56 H (0.70-1.30) mg/dL Glucose 269 H 93 (70-105) mg/dL Calcium 8.9 8.1 L (8.6-10.3) mg/dL TSH 5.674 H (0.340-5.600) mcIU/mL Adrenal panel 05/17/18 05/18/18 Range/Units 14:00 04:05 Sodium 135 L 138 (136-145) mEq/L Potassium 4.1 3.8 (3.5-5.1) mEq/L Chloride 107 107 (98-107) mEq/L Carbon Dioxide 24 18 L (23-29) mEq/L BUN 31 H 34 H (8-23) mg/dL Creatinine 2.11 H 2.56 H (0.70-1.30) mg/dL Glucose 269 H 93 (70-105) mg/dL Calcium 8.9 8.1 L (8.6-10.3) mg/dL All other labs normal. Consult Discharge Plan - Plan Referrals: Elysia Sullivan CNP [Primary Care Provider] - <Ethan Pozo - Last Filed: 05/18/18 17:25> Date of Encounter: 05/18/18 - Assessment and Plan (1) Hydronephrosis Current Visit: No Status: Acute Qualifiers: Hydronephrosis type: other Qualified Code(s): N13.39 - Other hydronephrosis (2) Pyonephrosis Current Visit: Yes Status: Acute Assessment and plan: Patient seen and examined independently. Agree with finding of Eliana BILLINGS. Nephrostomies in proper position and functioning as expected. Plan: continue culture specific antibiotic and medical management as per ICU team. No indications for further urologic interventions at this time. Exam Initial Vital Signs BP 131/73 05/17/18 13:00 Urology Results - Labs 05/18/18 11:10 05/18/18 11:10 Abnormal lab results WBC 35.2 K/mcL (4.3-11.1) H* D 05/18/18 11:10 RBC 3.35 M/mcL (4.19-5.50) L 05/18/18 11:10 Hgb 9.7 g/dL (12.9-16.9) L 05/18/18 11:10 Hct 30.3 % (37.5-50.1) L 05/18/18 11:10 RDW 14.8 % (11.5-14.5) H 05/18/18 11:10 Band Neutrophils % 28.0 % (0-4) H 05/18/18 04:05 Neutrophils # 20.6 K/mcL (1.6-8.9) H 05/18/18 04:05 Reactive Lymphocytes Present (Not Present) A 05/17/18 17:09 Toxic Granulation Present (Not Present) A 05/17/18 17:09 Toxic Vacuolation Present (Not Present) A 05/17/18 17:09 Clumped Platelets Few (Not Present) A 05/17/18 17:09 PT 13.0 Seconds (9.4-12.1) H 05/17/18 14:00 ABG pCO2 33 mmHg (35-45) L 05/18/18 11:15 ABG pO2 84 mmHg (85-104) L 05/18/18 11:15 ABG HCO3 17 mEq/L (21-27) L 05/18/18 11:15 ABG Total CO2 18 mEq/L (20-26) L 05/18/18 11:15 ABG Base Excess -9 mEq/L (-2 to 3) L 05/18/18 11:15 Sodium 135 mEq/L (136-145) L 05/18/18 11:10 Carbon Dioxide 17 mEq/L (23-29) L 05/18/18 11:10 BUN 37 mg/dL (8-23) H 05/18/18 11:10 Creatinine 2.84 mg/dL (0.70-1.30) H 05/18/18 11:10 Est GFR ( Amer) 26 (> 60) L 05/18/18 11:10 Est GFR (Non-Af Amer) 22 (> 60) L 05/18/18 11:10 Glucose 175 mg/dL (70-105) H 05/18/18 11:10 POC Glucose 191 mg/dL (70-99) H 05/18/18 15:48 Lactic Acid 2.6 mmol/L (0.5-2.2) H 05/18/18 11:10 Calcium 8.0 mg/dL (8.6-10.3) L 05/18/18 11:10 Venous Ioniz Calcium 1.11 mmol/L (1.15-1.35) L 05/18/18 11:35 Magnesium 1.4 mg/dL (1.6-2.6) L 05/18/18 04:05 TSH 5.674 mcIU/mL (0.340-5.600) H 05/17/18 17:09 Ur Specimen Adequacy See below A 05/17/18 14:31 Urine Clarity Cloudy (Clear) A 05/17/18 14:31 Urine Protein >=1000 mg/dL (Neg-Trace) H 05/17/18 14:31 Urine Glucose (UA) 250 mg/dL (Normal) H 05/17/18 14:31 Urine Blood Moderate (Negative) H 05/17/18 14:31 Ur Leukocyte Esterase Moderate (Negative) H 05/17/18 14:31 Diabetes panel 05/18/18 05/18/18 Range/Units 04:05 11:10 Sodium 138 135 L (136-145) mEq/L Potassium 3.8 4.3 (3.5-5.1) mEq/L Chloride 107 106 (98-107) mEq/L Carbon Dioxide 18 L 17 L (23-29) mEq/L BUN 34 H 37 H (8-23) mg/dL Creatinine 2.56 H 2.84 H (0.70-1.30) mg/dL Glucose 93 175 H (70-105) mg/dL Calcium 8.1 L 8.0 L (8.6-10.3) mg/dL Thyroid panel 05/17/18 Range/Units 17:09 TSH 5.674 H (0.340-5.600) mcIU/mL Calcium panel 05/18/18 05/18/18 Range/Units 04:05 11:10 Calcium 8.1 L 8.0 L (8.6-10.3) mg/dL Phosphorus 3.2 (2.7-4.5) mg/dL Pituitary panel 05/17/18 05/18/18 05/18/18 Range/Units 17:09 04:05 11:10 Sodium 138 135 L (136-145) mEq/L Potassium 3.8 4.3 (3.5-5.1) mEq/L Chloride 107 106 (98-107) mEq/L Carbon Dioxide 18 L 17 L (23-29) mEq/L BUN 34 H 37 H (8-23) mg/dL Creatinine 2.56 H 2.84 H (0.70-1.30) mg/dL Glucose 93 175 H (70-105) mg/dL Calcium 8.1 L 8.0 L (8.6-10.3) mg/dL TSH 5.674 H (0.340-5.600) mcIU/mL Adrenal panel 05/18/18 05/18/18 Range/Units 04:05 11:10 Sodium 138 135 L (136-145) mEq/L Potassium 3.8 4.3 (3.5-5.1) mEq/L Chloride 107 106 (98-107) mEq/L Carbon Dioxide 18 L 17 L (23-29) mEq/L BUN 34 H 37 H (8-23) mg/dL Creatinine 2.56 H 2.84 H (0.70-1.30) mg/dL Glucose 93 175 H (70-105) mg/dL Calcium 8.1 L 8.0 L (8.6-10.3) mg/dL All other labs normal.
[2018-05-18 10:36] LABS: Acinetobacter baumannii by PCR Not Detected (Not Detect); Candida albicans by PCR Not Detected (Not Detect); Candida glabrata by PCR Not Detected (Not Detect); Candida krusei by PCR Not Detected (Not Detect); Candida parapsilosis by PCR Not Detected (Not Detect); Candida tropicalis by PCR Not Detected (Not Detect); Enterobacter cloacae Cmplx PCR Not Detected (Not Detect); Enterobacteriaceae by PCR Not Detected (Not Detect); Enterococcus by PCR Not Detected (Not Detect); Escherichia coli by PCR Not Detected (Not Detect); Klebsiella oxytoca by PCR Not Detected (Not Detect); Klebsiella pneumoniae by PCR Not Detected (Not Detect); Proteus by PCR Not Detected (Not Detect); Pseudomonas aeruginosa by PCR Not Detected (Not Detect); Serratia marcescens by PCR Not Detected (Not Detect); Staphylococcus aureus by PCR Not Detected (Not Detect); Staphylococcus by PCR Not Detected (Not Detect); Streptococcus agalactiae(B)PCR Not Detected (Not Detect); Streptococcus by PCR Not Detected (Not Detect); Streptococcus pneumoniae PCR Not Detected (Not Detect); Streptococcus pyogenes (A) PCR Not Detected (Not Detect); blaKPC Carbapenem-Resist Gene Not Detected (Not Detect); vanA/B Vancomycin-Resist Genes Not Detected (Not Detect)
[2018-05-18 11:21] LABS: ABG Base Excess -9 mEq/L (-2 to 3); ABG HCO3 17 mEq/L (21-27); ABG Oxygen Saturation 96 % (95-98); ABG PCO2 33 mmHg (35-45); ABG PH 7.32 pH Units (7.32-7.45); ABG PO2 84 mmHg (85-104); ABG TCO2 18 mEq/L (20-26)
[2018-05-18 11:34] LABS: Hematocrit 30.3 % (37.5-50.1); Hemoglobin 9.7 g/dL (12.9-16.9); Mean Corpuscular Volume 90.4 fL (83.0-100.0); Mean Platelet Volume 10.3 fL (9.4-12.4); Platelet Count 198 K/mcL (140-400); Red Blood Count 3.35 M/mcL (4.19-5.50); Red Cell Distribution Width 14.8 % (11.5-14.5)
[2018-05-18 11:38] LABS: VBG Ionized Calcium 1.11 mmol/L (1.15-1.35)
[2018-05-18 11:52] LABS: Potassium 4.3 mEq/L (3.5-5.1)
[2018-05-18] MEDS: Insulin LISPRO 300 UNITS/3 ML VIAL SQ SCH ×3 (11:58→23:32)
[2018-05-18] MEDS ORDERED: Sodium Bicarbonate 50 MEQ/50 ML VIAL IVP ONE (12:37)
[2018-05-18] MEDS ORDERED: Sodium Bicarbonate 150 MEQ in D5% in Water 1,000 ML IVC SCH (13:15)
[2018-05-18] MEDS ORDERED: Norepinephrine 8 MG in D5% in Water 250 ML IVC SCH (15:00)
--- NOTE | 2018-05-18 16:43 | Electrocardiograph Report ---
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
[2018-05-18 18:17] LABS: Potassium 4.4 mEq/L (3.5-5.1)
[2018-05-18 18:18] LABS: Calcium 7.6 mg/dL (8.6-10.3)
[2018-05-18] MEDS: Norepinephrine 16 MG in D5% in Water 500 ML IVC SCH (21:01)
[2018-05-19] MEDS: Piperacillin/Tazobactam 3.375 GM in 0.9 % Sodium Chloride Mini Bag 100 ML IVPB SCH ×2 (01:08→12:35)
[2018-05-19 03:04] LABS: Hematocrit 25.8 % (37.5-50.1)
[2018-05-19 03:06] LABS: Hemoglobin 8.5 g/dL (12.9-16.9); Mean Corpuscular HGB Conc 32.9 g/dL (31.6-35.5); Mean Corpuscular Hemoglobin 29.1 pg (28.0-33.3); Mean Corpuscular Volume 88.4 fL (83.0-100.0); Mean Platelet Volume 10.2 fL (9.4-12.4); Platelet Count 138 K/mcL (140-400); Red Blood Count 2.92 M/mcL (4.19-5.50); Red Cell Distribution Width 14.8 % (11.5-14.5)
[2018-05-19 03:24] LABS: Calcium 7.4 mg/dL (8.6-10.3); Potassium 4.3 mEq/L (3.5-5.1)
[2018-05-19 03:30] LABS: Neutrophils # 38.1 K/mcL (1.6-8.9); Polychromasia 1+ (Not Present)
[2018-05-19] MEDS: Ringers Solution, Lactated 1,000 ML IVC SCH (03:30)
[2018-05-19 03:31] LABS: Platelet Estimate Normal (Normal); Reactive Lymphocytes Present (Not Present)
[2018-05-19] MEDS: Insulin LISPRO 300 UNITS/3 ML VIAL SQ SCH ×4 (05:04→23:04)
[2018-05-19] MEDS: Pantoprazole 40 MG VIAL IVP SCH (07:22)
[2018-05-19] MEDS ORDERED: Phenylephrine 10 MG in D5% in Water 250 ML IVC SCH (07:30)
--- NOTE | 2018-05-19 07:44 | Pulmonology Progress Note ---
<Renee Tay S - Last Filed: 05/19/18 15:49> Date of Encounter: 05/19/18 Objective PUL Vital signs: Last Vital Signs Temp 97.6 F 05/19/18 11:21 Pulse 98 05/19/18 15:00 Resp 18 05/19/18 15:00 BP 96/60 05/19/18 15:00 Pulse Ox 96 05/19/18 15:00 Results - Laboratory Findings CBC and BMP: 05/19/18 02:50 05/19/18 02:50 ABG ABG pH 7.32 pH Units (7.32-7.45) 05/18/18 11:15 ABG pCO2 33 mmHg (35-45) L 05/18/18 11:15 ABG pO2 84 mmHg (85-104) L 05/18/18 11:15 ABG O2 Saturation 96 % (95-98) 05/18/18 11:15 PT/INR, D-dimer PT 15.9 Seconds (9.4-12.1) H 05/19/18 07:25 Abnormal lab findings: Abnormal lab results WBC 38.9 K/mcL (4.3-11.1) H* 05/19/18 02:50 RBC 2.92 M/mcL (4.19-5.50) L 05/19/18 02:50 Hgb 8.5 g/dL (12.9-16.9) L 05/19/18 02:50 Hct 25.8 % (37.5-50.1) L 05/19/18 02:50 RDW 14.8 % (11.5-14.5) H 05/19/18 02:50 Plt Count 138 K/mcL (140-400) L 05/19/18 02:50 Band Neutrophils % 36.0 % (0-4) H 05/19/18 02:50 Metamyelocytes % 2.0 % (0) H 05/19/18 02:50 Neutrophils # 38.1 K/mcL (1.6-8.9) H 05/19/18 02:50 Lymphocytes # 0.0 K/mcL (0.6-4.6) L 05/19/18 02:50 Reactive Lymphocytes Present (Not Present) A 05/19/18 02:50 Toxic Granulation Present (Not Present) A 05/17/18 17:09 Toxic Vacuolation Present (Not Present) A 05/17/18 17:09 Clumped Platelets Few (Not Present) A 05/17/18 17:09 Polychromasia 1+ (Not Present) A 05/19/18 02:50 PT 15.9 Seconds (9.4-12.1) H 05/19/18 07:25 ABG pCO2 33 mmHg (35-45) L 05/18/18 11:15 ABG pO2 84 mmHg (85-104) L 05/18/18 11:15 ABG HCO3 17 mEq/L (21-27) L 05/18/18 11:15 ABG Total CO2 18 mEq/L (20-26) L 05/18/18 11:15 ABG Base Excess -9 mEq/L (-2 to 3) L 05/18/18 11:15 Sodium 134 mEq/L (136-145) L 05/19/18 02:50 BUN 43 mg/dL (8-23) H 05/19/18 02:50 Creatinine 3.34 mg/dL (0.70-1.30) H 05/19/18 02:50 Est GFR ( Amer) 22 (> 60) L 05/19/18 02:50 Est GFR (Non-Af Amer) 18 (> 60) L 05/19/18 02:50 Glucose 195 mg/dL (70-105) H 05/19/18 02:50 POC Glucose 143 mg/dL (70-99) H 05/19/18 11:23 Calcium 7.4 mg/dL (8.6-10.3) L 05/19/18 02:50 Venous Ioniz Calcium 1.11 mmol/L (1.15-1.35) L 05/18/18 11:35 Magnesium 1.4 mg/dL (1.6-2.6) L 05/18/18 04:05 TSH 5.674 mcIU/mL (0.340-5.600) H 05/17/18 17:09 Ur Specimen Adequacy See below A 05/17/18 14:31 Urine Clarity Cloudy (Clear) A 05/17/18 14:31 Urine Protein >=1000 mg/dL (Neg-Trace) H 05/17/18 14:31 Urine Glucose (UA) 250 mg/dL (Normal) H 05/17/18 14:31 Urine Blood Moderate (Negative) H 05/17/18 14:31 Ur Leukocyte Esterase Moderate (Negative) H 05/17/18 14:31 - Microbiology Findings Microbiology Findings: Microbiology, Last 48 Hours 05/17/18 15:30 Blood Culture - Final Peripheral Venipuncture Escherichia coli 05/17/18 14:00 Blood Culture - Final Peripheral Venipuncture Escherichia coli 05/19/18 04:37 Blood Culture - Preliminary Peripheral Venipuncture Culture is incubating and being continuously monitored for growth. Final report to follow. 05/19/18 04:44 Blood Culture - Preliminary Peripheral Venipuncture Culture is incubating and being continuously monitored for growth. Final report to follow. 05/17/18 14:31 Urine Culture - Preliminary Urine,Catheterized (Straight) Gram Negative Greg Gram Negative Greg#2 Gram Positive Cocci - Clinical Findings Intake & Output: Intake & Output 05/18/18 05/19/18 05/19/18 23:59 07:59 15:59 Intake Total 1578 / 1578 1688 / 1688 1280 / 1280 Output Total 85 / 85 100 / 100 60 / 60 Balance 1493 / 1493 1588 / 1588 1220 / 1220 Weight 116 kg Consult Discharge Plan - Plan Referrals: Elysia Sullivan CNP [Primary Care Provider] - - Attending Attestation Attending Attestation I saw and evaluated this patient and my medical decision-making was reviewed with the Resident Physician. I agree with the documented findings, disposition and treatment plan as described except to the extent set forth below. We independently had [id number] contact with the patient I spent 45 minutes of Critical Care time with this patient. It involved decision making of high complexity to assess, manipulate, and support vital organ system failure and/or to prevent further life threatening deterioration of the patient's condition. The time involved in the performance of separately reportable procedures was not counted toward critical care time. Patient seen and examined at bedside Labs, radiology, chart personally reviewed. Management was reviewed during multidisciplinary critical care rounds. 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 Patient has some atrial fibrillation with RVR will change to phenylephrine. FEN-GI: We will give clear liquid diet if he tolerates Renal: Patient has acute on chronic kidney injury most likely due to obstructive uropathy with bilateral pyelonephrosis patient had bilateral nephrostomy tube. Kidney functioning worsening with the non-gap acidosis will start on bicarbonate drip we will give him a liter and stop. If he is not turning around we will consider nephrology consult. Urology was consulted and they signed off any issues with nephrostomy tube should be referred to IR. 05/19 worsening kidney function and consult nephrology no acute indication of dialysis. ID: To cover with broad-spectrum antibiotics as patient had bilateral nephr ostomy tube for pyelonephrosis. Vancomycin renally dosed.. Blood cultures growing gram-negative rods but urine culture growing both gram-negative rods and gram-positive cocci. 05/19 patient is growing Escherichia coli no ESBL will change to cefepime will give 1 dose of vancomycin Heme/Onc: Labs reviewed Endo: Glucose Monitored Integ/MSK: Skin Care per routine ICU Nursing Protocol to prevent ulcers. Lines: All lines examined without evidence of infection : Dispo: critically ill circulatory failure septic shock CODE: Full code <Jaz Hannah - Last Filed: 05/19/18 19:23> Date of Encounter: 05/19/18 Time of Encounter: 07:41 Assessment and Plan (1) Sepsis Current Visit: Yes Status: Acute * Continues to be hypotensive secondary to severe sepsis * Added albumin and bicarbonate yesterday for continued hypotension, bicarbonate normal today at 23, 500ml albumin given yesterday, will repeat today * Added phenylephrine in exchange of levophed to avoid potential cardiac component given his heart rate now persists in 90s-100s, on cardizem and so talol at home * Worsening renal function overnight with creatinine from 2.84 to 3.34 - will consult nephrology given consistent decline * Continue levophed titration but the patients heart rate now increased, at home on Cardizem 360mg and sotalol 120 BID - will add phenylephrine and titrate for hypotension to assess for change in HR * Day 3 Zosyn - recieved one dose Vancomycin 05/17, will repeat today for possible Gram positive coverage given urine culture though may have been contaminant, sensitivities pending * Ciprofloxacin added overnight given worsening leukocytosis - dc today as he continues on zosyn no ESBL growth (2) Pyonephrosis Current Visit: Yes Status: Acute * Continuing leukocytosis, today up to 38.9 from 35.2, ciprofloxacin added overnight for double pseuomonas coverage, repeat blood cultures drawn, will check sensitivities * Day 2 Vancomycin and Zosyn * Urology following, recommend continued antibiotics * Renal US shows no persistant abscess or hydronephrosis * Blood culture shows gram negative rodsx2 * Urine culture shows two gram negative robs and a gram positive cocci - given no significant clinical improvement will continue with vancomycin dosing * Lactate 1.8 this morning, down from 2.6 yesterday (3) Acute kidney injury superimposed on chronic kidney disease Current Visit: Yes Status: Acute * BUN 43, up from 39 yesterday * Creatinine worsening from 2.96 to 3.34 with decreased GFR 18 * Given worsening creatinine and BUN consulted nephrology, appreciate their recommendations (4) A-fib Current Visit: No Status: Chronic * HR today in 90s-100s, up from 70s on arrival * Will add back sotalol which patient takes at home, will given renal adjusted dose of 40mg BID * Heparin for DVT prophylaxis - holding coumadin Qualifiers: Atrial fibrillation type: chronic Qualified Code(s): I48.2 - Chronic atrial fibrillation (5) Congestive heart failure Current Visit: Yes Status: Acute * Continuing to monitor volume status, patient denies any chest pain or shortness of breath * Holding fluids at this point given tachycardia and continued worsening kidney function Qualifiers: Heart failure type: systolic Heart failure chronicity: unspecified Qualified Code(s): I50.20 - Unspecified systolic (congestive) heart failure (6) DVT prophylaxis Current Visit: Yes Status: Acute * On coumadin at home, will place the patient on heparin 5000 every 8 hours Subjective Interval history: 78-year-old male who was admitted to the ICU on 05/17/18 due to severe sepsis likely secondary to urinary source. The patient had significant episode of hypotension status post placement of nephrostomy tubes on the same day. The patient has a history of prostate cancer treated by radiation therefore outlet obstruction and chronic indwelling Lewis. He was undergoing bilateral neck thought nephrostomy tubes for urinary diversion. The patient continues to feel weak but denies any shortness of breath, chest pain, or difficulty breathing. He does note discomfort in his buttock due to episodes of diarrhea. Objective PUL Vital signs: Last Vital Signs Temp 98.0 F 05/19/18 07:13 Pulse 101 05/19/18 07:00 Resp 22 05/19/18 07:00 BP 87/59 05/19/18 07:00 Pulse Ox 95 05/19/18 07:00 General appearance: no acute distress Eyes: nonicteric ENT: oropharynx moist Neck: supple Effort: normal Cardiovascular: irregular rhythm, other (paced, tachycardic) Gastrointestinal: normoactive bowel sounds Integumentary: other (excoriation in gluteal cleft) Extremities: no cyanosis Musculoskeletal: no deformities Gait: normal gait normal mental status, non-focal exam mood appropriate, affect normal Results - Laboratory Findings CBC and BMP: 05/19/18 02:50 05/19/18 02:50 ABG ABG pH 7.32 pH Units (7.32-7.45) 05/18/18 11:15 ABG pCO2 33 mmHg (35-45) L 05/18/18 11:15 ABG pO2 84 mmHg (85-104) L 05/18/18 11:15 ABG O2 Saturation 96 % (95-98) 05/18/18 11:15 PT/INR, D-dimer PT 13.0 Seconds (9.4-12.1) H 05/17/18 14:00 Abnormal lab findings: Abnormal lab results WBC 38.9 K/mcL (4.3-11.1) H* 05/19/18 02:50 RBC 2.92 M/mcL (4.19-5.50) L 05/19/18 02:50 Hgb 8.5 g/dL (12.9-16.9) L 05/19/18 02:50 Hct 25.8 % (37.5-50.1) L 05/19/18 02:50 RDW 14.8 % (11.5-14.5) H 05/19/18 02:50 Plt Count 138 K/mcL (140-400) L 05/19/18 02:50 Band Neutrophils % 36.0 % (0-4) H 05/19/18 02:50 Metamyelocytes % 2.0 % (0) H 05/19/18 02:50 Neutrophils # 38.1 K/mcL (1.6-8.9) H 05/19/18 02:50 Lymphocytes # 0.0 K/mcL (0.6-4.6) L 05/19/18 02:50 Reactive Lymphocytes Present (Not Present) A 05/19/18 02:50 Toxic Granulation Present (Not Present) A 05/17/18 17:09 Toxic Vacuolation Present (Not Present) A 05/17/18 17:09 Clumped Platelets Few (Not Present) A 05/17/18 17:09 Polychromasia 1+ (Not Present) A 05/19/18 02:50 PT 13.0 Seconds (9.4-12.1) H 05/17/18 14:00 ABG pCO2 33 mmHg (35-45) L 05/18/18 11:15 ABG pO2 84 mmHg (85-104) L 05/18/18 11:15 ABG HCO3 17 mEq/L (21-27) L 05/18/18 11:15 ABG Total CO2 18 mEq/L (20-26) L 05/18/18 11:15 ABG Base Excess -9 mEq/L (-2 to 3) L 05/18/18 11:15 Sodium 134 mEq/L (136-145) L 05/19/18 02:50 BUN 43 mg/dL (8-23) H 05/19/18 02:50 Creatinine 3.34 mg/dL (0.70-1.30) H 05/19/18 02:50 Est GFR ( Amer) 22 (> 60) L 05/19/18 02:50 Est GFR (Non-Af Amer) 18 (> 60) L 05/19/18 02:50 Glucose 195 mg/dL (70-105) H 05/19/18 02:50 POC Glucose 209 mg/dL (70-99) H 05/19/18 05:03 Lactic Acid 2.6 mmol/L (0.5-2.2) H 05/18/18 11:10 Calcium 7.4 mg/dL (8.6-10.3) L 05/19/18 02:50 Venous Ioniz Calcium 1.11 mmol/L (1.15-1.35) L 05/18/18 11:35 Magnesium 1.4 mg/dL (1.6-2.6) L 05/18/18 04:05 TSH 5.674 mcIU/mL (0.340-5.600) H 05/17/18 17:09 Ur Specimen Adequacy See below A 05/17/18 14:31 Urine Clarity Cloudy (Clear) A 05/17/18 14:31 Urine Protein >=1000 mg/dL (Neg-Trace) H 05/17/18 14:31 Urine Glucose (UA) 250 mg/dL (Normal) H 05/17/18 14:31 Urine Blood Moderate (Negative) H 05/17/18 14:31 Ur Leukocyte Esterase Moderate (Negative) H 05/17/18 14:31 - Microbiology Findings Microbiology Findings: Microbiology, Last 48 Hours 05/19/18 04:37 Blood Culture - Preliminary Peripheral Venipuncture Culture is incubating and being continuously monitored for growth. Final report to follow. 05/19/18 04:44 Blood Culture - Preliminary Peripheral Venipuncture Culture is incubating and being continuously monitored for growth. Final report to follow. 05/17/18 14:31 Urine Culture - Preliminary Urine,Catheterized (Straight) Gram Negative Greg Gram Negative Greg#2 Gram Positive Cocci 05/17/18 15:30 Blood Culture - Preliminary Peripheral Venipuncture Gram Negative Greg 05/17/18 14:00 Blood Culture - Preliminary Peripheral Venipuncture Gram Negative Greg - Clinical Findings Intake & Output: Intake & Output 05/18/18 05/18/18 05/19/18 15:59 23:59 07:59 Intake Total 1084 / 1084 1578 / 1578 1688 / 1688 Output Total 90 / 90 85 / 85 100 / 100 Balance 994 / 994 1493 / 1493 1588 / 1588 Weight 116 kg
[2018-05-19 07:45] LABS: INR 1.4; Prothrombin Time 15.9 Seconds (9.4-12.1)
[2018-05-19 07:47] LABS: Activated Partial Thrombo Time 33.3 Seconds (26.0-36.0)
--- NOTE | 2018-05-19 09:26 | Nephrology Consult Note ---
Addendum entered and electronically signed by Ethan Doss DO 05/19/18 17:39: I have personally performed a face to face evaluation on this patient. I have reviewed and agree with the care plan. History and Exam by me shows: 78 y/o gentleman with EDIS on CKD with associated b/l hydro s/p b/l Perc neph tubes, subsequent b/l pyelonephritis with sepsis. With his renal function worsening, he may need STAPLE FIBER WASHER in coming 24-48hr. Recommend in the meantime to follow a renal protective strategy with strict I/Os, daily weights, avoidance of nephrotoxins as able (monitoring Vanco levels) and dosing renally cleared Rx by CrCl/GFR. Thank you for consulting the [facility] group. Will closely follow with you. Original Note: Date of Encounter: 05/19/18 Time of Encounter: 09:25 Assessment and Plan (1) Acute kidney injury superimposed on chronic kidney disease Current Visit: Yes Status: Acute Has seen Dr. Sandoval in the past for CKD. Baseline GFR appears to be 25-30. GFR is 18 today. Avoid nephrotoxins and renal dose all medications. Strict I/O (2) Congestive heart failure Current Visit: Yes Status: Acute Strict I/O 1.5 Liter fluid restriction. Daily weights. Qualifiers: Heart failure type: systolic Heart failure chronicity: unspecified Qualified Code(s): I50.20 - Unspecified systolic (congestive) heart failure (3) Hypotension Current Visit: Yes Status: Acute Continue pressor support. Qualifiers: Hypotension type: unspecified hypotension type Qualified Code(s): I95.9 - Hypotension, unspecified (4) Pyonephrosis Current Visit: Yes Status: Acute Urology on board, appreciate recommendations. (5) Sepsis Current Visit: Yes Status: Acute Per ICU team. Qualifiers: Sepsis type: Escherichia coli Qualified Code(s): A41.51 - Sepsis due to Escherichia coli [E. coli] (6) Prostate cancer Current Visit: Yes Status: Chronic History of Present Illness - Reason for Consult Consult date: 05/19/18 Chronic Kidney Disease Requesting physician: Renee Tay - Chief Complaint s/p nephro tube placement - History of Present Illness Mr. Rojas is a 78 year old male who presented to ED after bilat nephrostomy tubes were placed by IR on 05/17/18. PMH: CHF, diabetes, hypertension, prostate cancer (s/p radiation) and frequent UTI's. He has seen Dr. Sandoval in the past, but after placement of a chronic bergman cath, he did not follow up with her and renal function was somewhat stable. He was sent to IR for bilat nephrostomy tube placement and was then sent to ER for evaluation. Was found to be hypotensive, leukopenic, and tachypnic. He was admitted to ICU requiring pressor support. GFR is 18 today. Appears baseline is 25-30 per EMR. Denies chest pain or shortness of breath. Denies nausea, vomiting, diarrhea. Denies fever, chills at home. Admits to feeling overall fatigued. Denies ETOH, tobacco, or illicit drug use. Currently lives with at home. +FH of ESRD, pt's daughter was on HD and now has a kidney transplant. Past Med Surg Social Fam HX - Past Medical History Medical history: cancer, CHF, diabetes, hypertension, other Additional medical history: irregular heart beat. prostate cancer with radiation Psychiatric history: no psych history - Past Surgical History Surgical History: cholecystectomy, other, pacemaker Additional surgical history: pacer - Social History Smoking Status: Never smoker Smokeless Tobacco Status: No Alcohol use: none Drug use: none - Family History Father Living Status: Hx Family Respiratory Disorders: Yes (Lung cancer) Hx Family Cancer: Yes (lung cancer) Mother Living Status: Hx Family Cancer: Yes (breast cancer) Medications and Allergies Diltiazem HCl [Tiazac] 360 mg PO DAILY 03/16/15 [History] Sotalol [Betapace] 120 mg PO Q12HR 03/16/15 [History] Ergocalciferol (VITAMIN D2) [Vitamin D] 400 unit PO DAILY 12/08/15 [History] Latanoprost [Xalatan] 1 drop BOTH EYES DAILY 12/08/15 [History] Warfarin [Coumadin] 2 mg PO DAILY 12/08/15 [History] Ferrous Sulfate 325 mg PO TIDWM #90 tablet 12/10/15 [Rx] Insulin Glargine,Hum.rec.anlog [Basaglar Kwikpen U-100] 30 unit SQ HS 10/26/17 [History] Brimonidine 0.2% [Alphagan] 1 drop LEFT EYE BID 10/16/18 [History] Allergy/AdvReac Type Severity Reaction Status Date / Time Erythromycin Base Allergy Mild Rash Verified 10/26/17 14:08 Review of Systems All Systems review (narrative): The remainder of the systems are negative. Constitutional: fatigue, no chills, no fever(s) Cardiovascular: no chest pain, no dyspnea, no edema Respiratory: no cough, no hemoptysis Gastrointestinal: no abdominal pain, no diarrhea, no nausea, no vomiting Genitourinary Male: dysuria, no hematuria, no urinary frequency, no urinary hesitancy, no urinary urgency Exam - Vital Signs Vital signs: Initial Vital Signs BP 131/73 05/17/18 13:00 Vital Signs - Last 8 Hours Temp Pulse Resp BP Pulse Ox 05/19/18 09:00 100 14 78/59 100 05/19/18 08:00 98 22 64/37 97 05/19/18 07:30 92 05/19/18 07:13 98.0 F 05/19/18 07:00 101 22 87/59 95 05/19/18 06:00 93 15 83/57 100 05/19/18 05:00 75 15 95/54 100 05/19/18 03:53 75 15 96/54 98 05/19/18 03:00 97.7 F 75 15 93/54 98 05/19/18 02:42 75 05/19/18 02:00 75 16 94/58 100 Intake and Output 05/18/18 05/19/18 05/19/18 23:59 07:59 15:59 Intake Total 1578 / 1578 1688 / 1688 204 / 204 Output Total 85 / 85 100 / 100 Balance 1493 / 1493 1588 / 1588 204 / 204 Intake: IV Fluids 1578 / 1578 1688 / 1688 204 / 204 Levophed 8 MG In Dextrose 5% 258 / 258 250 ML @ 10 MCG/MIN 19.35 mls/ hr IVC CONT JOSETTE Rx#:[id number] Levophed 16 MG In Dextrose 5% 70 / 70 196 / 196 148 / 148 500 ML @ 10 MCG/MIN 19.35 mls/ hr IVC CONT JOSETTE Rx#:[id number] Phenylephrine 10 MG In Dextrose 56 / 56 5% 250 ML @ 100 MCG/MIN 150.6 mls/hr IVC CONT [facility]OSETTE Rx#: [id number] Lactated Ringers 1,000 ML @ 125 1192 / 1192 mls/hr IVC .Q8H JOSETTE Rx#: [id number] Sodium Bicarbonate 150 MEQ In 1150 / 1150 Dextrose 5% 1,000 ML @ 150 mls/ hr IVC .Q7H40M JOSETTE Rx#: [id number] Cipro Premix 400 MG/200 ML 400 200 / 200 mg In 200 ml @ 200 mls/hr IVPB Q24H JOSETTE Rx#:[id number] Zosyn 3.375 GM In 0.9 % Sodium 100 / 100 100 / 100 Chloride (Mini-Bag +) 100 ML @ 25 mls/hr IVPB Q8H JOSETTE Rx#: [id number] Output: Left Nephrostomy 45 / 45 50 / 50 Right Nephrostomy 40 / 40 50 / 50 Other: Weight 116 kg Blood Glucose* 209 Patient Weight 05/19/18 23:59 Weight 116 kg - General Appearance General appearance: well-developed, well-nourished EENT: ATNC, hearing intact, vision intact Neck: supple Respiratory: clear Cardiology: no edema, normal S1, normal S2 Gastrointestinal: normoactive bowel sounds, no tenderness, no guarding Integumentary: no rash, warm and dry Neurologic: alert and oriented x3 Musculoskeletal: no deformities, no erythema Psychiatric: mood/affect appropriate, cooperative Results - Lab Results 05/19/18 02:50 05/19/18 02:50 Most recent lab results ABG pH 7.32 pH Units (7.32-7.45) 05/18/18 11:15 ABG pCO2 33 mmHg (35-45) L 05/18/18 11:15 ABG pO2 84 mmHg (85-104) L 05/18/18 11:15 ABG HCO3 17 mEq/L (21-27) L 05/18/18 11:15 ABG O2 Saturation 96 % (95-98) 05/18/18 11:15 Calcium 7.4 mg/dL (8.6-10.3) L 05/19/18 02:50 Phosphorus 3.2 mg/dL (2.7-4.5) 05/18/18 04:05 Magnesium 1.4 mg/dL (1.6-2.6) L 05/18/18 04:05 Consult Discharge Plan - Plan Referrals: Sullivan,Elysia L, [place] [Primary Care Provider] -
[2018-05-19] MEDS: traMADol 50 MG TABLET PO PRN ×3 (09:46→22:18)
[2018-05-19] MEDS: Phenylephrine 50 MG in D5% in Water 250 ML IVC SCH ×2 (09:47→17:44)
[2018-05-19] MEDS: *HR* Heparin 5,000 UNIT/ML VIAL SQ SCH ×2 (13:26→20:30)
[2018-05-19] MEDS: Norepinephrine 16 MG in D5% in Water 500 ML IVC SCH (17:46)
[2018-05-19] MEDS ORDERED: *HR* Warfarin 2 MG TABLET PO ONE (18:00)
[2018-05-19 18:09] LABS: Albumin 2.8 g/dL (3.5-5.7); Albumin/Globulin Ratio 1.2 (1.1-2.2); Bilirubin,Direct 0.7 mg/dL (0.0-0.2); Bilirubin,Indirect 0.5 mg/dL (0.0-1.2); Bilirubin,Total 1.2 mg/dL (0.3-1.0); Globulin 2.3 g/dL (2.4-3.5); Total Protein 5.1 g/dL (6.4-8.9)
[2018-05-20] MEDS: Piperacillin/Tazobactam 3.375 GM in 0.9 % Sodium Chloride Mini Bag 100 ML IVPB SCH ×2 (00:08→12:47)
[2018-05-20 03:25] LABS: INR 1.4; Prothrombin Time 16.1 Seconds (9.4-12.1)
[2018-05-20 03:27] LABS: Activated Partial Thrombo Time 32.5 Seconds (26.0-36.0)
[2018-05-20 03:36] LABS: Calcium 7.6 mg/dL (8.6-10.3); Potassium 3.7 mEq/L (3.5-5.1)
[2018-05-20 03:56] LABS: Hematocrit 26.1 % (37.5-50.1)
[2018-05-20 03:57] LABS: Basophils % 0.2 %; Hemoglobin 8.3 g/dL (12.9-16.9); Immature Granulocytes % 7.6 % (0-4); Immature Platelets 6.6 % (1.1-6.1); Lymphocytes # 0.7 K/mcL (0.6-4.6); Mean Corpuscular HGB Conc 31.8 g/dL (31.6-35.5); Mean Corpuscular Hemoglobin 28.5 pg (28.0-33.3); Mean Corpuscular Volume 89.7 fL (83.0-100.0); Mean Platelet Volume 10.7 fL (9.4-12.4); Monocytes # 0.5 K/mcL (0.0-1.3); Monocytes % 2.1 %; Neutrophils # 20.3 K/mcL (1.6-8.9); Red Blood Count 2.91 M/mcL (4.19-5.50); Red Cell Distribution Width 14.5 % (11.5-14.5); Segmented Neutrophils % 87.1 %
[2018-05-20 04:21] LABS: Basophils # 0.1 K/mcL (0.0-0.2)
[2018-05-20 04:22] LABS: Platelet Count 79 K/mcL (140-400); Platelet Estimate Decreased (Normal)
[2018-05-20] MEDS: *HR* Heparin 5,000 UNIT/ML VIAL SQ SCH (05:07)
[2018-05-20] MEDS: Insulin LISPRO 300 UNITS/3 ML VIAL SQ SCH ×3 (05:08→16:28)
--- NOTE | 2018-05-20 08:48 | Pulmonology Progress Note ---
<Jaz Hannah M - Last Filed: 05/20/18 17:04> Date of Encounter: 05/20/18 Time of Encounter: 08:47 Assessment and Plan (1) Sepsis Current Visit: Yes Status: Acute * Continues to be hypotensive secondary to severe sepsis, continues to be stable however over the last 24 hours * Patient has tolerated sotalol 40 mg twice a day and is no longer requiring vasopressors * Nephrology consultation for worsening of his renal function and appreciate their recommendations. At this point they are evaluating for the need for dialysis * Day 4 Zosyn. Did get repeat dose vancomycin yesterday but given the patient is not growing significant gram-positive will discontinue vancomycin * At this point patient may be stable to transfer to floor tomorrow given clinical improvement in blood pressure Qualifiers: Sepsis type: Escherichia coli Qualified Code(s): A41.51 - Sepsis due to Escherichia coli [E. coli] (2) Pyonephrosis Current Visit: Yes Status: Acute * Leukocytosis improving, today down to 23.3 from 38.9 * Day 4 Zosyn * Urology following, recommend continued antibiotics * Renal US shows no persistant abscess or hydronephrosis * Blood culture shows gram negative rodsx2, sensitivities still pending. (3) Acute kidney injury superimposed on chronic kidney disease Current Visit: Yes Status: Acute * BUN 51, continued worsening from yesterday * Creatinine up to 3.82 with GFR of 15 * Nephrology consult on to the patient and is evaluating the patient for need for hemodialysis * Strict I&O * Avoiding nephrotoxic medications, discontinued vancomycin today (4) A-fib Current Visit: No Status: Chronic * HR today in 90s-100s, up from 70s on arrival * Will add back sotalol which patient takes at home, will given renal adjusted dose of 40mg BID * Heparin for DVT prophylaxis - holding coumadin * Did obtain peripheral blood smear today given the patient's thrombocytopenia, today 79 which is a greater than 50% decline over the last 72 hours * HEP score low, at this time discontinued heparin but do not feel that HIT panel necessary, will monitor CBC Qualifiers: Atrial fibrillation type: chronic Qualified Code(s): I48.2 - Chronic atrial fibrillation (5) Congestive heart failure Current Visit: Yes Status: Chronic * Continuing to monitor volume status, patient denies any chest pain or shortness of breath * I/o, fluid restriction Qualifiers: Heart failure type: systolic Heart failure chronicity: acute on chronic Qualified Code(s): I50.23 - Acute on chronic systolic (congestive) heart failure (6) Maceration of skin Current Visit: Yes Status: Acute * Likely longstanding as the patient has had few episodes of diarrhea at home and does not ambulate frequently * Gluteal cleft shows maceration of the skin, applied barrier cream and rectal tube to decrease risk of infection * Wound care consulted, appreciate their input (7) DVT prophylaxis Current Visit: Yes Status: Acute * SCD given thrombocytopenia Subjective Interval history: 78-year-old male who was admitted to the ICU on 05/17/18 due to severe sepsis likely secondary to urinary source. The patient had significant episode of hypotension status post placement of nephrostomy tubes on the same day. The patient has a history of prostate cancer treated by radiation therefore outlet obstruction and chronic indwelling Lewis. He was undergoing bilateral nephrostomy tubes for urinary diversion with jovanna purulent material coming from his nephrostomy tubes. Today the patient feels improved. He has been able to tolerate clear liquids and is requesting a solid diet. He continues to have liquid stools but feels the rectal tube has improved his comfort. Objective PUL Vital signs: Last Vital Signs Temp 97.4 F L 05/20/18 08:15 Pulse 95 05/20/18 08:00 Resp 16 05/20/18 08:00 BP 91/81 05/20/18 08:00 Pulse Ox 96 05/20/18 08:00 General appearance: no acute distress Eyes: nonicteric ENT: oropharynx moist Neck: supple Effort: normal Cardiovascular: other (Tachycardia) Gastrointestinal: normoactive bowel sounds Integumentary: normal, other (Maceration of gluteal cleft, no erythema or warmth) Extremities: no cyanosis Musculoskeletal: no deformities normal mental status, non-focal exam mood appropriate, affect normal Results - Laboratory Findings CBC and BMP: 05/20/18 03:45 05/20/18 03:00 ABG ABG pH 7.32 pH Units (7.32-7.45) 05/18/18 11:15 ABG pCO2 33 mmHg (35-45) L 05/18/18 11:15 ABG pO2 84 mmHg (85-104) L 05/18/18 11:15 ABG O2 Saturation 96 % (95-98) 05/18/18 11:15 PT/INR, D-dimer PT 16.1 Seconds (9.4-12.1) H 05/20/18 03:00 Abnormal lab findings: Abnormal lab results WBC 23.3 K/mcL (4.3-11.1) H 05/20/18 03:45 RBC 2.91 M/mcL (4.19-5.50) L 05/20/18 03:45 Hgb 8.3 g/dL (12.9-16.9) L 05/20/18 03:45 Hct 26.1 % (37.5-50.1) L 05/20/18 03:45 Plt Count 79 K/mcL (140-400) L 05/20/18 03:45 Immature Gran % 7.6 % (0-4) H 05/20/18 03:45 Band Neutrophils % 36.0 % (0-4) H 05/19/18 02:50 Metamyelocytes % 2.0 % (0) H 05/19/18 02:50 Neutrophils # 20.3 K/mcL (1.6-8.9) H 05/20/18 03:45 Reactive Lymphocytes Present (Not Present) A 05/19/18 02:50 Toxic Granulation Present (Not Present) A 05/17/18 17:09 Toxic Vacuolation Present (Not Present) A 05/17/18 17:09 Platelet Estimate Decreased (Normal) L 05/20/18 03:45 Clumped Platelets Few (Not Present) A 05/17/18 17:09 Immature Plt Fraction 6.6 % (1.1-6.1) H 05/20/18 03:45 Polychromasia 1+ (Not Present) A 05/19/18 02:50 PT 16.1 Seconds (9.4-12.1) H 05/20/18 03:00 ABG pCO2 33 mmHg (35-45) L 05/18/18 11:15 ABG pO2 84 mmHg (85-104) L 05/18/18 11:15 ABG HCO3 17 mEq/L (21-27) L 05/18/18 11:15 ABG Total CO2 18 mEq/L (20-26) L 05/18/18 11:15 ABG Base Excess -9 mEq/L (-2 to 3) L 05/18/18 11:15 Sodium 133 mEq/L (136-145) L 05/20/18 03:00 Carbon Dioxide 22 mEq/L (23-29) L 05/20/18 03:00 BUN 51 mg/dL (8-23) H 05/20/18 03:00 Creatinine 3.82 mg/dL (0.70-1.30) H 05/20/18 03:00 Est GFR ( Amer) 19 (> 60) L 05/20/18 03:00 Est GFR (Non-Af Amer) 15 (> 60) L 05/20/18 03:00 Glucose 150 mg/dL (70-105) H 05/20/18 03:00 POC Glucose 143 mg/dL (70-99) H 05/20/18 05:06 Calcium 7.6 mg/dL (8.6-10.3) L 05/20/18 03:00 Venous Ioniz Calcium 1.11 mmol/L (1.15-1.35) L 05/18/18 11:35 Magnesium 1.4 mg/dL (1.6-2.6) L 05/18/18 04:05 Total Bilirubin 1.2 mg/dL (0.3-1.0) H 05/19/18 17:39 Direct Bilirubin 0.7 mg/dL (0.0-0.2) H 05/19/18 17:39 Serum Total Protein 5.1 g/dL (6.4-8.9) L 05/19/18 17:39 Albumin 2.8 g/dL (3.5-5.7) L 05/19/18 17:39 Globulin 2.3 g/dL (2.4-3.5) L 05/19/18 17:39 TSH 5.674 mcIU/mL (0.340-5.600) H 05/17/18 17:09 Ur Specimen Adequacy See below A 05/17/18 14:31 Urine Clarity Cloudy (Clear) A 05/17/18 14:31 Urine Protein >=1000 mg/dL (Neg-Trace) H 05/17/18 14:31 Urine Glucose (UA) 250 mg/dL (Normal) H 05/17/18 14:31 Urine Blood Moderate (Negative) H 05/17/18 14:31 Ur Leukocyte Esterase Moderate (Negative) H 05/17/18 14:31 - Microbiology Findings Microbiology Findings: Microbiology, Last 48 Hours 05/17/18 14:31 Urine Culture - Preliminary Urine,Catheterized (Straight) Escherichia coli Proteus penneri Gram Positive Cocci 05/17/18 15:30 Blood Culture - Final Peripheral Venipuncture Escherichia coli 05/17/18 14:00 Blood Culture - Final Peripheral Venipuncture Escherichia coli 05/19/18 04:37 Blood Culture - Preliminary Peripheral Venipuncture Culture is incubating and being continuously monitored for growth. Final report to follow. 05/19/18 04:44 Blood Culture - Preliminary Peripheral Venipuncture Culture is incubating and being continuously monitored for growth. Final report to follow. - Clinical Findings Intake & Output: Intake & Output 05/19/18 05/20/18 05/20/18 23:59 07:59 15:59 Intake Total 899 / 899 210 / 210 Output Total 170 / 170 25 / 25 125 / 125 Balance 729 / 729 185 / 185 -125 / -125 Weight 118 kg Consult Discharge Plan - Plan Referrals: Elysia Sullivan CNP [Primary Care Provider] - <Renee Tay - Last Filed: 05/20/18 23:09> Date of Encounter: 05/20/18 Objective PUL Vital signs: Last Vital Signs Temp 97.7 F 05/20/18 20:00 Pulse 112 05/20/18 23:00 Resp 20 05/20/18 23:00 BP 84/59 05/20/18 23:00 Pulse Ox 97 05/20/18 23:00 Results - Laboratory Findings CBC and BMP: 05/20/18 03:45 05/20/18 03:00 ABG ABG pH 7.32 pH Units (7.32-7.45) 05/18/18 11:15 ABG pCO2 33 mmHg (35-45) L 05/18/18 11:15 ABG pO2 84 mmHg (85-104) L 05/18/18 11:15 ABG O2 Saturation 96 % (95-98) 05/18/18 11:15 PT/INR, D-dimer PT 16.1 Seconds (9.4-12.1) H 05/20/18 03:00 Abnormal lab findings: Abnormal lab results WBC 23.3 K/mcL (4.3-11.1) H 05/20/18 03:45 RBC 2.91 M/mcL (4.19-5.50) L 05/20/18 03:45 Hgb 8.3 g/dL (12.9-16.9) L 05/20/18 03:45 Hct 26.1 % (37.5-50.1) L 05/20/18 03:45 Plt Count 79 K/mcL (140-400) L 05/20/18 03:45 Immature Gran % 7.6 % (0-4) H 05/20/18 03:45 Band Neutrophils % 36.0 % (0-4) H 05/19/18 02:50 Metamyelocytes % 2.0 % (0) H 05/19/18 02:50 Neutrophils # 20.3 K/mcL (1.6-8.9) H 05/20/18 03:45 Reactive Lymphocytes Present (Not Present) A 05/19/18 02:50 Toxic Granulation Present (Not Present) A 05/17/18 17:09 Toxic Vacuolation Present (Not Present) A 05/17/18 17:09 Platelet Estimate Decreased (Normal) L 05/20/18 03:45 Clumped Platelets Few (Not Present) A 05/17/18 17:09 Immature Plt Fraction 6.6 % (1.1-6.1) H 05/20/18 03:45 Polychromasia 1+ (Not Present) A 05/19/18 02:50 PT 16.1 Seconds (9.4-12.1) H 05/20/18 03:00 ABG pCO2 33 mmHg (35-45) L 05/18/18 11:15 ABG pO2 84 mmHg (85-104) L 05/18/18 11:15 ABG HCO3 17 mEq/L (21-27) L 05/18/18 11:15 ABG Total CO2 18 mEq/L (20-26) L 05/18/18 11:15 ABG Base Excess -9 mEq/L (-2 to 3) L 05/18/18 11:15 Sodium 133 mEq/L (136-145) L 05/20/18 03:00 Carbon Dioxide 22 mEq/L (23-29) L 05/20/18 03:00 BUN 51 mg/dL (8-23) H 05/20/18 03:00 Creatinine 3.82 mg/dL (0.70-1.30) H 05/20/18 03:00 Est GFR ( Amer) 19 (> 60) L 05/20/18 03:00 Est GFR (Non-Af Amer) 15 (> 60) L 05/20/18 03:00 Glucose 150 mg/dL (70-105) H 05/20/18 03:00 POC Glucose 188 mg/dL (70-99) H 05/20/18 21:37 Calcium 7.6 mg/dL (8.6-10.3) L 05/20/18 03:00 Venous Ioniz Calcium 1.11 mmol/L (1.15-1.35) L 05/18/18 11:35 Magnesium 1.4 mg/dL (1.6-2.6) L 05/18/18 04:05 Total Bilirubin 1.2 mg/dL (0.3-1.0) H 05/19/18 17:39 Direct Bilirubin 0.7 mg/dL (0.0-0.2) H 05/19/18 17:39 Serum Total Protein 5.1 g/dL (6.4-8.9) L 05/19/18 17:39 Albumin 2.8 g/dL (3.5-5.7) L 05/19/18 17:39 Globulin 2.3 g/dL (2.4-3.5) L 05/19/18 17:39 TSH 5.674 mcIU/mL (0.340-5.600) H 05/17/18 17:09 Ur Specimen Adequacy See below A 05/17/18 14:31 Urine Clarity Cloudy (Clear) A 05/17/18 14:31 Urine Protein >=1000 mg/dL (Neg-Trace) H 05/17/18 14:31 Urine Glucose (UA) 250 mg/dL (Normal) H 05/17/18 14:31 Urine Blood Moderate (Negative) H 05/17/18 14:31 Ur Leukocyte Esterase Moderate (Negative) H 05/17/18 14:31 - Microbiology Findings Microbiology Findings: Microbiology, Last 48 Hours 05/17/18 14:31 Urine Culture - Preliminary Urine,Catheterized (Straight) Escherichia coli Proteus penneri Gram Positive Cocci 05/17/18 15:30 Blood Culture - Final Peripheral Venipuncture Escherichia coli 05/17/18 14:00 Blood Culture - Final Peripheral Venipuncture Escherichia coli 05/19/18 04:37 Blood Culture - Preliminary Peripheral Venipuncture Culture is incubating and being continuously monitored for growth. Final report to follow. 05/19/18 04:44 Blood Culture - Preliminary Peripheral Venipuncture Culture is incubating and being continuously monitored for growth. Final report to follow. - Clinical Findings Intake & Output: Intake & Output 05/20/18 05/20/18 05/20/18 07:59 15:59 23:59 Intake Total 210 / 210 960 / 960 460 / 460 Output Total 25 / 25 170 / 170 100 / 100 Balance 185 / 185 790 / 790 360 / 360 - Attending Attestation Attending Attestation I saw and evaluated this patient and my medical decision-making was reviewed with the Resident Physician. I agree with the documented findings, disposition and treatment plan as described except to the extent set forth below. We independently had [id number] contact with the patient I spent 32 minutes of Critical Care time with this patient. It involved decision making of high complexity to assess, manipulate, and support vital organ system failure and/or to prevent further life threatening deterioration of the patient's condition. The time involved in the performance of separately reportable procedures was not counted toward critical care time. Patient seen and examined at bedside Labs, radiology, chart personally reviewed. Management was reviewed during multidisciplinary critical care rounds. MINE MANAGER: Patient is conscious oriented 3 has some episodic confusion most likely due to toxic/metabolic encephalopathy secondary to sepsis Pulm: Patient is acceptable oxygenation and ventilation patient has minimal left-sided pleural effusion Cards: Patient has past medical history as congestive heart failure now and septic shock after he got bilateral nephrostomy tubes . Patient has some atrial fibrillation with RVR patient was doing well with phenylephrine as a vasopressor now trying to liberate from phenylephrine. FEN-GI: We will give clear liquid diet if he tolerates Renal: Patient has acute on chronic kidney injury most likely due to obstructive uropathy with bilateral pyelonephrosis patient had bilateral nephrostomy tube. Kidney functioning worsening with the non-gap acidosis will start on bicarbonate drip we will give him a liter and stop. If he is not turning around we will consider nephrology consult. Urology was consulted and they signed off any issues with nephrostomy tube should be referred to IR. 3/13 worsening kidney function and consult nephrology no acute indication of dialysis. 05/20 worsening kidney function nephrology following if patient desires might consider dialysis tomorrow ID: To cover with broad-spectrum antibiotics as patient had bilateral nephrostomy tube for pyelonephrosis. Vancomycin renally dosed.. Blood cultures growing gram-negative rods but urine culture growing both gram-negative rods and gram-positive cocci. 05/19 patient is growing Escherichia coli no ESBL will change to cefepime will give 1 dose of vancomycin 05/20 to continue cefepime for Escherichia coli bacteremia secondary to complicated urinary tract infection Heme/Onc: Labs reviewed Endo: Glucose Monitored Integ/MSK: Skin Care per routine ICU Nursing Protocol to prevent ulcers. Lines: All lines examined without evidence of infection : Dispo: critically ill circulatory failure septic shock CODE: Full code
--- NOTE | 2018-05-20 09:50 | Nephrology Progress Note ---
Addendum entered and electronically signed by Ethan Doss DO 05/24/18 08:14: I have personally performed a face to face evaluation on this patient. I have reviewed and agree with the care plan. History and Exam by me shows: He was not frankly uremic on exam, but he is likely nearing it. He said he may not want dialysis (he said he has seen his daughter on dialysis and have renal transplant complications). I will provide a thorough sign-out to my colleague Dr. Sandoval who will be on-call starting tomorrow. Thank you. Original Note: Date of Encounter: 05/20/18 Time of Encounter: 09:47 - Assessment and Plan (1) Acute kidney injury superimposed on chronic kidney disease Current Visit: Yes Status: Acute Has seen Dr. Sandoval in the past for CKD. Baseline GFR appears to be 25-30. GFR is 15 today. No indication for HYDROGEOLOGY PROFESSOR today, but that could change depending on clinical pictur e. Uop 330 for yesterday, 150 already for today- from bilat nephro tubes. Avoid nephrotoxins and renal dose all medications. Recommend changing IV vanco to less nephrotoxic medication. Strict I/O (2) Congestive heart failure Current Visit: Yes Status: Chronic Strict I/O 1.5 Liter fluid restriction. Daily weights. Qualifiers: Heart failure type: systolic Heart failure chronicity: acute on chronic Qualified Code(s): I50.23 - Acute on chronic systolic (congestive) heart failure (3) Hypotension Current Visit: Yes Status: Acute Currently not on pressor support, BP is 91/62, stable. Qualifiers: Hypotension type: unspecified hypotension type Qualified Code(s): I95.9 - Hypotension, unspecified (4) Pyonephrosis Current Visit: Yes Status: Acute Urology on board, appreciate recommendations. (5) Sepsis Current Visit: Yes Status: Acute Per ICU team. Qualifiers: Sepsis type: Escherichia coli Qualified Code(s): A41.51 - Sepsis due to Escherichia coli [E. coli] (6) Prostate cancer Current Visit: Yes Status: Chronic Subjective Principal diagnosis: s/p nephro tubes in IR. Interval history: Pt seen and examined in ICU. LARRY Callejas at bedside. Denies nausea, vomiting. Admits to diarrhea, rectal tube in place. Denies chest pain, shortness of breath. No acute events overnight. Objective - Vital Signs Vital signs: Vital Signs Temp Pulse Resp BP Pulse Ox 05/20/18 09:00 97 18 91/62 98 05/20/18 08:15 97.4 F L 05/20/18 08:00 95 16 91/81 96 05/20/18 07:45 100 05/20/18 07:00 94 22 109/78 100 05/20/18 06:00 100 16 117/88 95 05/20/18 05:00 100 15 111/88 95 05/20/18 04:00 96 13 111/81 99 05/20/18 03:00 96.7 F L 100 15 107/86 99 05/20/18 02:00 91 16 122/90 99 05/20/18 01:06 95 13 115/93 98 05/20/18 00:00 102 13 106/88 98 05/19/18 23:02 97.7 F 103 17 109/67 97 05/19/18 22:00 92 15 102/68 97 05/19/18 21:00 94 19 103/53 99 05/19/18 20:00 101 17 109/61 98 05/19/18 19:00 97.6 F 99 20 94/55 98 05/19/18 18:00 103 20 100/49 97 05/19/18 17:00 91 18 87/66 98 05/19/18 16:22 97.5 F L 05/19/18 16:00 95 22 95/82 97 05/19/18 15:00 98 18 96/60 96 05/19/18 14:00 104 20 86/66 97 05/19/18 13:00 97 24 90/59 94 05/19/18 12:00 95 20 119/97 97 05/19/18 11:21 97.6 F 05/19/18 11:00 103 22 104/61 92 05/19/18 10:00 102 16 90/56 98 Intake and Output 05/19/18 05/20/18 05/20/18 23:59 07:59 15:59 Intake Total 899 / 899 210 / 210 600 / 600 Output Total 170 / 170 25 / 25 125 / 125 Balance 729 / 729 185 / 185 475 / 475 Intake: IV Fluids 299 / 299 210 / 210 Phenylephrine 50 MG In Dextrose 199 / 199 110 / 110 5% 250 ML @ 100 MCG/MIN 30.6 mls/hr IVC CONT JOSETTE Rx#: [id number] Zosyn 3.375 GM In 0.9 % Sodium 100 / 100 100 / 100 Chloride (Mini-Bag +) 100 ML @ 25 mls/hr IVPB Q12H JOSETTE Rx#: [id number] Oral 600 / 600 600 / 600 Output: Rectal Tube 0 / 0 Left Nephrostomy 15 75 / 75 Right Nephrostomy 50 / 50 Other: Meal Dinner Breakfast Percent of Meal Consumed 90% 60% Weight 118 kg - General Appearance General appearance: Present: well-developed, well-nourished EENT: Present: hearing intact, vision intact Neck: Present: supple Respiratory: Present: clear Cardiology: Present: no edema, normal S1, normal S2 Gastrointestinal: Present: normoactive bowel sounds, no tenderness, no guarding Integumentary: Present: no rash, warm and dry Neurologic: Present: alert and oriented x3 Musculoskeletal: Present: no deformities, no erythema Psychiatric: Present: mood/affect appropriate, cooperative - Lab 05/20/18 03:45 05/20/18 03:00 Most recent lab results ABG pH 7.32 pH Units (7.32-7.45) 05/18/18 11:15 ABG pCO2 33 mmHg (35-45) L 05/18/18 11:15 ABG pO2 84 mmHg (85-104) L 05/18/18 11:15 ABG HCO3 17 mEq/L (21-27) L 05/18/18 11:15 ABG O2 Saturation 96 % (95-98) 05/18/18 11:15 Calcium 7.6 mg/dL (8.6-10.3) L 05/20/18 03:00 Phosphorus 3.2 mg/dL (2.7-4.5) 05/18/18 04:05 Magnesium 1.4 mg/dL (1.6-2.6) L 05/18/18 04:05 Consult Discharge Plan - Plan Referrals: Elysia Sullivan CNP [Primary Care Provider] -
[2018-05-20] MEDS: traMADol 50 MG TABLET PO PRN ×2 (10:17→23:00)
[2018-05-20] MEDS: Norepinephrine 16 MG in D5% in Water 500 ML IVC SCH (15:10)
[2018-05-20] MEDS ORDERED: Insulin LISPRO 300 UNITS/3 ML VIAL SQ SCH (21:00)
[2018-05-21] MEDS: Piperacillin/Tazobactam 3.375 GM in 0.9 % Sodium Chloride Mini Bag 100 ML IVPB SCH (01:22)
[2018-05-21 03:51] LABS: Basophils % 0.2 %; Hematocrit 26.5 % (37.5-50.1); Mean Corpuscular Volume 89.5 fL (83.0-100.0); Red Blood Count 2.96 M/mcL (4.19-5.50); Red Cell Distribution Width 14.6 % (11.5-14.5)
[2018-05-21 03:52] LABS: Eosinophils # 0.2 K/mcL (0.0-0.6); Hemoglobin 8.5 g/dL (12.9-16.9); Immature Granulocytes % 0.9 % (0-4); Immature Platelets 7.9 % (1.1-6.1); Lymphocytes # 1.2 K/mcL (0.6-4.6); Lymphocytes % 6.6 %; Mean Corpuscular HGB Conc 32.1 g/dL (31.6-35.5); Mean Corpuscular Hemoglobin 28.7 pg (28.0-33.3); Mean Platelet Volume 11.4 fL (9.4-12.4); Monocytes # 0.5 K/mcL (0.0-1.3); Monocytes % 2.7 %; Neutrophils # 15.5 K/mcL (1.6-8.9); Segmented Neutrophils % 88.6 %
[2018-05-21 03:54] LABS: Platelet Count 79 K/mcL (140-400)
[2018-05-21 04:00] LABS: INR 1.4
[2018-05-21 04:02] LABS: Activated Partial Thrombo Time 29.7 Seconds (26.0-36.0)
[2018-05-21 04:14] LABS: Calcium 7.8 mg/dL (8.6-10.3); Potassium 3.8 mEq/L (3.5-5.1)
[2018-05-21 04:39] LABS: Platelet Estimate Marked Decrease (Normal)
[2018-05-21] MEDS ORDERED: cefTRIAXone 2,000 MG in Water for inj. (sterile) 20 ML 20 ML IVP ONE (08:17)
--- NOTE | 2018-05-21 08:32 | Pulmonology Progress Note ---
<Bernie Jacques M - Last Filed: 05/21/18 16:08> Date of Encounter: 05/21/18 Time of Encounter: 08:50 Assessment and Plan (1) Severe sepsis Current Visit: Yes Status: Acute Hypotension improved and off of pressers, stable Leukocytosis improving. Lactate normal Blood culture x2 on 05/17 positive for E.Coli and Urine culture on 05/17 positive for e.coli, proteus sharif, and gram positive cocci Continue sotalol 40mg BID today. Switch to Sotalol 40mg qdaily due to renal function tomorrow Appreciate Nephrology recommendations Day 5 Zosyn. This was discontinued and switched to Rocephin today Patient stable for transfer to the telemetry unit from ICU. Discussed with admitting Hospitalist, Dr. Riojas who accepts the patient at 1130 (2) Pyonephrosis Current Visit: Yes Status: Acute Renal US with no persistent abscess or hydronephrosis Blood cultures as above Abx as above, now on Rocephin. Urology and Nephrology following, appreciate their recommendations (3) Acute kidney injury superimposed on chronic kidney disease Current Visit: Yes Status: Acute BUN worsened to 58, Cr to 4.40 from 3.82, and GFR from 19 to 16 Baseline GFR 25-[address] Sandoval as outpatient for CKD Appreciate Nephrology recommendations Continue to avoid nephrotoxic agents ON IV Rocephin now for abx management Need for dialysis as per Nephrology Continue to monitor strict I/O (4) Congestive heart failure Current Visit: Yes Status: Chronic Monitor strict I&Os and daily weights. 1.5L fluid restriction Qualifiers: Heart failure type: systolic Heart failure chronicity: acute on chronic Qualified Code(s): I50.23 - Acute on chronic systolic (congestive) heart failure (5) Atrial fibrillation Current Visit: No Status: Chronic HR 90-100s, stable Continue with sotalol 40mg BID today and switch to sotalol 40mg qd tomorrow No longer on heparin due to decreased platelets Peripheral smear with moderate thrombocytopenia Patient takes warfarin at home however this was placed on hold secondary to possible need for temporary dialysis and catheter placement Continue to monitor on tele Patient transferred to floor today Qualifiers: Atrial fibrillation type: unspecified Qualified Code(s): I48.91 - Unspecified atrial fibrillation (6) Thrombocytopenia Current Visit: Yes Status: Acute Platelet count 79, stable from yesterday Peripheral smear with moderate normocytic, normochromic anemia and moderate thrombocytopenia Heparin was discontinued yesterday (7) Prostate cancer Current Visit: Yes Status: Chronic Subjective Principal diagnosis: s/p nephro tubes in IR. Interval history: Patient admitted to ICU on 05/17/18 due to severe sepsis likely secondary to urinary source. No longer requiring presser support. Patient states he feels somewhat drowsy this morning after receiving Ultram yesterday evening. Denies chest pain, shortness of breath, palpitations, abdominal pain, nausea, or any new complaints. No acute complaints overnight. Oxygenating on 2L O2 per NC. Vitals stable.295 cc urine output from nephrostomy tubes yesterday Objective PUL Vital signs: Last Vital Signs Temp 96.6 F L 05/21/18 04:00 Pulse 109 05/21/18 07:00 Resp 22 05/21/18 07:00 BP 121/93 05/21/18 07:00 Pulse Ox 99 05/21/18 07:00 General appearance: no acute distress Eyes: nonicteric, other (normal conunctiva, PERRL, EOMI) Neck: supple, no JVD Effort: normal, other (no wheezing or rhonchi) Auscultation: bilateral: clear Cardiovascular: irregular rhythm, other (tachycardic) Gastrointestinal: normoactive bowel sounds, soft, non-tender, other (bilateral nephrostomy tubes with clear yellow urine) Integumentary: other (maceration of gluteal cleft. warm, dry) Extremities: no cyanosis, no edema Musculoskeletal: no deformities other (Alert and oriented to person and place, not time. Strength equal bilaterally) mood appropriate, affect normal Results - Laboratory Findings CBC and BMP: 05/21/18 03:44 05/21/18 03:44 ABG ABG pH 7.32 pH Units (7.32-7.45) 05/18/18 11:15 ABG pCO2 33 mmHg (35-45) L 05/18/18 11:15 ABG pO2 84 mmHg (85-104) L 05/18/18 11:15 ABG O2 Saturation 96 % (95-98) 05/18/18 11:15 PT/INR, D-dimer PT 16.0 Seconds (9.4-12.1) H 05/21/18 03:44 Abnormal lab findings: Abnormal lab results WBC 17.5 K/mcL (4.3-11.1) H 05/21/18 03:44 RBC 2.96 M/mcL (4.19-5.50) L 05/21/18 03:44 Hgb 8.5 g/dL (12.9-16.9) L 05/21/18 03:44 Hct 26.5 % (37.5-50.1) L 05/21/18 03:44 RDW 14.6 % (11.5-14.5) H 05/21/18 03:44 Plt Count 79 K/mcL (140-400) L 05/21/18 03:44 Band Neutrophils % 36.0 % (0-4) H 05/19/18 02:50 Metamyelocytes % 2.0 % (0) H 05/19/18 02:50 Neutrophils # 15.5 K/mcL (1.6-8.9) H 05/21/18 03:44 Reactive Lymphocytes Present (Not Present) A 05/19/18 02:50 Toxic Granulation Present (Not Present) A 05/17/18 17:09 Toxic Vacuolation Present (Not Present) A 05/17/18 17:09 Platelet Estimate Marked Decrease (Normal) L 05/21/18 03:44 Clumped Platelets Few (Not Present) A 05/17/18 17:09 Immature Plt Fraction 7.9 % (1.1-6.1) H 05/21/18 03:44 Polychromasia 1+ (Not Present) A 05/19/18 02:50 PT 16.0 Seconds (9.4-12.1) H 05/21/18 03:44 ABG pCO2 33 mmHg (35-45) L 05/18/18 11:15 ABG pO2 84 mmHg (85-104) L 05/18/18 11:15 ABG HCO3 17 mEq/L (21-27) L 05/18/18 11:15 ABG Total CO2 18 mEq/L (20-26) L 05/18/18 11:15 ABG Base Excess -9 mEq/L (-2 to 3) L 05/18/18 11:15 Sodium 135 mEq/L (136-145) L 05/21/18 03:44 Carbon Dioxide 21 mEq/L (23-29) L 05/21/18 03:44 BUN 58 mg/dL (8-23) H 05/21/18 03:44 Creatinine 4.40 mg/dL (0.70-1.30) H 05/21/18 03:44 Est GFR ( Amer) 16 (> 60) L 05/21/18 03:44 Est GFR (Non-Af Amer) 13 (> 60) L 05/21/18 03:44 Glucose 158 mg/dL (70-105) H 05/21/18 03:44 POC Glucose 178 mg/dL (70-99) H 05/20/18 23:34 Calcium 7.8 mg/dL (8.6-10.3) L 05/21/18 03:44 Venous Ioniz Calcium 1.11 mmol/L (1.15-1.35) L 05/18/18 11:35 Magnesium 1.4 mg/dL (1.6-2.6) L 05/18/18 04:05 Total Bilirubin 1.2 mg/dL (0.3-1.0) H 05/19/18 17:39 Direct Bilirubin 0.7 mg/dL (0.0-0.2) H 05/19/18 17:39 Serum Total Protein 5.1 g/dL (6.4-8.9) L 05/19/18 17:39 Albumin 2.8 g/dL (3.5-5.7) L 05/19/18 17:39 Globulin 2.3 g/dL (2.4-3.5) L 05/19/18 17:39 TSH 5.674 mcIU/mL (0.340-5.600) H 05/17/18 17:09 Ur Specimen Adequacy See below A 05/17/18 14:31 Urine Clarity Cloudy (Clear) A 05/17/18 14:31 Urine Protein >=1000 mg/dL (Neg-Trace) H 05/17/18 14:31 Urine Glucose (UA) 250 mg/dL (Normal) H 05/17/18 14:31 Urine Blood Moderate (Negative) H 05/17/18 14:31 Ur Leukocyte Esterase Moderate (Negative) H 05/17/18 14:31 - Microbiology Findings Microbiology Findings: Microbiology, Last 48 Hours 05/17/18 14:31 Urine Culture - Preliminary Urine,Catheterized (Straight) Escherichia coli Proteus penneri Gram Positive Cocci 05/17/18 15:30 Blood Culture - Final Peripheral Venipuncture Escherichia coli 05/17/18 14:00 Blood Culture - Final Peripheral Venipuncture Escherichia coli 05/19/18 04:37 Blood Culture - Preliminary Peripheral Venipuncture Culture is incubating and being continuously monitored for growth. Final report to follow. 05/19/18 04:44 Blood Culture - Preliminary Peripheral Venipuncture Culture is incubating and being continuously monitored for growth. Final report to follow. - Clinical Findings Intake & Output: Intake & Output 05/20/18 05/21/18 05/21/18 23:59 07:59 15:59 Intake Total 460 / 460 100 / 100 Output Total 100 / 100 180 / 180 Balance 360 / 360 -80 / -80 Weight 124.5 kg Consult Discharge Plan - Plan Referrals: Nate,Elysia Kaufman CNP [Primary Care Provider] - <Trace Hong - Last Filed: 05/21/18 18:45> Date of Encounter: 05/21/18 Objective PUL Vital signs: Last Vital Signs Temp 97.5 F L 05/21/18 16:34 Pulse 81 05/21/18 16:34 Resp 16 05/21/18 16:34 BP 96/66 05/21/18 16:34 Pulse Ox 97 05/21/18 16:34 Results - Laboratory Findings CBC and BMP: 05/21/18 03:44 05/21/18 03:44 ABG ABG pH 7.32 pH Units (7.32-7.45) 05/18/18 11:15 ABG pCO2 33 mmHg (35-45) L 05/18/18 11:15 ABG pO2 84 mmHg (85-104) L 05/18/18 11:15 ABG O2 Saturation 96 % (95-98) 05/18/18 11:15 PT/INR, D-dimer PT 16.0 Seconds (9.4-12.1) H 05/21/18 03:44 Abnormal lab findings: Abnormal lab results WBC 17.5 K/mcL (4.3-11.1) H 05/21/18 03:44 RBC 2.96 M/mcL (4.19-5.50) L 05/21/18 03:44 Hgb 8.5 g/dL (12.9-16.9) L 05/21/18 03:44 Hct 26.5 % (37.5-50.1) L 05/21/18 03:44 RDW 14.6 % (11.5-14.5) H 05/21/18 03:44 Plt Count 79 K/mcL (140-400) L 05/21/18 03:44 Band Neutrophils % 36.0 % (0-4) H 05/19/18 02:50 Metamyelocytes % 2.0 % (0) H 05/19/18 02:50 Neutrophils # 15.5 K/mcL (1.6-8.9) H 05/21/18 03:44 Reactive Lymphocytes Present (Not Present) A 05/19/18 02:50 Toxic Granulation Present (Not Present) A 05/17/18 17:09 Toxic Vacuolation Present (Not Present) A 05/17/18 17:09 Platelet Estimate Marked Decrease (Normal) L 05/21/18 03:44 Clumped Platelets Few (Not Present) A 05/17/18 17:09 Immature Plt Fraction 7.9 % (1.1-6.1) H 05/21/18 03:44 Polychromasia 1+ (Not Present) A 05/19/18 02:50 PT 16.0 Seconds (9.4-12.1) H 05/21/18 03:44 ABG pCO2 33 mmHg (35-45) L 05/18/18 11:15 ABG pO2 84 mmHg (85-104) L 05/18/18 11:15 ABG HCO3 17 mEq/L (21-27) L 05/18/18 11:15 ABG Total CO2 18 mEq/L (20-26) L 05/18/18 11:15 ABG Base Excess -9 mEq/L (-2 to 3) L 05/18/18 11:15 Sodium 135 mEq/L (136-145) L 05/21/18 03:44 Carbon Dioxide 21 mEq/L (23-29) L 05/21/18 03:44 BUN 58 mg/dL (8-23) H 05/21/18 03:44 Creatinine 4.40 mg/dL (0.70-1.30) H 05/21/18 03:44 Est GFR ( Amer) 16 (> 60) L 05/21/18 03:44 Est GFR (Non-Af Amer) 13 (> 60) L 05/21/18 03:44 Glucose 158 mg/dL (70-105) H 05/21/18 03:44 POC Glucose 178 mg/dL (70-99) H 05/20/18 23:34 Calcium 7.8 mg/dL (8.6-10.3) L 05/21/18 03:44 Venous Ioniz Calcium 1.11 mmol/L (1.15-1.35) L 05/18/18 11:35 Magnesium 1.4 mg/dL (1.6-2.6) L 05/18/18 04:05 Total Bilirubin 1.2 mg/dL (0.3-1.0) H 05/19/18 17:39 Direct Bilirubin 0.7 mg/dL (0.0-0.2) H 05/19/18 17:39 Serum Total Protein 5.1 g/dL (6.4-8.9) L 05/19/18 17:39 Albumin 2.8 g/dL (3.5-5.7) L 05/19/18 17:39 Globulin 2.3 g/dL (2.4-3.5) L 05/19/18 17:39 TSH 5.674 mcIU/mL (0.340-5.600) H 05/17/18 17:09 Ur Specimen Adequacy See below A 05/17/18 14:31 Urine Clarity Cloudy (Clear) A 05/17/18 14:31 Urine Protein >=1000 mg/dL (Neg-Trace) H 05/17/18 14:31 Urine Glucose (UA) 250 mg/dL (Normal) H 05/17/18 14:31 Urine Blood Moderate (Negative) H 05/17/18 14:31 Ur Leukocyte Esterase Moderate (Negative) H 05/17/18 14:31 - Microbiology Findings Microbiology Findings: Microbiology, Last 48 Hours 05/17/18 14:31 Urine Culture - Preliminary Urine,Catheterized (Straight) Escherichia coli Proteus penneri Gram Positive Cocci - Clinical Findings Intake & Output: Intake & Output 05/21/18 05/21/18 05/21/18 07:59 15:59 23:59 Intake Total 100 / 100 20 / 20 Output Total 180 / 180 160 / 160 Balance -80 / -80 -140 / -140 Weight 124.5 kg - Attending Attestation I examined this patient and my medical decision-making was reviewed with the Resident Physician. I agree with the documented findings, disposition and treatment plan as described except to the extent set forth below. We independently had [id number] contact with the patient Patient seen and examined at bedside Labs, radiology, chart personally reviewed. Impression/Recs: Sepsis secondary to ECOLI bacteremia s/t Pyonephrosis is is status post bilateral nephrostomy tube placement he is on antibiotics for which we will de- escalate to Rocephin likely will need 10-14 days of coverage. Non Oliguric AK I being managed by nephrology Respiratory status is stable. Hemodynamicall stable he is appropriate for transfer to [facility] telemetry for ongoing care Recommend outpatient polysomnogram as high index of suspicion for obstructive sleep apnea
[2018-05-21] MEDS: Phenylephrine 50 MG in D5% in Water 250 ML IVC SCH (08:40)
[2018-05-21] MEDS: Insulin LISPRO 300 UNITS/3 ML VIAL SQ SCH ×4 (08:45→21:43)
[2018-05-21] MEDS: Pantoprazole 40 MG VIAL IVP SCH (08:45)
[2018-05-21] MEDS ORDERED: cefTRIAXone 2,000 MG in Water for inj. (sterile) 20 ML 20 ML IVP SCH (12:00)
[2018-05-21] MEDS ORDERED: 0.9 % Sodium Chloride 1,000 ML IVC ONE (13:06)
[2018-05-21] MEDS ORDERED: 0.9 % Sodium Chloride 1,000 ML ONE (13:11)
[2018-05-21] MEDS ORDERED: Ondansetron 4 MG/2 ML VIAL IVP PRN (15:24)
[2018-05-21] MEDS ORDERED: *HR* Dextrose 50 % in Water (Syg) 50 ML SYRINGE IVP PRN (15:24)
[2018-05-21] MEDS ORDERED: D5% in Water 1,000 ML IVC PRN (15:24)
[2018-05-21] MEDS ORDERED: Naloxone 0.4 MG/ML INJ IVP PRN (15:24)
[2018-05-21] MEDS ORDERED: Dextrose Gel 15 GM/37.5 ML TUBE PO PRN ×2 (15:24)
[2018-05-21] MEDS ORDERED: Dextrose 4 GM Chewable Tablets PO PRN ×2 (15:24)
[2018-05-21] MEDS: traMADol 50 MG TABLET PO PRN (18:18)
--- NOTE | 2018-05-21 22:53 | Nephrology Progress Note ---
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 Pt is to decide this soon In the meantime, no acute indication for zone manager at this time (2) Pyonephrosis Current Visit: Yes Status: Acute Continue abx per primary team, hopefully non nephrotoxic (3) Congestive heart failure Current Visit: Yes Status: Chronic history of but not active, will continue gentle hydration for now Qualifiers: Heart failure type: systolic Heart failure chronicity: acute on chronic Qualified Code(s): I50.23 - Acute on chronic systolic (congestive) heart failure (4) Sepsis Current Visit: Yes Status: Acute As above Qualifiers: Sepsis type: Escherichia coli Qualified Code(s): A41.51 - Sepsis due to Escherichia coli [E. coli] (5) Prostate cancer Current Visit: Yes Status: Chronic (6) Hypotension Current Visit: Yes Status: Acute Qualifiers: Hypotension type: unspecified hypotension type Qualified Code(s): I95.9 - Hypotension, unspecified Subjective Principal diagnosis: s/p nephro tubes in IR. Interval history: Interim noted s/p bilateral nephrotostomy tubes, pt seen and examined with family at bedside, feeling very lethargic. Poor po intake noted per nurse. UOP noted quite poor at 295cc in the past 24hrs. Objective - Vital Signs Vital signs: Vital Signs Temp Pulse Resp BP Pulse Ox 05/21/18 21:25 97.9 F 105 17 111/71 95 05/21/18 16:34 97.5 F L 81 16 96/66 97 05/21/18 14:00 107 16 100 05/21/18 12:28 96.9 F L 05/21/18 12:00 114 16 99/71 100 05/21/18 11:00 100 16 99/69 100 05/21/18 10:00 107 16 95/69 100 05/21/18 09:00 105 17 89/68 98 05/21/18 08:59 96.6 F L 05/21/18 08:00 101 20 105/77 97 05/21/18 07:00 109 22 121/93 99 05/21/18 06:00 98 20 114/85 96 05/21/18 05:00 105 21 113/89 98 05/21/18 04:00 96.6 F L 108 18 96/78 98 05/21/18 03:00 110 14 111/93 99 05/21/18 02:00 105 19 111/90 97 05/21/18 01:00 103 11 83/71 97 05/21/18 00:00 97.5 F L 108 14 95/82 95 05/20/18 23:00 106 20 84/59 97 Intake and Output 05/21/18 05/21/18 05/21/18 07:59 15:59 23:59 Intake Total 100 / 100 20 / 20 Output Total 180 / 180 160 / 160 Balance -80 / -80 -140 / -140 Intake: IV Fluids 100 / 100 Rocephin 2,000 MG In Water for inj. (sterile) 20 ML @ 600 mls/ hr IVP ONCE ONE Rx#:[id number] Zosyn 3.375 GM In 0.9 % Sodium 100 / 100 Chloride (Mini-Bag +) 100 ML @ 25 mls/hr IVPB Q12H JOSETTE Rx#: [id number] Oral 0 / 0 Output: Rectal Tube 50 / 50 Left Nephrostomy 70 / 70 110 / 110 Right Nephrostomy 60 / 60 50 / 50 Other: Weight 124.5 kg Blood Glucose* 178 181 136 Patient Weight 05/21/18 23:59 Weight 124.5 kg - General Appearance General appearance: Present: chronically ill, fatigue, frail EENT: Present: ATNC, mucous membranes dry Neck: Present: no JVD, supple Respiratory: Present: clear Cardiology: Present: no edema, normal S1, normal S2 Gastrointestinal: Present: no tenderness, no guarding, obese Integumentary: Present: warm and dry Neurologic: Present: confused, disoriented Musculoskeletal: Present: no deformities Psychiatric: Present: mood/affect appropriate - Lab 05/23/18 09:48 05/23/18 09:48 Most recent lab results ABG pH 7.32 pH Units (7.32-7.45) 05/18/18 11:15 ABG pCO2 33 mmHg (35-45) L 05/18/18 11:15 ABG pO2 84 mmHg (85-104) L 05/18/18 11:15 ABG HCO3 17 mEq/L (21-27) L 05/18/18 11:15 ABG O2 Saturation 96 % (95-98) 05/18/18 11:15 Calcium 7.8 mg/dL (8.6-10.3) L 05/21/18 03:44 Phosphorus 3.2 mg/dL (2.7-4.5) 05/18/18 04:05 Magnesium 1.4 mg/dL (1.6-2.6) L 05/18/18 04:05 Consult Discharge Plan - Plan Referrals: Elysia Sullivan CNP [Primary Care Provider] -
[2018-05-22] MEDS: traMADol 50 MG TABLET PO PRN (02:37)
[2018-05-22 03:02] LABS: Hematocrit 26.9 % (37.5-50.1); Hemoglobin 8.7 g/dL (12.9-16.9); Immature Platelets 7.7 % (1.1-6.1); Mean Corpuscular HGB Conc 32.3 g/dL (31.6-35.5); Mean Corpuscular Hemoglobin 28.6 pg (28.0-33.3); Mean Corpuscular Volume 88.5 fL (83.0-100.0); Mean Platelet Volume 11.6 fL (9.4-12.4); Red Blood Count 3.04 M/mcL (4.19-5.50); Red Cell Distribution Width 14.5 % (11.5-14.5)
[2018-05-22 03:13] LABS: INR 1.4; Prothrombin Time 15.3 Seconds (9.4-12.1)
[2018-05-22 03:16] LABS: Activated Partial Thrombo Time 29.7 Seconds (26.0-36.0)
[2018-05-22 03:21] LABS: Calcium 8.2 mg/dL (8.6-10.3); Potassium 4.1 mEq/L (3.5-5.1)
[2018-05-22] MEDS ORDERED: cefTRIAXone 2,000 MG in Water for inj. (sterile) 20 ML 20 ML IVP SCH (09:00)
[2018-05-22] MEDS ORDERED: Pantoprazole 40 MG VIAL IVP SCH (09:00)
[2018-05-22] MEDS: cefTRIAXone 2,000 MG in Water for inj. (sterile) 20 ML 20 ML IVP SCH (10:01)
[2018-05-22] MEDS: Insulin LISPRO 300 UNITS/3 ML VIAL SQ SCH ×4 (10:03→20:40)
--- NOTE | 2018-05-22 11:02 | Nephrology Progress Note ---
Date of Encounter: 05/22/18 Time of Encounter: 12:00 - Assessment and Plan (1) Acute kidney injury superimposed on chronic kidney disease Current Visit: Yes Status: Acute SCr continues to worse at 5.04, GFR 11 despite IVF started yesterday, will continue today UOP noted at 340cc in the past 24hrs, still oliguric despite neph. tubes Continue to aavoid nephrotoxins if posible No acute indication for DOUBLE BACK OPERATOR today but discussed at lenght goals of care (2) Pyonephrosis Current Visit: Yes Status: Acute Continue abx per primary team, hopefully non nephrotoxic (3) Congestive heart failure Current Visit: Yes Status: Chronic history of but not active, will continue gentle hydration for now Qualifiers: Heart failure type: systolic Heart failure chronicity: acute on chronic Qualified Code(s): I50.23 - Acute on chronic systolic (congestive) heart failure (4) Sepsis Current Visit: Yes Status: Acute continue abx per primary team Qualifiers: Sepsis type: Escherichia coli Qualified Code(s): A41.51 - Sepsis due to Escherichia coli [E. coli] (5) Prostate cancer Current Visit: Yes Status: Chronic (6) Hypotension Current Visit: Yes Status: Acute should improve with ivf Qualifiers: Hypotension type: unspecified hypotension type Qualified Code(s): I95.9 - Hypotension, unspecified Subjective Principal diagnosis: s/p nephro tubes in IR. Interval history: Interim noted s/p bilateral nephrotostomy tubes, pt seen and examined still lethargic with poor po intake. at bedside. Objective - Vital Signs Vital signs: Vital Signs Temp Pulse Resp BP Pulse Ox 05/22/18 07:40 98.5 F 109 18 104/66 94 05/22/18 04:31 97.4 F L 110 17 106/59 97 05/21/18 23:55 98.1 F 106 17 116/70 95 05/21/18 21:25 97.9 F 105 17 111/71 95 05/21/18 16:34 97.5 F L 81 16 96/66 97 05/21/18 14:00 107 16 100 05/21/18 12:28 96.9 F L 05/21/18 12:00 114 16 99/71 100 Intake and Output 05/21/18 05/22/18 05/22/18 23:59 07:59 15:59 Intake Total 30 / 30 Output Total 375 / 375 Balance -375 / -375 / Intake: Oral 30 / 30 Output: Left Nephrostomy 200 / 200 Right Nephrostomy 175 / 175 Other: Weight 125.5 kg Blood Glucose* 136 146 - General Appearance General appearance: Present: chronically ill, fatigue, frail EENT: Present: ATNC, mucous membranes dry Neck: Present: no JVD, supple Respiratory: Present: clear Cardiology: Present: no edema, normal S1, normal S2 Gastrointestinal: Present: no tenderness, no guarding, obese Integumentary: Present: warm and dry Neurologic: Present: confused, disoriented Musculoskeletal: Present: no deformities Psychiatric: Present: mood/affect appropriate, cooperative - Lab 05/23/18 09:48 05/23/18 09:48 Most recent lab results ABG pH 7.32 pH Units (7.32-7.45) 05/18/18 11:15 ABG pCO2 33 mmHg (35-45) L 05/18/18 11:15 ABG pO2 84 mmHg (85-104) L 05/18/18 11:15 ABG HCO3 17 mEq/L (21-27) L 05/18/18 11:15 ABG O2 Saturation 96 % (95-98) 05/18/18 11:15 Calcium 8.2 mg/dL (8.6-10.3) L 05/22/18 02:48 Phosphorus 3.2 mg/dL (2.7-4.5) 05/18/18 04:05 Magnesium 1.4 mg/dL (1.6-2.6) L 05/18/18 04:05 Consult Discharge Plan - Plan Referrals: Elysia Sullivan CNP [Primary Care Provider] -
--- NOTE | 2018-05-22 11:06 | Internal Med Progress Note ---
<Shaw Duong - Last Filed: 05/22/18 11:03> Hospitalist Progress Note - Encounter Date of Encounter: 05/22/18 Time of Encounter: 11:06 - Subjective Interval History: Patient is transferred to ICU after having hypotension secondary to pyonephrosis requiring pressors. He was initially started on Zosyn which she received for 5 days and switched to Rocephin. This morning patient is lying in bed. He has some confusion but can hold a conversation. Patient's is in the room. He reports low back pain but otherwise has no complaints. - Exam Vitals: Temp Pulse Resp BP Pulse Ox 98.5 F 109 18 104/66 94 05/22/18 07:40 05/22/18 07:40 05/22/18 07:40 05/22/18 07:40 05/22/18 07:40 Exam: General: pleasant, without distress Cardiovascualr: Regular rate and rhythm with no murmur, absent gallops or rubs, absent pedal edema, radial pulses 2 out of 4 Lungs: Clear to auscultation anteriorly not in respiratory distress Abdomen: Soft nontender, nondistended positive bowel sounds, absent hepatomegaly Skin: gluteal cleft maceration MSK: absent clubbing, cyanosis, joints without swelling : Nephrostomy tubes draining clear yellow urine bilaterally. Neuro: alert to self, place, situation. Psych: good insight and judgment - Assessment and Plan (1) Severe sepsis Current Visit: Yes Status: Resolved Assessment and Plan: Leukocytosis, tachycardia, tachypnea Etiology: Escherichia coli bacteremia, pyelonephrosis secondary to Escherichia coli, Proteus, gram-positive cocci(Strep species) Leukocytosis improving, patient is still tachycardiC Tachypnea resolved (2) Pyonephrosis Current Visit: Yes Status: Acute Assessment and Plan: Patient has a history of prostate cancer and is status post radiation therapy. 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 Therefore he had bilateral nephrostomy tube placed which revealed pyonephrosis. CT abdomen pelvis showed interval placement of bilateral nephrostomy tubes. Currently being treated with ceftriaxone but awaiting final culture sensit ivities. (3) A-fib Current Visit: Yes Status: Chronic Assessment and Plan: Patient's heart rate is stable Patient's sotalol was switched to 40 mg daily as his renal function continues to worsen Furthermore he is not on anticoagulation as he may need temporary dialysis as well as secondary to thrombuscytopenia. (4) Lpqgx-sh-qdywvzt kidney injury Current Visit: Yes Status: Acute Assessment and Plan: Patient's serum creatinine continues to worsen Retroperitoneal ultrasound showed right nephrostomy tube, tiny amount of right perinephric fluid, no hydronephrosis Today some crannies 5.04 Unclear if recent I's and O's are accurate report a total of 340 output from yesterday. Nephrology discussing with patient about temporary dialysis. (5) Congestive heart failure Current Visit: Yes Status: Chronic Assessment and Plan: Patient has history of systolic congestive heart failure We will continue fluid restriction diet. He is not in acute exacerbation. (6) Thrombocytopenia Current Visit: Yes Status: Acute Assessment and Plan: Issues thrombocytopenia is stable at 85. We will holding heparin subcutaneous. Continue EPCD's. DVT Prophylaxis: EPCD - Time Spent with Patient Total time spent is greater than 50% in coordination of care (as documented) at patient's floor/unit and/or counseling patient: Internal Medicine: Result - Labs CBC & Chem 7: 05/22/18 02:48 05/22/18 02:48 Labs: Short CBC 05/22/18 Range/Units 02:48 WBC 12.6 H (4.3-11.1) K/mcL Hgb 8.7 L (12.9-16.9) g/dL Hct 26.9 L (37.5-50.1) % Plt Count 85 L (140-400) K/mcL BMP 05/22/18 02:48 Sodium 138 Potassium 4.1 Chloride 103 Carbon Dioxide 21 L BUN 63 H Creatinine 5.04 H Glucose 135 H Calcium 8.2 L - ABG Interpretation ABG results: ABG ABG pH 7.32 pH Units (7.32-7.45) 05/18/18 11:15 ABG pCO2 33 mmHg (35-45) L 05/18/18 11:15 ABG pO2 84 mmHg (85-104) L 05/18/18 11:15 ABG O2 Saturation 96 % (95-98) 05/18/18 11:15 PT/INR, D-dimer PT 15.3 Seconds (9.4-12.1) H 05/22/18 02:48 Consult Discharge Plan - Plan Referrals: Nate,Elysia Kaufman LABORATORY DEVELOPMENT TECHNICIAN [Primary Care Provider] - <Ke Blum - Last Filed: 05/22/18 14:25> Hospitalist Progress Note - Encounter Date of Encounter: 05/22/18 - Exam Vitals: Temp Pulse Resp BP Pulse Ox 97.5 F L 111 16 106/70 95 05/22/18 11:44 05/22/18 11:44 05/22/18 11:44 05/22/18 11:44 05/22/18 11:44 - Assessment and Plan (1) Nausea & vomiting Current Visit: No Status: Acute (2) UTI (urinary tract infection) Current Visit: No Status: Acute (3) Diabetes mellitus Current Visit: No Status: Chronic (4) Chronic kidney disease, stage 3 Current Visit: No Status: Chronic (5) Hydronephrosis Current Visit: No Status: Acute (6) DVT prophylaxis Current Visit: Yes Status: Acute (7) Atrial fibrillation Current Visit: No Status: Chronic (8) Prostate cancer Current Visit: Yes Status: Chronic (9) Pyonephrosis Current Visit: Yes Status: Acute (10) Hypotension Current Visit: Yes Status: Acute - Time Spent with Patient Total time spent is greater than 50% in coordination of care (as documented) at patient's floor/unit and/or counseling patient: Internal Medicine: Result - Labs CBC & Chem 7: 05/22/18 02:48 05/22/18 02:48 Labs: Short CBC 05/22/18 Range/Units 02:48 WBC 12.6 H (4.3-11.1) K/mcL Hgb 8.7 L (12.9-16.9) g/dL Hct 26.9 L (37.5-50.1) % Plt Count 85 L (140-400) K/mcL BMP 05/22/18 02:48 Sodium 138 Potassium 4.1 Chloride 103 Carbon Dioxide 21 L BUN 63 H Creatinine 5.04 H Glucose 135 H Calcium 8.2 L - ABG Interpretation ABG results: ABG ABG pH 7.32 pH Units (7.32-7.45) 05/18/18 11:15 ABG pCO2 33 mmHg (35-45) L 05/18/18 11:15 ABG pO2 84 mmHg (85-104) L 05/18/18 11:15 ABG O2 Saturation 96 % (95-98) 05/18/18 11:15 PT/INR, D-dimer PT 15.3 Seconds (9.4-12.1) H 05/22/18 02:48 - Attending Attestation I have seen and independently assessed this patient and I agree with plan as documented Plan Septic Shock secondary to pyonephrosis requiring pressor. PAtient has been wean ed off pressors and transferred out of the ICU. Switched from zosyn to ceftriaxone. Continue antibiotics to complete 14 day course Pyonephrosis. S/p bilateral nephrostomy tubes placement. Urology following EDIS on CKD stage 5. continue IV fluids. Renal following and dialysis may be indicated based on urine output Afib. Continue sotalol Chronic systolic CHF. Stable. No acute exacerbation <Shaw Duong - Last Filed: 05/22/18 11:03> (3) A-fib Qualifiers: Atrial fibrillation type: chronic Qualified Code(s): I48.2 - Chronic atrial fibrillation (4) Pmfuy-xg-qehwqyu kidney injury Qualifiers: Acute renal failure type: unspecified Chronic kidney disease stage: stage 4 (severe) Qualified Code(s): N17.9 - Acute kidney failure, unspecified; N18.4 - Chronic kidney disease, stage 4 (severe) (5) Congestive heart failure Qualifiers: Heart failure type: systolic Heart failure chronicity: acute on chronic Qualified Code(s): I50.23 - Acute on chronic systolic (congestive) heart failure <Ke Blum - Last Filed: 05/22/18 14:25> (1) Nausea & vomiting Qualifiers: Vomiting type: unspecified Vomiting Intractability: intractable Qualified Code(s): R11.2 - Nausea with vomiting, unspecified (2) UTI (urinary tract infection) Qualifiers: Urinary tract infection type: site unspecified Hematuria presence: with hematuria Qualified Code(s): N39.0 - Urinary tract infection, site not specified; R31.9 - Hematuria, unspecified (3) Diabetes mellitus Qualifiers: Diabetes mellitus type: type 2 Diabetes mellitus supervisor long goods insulin use: without supervisor long goods use Diabetes mellitus complication status: without complication Qualified Code(s): E11.9 - Type 2 diabetes mellitus without complications (5) Hydronephrosis Qualifiers: Hydronephrosis type: other Qualified Code(s): N13.39 - Other hydronephrosis (7) Atrial fibrillation Qualifiers: Atrial fibrillation type: unspecified Qualified Code(s): I48.91 - Unspecified atrial fibrillation (10) Hypotension Qualifiers: Hypotension type: unspecified hypotension type Qualified Code(s): I95.9 - Hypotension, unspecified
[2018-05-22] MEDS: Latanoprost 2.5 ML BOTTLE BOTH EYES SCH (20:20)
[2018-05-22] MEDS: 0.9 % Sodium Chloride 1,000 ML IVC SCH (23:54)
[2018-05-23] MEDS: traMADol 50 MG TABLET PO PRN (05:07)
--- NOTE | 2018-05-23 07:44 | Internal Med Progress Note ---
<Shaw Duong - Last Filed: 05/23/18 11:46> Hospitalist Progress Note - Encounter Date of Encounter: 05/23/18 Time of Encounter: 09:00 - Subjective Interval History: No acute events overnight. Patient is confused this morning as he did not remember me from yesterday or remember his meeting with nephrology. Otherwise h sabina has no complaints. He is alert to self, place, situation. - Exam Vitals: Temp Pulse Resp BP Pulse Ox 97.7 F 115 17 122/79 97 05/23/18 04:10 05/23/18 04:10 05/23/18 04:10 05/23/18 04:10 05/23/18 04:10 Exam: General: pleasant, without distress Cardiovascualr: Regular rate and rhythm with no murmur, absent gallops or rubs, absent pedal edema, radial pulses 2 out of 4 Lungs: Clear to auscultation anteriorly not in respiratory distress Abdomen: Soft nontender, nondistended positive bowel sounds, absent hepatomegaly Skin: gluteal cleft maceration MSK: absent clubbing, cyanosis, joints without swelling : Nephrostomy tubes draining clear yellow urine bilaterally. Neuro: alert to self, place, situation. Psych: good insight and judgment - Assessment and Plan (1) Septic shock Current Visit: Yes Status: Resolved Assessment and Plan: Leukocytosis, tachycardia, tachypnea Etiology: Escherichia coli bacteremia, pyelonephrosis secondary to Escherichia coli, Proteus, gram-positive cocci(Strep species) patient is still tachycardiC Tachypnea and leukocytosis resolved (2) Pyonephrosis Current Visit: Yes Status: Acute Assessment and Plan: Patient has a history of prostate cancer and is status post radiation therapy. 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 Therefore he had bilateral nephrostomy tube placed which revealed pyonephrosis. CT abdomen pelvis showed interval placement of bilateral nephrostomy tubes. Currently being treated with ceftriaxone but awaiting final culture sensitivities. Patient will be on a total 10 day course of antibiotics (3) A-fib Current Visit: Yes Status: Chronic Assessment and Plan: Patient's heart rate is stable Continue sotalol Furthermore he is not on anticoagulation as he may need temporary dialysis as well as secondary to thrombuscytopenia. (4) Rgvgf-sh-pwgvpdj kidney injury Current Visit: Yes Status: Acute Assessment and Plan: Patient's serum creatinine continues to worsen Retroperitoneal ultrasound showed right nephrostomy tube, tiny amount of right perinephric fluid, no hydronephrosis Serum creatinine is 5.58 Patient will undergo temporary dialysis. (5) Congestive heart failure Current Visit: Yes Status: Chronic Assessment and Plan: Patient has history of systolic congestive heart failure We will continue fluid restriction diet. He is not in acute exacerbation. (6) Thrombocytopenia Current Visit: Yes Status: Acute Assessment and Plan: Improving. Platelet count is 119 heparin Stopped. DVT Prophylaxis: EPCD - Time Spent with Patient Total time spent is greater than 50% in coordination of care (as documented) at patient's floor/unit and/or counseling patient: Internal Medicine: Result - Labs CBC & Chem 7: 05/23/18 09:48 05/23/18 09:48 - ABG Interpretation ABG results: ABG ABG pH 7.32 pH Units (7.32-7.45) 05/18/18 11:15 ABG pCO2 33 mmHg (35-45) L 05/18/18 11:15 ABG pO2 84 mmHg (85-104) L 05/18/18 11:15 ABG O2 Saturation 96 % (95-98) 05/18/18 11:15 PT/INR, D-dimer PT 15.3 Seconds (9.4-12.1) H 05/22/18 02:48 Consult Discharge Plan - Plan Referrals: Elysia Sullivan CNP [Primary Care Provider] - <Ke Blum - Last Filed: 05/23/18 13:45> Hospitalist Progress Note - Encounter Date of Encounter: 05/23/18 - Exam Vitals: Temp Pulse Resp BP Pulse Ox 97.8 F 113 18 121/75 98 05/23/18 08:17 05/23/18 08:17 05/23/18 08:17 05/23/18 08:17 05/23/18 08:17 - Assessment and Plan (1) Nausea & vomiting Current Visit: No Status: Acute (2) UTI (urinary tract infection) Current Visit: No Status: Acute (3) Diabetes mellitus Current Visit: No Status: Chronic (4) Chronic kidney disease, stage 3 Current Visit: No Status: Chronic (5) Hydronephrosis Current Visit: No Status: Acute (6) DVT prophylaxis Current Visit: Yes Status: Acute (7) Atrial fibrillation Current Visit: No Status: Chronic (8) Prostate cancer Current Visit: Yes Status: Chronic (9) Pyonephrosis Current Visit: Yes Status: Acute (10) Hypotension Current Visit: Yes Status: Acute - Time Spent with Patient Total time spent is greater than 50% in coordination of care (as documented) at patient's floor/unit and/or counseling patient: Internal Medicine: Result - Labs CBC & Chem 7: 05/23/18 09:48 05/23/18 09:48 Labs: Short CBC 05/23/18 Range/Units 09:48 WBC 10.5 (4.3-11.1) K/mcL Hgb 10.1 L (12.9-16.9) g/dL Hct 31.7 L (37.5-50.1) % Plt Count 119 L (140-400) K/mcL BMP 05/23/18 09:48 Sodium 138 Potassium 4.2 Chloride 105 Carbon Dioxide 16 L BUN 74 H Creatinine 5.58 H Glucose 172 H Calcium 8.5 L - ABG Interpretation ABG results: ABG ABG pH 7.32 pH Units (7.32-7.45) 05/18/18 11:15 ABG pCO2 33 mmHg (35-45) L 05/18/18 11:15 ABG pO2 84 mmHg (85-104) L 05/18/18 11:15 ABG O2 Saturation 96 % (95-98) 05/18/18 11:15 PT/INR, D-dimer PT 16.6 Seconds (9.4-12.1) H 05/23/18 09:48 - Attending Attestation I have seen and independently assessed this patient and I agree with plan as documented Plan Septic Shock secondary to pyonephrosis requiring pressor. PAtient has been weaned off pressors and transferred out of the ICU. Switched from zosyn to ceftriaxone. Continue antibiotics to complete 14 day course Pyonephrosis. S/p bilateral nephrostomy tubes placement. Urology following EDIS on CKD stage 5. continue IV fluids. Renal following and dialysis may be indicated in am based on urine output. Afib. Continue sotalol Chronic systolic CHF. Stable. No acute exacerbation <Shaw Duong - Last Filed: 05/23/18 11:46> (3) A-fib Qualifiers: Atrial fibrillation type: chronic Qualified Code(s): I48.2 - Chronic atrial fibrillation (4) Xtzgh-zb-ixtwtgd kidney injury Qualifiers: Acute renal failure type: unspecified Chronic kidney disease stage: stage 4 (severe) Qualified Code(s): N17.9 - Acute kidney failure, unspecified; N18.4 - Chronic kidney disease, stage 4 (severe) (5) Congestive heart failure Qualifiers: Heart failure type: systolic Heart failure chronicity: acute on chronic Qualified Code(s): I50.23 - Acute on chronic systolic (congestive) heart failure <Ke Blum - Last Filed: 05/23/18 13:45> (1) Nausea & vomiting Qualifiers: Vomiting type: unspecified Vomiting Intractability: intractable Qualified Code(s): R11.2 - Nausea with vomiting, unspecified (2) UTI (urinary tract infection) Qualifiers: Urinary tract infection type: site unspecified Hematuria presence: with hematuria Qualified Code(s): N39.0 - Urinary tract infection, site not specified; R31.9 - Hematuria, unspecified (3) Diabetes mellitus Qualifiers: Diabetes mellitus type: type 2 Diabetes mellitus termite control service representative insulin use: without custodial use Diabetes mellitus complication status: without complication Qualified Code(s): E11.9 - Type 2 diabetes mellitus without complications (5) Hydronephrosis Qualifiers: Hydronephrosis type: other Qualified Code(s): N13.39 - Other hydronephrosis (7) Atrial fibrillation Qualifiers: Atrial fibrillation type: unspecified Qualified Code(s): I48.91 - Unspecified atrial fibrillation (10) Hypotension Qualifiers: Hypotension type: unspecified hypotension type Qualified Code(s): I95.9 - Hypotension, unspecified
[2018-05-23] MEDS: Insulin LISPRO 300 UNITS/3 ML VIAL SQ SCH ×4 (09:26→19:58)
[2018-05-23] MEDS: cefTRIAXone 2,000 MG in Water for inj. (sterile) 20 ML 20 ML IVP SCH (09:26)
[2018-05-23 10:12] LABS: Hematocrit 31.7 % (37.5-50.1); Hemoglobin 10.1 g/dL (12.9-16.9); Mean Corpuscular HGB Conc 31.9 g/dL (31.6-35.5); Mean Corpuscular Hemoglobin 28.7 pg (28.0-33.3); Mean Corpuscular Volume 90.1 fL (83.0-100.0); Platelet Count 119 K/mcL (140-400); Red Blood Count 3.52 M/mcL (4.19-5.50); Red Cell Distribution Width 14.6 % (11.5-14.5)
[2018-05-23 10:20] LABS: INR 1.5; Prothrombin Time 16.6 Seconds (9.4-12.1)
[2018-05-23 10:22] LABS: Activated Partial Thrombo Time 33.9 Seconds (26.0-36.0)
[2018-05-23 10:28] LABS: Calcium 8.5 mg/dL (8.6-10.3); Potassium 4.2 mEq/L (3.5-5.1)
[2018-05-23] MEDS: 0.9 % Sodium Chloride 1,000 ML IVC SCH (15:47)
--- NOTE | 2018-05-23 21:02 | Event Note ---
Date of Encounter: 05/23/18 Time of Encounter: 20:37 Alerted by patient's nurse LARRY Zaragoza that patient was refusing treatment and wished to discuss patient with me. Nurse stated patient has excoriation on his buttocks with some bleeding. Wound care on board. Patient states he does not want to be turned or treated at this time. Went to see patient who is resting in bed. Patient is due to be dialyzed tomorrow. Patient appeared confused with some speech slurring. No pain medications have been administered to this patient. Discussed skin breakdown with patient he stated he did not want to be touched, turn, or treated. He stated he would see Dr. Sandoval in the morning. I explained the skin breakdown would get worse and causing possible source of infection the patient stated he did not wish to be treated at this time. Instructed nurse to get a stat ammonia level based on patient's current symptoms. Nurse instructed to monitor patient closely and will alert me immediately of any adverse changes. Ammonia level returned at 29. Will continue to monitor pt. and mentation status.
[2018-05-23] MEDS: Latanoprost 2.5 ML BOTTLE BOTH EYES SCH (22:45)
--- NOTE | 2018-05-23 23:25 | Nephrology Progress Note ---
Date of Encounter: 05/23/18 Time of Encounter: 12:00 - Assessment and Plan (1) Acute kidney injury superimposed on chronic kidney disease Current Visit: Yes Status: Acute SCr continues to worse at 5.58, GFR 10 despite IVF, will continue today and plan for HD tomorrow UOP noted at 675cc in the past 24hrs, improved Continue to aavoid nephrotoxins if posible Will plan for npo after midnight and have ir place temp line for hd (2) Sepsis Current Visit: Yes Status: Acute continue abx per primary team Qualifiers: Sepsis type: Escherichia coli Qualified Code(s): A41.51 - Sepsis due to Escherichia coli [E. coli] (3) Pyonephrosis Current Visit: Yes Status: Acute Continue abx per primary team, hopefully non nephrotoxic (4) Congestive heart failure Current Visit: Yes Status: Chronic history of but not active, will continue gentle hydration for now Qualifiers: Heart failure type: systolic Heart failure chronicity: acute on chronic Qualified Code(s): I50.23 - Acute on chronic systolic (congestive) heart failure (5) Prostate cancer Current Visit: Yes Status: Chronic (6) Hypotension Current Visit: Yes Status: Acute improving with fluids Qualifiers: Hypotension type: unspecified hypotension type Qualified Code(s): I95.9 - Hypotension, unspecified Subjective Principal diagnosis: s/p nephro tubes in IR. Interval history: Interim noted s/p bilateral nephrotostomy tubes, pt seen and examined still confused. at bedside who reports pt still not eating much Objective - Vital Signs Vital signs: Vital Signs Temp Pulse Resp BP Pulse Ox 05/23/18 19:50 97.8 F 108 18 103/62 97 05/23/18 16:45 97.7 F 116 18 113/67 98 05/23/18 08:17 97.8 F 113 18 121/75 98 05/23/18 04:10 97.7 F 115 17 122/79 97 05/23/18 00:21 97.9 F 111 18 122/76 97 Intake and Output 05/23/18 05/23/18 05/23/18 07:59 15:59 23:59 Intake Total 1270 / 1270 Output Total 440 / 440 200 / 200 Balance -440 / -440 1070 / 1070 Intake: IV Fluids 1000 / 1000 0.9 % Sodium Chloride 1,000 ML 1000 / 1000 @ 60 mls/hr IVC .[id number] [facility] Rx #:[id number] Oral 270 / 270 Output: Left Nephrostomy 240 / 240 100 / 100 Right Nephrostomy 200 / 200 100 / 100 Other: Meal Lunch Percent of Meal Consumed 65% Stool Size Small Stool Consistency loose # Bowel Movement Diapers 1 Weight 126.4 kg Blood Glucose* 162 181 Patient Weight 05/23/18 23:59 Weight 126.4 kg - General Appearance General appearance: Present: chronically ill, fatigue EENT: Present: ATNC, mucous membranes dry Neck: Present: no JVD, supple Additional Comments: decreased bs bases bilat Cardiology: Present: no edema, normal S1, normal S2 Gastrointestinal: Present: no tenderness, no guarding, obese Integumentary: Present: warm and dry Neurologic: Present: confused, disoriented Musculoskeletal: Present: no deformities Psychiatric: Present: mood/affect appropriate - Lab 05/23/18 09:48 05/23/18 09:48 Most recent lab results ABG pH 7.32 pH Units (7.32-7.45) 05/18/18 11:15 ABG pCO2 33 mmHg (35-45) L 05/18/18 11:15 ABG pO2 84 mmHg (85-104) L 05/18/18 11:15 ABG HCO3 17 mEq/L (21-27) L 05/18/18 11:15 ABG O2 Saturation 96 % (95-98) 05/18/18 11:15 Calcium 8.5 mg/dL (8.6-10.3) L 05/23/18 09:48 Phosphorus 3.2 mg/dL (2.7-4.5) 05/18/18 04:05 Magnesium 1.4 mg/dL (1.6-2.6) L 05/18/18 04:05 Consult Discharge Plan - Plan Referrals: Elysia Sullivan CNP [Primary Care Provider] -
[2018-05-24 03:21] LABS: Hematocrit 29.5 % (37.5-50.1); Hemoglobin 9.5 g/dL (12.9-16.9); Mean Corpuscular HGB Conc 32.2 g/dL (31.6-35.5); Mean Corpuscular Hemoglobin 28.5 pg (28.0-33.3); Mean Corpuscular Volume 88.6 fL (83.0-100.0); Mean Platelet Volume 11.6 fL (9.4-12.4); Platelet Count 152 K/mcL (140-400); Red Blood Count 3.33 M/mcL (4.19-5.50); Red Cell Distribution Width 14.6 % (11.5-14.5)
[2018-05-24 03:28] LABS: INR 1.6; Prothrombin Time 17.9 Seconds (9.4-12.1)
[2018-05-24 03:31] LABS: Activated Partial Thrombo Time 34.8 Seconds (26.0-36.0)
[2018-05-24 03:41] LABS: Calcium 8.6 mg/dL (8.6-10.3); Potassium 4.5 mEq/L (3.5-5.1)
--- NOTE | 2018-05-24 07:26 | Internal Med Progress Note ---
<Shaw Duong - Last Filed: 05/24/18 11:28> Hospitalist Progress Note - Encounter Date of Encounter: 05/24/18 Time of Encounter: 09:00 - Subjective Interval History: This morning patient was seen after having temporary dialysis placed in the right IJ. He denies any neck pain, neck swelling. He denies headache, chest pa in, shortness of breath, abdominal pain, lower extremity edema. Patient's is at bedside and reports he is still confused. He will undergo of first dialysis treatment today. - Exam Vitals: Temp Pulse Resp BP Pulse Ox 97.6 F 106 17 133/81 99 05/24/18 03:29 05/24/18 03:29 05/24/18 03:29 05/24/18 03:29 05/24/18 03:29 Exam: General: pleasant, without distress Cardiovascualr: Regular rate and rhythm with no murmur, absent gallops or rubs, absent pedal edema, radial pulses 2 out of 4 Neck: Right temporary dialysis catheter without bleeding Lungs: Clear to auscultation anteriorly not in respiratory distress Abdomen: Soft nontender, nondistended positive bowel sounds, absent hepatomegaly Skin: gluteal cleft maceration MSK: absent clubbing, cyanosis, joints without swelling : Nephrostomy tubes draining clear yellow urine bilaterally. Neuro: alert to self, place, situation. Psych: good insight and judgment - Assessment and Plan (1) Ivltm-vx-[id number] kidney injury Current Visit: Yes Status: Acute Assessment and Plan: Patient will undergo dialysis today. Renal diet Appreciate nephrology recommendations. (2) Septic shock Current Visit: Yes Status: Resolved Assessment and Plan: Leukocytosis, tachycardia, tachypnea Etiology: Escherichia coli bacteremia, pyelonephrosis secondary to Escherichia coli, Proteus, gram-positive cocci(Strep species) patient is still tachycardiC Tachypnea and leukocytosis resolved (3) Pyonephrosis Current Visit: Yes Status: Acute Assessment and Plan: Patient has a history of prostate cancer and is status post radiation therapy. 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 Therefore he had bilateral nephrostomy tube placed which revealed pyonephrosis. CT abdomen pelvis showed interval placement of bilateral nephrostomy tubes. Currently being treated with ceftriaxone. Patient will be on a total 10 day course of antibiotics (4) A-fib Current Visit: Yes Status: Chronic Assessment and Plan: Controlled continue sotalol. (5) Congestive heart failure Current Visit: Yes Status: Chronic Assessment and Plan: Controlled Continue fluid restriction Not an exacerbation. (6) Thrombocytopenia Current Visit: Yes Status: Resolved Assessment and Plan: Improving Patient's blood counts are 152. DVT Prophylaxis: EPCD - Time Spent with Patient Total time spent is greater than 50% in coordination of care (as documented) at patient's floor/unit and/or counseling patient: Internal Medicine: Result - Labs CBC & Chem 7: 05/24/18 02:56 05/24/18 02:56 Labs: Short CBC 05/23/18 05/24/18 Range/Units 09:48 02:56 WBC 10.5 11.3 H (4.3-11.1) K/mcL Hgb 10.1 L 9.5 L (12.9-16.9) g/dL Hct 31.7 L 29.5 L (37.5-50.1) % Plt Count 119 L 152 (140-400) K/mcL BMP 05/23/18 05/24/18 09:48 02:56 Sodium 138 139 Potassium 4.2 4.5 Chloride 105 106 Carbon Dioxide 16 L 20 L BUN 74 H 77 H Creatinine 5.58 H 5.66 H Glucose 172 H 196 H Calcium 8.5 L 8.6 - ABG Interpretation ABG results: ABG ABG pH 7.32 pH Units (7.32-7.45) 05/18/18 11:15 ABG pCO2 33 mmHg (35-45) L 05/18/18 11:15 ABG pO2 84 mmHg (85-104) L 05/18/18 11:15 ABG O2 Saturation 96 % (95-98) 05/18/18 11:15 PT/INR, D-dimer PT 17.9 Seconds (9.4-12.1) H 05/24/18 02:56 Consult Discharge Plan - Plan Referrals: Elysia Sullivan MEDICAL EDUCATOR [Primary Care Provider] - <Ke Blum - Last Filed: 05/24/18 11:38> Hospitalist Progress Note - Encounter Date of Encounter: 05/24/18 - Exam Vitals: Temp Pulse Resp BP Pulse Ox 99.5 F 103 17 102/70 95 05/24/18 11:13 05/24/18 11:13 05/24/18 11:13 05/24/18 11:13 05/24/18 11:13 - Assessment and Plan (1) Nausea & vomiting Current Visit: No Status: Acute (2) UTI (urinary tract infection) Current Visit: No Status: Acute (3) Diabetes mellitus Current Visit: No Status: Chronic (4) Chronic kidney disease, stage 3 Current Visit: No Status: Chronic (5) Hydronephrosis Current Visit: No Status: Acute (6) DVT prophylaxis Current Visit: Yes Status: Acute (7) Atrial fibrillation Current Visit: No Status: Chronic (8) Prostate cancer Current Visit: Yes Status: Chronic (9) Pyonephrosis Current Visit: Yes Status: Acute (10) Hypotension Current Visit: Yes Status: Acute - Time Spent with Patient Total time spent is greater than 50% in coordination of care (as documented) at patient's floor/unit and/or counseling patient: Internal Medicine: Result - Labs CBC & Chem 7: 05/24/18 02:56 05/24/18 02:56 Labs: Short CBC 05/24/18 Range/Units 02:56 WBC 11.3 H (4.3-11.1) K/mcL Hgb 9.5 L (12.9-16.9) g/dL Hct 29.5 L (37.5-50.1) % Plt Count 152 (140-400) K/mcL BMP 05/24/18 02:56 Sodium 139 Potassium 4.5 Chloride 106 Carbon Dioxide 20 L BUN 77 H Creatinine 5.66 H Glucose 196 H Calcium 8.6 - ABG Interpretation ABG results: ABG ABG pH 7.32 pH Units (7.32-7.45) 05/18/18 11:15 ABG pCO2 33 mmHg (35-45) L 05/18/18 11:15 ABG pO2 84 mmHg (85-104) L 05/18/18 11:15 ABG O2 Saturation 96 % (95-98) 05/18/18 11:15 PT/INR, D-dimer PT 17.9 Seconds (9.4-12.1) H 05/24/18 02:56 - Impressions Impressions Guidance Ultrasound 05/24/18 00:00 IMPRESSION: Successful ultrasound and fluoroscopy guided non-tunneled dialysis catheter placement. D/ / Terry Adan MD / Terry Adan MD Interpreting Provider: Terry Adan MD Insertion Non-Tunneled Catheter 05/24/18 00:00 IMPRESSION: Successful ultrasound and fluoroscopy guided non-tunneled dialysis catheter placement. D/ / Terry Adan MD / Terry Adan MD Interpreting Provider: Terry Adna MD - Attending Attestation I have seen and independently assessed this patient and I agree with plan as documented Plan Septic Shock secondary to pyonephrosis requiring pressor. Patient has been weaned off pressors and transferred out of the ICU. Switched from zosyn to ceftriaxone. Continue antibiotics to complete 14 day course Pyonephrosis. S/p bilateral nephrostomy tubes placement. Urology following EDIS on CKD stage 5. continue IV fluids. Renal following and dialysis and will start dialysis this am. Temp line placed Afib. Continue sotalol Chronic systolic CHF. Stable. No acute exacerbation _ <Shaw Duong - Last Filed: 05/24/18 11:28> (1) [id number] kidney injury Qualifiers: Acute renal failure type: unspecified Chronic kidney disease stage: stage 4 (severe) Qualified Code(s): N17.9 - Acute kidney failure, unspecified; N18.4 - Chronic kidney disease, stage 4 (severe) (4) A-fib Qualifiers: Atrial fibrillation type: chronic Qualified Code(s): I48.2 - Chronic atrial fibrillation (5) Congestive heart failure Qualifiers: Heart failure type: systolic Heart failure chronicity: acute on chronic Qualified Code(s): I50.23 - Acute on chronic systolic (congestive) heart failure <Ke Blum - Last Filed: 05/24/18 11:38> (1) Nausea & vomiting Qualifiers: Vomiting type: unspecified Vomiting Intractability: intractable Qualified Code(s): R11.2 - Nausea with vomiting, unspecified (2) UTI (urinary tract infection) Qualifiers: Urinary tract infection type: site unspecified Hematuria presence: with divine turia Qualified Code(s): N39.0 - Urinary tract infection, site not specified; R31.9 - Hematuria, unspecified (3) Diabetes mellitus Qualifiers: Diabetes mellitus type: type 2 Diabetes mellitus 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
[2018-05-24] MEDS: Insulin LISPRO 300 UNITS/3 ML VIAL SQ SCH ×4 (08:35→21:24)
[2018-05-24] MEDS ORDERED: *HR* Heparin 5,000 UNIT/ML VIAL ONE (09:20)
--- NOTE | 2018-05-24 09:32 | IR Procedure Note ---
Date of procedure: 05/24/18 Consent Obtained: Verbal consent, Written consent Timeout: Correct patient and procedure verified, Correct site verified, Time out performed, Skin prep completed Local anesthetic: Lidocaine 1% Indications: renal failure Procedure Performed: temp HDC insertion Was there an blood and plasma laboratory assistant present: No Site/Technique: CHUY Estimated blood loss (cc): 1 Complications: None; Tolerated procedure well Post Procedure Treatment Plan: catheter okay to use Specimen: none
[2018-05-24 09:45] LABS: Hepatitis B Surface Antibody < 3.10 mIU/mL
[2018-05-24 09:56] LABS: Hepatitis B Surface Antigen Nonreactive (Nonreactive)
[2018-05-24] MEDS: cefTRIAXone 2,000 MG in Water for inj. (sterile) 20 ML 20 ML IVP SCH (10:04)
[2018-05-24] MEDS: 0.9 % Sodium Chloride 1,000 ML IVC SCH (10:04)
--- NOTE | 2018-05-24 14:51 | Urology Progress Note ---
<GloriageronimoRivka N - Last Filed: 05/24/18 14:49> Date of Encounter: 05/24/18 Time of Encounter: 14:20 - Assessment and Plan (1) Sepsis Current Visit: Yes Status: Acute Qualifiers: Sepsis type: Escherichia coli Qualified Code(s): A41.51 - Sepsis due to Escherichia coli [E. coli] (2) Pyonephrosis Current Visit: Yes Status: Acute Assessment and plan: Patient is a 78-year old male who presents with a history of pyonephrosis. Urine culture from kidney was positive for E. Coli, Proteus, and Streptococcus. Repeat blood cultures are negative. Patient is receiving IV Rocephin, and urine appears transparent clear without purulence, sediment or clots. Urology will sign off but is always available as needed. (3) Prostate cancer Current Visit: Yes Status: Chronic Progress Note Narrative: Patient seen and examined sitting upright in bed sleeping with at bedside. Patient's reports appetite is returning, and he is feeling better. Bilateral nephrostomy tubes are indwelling and draining clear urine into bags. Objective Initial Vital Signs BP 131/73 05/17/18 13:00 - General physical appearance Present: well developed, no distress, no pain - Respiratory Present: normal expansion, normal respiratory effort - Genitourinary Urine Appearance: Present: Clear - Integumentary Present: no rash, no abnormal pigmentation - Musculoskeletal Present: normal posture - Psychiatric Present: other (patient sleeping ) - Labs 05/24/18 02:56 05/24/18 02:56 Diabetes panel 05/24/18 Range/Units 02:56 Sodium 139 (136-145) mEq/L Potassium 4.5 (3.5-5.1) mEq/L Chloride 106 (98-107) mEq/L Carbon Dioxide 20 L (23-29) mEq/L BUN 77 H (8-23) mg/dL Creatinine 5.66 H (0.70-1.30) mg/dL Glucose 196 H (70-105) mg/dL Calcium 8.6 (8.6-10.3) mg/dL Calcium panel 05/24/18 Range/Units 02:56 Calcium 8.6 (8.6-10.3) mg/dL Pituitary panel 05/24/18 Range/Units 02:56 Sodium 139 (136-145) mEq/L Potassium 4.5 (3.5-5.1) mEq/L Chloride 106 (98-107) mEq/L Carbon Dioxide 20 L (23-29) mEq/L BUN 77 H (8-23) mg/dL Creatinine 5.66 H (0.70-1.30) mg/dL Glucose 196 H (70-105) mg/dL Calcium 8.6 (8.6-10.3) mg/dL Adrenal panel 05/24/18 Range/Units 02:56 Sodium 139 (136-145) mEq/L Potassium 4.5 (3.5-5.1) mEq/L Chloride 106 (98-107) mEq/L Carbon Dioxide 20 L (23-29) mEq/L BUN 77 H (8-23) mg/dL Creatinine 5.66 H (0.70-1.30) mg/dL Glucose 196 H (70-105) mg/dL Calcium 8.6 (8.6-10.3) mg/dL Consult Discharge Plan - Plan Referrals: Elysia Sullivan CNP [Primary Care Provider] - <Marck Beach - Last Filed: 05/24/18 18:44> Date of Encounter: 05/24/18 Progress Note Narrative: Patient was seen and examined independently. Agree with the plan as written by Rivka Monroy. At this time the patient's nephrostomy tubes are draining clear yellow urine. Patient can follow up with urology in 2-3 weeks. Objective Initial Vital Signs BP 131/73 05/17/18 13:00 - Labs 05/24/18 02:56 05/24/18 02:56 Diabetes panel 05/24/18 Range/Units 02:56 Sodium 139 (136-145) mEq/L Potassium 4.5 (3.5-5.1) mEq/L Chloride 106 (98-107) mEq/L Carbon Dioxide 20 L (23-29) mEq/L BUN 77 H (8-23) mg/dL Creatinine 5.66 H (0.70-1.30) mg/dL Glucose 196 H (70-105) mg/dL Calcium 8.6 (8.6-10.3) mg/dL Calcium panel 05/24/18 Range/Units 02:56 Calcium 8.6 (8.6-10.3) mg/dL Pituitary panel 05/24/18 Range/Units 02:56 Sodium 139 (136-145) mEq/L Potassium 4.5 (3.5-5.1) mEq/L Chloride 106 (98-107) mEq/L Carbon Dioxide 20 L (23-29) mEq/L BUN 77 H (8-23) mg/dL Creatinine 5.66 H (0.70-1.30) mg/dL Glucose 196 H (70-105) mg/dL Calcium 8.6 (8.6-10.3) mg/dL Adrenal panel 05/24/18 Range/Units 02:56 Sodium 139 (136-145) mEq/L Potassium 4.5 (3.5-5.1) mEq/L Chloride 106 (98-107) mEq/L Carbon Dioxide 20 L (23-29) mEq/L BUN 77 H (8-23) mg/dL Creatinine 5.66 H (0.70-1.30) mg/dL Glucose 196 H (70-105) mg/dL Calcium 8.6 (8.6-10.3) mg/dL
[2018-05-24] MEDS ORDERED: 0.9 % Sodium Chloride 1,000 ML PRIME SCH (15:00)
[2018-05-24] MEDS ORDERED: *HR* Heparin 10,000 UNIT/10 ML VIAL IV PRN ×2 (15:00)
[2018-05-24] MEDS ORDERED: 0.9 % Sodium Chloride 250 ML IVC PRN (15:00)
[2018-05-24] MEDS: traMADol 50 MG TABLET PO PRN (18:57)
[2018-05-24] MEDS ORDERED: 0.9 % Sodium Chloride 500 ML IVC ONE (19:01)
[2018-05-24] MEDS: Latanoprost 2.5 ML BOTTLE BOTH EYES SCH ×2 (21:27→21:32)
--- NOTE | 2018-05-24 21:50 | Nephrology Progress Note ---
Date of Encounter: 05/24/18 Time of Encounter: 12:00 - Assessment and Plan (1) Acute kidney injury superimposed on chronic kidney disease Current Visit: Yes Status: Acute SCr worse at 5.66, GFR 10, will proceed with HD today for 2 hours and second session planned tomorrow UOP improved at [id number] in the past 24hrs which is great, will monitor Continued increased po fluids and ivf for now Continue to avoid nephrotoxins if possible (2) Pyonephrosis Current Visit: Yes Status: Acute Continue abx per primary team (3) Congestive heart failure Current Visit: Yes Status: Chronic history of but not active, will continue gentle hydration for now Qualifiers: Heart failure type: systolic Heart failure chronicity: acute on chronic Qualified Code(s): I50.23 - Acute on chronic systolic (congestive) heart failure (4) Sepsis Current Visit: Yes Status: Acute As above Qualifiers: Sepsis type: Escherichia coli Qualified Code(s): A41.51 - Sepsis due to Escherichia coli [E. coli] (5) Prostate cancer Current Visit: Yes Status: Chronic (6) Hypotension Current Visit: Yes Status: Acute Qualifiers: Hypotension type: unspecified hypotension type Qualified Code(s): I95.9 - Hypotension, unspecified Subjective Principal diagnosis: s/p nephro tubes in IR. Interval history: Interim noted s/p bilateral nephrotostomy tubes, pt seen and examined with at bedside still lethargic but answering questions appropriately. s/p temp HD catheter this am with IR Objective - Vital Signs Vital signs: Vital Signs Temp Pulse Resp BP Pulse Ox 05/24/18 19:51 97.9 F 112 18 104/68 94 05/24/18 17:38 98 F 18 140/47 05/24/18 17:20 109/61 05/24/18 17:05 107/45 05/24/18 16:50 104/66 05/24/18 16:35 109/72 05/24/18 16:20 123/83 05/24/18 16:05 113/76 05/24/18 15:50 108/61 05/24/18 15:35 111/77 05/24/18 15:20 98.8 F 18 133/94 05/24/18 11:13 99.5 F 103 17 102/70 95 05/24/18 07:22 99.6 F 120 18 133/81 97 03/18/19 03:29 97.6 F 106 17 133/81 99 05/23/18 23:43 97.6 F 118 18 126/81 97 Intake and Output 05/24/18 05/24/18 05/24/18 07:59 15:59 23:59 Intake Total 1620 / 1620 Output Total 310 / 310 410 / 410 1600 / 1600 Balance -310 / -310 1210 / 1210 -1600 / -1600 Intake: IV Fluids 1020 / 1020 0.9 % Sodium Chloride 1,000 ML 1000 / 1000 @ 60 mls/hr IVC .[id number] JOSETTE Rx #:[id number] Rocephin 2,000 MG In Water for 20 / 20 inj. (sterile) 20 ML @ 600 mls/ hr IVP Q24H JOSETTE Rx#:[id number] Intake, Rinseback and Flushes 600 / 600 Output: Total Dialysis (HD) Output 1600 / 1600 Left Nephrostomy 100 / 100 Right Nephrostomy 310 / 310 310 / 310 Other: Meal npo Stool Size Moderate Stool Consistency loose Stool Color Brown # Bowel Movements 1 Blood Glucose* 191 106 Hemodialysis Net Fluid Removed 397 1000 (mL) - General Appearance General appearance: Present: chronically ill, fatigue EENT: Present: ATNC, mucous membranes dry Neck: Present: no JVD, supple Respiratory: Present: clear (and bilat) Cardiology: Present: edema, normal S1, normal S2 Dialysis Vascular Access: Venous Catheter (temp IJ HD) Gastrointestinal: Present: no tenderness, no guarding, obese Integumentary: Present: warm and dry Neurologic: Present: disoriented Musculoskeletal: Present: no deformities Psychiatric: Present: mood/affect appropriate, cooperative - Lab 05/24/18 02:56 05/24/18 02:56 Most recent lab results ABG pH 7.32 pH Units (7.32-7.45) 05/18/18 11:15 ABG pCO2 33 mmHg (35-45) L 05/18/18 11:15 ABG pO2 84 mmHg (85-104) L 05/18/18 11:15 ABG HCO3 17 mEq/L (21-27) L 05/18/18 11:15 ABG O2 Saturation 96 % (95-98) 05/18/18 11:15 Calcium 8.6 mg/dL (8.6-10.3) 05/24/18 02:56 Phosphorus 3.2 mg/dL (2.7-4.5) 05/18/18 04:05 Magnesium 1.4 mg/dL (1.6-2.6) L 05/18/18 04:05 Consult Discharge Plan - Plan Referrals: Elysia Sullivan CNP [Primary Care Provider] -
[2018-05-25] MEDS: 0.9 % Sodium Chloride 1,000 ML IVC SCH ×2 (04:49→23:16)
[2018-05-25 05:40] LABS: Hematocrit 27.9 % (37.5-50.1); Hemoglobin 8.9 g/dL (12.9-16.9); Mean Corpuscular HGB Conc 31.9 g/dL (31.6-35.5); Mean Corpuscular Hemoglobin 27.8 pg (28.0-33.3); Mean Corpuscular Volume 87.2 fL (83.0-100.0); Mean Platelet Volume 11.5 fL (9.4-12.4); Platelet Count 165 K/mcL (140-400); Red Cell Distribution Width 14.6 % (11.5-14.5)
[2018-05-25 06:05] LABS: Calcium 8.2 mg/dL (8.6-10.3); Potassium 3.7 mEq/L (3.5-5.1)
[2018-05-25] MEDS: Insulin LISPRO 300 UNITS/3 ML VIAL SQ SCH ×4 (08:05→20:38)
[2018-05-25] MEDS: cefTRIAXone 2,000 MG in Water for inj. (sterile) 20 ML 20 ML IVP SCH (08:06)
[2018-05-25] MEDS ORDERED: 0.9 % Sodium Chloride 250 ML IVC PRN (08:10)
[2018-05-25] MEDS ORDERED: *HR* Heparin 10,000 UNIT/10 ML VIAL IV PRN ×2 (08:10)
--- NOTE | 2018-05-25 11:03 | Internal Med Progress Note ---
<Shaw Duong - Last Filed: 05/25/18 11:46> Hospitalist Progress Note - Encounter Date of Encounter: 05/25/18 Time of Encounter: 11:46 - Subjective Interval History: Patient continues to be confused. This morning he seemed drowsy and it is difficult to understand his speech. He does understand he is in the hospital be cause his kidney function is poor and he is on dialysis. He did not have any acute overnight events. He does complain of pain around his buttoks. - Exam Vitals: Temp Pulse Resp BP Pulse Ox 97.7 F 114 18 113/71 98 05/25/18 07:38 05/25/18 07:38 05/25/18 07:38 05/25/18 07:38 05/25/18 07:38 Exam: General: Confused, drowsy Cardiovascualr: Regular rate and rhythm with no murmur, absent gallops or rubs, absent pedal edema, radial pulses 2 out of 4 Neck: Right temporary dialysis catheter without bleeding Lungs: Clear to auscultation anteriorly not in respiratory distress Abdomen: Soft nontender, nondistended positive bowel sounds, absent hepatomegaly Skin: gluteal cleft maceration MSK: absent clubbing, cyanosis, joints without swelling : Nephrostomy tubes draining clear yellow urine bilaterally. Neuro: alert to self, place, situation. Psych: good insight and judgment - Assessment and Plan (1) [id number] kidney injury Current Visit: Yes Status: Acute Assessment and Plan: Patient is undergoing dialysis again today. Continue renal diabetic diet Patient's nephrostomy output on the right has increased from 200 to 700. (2) Septic shock Current Visit: Yes Status: Resolved Assessment and Plan: Patient was initially admitted for septic shock secondary to pyelonephrosis and required pressors. He was initially ICU and transferred out of once he weaned off pressors. On admission he had leukocytosis achycardia, tachypnea Etiology: Escherichia coli bacteremia, pyelonephrosis secondary to Escherichia coli, Proteus, gram-positive cocci(Strep species) patient is still tachycardiC Tachypnea and leukocytosis resolved (3) Pyonephrosis Current Visit: Yes Status: Acute Assessment and Plan: Patient has a history of prostate cancer and is status post radiation therapy. 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 Therefore he had bilateral nephrostomy tube placed which revealed pyonephrosis. CT abdomen pelvis showed interval placement of bilateral nephrostomy tubes. Currently being treated with ceftriaxone (day 11/16) (4) A-fib Current Visit: Yes Status: Chronic Assessment and Plan: Patient's heart rate has been in the 100s to 120s after having dialysis Patient is on sotalol. we will restart diltiazem. restarted warfarin which was held for placement of temp hd catheter (5) Congestive heart failure Current Visit: Yes Status: Chronic Assessment and Plan: Controlled Continue fluid restriction Not an exacerbation. DVT Prophylaxis: EPCD - Time Spent with Patient Total time spent is greater than 50% in coordination of care (as documented) at patient's floor/unit and/or counseling patient: Internal Medicine: Result - Labs CBC & Chem 7: 05/25/18 04:58 05/25/18 04:58 Labs: Short CBC 05/25/18 Range/Units 04:58 WBC 10.7 (4.3-11.1) K/mcL Hgb 8.9 L (12.9-16.9) g/dL Hct 27.9 L (37.5-50.1) % Plt Count 165 (140-400) K/mcL BMP 05/25/18 04:58 Sodium 140 Potassium 3.7 Chloride 106 Carbon Dioxide 19 L BUN 52 H Creatinine 4.21 H Glucose 151 H Calcium 8.2 L - ABG Interpretation ABG results: ABG ABG pH 7.32 pH Units (7.32-7.45) 05/18/18 11:15 ABG pCO2 33 mmHg (35-45) L 05/18/18 11:15 ABG pO2 84 mmHg (85-104) L 05/18/18 11:15 ABG O2 Saturation 96 % (95-98) 05/18/18 11:15 PT/INR, D-dimer PT 17.9 Seconds (9.4-12.1) H 05/24/18 02:56 - Impressions Impressions Guidance Ultrasound 05/24/18 00:00 IMPRESSION: Successful ultrasound and fluoroscopy guided non-tunneled dialysis catheter placement. D/ / Terry Adan MD / Terry Adan MD Interpreting Provider: Terry Adan MD Consult Discharge Plan - Plan Referrals: Elysia Sullivan CNP [Primary Care Provider] - <AurbeyKe higginbotham - Last Filed: 05/25/18 15:11> Hospitalist Progress Note - Encounter Date of Encounter: 05/25/18 - Exam Vitals: Temp Pulse Resp BP Pulse Ox 97.5 F L 109 18 104/62 97 05/25/18 12:06 05/25/18 12:06 05/25/18 12:06 05/25/18 12:06 05/25/18 12:06 - Assessment and Plan (1) Nausea & vomiting Current Visit: No Status: Acute (2) UTI (urinary tract infection) Current Visit: No Status: Acute (3) Diabetes mellitus Current Visit: No Status: Chronic (4) Chronic kidney disease, stage 3 Current Visit: No Status: Chronic (5) Hydronephrosis Current Visit: No Status: Acute (6) DVT prophylaxis Current Visit: Yes Status: Acute (7) Atrial fibrillation Current Visit: No Status: Chronic (8) Prostate cancer Current Visit: Yes Status: Chronic (9) Pyonephrosis Current Visit: Yes Status: Acute (10) Hypotension Current Visit: Yes Status: Acute - Time Spent with Patient Total time spent is greater than 50% in coordination of care (as documented) at patient's floor/unit and/or counseling patient: Internal Medicine: Result - Labs CBC & Chem 7: 05/25/18 04:58 05/25/18 04:58 Labs: Short CBC 05/25/18 Range/Units 04:58 WBC 10.7 (4.3-11.1) K/mcL Hgb 8.9 L (12.9-16.9) g/dL Hct 27.9 L (37.5-50.1) % Plt Count 165 (140-400) K/mcL BMP 05/25/18 04:58 Sodium 140 Potassium 3.7 Chloride 106 Carbon Dioxide 19 L BUN 52 H Creatinine 4.21 H Glucose 151 H Calcium 8.2 L - ABG Interpretation ABG results: ABG ABG pH 7.32 pH Units (7.32-7.45) 05/18/18 11:15 ABG pCO2 33 mmHg (35-45) L 05/18/18 11:15 ABG pO2 84 mmHg (85-104) L 05/18/18 11:15 ABG O2 Saturation 96 % (95-98) 05/18/18 11:15 PT/INR, D-dimer PT 17.9 Seconds (9.4-12.1) H 05/24/18 02:56 - Attending Attestation I have seen and independently assessed this patient and I agree with plan as documented Plan Septic Shock secondary to pyonephrosis. Patient has been weaned off pressors and transferred out of the ICU. Switched from zosyn to ceftriaxone. Continue antibiotics to complete 14 day course Pyonephrosis. S/p bilateral nephrostomy tubes placement. Urology following EDIS on CKD stage 5. continue IV fluids. Renal following and dialysis started in last 24 hrs with temp line. Further recs per renal regarding possibility of manager long term care dialysis Afib. Continue sotalol and warfarin Chronic systolic CHF. Stable. No acute exacerbation <Shaw Duong - Last Filed: 05/25/18 11:46> (1) [id number] kidney injury Qualifiers: Acute renal failure type: unspecified Chronic kidney disease stage: stage 4 (severe) Qualified Code(s): N17.9 - Acute kidney failure, unspecified; N18.4 - Chronic kidney disease, stage 4 (severe) (4) A-fib Qualifiers: Atrial fibrillation type: chronic Qualified Code(s): I48.2 - Chronic atrial fibrillation (5) Congestive heart failure Qualifiers: Heart failure type: systolic Heart failure chronicity: acute on chronic Qualified Code(s): I50.23 - Acute on chronic systolic (congestive) heart failure <Ke Blum - Last Filed: 05/25/18 15:11> (1) Nausea & vomiting Qualifiers: Vomiting type: unspecified Vomiting Intractability: intractable Qualified Code(s): R11.2 - Nausea with vomiting, unspecified (2) UTI (urinary tract infection) Qualifiers: Urinary tract infection type: site unspecified Hematuria presence: with hematuria Qualified Code(s): N39.0 - Urinary tract infection, site not specified; R31.9 - Hematuria, unspecified (3) Diabetes mellitus Qualifiers: Diabetes mellitus type: type 2 Diabetes mellitus manager long term care insulin use: without longterm use Diabetes mellitus complication status: without complication Qualified Code(s): E11.9 - Type 2 diabetes mellitus without complications (5) Hydronephrosis Qualifiers: Hydronephrosis type: other Qualified Code(s): N13.39 - Other hydronephrosis (7) Atrial fibrillation Qualifiers: Atrial fibrillation type: unspecified Qualified Code(s): I48.91 - Unspecified atrial fibrillation (10) Hypotension Qualifiers: Hypotension type: unspecified hypotension type Qualified Code(s): I95.9 - Hyp otension, unspecified
[2018-05-25] MEDS: traMADol 50 MG TABLET PO PRN (12:28)
[2018-05-25] MEDS ORDERED: *HR* Warfarin 2 MG TABLET PO ONE (18:00)
[2018-05-25] MEDS ORDERED: Warfarin perPT PO PRN (18:00)
[2018-05-25] MEDS: Latanoprost 2.5 ML BOTTLE BOTH EYES SCH (20:33)
--- NOTE | 2018-05-25 23:14 | Nephrology Progress Note ---
Date of Encounter: 05/25/18 Time of Encounter: 12:00 - Assessment and Plan (1) Acute kidney injury superimposed on chronic kidney disease Current Visit: Yes Status: Acute (2) Pyonephrosis Current Visit: Yes Status: Acute (3) Congestive heart failure Current Visit: Yes Status: Chronic Qualifiers: Heart failure type: systolic Heart failure chronicity: acute on chronic Qualified Code(s): I50.23 - Acute on chronic systolic (congestive) heart failure (4) Sepsis Current Visit: Yes Status: Acute Qualifiers: Sepsis type: Escherichia coli Qualified Code(s): A41.51 - Sepsis due to Escherichia coli [E. coli] (5) Prostate cancer Current Visit: Yes Status: Chronic (6) Hypotension Current Visit: Yes Status: Acute Qualifiers: Hypotension type: unspecified hypotension type Qualified Code(s): I95.9 - Hypotension, unspecified Subjective Principal diagnosis: s/p nephro tubes in IR. Interval history: Interim noted s/p bilateral nephrotostomy tubes, pt seen and examined with at bedside still lethargic but answering questions appropriately. s/p temp HD catheter this am with IR Objective - Vital Signs Vital signs: Vital Signs Temp Pulse Resp BP Pulse Ox 05/25/18 19:01 97.6 F 91 16 111/76 98 05/25/18 16:14 97.5 F L 64 18 112/66 97 05/25/18 12:06 97.5 F L 109 18 104/62 97 05/25/18 12:05 97.6 F 17 149/84 05/25/18 11:50 149/84 05/25/18 11:35 157/70 05/25/18 11:20 128/77 05/25/18 11:05 123/78 05/25/18 10:50 126/85 05/25/18 10:35 109/82 05/25/18 10:20 125/67 05/25/18 10:05 130/77 05/25/18 09:50 122/76 05/25/18 09:35 138/75 05/25/18 09:20 116/65 05/25/18 09:05 125/82 05/25/18 08:50 97.8 F 17 138/83 05/25/18 07:38 97.7 F 114 18 113/71 98 05/25/18 05:13 97.8 F 110 18 86/56 95 05/24/18 23:52 97.6 F 102 18 111/78 95 Intake and Output 05/25/18 05/25/18 05/25/18 07:59 15:59 23:59 Intake Total 1000 / 1000 1080 / 1080 Output Total 450 / 450 1850 / 1850 Balance 550 / 550 -770 / -770 Intake: IV Fluids 1000 / 1000 0.9 % Sodium Chloride 1,000 ML 1000 / 1000 @ 60 mls/hr IVC .[id number] [facility] Rx #:[id number] Oral 480 / 480 Intake, Rinseback and Flushes 600 / 600 Output: Urine 0 / 0 Total Dialysis (HD) Output 1600 / 1600 Left Nephrostomy 200 / 200 100 / 100 Right Nephrostomy 250 / 250 150 / 150 Other: Meal Lunch Percent of Meal Consumed 80% Stool Size Small Stool Consistency loose liquid Stool Color Brown # Urine Diapers 3 # Bowel Movement Diapers 1 Weight 127.5 kg Blood Glucose* 150 130 221 Hemodialysis Net Fluid Removed 1000 (mL) Patient Weight 05/25/18 23:59 Weight 127.5 kg - Lab 05/25/18 04:58 05/25/18 04:58 Most recent lab results ABG pH 7.32 pH Units (7.32-7.45) 05/18/18 11:15 ABG pCO2 33 mmHg (35-45) L 05/18/18 11:15 ABG pO2 84 mmHg (85-104) L 05/18/18 11:15 ABG HCO3 17 mEq/L (21-27) L 05/18/18 11:15 ABG O2 Saturation 96 % (95-98) 05/18/18 11:15 Calcium 8.2 mg/dL (8.6-10.3) L 05/25/18 04:58 Phosphorus 3.2 mg/dL (2.7-4.5) 05/18/18 04:05 Magnesium 1.4 mg/dL (1.6-2.6) L 05/18/18 04:05 Consult Discharge Plan - Plan Referrals: Elysia Sullivan CNP [Primary Care Provider] -
[2018-05-26 02:11] LABS: Hematocrit 27.6 % (37.5-50.1); Hemoglobin 8.9 g/dL (12.9-16.9); Mean Corpuscular HGB Conc 32.2 g/dL (31.6-35.5); Mean Corpuscular Hemoglobin 28.2 pg (28.0-33.3); Mean Corpuscular Volume 87.3 fL (83.0-100.0); Mean Platelet Volume 11.7 fL (9.4-12.4); Platelet Count 173 K/mcL (140-400); Red Blood Count 3.16 M/mcL (4.19-5.50); Red Cell Distribution Width 14.7 % (11.5-14.5)
[2018-05-26 02:20] LABS: INR 1.5; Prothrombin Time 17.1 Seconds (9.4-12.1)
[2018-05-26 02:28] LABS: Calcium 8.1 mg/dL (8.6-10.3); Potassium 3.5 mEq/L (3.5-5.1)
[2018-05-26] MEDS: cefTRIAXone 2,000 MG in Water for inj. (sterile) 20 ML 20 ML IVP SCH (09:07)
[2018-05-26] MEDS: Insulin LISPRO 300 UNITS/3 ML VIAL SQ SCH ×4 (09:07→22:08)
--- NOTE | 2018-05-26 14:53 | Internal Med Progress Note ---
Hospitalist Progress Note - Encounter Date of Encounter: 05/26/18 Time of Encounter: 14:51 - Subjective Interval History: Pt denies fever, chills, N/V or diarrhea. He states he was confused when he herman in but is mentation has since improved. He denies CP or SOB. - Exam Vitals: Temp Pulse Resp BP Pulse Ox 97.7 F 107 18 105/66 98 05/26/18 11:39 05/26/18 11:39 05/26/18 11:39 05/26/18 11:39 05/26/18 11:39 Exam: General: A+O x 3, NAD Cardiovascualr: Regular rate and rhythm with no murmur, absent gallops or rubs, absent pedal edema, radial pulses 2 out of 4 Neck: Right temporary dialysis catheter without bleeding Lungs: Clear to auscultation anteriorly not in respiratory distress. no wheezes or crackles. Abdomen: Soft nontender, nondistended positive bowel sounds, absent hepatomegaly Skin: gluteal cleft maceration MSK: absent clubbing, cyanosis, joints without swelling : Nephrostomy tubes draining clear yellow urine bilaterally. Neuro: alert to self, place, situation. CN II-XII grossly intact Psych: Mood and affect good. Good insight and judgment - Assessment and Plan (1) Septic shock Current Visit: Yes Status: Resolved Assessment and Plan: Resolved. (2) Pyonephrosis Current Visit: Yes Status: Acute Assessment and Plan: patient started on broad spectrum IV antibiotics. Was on piperacillint/tazobactam 3.375mg/IV Q8HRs IV. Urine culture sent and showed E coli, proteus penneri, and Strep sanuinis. Rec 14 day course total of antibiotics. Now on Rocephin (3) UTI (urinary tract infection) Current Visit: No Status: Acute Assessment and Plan: patient was on piperacillint/tazobactam 3.375mg/IV Q8HRs IV. Now on Rocephin. See above. (4) Diabetes mellitus Current Visit: No Status: Chronic Assessment and Plan: started on lispro low dose sliding scale. NPO. accu-checks Q6HRs. (5) Hydronephrosis Current Visit: No Status: Acute Assessment and Plan: Patient s/p b/l bilateral percutaneous nephrostomy tube placement by urology. (6) Chronic kidney disease, stage 3 Current Visit: No Status: Chronic Assessment and Plan: Kidney function at baseline. Patient started on IV hydration due to hypotension. Avoid nephrotoxic medications. Cr improving. Nephrology on board (7) Atrial fibrillation Current Visit: No Status: Chronic Assessment and Plan: Rate controlled. Patient on multiple medications for rate control. On sotalol and diltiazem. Home medications held on admission due to hypotension Resuming rate control meds slowly. On Warfarin (8) Prostate cancer Current Visit: Yes Status: Chronic Assessment and Plan: s/p radiation about 9 years ago (9) Hypotension Current Visit: Yes Status: Acute (10) Nausea & vomiting Current Visit: No Status: Acute Assessment and Plan: Resolved. Tolerating diabetic diet. PPI and anti-emetics DVT Prophylaxis: mechanical DVT prophylaxis - Time Spent with Patient Total time spent is greater than 50% in coordination of care (as documented) at patient's floor/unit and/or counseling patient: less than 15 minutes Plan of Care Discussed with: patient Internal Medicine: Result - Labs CBC & Chem 7: 05/26/18 01:30 05/26/18 01:30 Labs: Short CBC 05/26/18 Range/Units 01:30 WBC 9.7 (4.3-11.1) K/mcL Hgb 8.9 L (12.9-16.9) g/dL Hct 27.6 L (37.5-50.1) % Plt Count 173 (140-400) K/mcL BMP 05/26/18 01:30 Sodium 141 Potassium 3.5 Chloride 105 Carbon Dioxide 25 BUN 31 H Creatinine 2.83 H Glucose 224 H Calcium 8.1 L - ABG Interpretation ABG results: ABG ABG pH 7.32 pH Units (7.32-7.45) 05/18/18 11:15 ABG pCO2 33 mmHg (35-45) L 05/18/18 11:15 ABG pO2 84 mmHg (85-104) L 05/18/18 11:15 ABG O2 Saturation 96 % (95-98) 05/18/18 11:15 PT/INR, D-dimer PT 17.1 Seconds (9.4-12.1) H 05/26/18 01:30 Consult Discharge Plan - Plan Referrals: Elysia Sullivan CNP [Primary Care Provider] - (3) UTI (urinary tract infection) Qualifiers: Urinary tract infection type: site unspecified Hematuria presence: with hematuria Qualified Code(s): N39.0 - Urinary tract infection, site not specified; R31.9 - Hematuria, unspecified (4) Diabetes mellitus Qualifiers: Diabetes mellitus type: type 2 Diabetes mellitus shelter insulin use: without shelter use Diabetes mellitus complication status: without complication Qualified Code(s): E11.9 - Type 2 diabetes mellitus without complications (5) Hydronephrosis Qualifiers: Hydronephrosis type: other Qualified Code(s): N13.39 - Other hydronephrosis (7) Atrial fibrillation Qualifiers: Atrial fibrillation type: unspecified Qualified Code(s): I48.91 - Unspecified atrial fibrillation (9) Hypotension Qualifiers: Hypotension type: unspecified hypotension type Qualified Code(s): I95.9 - Hypotension, unspecified (10) Nausea & vomiting Qualifiers: Vomiting type: unspecified Vomiting Intractability: intractable Qualified Code(s): R11.2 - Nausea with vomiting, unspecified
[2018-05-26] MEDS: 0.9 % Sodium Chloride 1,000 ML IVC SCH (17:24)
[2018-05-26] MEDS ORDERED: *HR* Warfarin 2 MG TABLET PO ONE (18:00)
[2018-05-26] MEDS: Latanoprost 2.5 ML BOTTLE BOTH EYES SCH (22:02)
--- NOTE | 2018-05-26 23:24 | Nephrology Progress Note ---
Date of Encounter: 05/26/18 Time of Encounter: 12:00 - Assessment and Plan (1) Acute kidney injury superimposed on chronic kidney disease Current Visit: Yes Status: Acute SCr improved at 2.83, GFR 24 after two consecutive HD sessions, will hold today and reassess tomorrow for signs of renal recovery UOP noted at 2300cc in the past 24hrs Continue to avoid nephrotoxins if possible Lytes stable (2) Pyonephrosis Current Visit: Yes Status: Acute Continue abx per primary team (3) Congestive heart failure Current Visit: Yes Status: Chronic history of but not active, will continue gentle hydration for now Qualifiers: Heart failure type: systolic Heart failure chronicity: acute on chronic Qualified Code(s): I50.23 - Acute on chronic systolic (congestive) heart failure (4) Sepsis Current Visit: Yes Status: Acute As above Qualifiers: Sepsis type: Escherichia coli Qualified Code(s): A41.51 - Sepsis due to Escherichia coli [E. coli] (5) Prostate cancer Current Visit: Yes Status: Chronic (6) Hypotension Current Visit: Yes Status: Acute Qualifiers: Hypotension type: unspecified hypotension type Qualified Code(s): I95.9 - Hypotension, unspecified Subjective Principal diagnosis: s/p nephro tubes in IR. Interval history: Pt seen and examined feeling better, more awake and with improved appetite. Seen eating lunch Objective - Vital Signs Vital signs: Vital Signs Temp Pulse Resp BP Pulse Ox 05/26/18 23:18 98.5 F 103 17 120/73 97 05/26/18 19:12 98.3 F 102 18 123/75 100 05/26/18 16:49 97.4 F L 67 18 112/77 98 05/26/18 11:39 97.7 F 107 18 105/66 98 05/26/18 07:22 97.9 F 102 18 112/71 98 05/26/18 03:10 97.8 F 116 17 119/70 97 05/25/18 23:33 97.6 F 105 16 112/72 96 Intake and Output 05/26/18 05/26/18 05/26/18 07:59 15:59 23:59 Intake Total 1600 / 1600 Output Total 600 / 600 500 / 500 Balance -600 / -600 1600 / 1600 -500 / -500 Intake: IV Fluids 1000 / 1000 0.9 % Sodium Chloride 1,000 ML 1000 / 1000 @ 60 mls/hr IVC .[id number] [facility] Rx #:[id number] Oral 600 / 600 Output: Left Nephrostomy 300 / 300 200 / 200 Right Nephrostomy 300 / 300 300 / 300 Other: Meal Lunch Percent of Meal Consumed 100% Weight 127.2 kg Blood Glucose* 191 151 224 Patient Weight 05/26/18 23:59 Weight 127.2 kg - Lab 05/26/18 01:30 05/26/18 01:30 Most recent lab results ABG pH 7.32 pH Units (7.32-7.45) 05/18/18 11:15 ABG pCO2 33 mmHg (35-45) L 05/18/18 11:15 ABG pO2 84 mmHg (85-104) L 05/18/18 11:15 ABG HCO3 17 mEq/L (21-27) L 05/18/18 11:15 ABG O2 Saturation 96 % (95-98) 05/18/18 11:15 Calcium 8.1 mg/dL (8.6-10.3) L 05/26/18 01:30 Phosphorus 3.2 mg/dL (2.7-4.5) 05/18/18 04:05 Magnesium 1.4 mg/dL (1.6-2.6) L 05/18/18 04:05 Consult Discharge Plan - Plan Referrals: Elysia Sullivan CNP [Primary Care Provider] -
[2018-05-27 04:53] LABS: Hematocrit 24.1 % (37.5-50.1); Hemoglobin 7.9 g/dL (12.9-16.9); Mean Corpuscular HGB Conc 32.8 g/dL (31.6-35.5); Mean Corpuscular Hemoglobin 28.4 pg (28.0-33.3); Mean Corpuscular Volume 86.7 fL (83.0-100.0); Mean Platelet Volume 11.3 fL (9.4-12.4); Platelet Count 212 K/mcL (140-400); Red Blood Count 2.78 M/mcL (4.19-5.50); Red Cell Distribution Width 14.6 % (11.5-14.5)
[2018-05-27 05:02] LABS: INR 1.4; Prothrombin Time 15.4 Seconds (9.4-12.1)
[2018-05-27 05:10] LABS: Potassium 3.5 mEq/L (3.5-5.1)
[2018-05-27] MEDS: 0.9 % Sodium Chloride 1,000 ML IVC SCH ×2 (05:20→13:50)
[2018-05-27] MEDS ORDERED: 0.9 % Sodium Chloride 250 ML IVC PRN (07:55)
[2018-05-27] MEDS ORDERED: *HR* Heparin 10,000 UNIT/10 ML VIAL IV PRN ×2 (07:55)
[2018-05-27] MEDS: Insulin LISPRO 300 UNITS/3 ML VIAL SQ SCH ×4 (08:09→22:35)
[2018-05-27] MEDS ORDERED: 0.9 % Sodium Chloride 2,000 ML ONE (08:39)
[2018-05-27] MEDS: cefTRIAXone 2,000 MG in Water for inj. (sterile) 20 ML 20 ML IVP SCH (13:51)
--- NOTE | 2018-05-27 14:25 | Internal Med Progress Note ---
Hospitalist Progress Note - Encounter Date of Encounter: 05/27/18 Time of Encounter: 14:25 - Subjective Interval History: Pt denies fever, chills, N/V or diarrhea. He states he was confused when he herman in but is mentation has since improved. He denies CP or SOB. - Exam Vitals: Temp Pulse Resp BP Pulse Ox 96.8 F L 103 15 141/60 97 05/27/18 12:45 05/27/18 07:22 05/27/18 12:45 05/27/18 12:45 05/27/18 07:22 Exam: General: A+O x 3, NAD Cardiovascualr: Regular rate and rhythm with no murmur, absent gallops or rubs, absent pedal edema, radial pulses 2 out of 4 Neck: Right temporary dialysis catheter without bleeding Lungs: Clear to auscultation anteriorly not in respiratory distress. no wheezes or crackles. Abdomen: Soft nontender, nondistended positive bowel sounds, absent hepatomegaly Skin: gluteal cleft maceration MSK: absent clubbing, cyanosis, joints without swelling : Nephrostomy tubes draining clear yellow urine bilaterally. Neuro: alert to self, place, situation. CN II-XII grossly intact Psych: Mood and affect good. Good insight and judgment - Assessment and Plan (1) Septic shock Current Visit: Yes Status: Resolved Assessment and Plan: Resolved. (2) Pyonephrosis Current Visit: Yes Status: Acute Assessment and Plan: patient started on broad spectrum IV antibiotics. Was on piperacillint/tazobactam 3.375mg/IV Q8HRs IV. Urine culture sent and showed E coli, proteus penneri, and Strep sanuinis. Rec 14 day course total of antibiotics. Now on Rocephin (3) UTI (urinary tract infection) Current Visit: No Status: Acute Assessment and Plan: patient was on piperacillint/tazobactam 3.375mg/IV Q8HRs IV. Now on Rocephin. See above. Urine culture as above. (4) Diabetes mellitus Current Visit: No Status: Chronic Assessment and Plan: started on lispro low dose sliding scale. NPO. accu-checks Q6HRs. (5) Hydronephrosis Current Visit: No Status: Acute Assessment and Plan: Patient s/p b/l bilateral percutaneous nephrostomy tube placement by urology. (6) Chronic kidney disease, stage 3 Current Visit: No Status: Chronic Assessment and Plan: Kidney function at baseline. Patient started on IV hydration due to hypotension. Avoid nephrotoxic medications. Cr improving. Nephrology on board. HD today 05/27/18 (7) Atrial fibrillation Current Visit: No Status: Chronic Assessment and Plan: Rate controlled. Patient on multiple medications for rate control. On sotalol and diltiazem. Home medications held on admission due to hypotension Will resume rate control meds slowly. On Warfarin (8) Prostate cancer Current Visit: Yes Status: Chronic Assessment and Plan: s/p radiation about 9 years ago (9) Hypotension Current Visit: Yes Status: Acute Assessment and Plan: possible due to sepsis vs r/o intra-abdominal cause. patient s/p nephrostomy tube placement Plan patient will be aggressively resuscitated with IV fluids 1 litter NS bolus ordered LR @125 ml/hr for maintenance will give fluid bolus as needed blood culture ordered started on broad spectrum IV antibiotics. Patient has a Hx of brody sensitive P. [place] UTI. CT abd/Pelv w/o contrast stat repeat cbc stat ICU has been consulted consider consulting urology pending CT abd/pelvis results NPO accu-checks Q6HRs plus lispro low dose sliding scale ths, cortisol ordered serial trops ordered (10) Nausea & vomiting Current Visit: No Status: Acute Assessment and Plan: Resolved. Tolerating diabetic diet. PPI and anti-emetics DVT Prophylaxis: mechanical DVT prophylaxis - Time Spent with Patient Total time spent is greater than 50% in coordination of care (as documented) at patient's floor/unit and/or counseling patient: less than 15 minutes Plan of Care Discussed with: patient Internal Medicine: Result - Labs CBC & Chem 7: 05/27/18 04:18 05/27/18 04:18 Labs: Short CBC 05/27/18 Range/Units 04:18 WBC 9.6 (4.3-11.1) K/mcL Hgb 7.9 L (12.9-16.9) g/dL Hct 24.1 L (37.5-50.1) % Plt Count 212 (140-400) K/mcL BMP 05/27/18 04:18 Sodium 143 Potassium 3.5 Chloride 107 Carbon Dioxide 23 BUN 35 H Creatinine 3.25 H Glucose 203 H Calcium 8.0 L - ABG Interpretation ABG results: ABG ABG pH 7.32 pH Units (7.32-7.45) 05/18/18 11:15 ABG pCO2 33 mmHg (35-45) L 05/18/18 11:15 ABG pO2 84 mmHg (85-104) L 05/18/18 11:15 ABG O2 Saturation 96 % (95-98) 05/18/18 11:15 PT/INR, D-dimer PT 15.4 Seconds (9.4-12.1) H 05/27/18 04:18 Consult Discharge Plan - Plan Referrals: Elysia Sullivan SITE ADMINISTRATOR [Primary Care Provider] - (3) UTI (urinary tract infection) Qualifiers: Urinary tract infection type: site unspecified Hematuria presence: with hematuria Qualified Code(s): N39.0 - Urinary tract infection, site not specified; R31.9 - Hematuria, unspecified (4) Diabetes mellitus Qualifiers: Diabetes mellitus type: type 2 Diabetes mellitus superintendent container terminal insulin use: without superintendent container terminal use Diabetes mellitus complication status: without complication Qualified Code(s): E11.9 - Type 2 diabetes mellitus without complications (5) Hydronephrosis Qualifiers: Hydronephrosis type: other Qualified Code(s): N13.39 - Other hydronephrosis (7) Atrial fibrillation Qualifiers: Atrial fibrillation type: unspecified Qualified Code(s): I48.91 - Unspecified atrial fibrillation (9) Hypotension Qualifiers: Hypotension type: unspecified hypotension type Qualified Code(s): I95.9 - Hypotension, unspecified (10) Nausea & vomiting Qualifiers: Vomiting type: unspecified Vomiting Intractability: intractable Qualified Code(s): R11.2 - Nausea with vomiting, unspecified
[2018-05-27] MEDS ORDERED: *HR* Warfarin 3 MG TABLET PO ONE (18:00)
--- NOTE | 2018-05-27 19:27 | Nephrology Progress Note ---
Date of Encounter: 05/27/18 - Assessment and Plan (1) Acute kidney injury superimposed on chronic kidney disease Current Visit: Yes Status: Acute (2) Pyonephrosis Current Visit: Yes Status: Acute (3) Congestive heart failure Current Visit: Yes Status: Chronic Qualifiers: Heart failure type: systolic Heart failure chronicity: acute on chronic Qualified Code(s): I50.23 - Acute on chronic systolic (congestive) heart failure (4) Sepsis Current Visit: Yes Status: Acute Qualifiers: Sepsis type: Escherichia coli Qualified Code(s): A41.51 - Sepsis due to Escherichia coli [E. coli] (5) Prostate cancer Current Visit: Yes Status: Chronic (6) Hypotension Current Visit: Yes Status: Acute Qualifiers: Hypotension type: unspecified hypotension type Qualified Code(s): I95.9 - Hypotension, unspecified Subjective Principal diagnosis: s/p nephro tubes in IR. Interval history: Pt seen and examined feeling better, more awake and with improved appetite. Seen eating lunch Objective - Vital Signs Vital signs: Vital Signs Temp Pulse Resp BP Pulse Ox 05/27/18 16:37 97.3 F L 105 16 104/57 97 05/27/18 12:45 96.8 F L 15 141/60 05/27/18 12:25 108/85 05/27/18 12:10 126/75 05/27/18 11:55 104/71 05/27/18 11:40 147/72 05/27/18 11:25 113/72 05/27/18 11:10 120/79 05/27/18 10:55 127/72 05/27/18 10:40 122/80 05/27/18 10:25 110/75 05/27/18 10:10 135/78 05/27/18 09:55 130/66 05/27/18 09:40 147/71 05/27/18 09:25 135/73 05/27/18 09:10 140/75 05/27/18 08:55 97.5 F L 17 130/62 05/27/18 07:22 97.8 F 103 18 118/77 97 05/27/18 03:05 97.6 F 102 16 123/80 98 05/26/18 23:18 98.5 F 103 17 120/73 97 Intake and Output 05/27/18 05/27/18 05/27/18 07:59 15:59 23:59 Intake Total 1960 / 1959 120 / 120 Output Total 450 / 450 1900 / 1900 Balance -450 / -450 60 / 60 120 / 120 Intake: IV Fluids 1000 / 1000 0.9 % Sodium Chloride 1,000 ML 1000 / 1000 @ 60 mls/hr IVC .[id number] [facility] Rx #:[id number] Oral 360 / 360 120 / 120 Intake, Rinseback and Flushes 600 / 600 Output: Urine 0 / 0 Total Dialysis (HD) Output 1600 / 1600 Left Nephrostomy 200 / 200 50 / 50 Right Nephrostomy 250 / 250 250 / 250 Other: Meal Lunch Dinner Percent of Meal Consumed 0% 95% Stool Size Large Stool Consistency loose liquid Stool Color Brown # Bowel Movements 1 Blood Glucose* 188 162 217 Hemodialysis Net Fluid Removed 1000 (mL) - Lab 05/27/18 04:18 05/27/18 04:18 Most recent lab results ABG pH 7.32 pH Units (7.32-7.45) 05/18/18 11:15 ABG pCO2 33 mmHg (35-45) L 05/18/18 11:15 ABG pO2 84 mmHg (85-104) L 05/18/18 11:15 ABG HCO3 17 mEq/L (21-27) L 05/18/18 11:15 ABG O2 Saturation 96 % (95-98) 05/18/18 11:15 Calcium 8.0 mg/dL (8.6-10.3) L 05/27/18 04:18 Phosphorus 3.2 mg/dL (2.7-4.5) 05/18/18 04:05 Magnesium 1.4 mg/dL (1.6-2.6) L 05/18/18 04:05 Consult Discharge Plan - Plan Referrals: Elysia Sullivan CNP [Primary Care Provider] -
--- NOTE | 2018-05-27 20:36 | Electrocardiograph Report ---
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
[2018-05-27] MEDS: Latanoprost 2.5 ML BOTTLE BOTH EYES SCH (22:15)
[2018-05-27] MEDS: Nystatin POWDER 30 GM BOTTLE TP SCH (22:21)
[2018-05-28 05:29] LABS: Hematocrit 25.4 % (37.5-50.1); Mean Corpuscular HGB Conc 31.5 g/dL (31.6-35.5); Mean Corpuscular Hemoglobin 28.1 pg (28.0-33.3); Mean Corpuscular Volume 89.1 fL (83.0-100.0); Mean Platelet Volume 11.1 fL (9.4-12.4); Platelet Count 225 K/mcL (140-400); Red Blood Count 2.85 M/mcL (4.19-5.50); Red Cell Distribution Width 14.6 % (11.5-14.5)
[2018-05-28 05:36] LABS: INR 1.5; Prothrombin Time 17.3 Seconds (9.4-12.1)
[2018-05-28 05:48] LABS: Potassium 3.5 mEq/L (3.5-5.1)
--- NOTE | 2018-05-28 06:39 | Nephrology Progress Note ---
Date of Encounter: 05/28/18 Time of Encounter: 08:30 - Assessment and Plan (1) Acute kidney injury superimposed on chronic kidney disease Current Visit: Yes Status: Acute I reviewed his chart, including the labs, vitals, progress notes, imaging, and medications: I see that he was started on dialysis with the last treatment yesterday, which would explain why the serum creatinine was lower today (not necessarily from improved renal function). Planning tentative for the next HD on Thursday. (2) Congestive heart failure Current Visit: Yes Status: Chronic Qualifiers: Heart failure type: systolic Heart failure chronicity: acute on chronic Qualified Code(s): I50.23 - Acute on chronic systolic (congestive) heart failure (3) Prostate cancer Current Visit: Yes Status: Chronic (4) Pyonephrosis Current Visit: Yes Status: Acute (5) Hypotension Current Visit: Yes Status: Acute Qualifiers: Hypotension type: unspecified hypotension type Qualified Code(s): I95.9 - Hypotension, unspecified (6) Sepsis Current Visit: Yes Status: Acute Qualifiers: Sepsis type: Escherichia coli Qualified Code(s): A41.51 - Sepsis due to Escherichia coli [E. coli] Subjective Principal diagnosis: s/p nephro tubes in IR. Interval history: The patient was seen and examined in his room, and his was present. He did not affirm having active nausea, vomiting or diarrhea. I reviewed the sign out from my colleague Dr. Sandoval. Objective - Vital Signs Vital signs: Vital Signs Temp Pulse Resp BP Pulse Ox 05/28/18 04:20 98.7 F 102 18 116/72 94 05/28/18 01:39 98.5 F 118 18 100/69 98 05/27/18 16:37 97.3 F L 105 16 104/57 97 05/27/18 12:45 96.8 F L 15 141/60 05/27/18 12:25 108/85 05/27/18 12:10 126/75 05/27/18 11:55 104/71 05/27/18 11:40 147/72 05/27/18 11:25 113/72 05/27/18 11:10 120/79 05/27/18 10:55 127/72 05/27/18 10:40 122/80 05/27/18 10:25 110/75 05/27/18 10:10 135/78 05/27/18 09:55 130/66 05/27/18 09:40 147/71 05/27/18 09:25 135/73 05/27/18 09:10 140/75 05/27/18 08:55 97.5 F L 17 130/62 05/27/18 07:22 97.8 F 103 18 118/77 97 Intake and Output 05/27/18 05/27/18 05/28/18 15:59 23:59 07:59 Intake Total 1960 / 1959 120 / 120 Output Total 1900 / 1900 Balance 60 / 60 120 / 120 Intake: IV Fluids 1000 / 1000 0.9 % Sodium Chloride 1,000 ML 1000 / 1000 @ 60 mls/hr IVC .[id number] [facility] Rx #:[id number] Oral 360 / 360 120 / 120 Intake, Rinseback and Flushes 600 / 600 Output: Urine 0 / 0 Total Dialysis (HD) Output 1600 / 1600 Left Nephrostomy 50 / 50 Right Nephrostomy 250 / 250 Other: Meal Lunch Dinner Percent of Meal Consumed 0% 95% Stool Size Large Small Stool Consistency loose soft liquid Stool Color Brown Brown # Bowel Movements 1 1 Weight 126.8 kg Blood Glucose* 162 217 Hemodialysis Net Fluid Removed 1000 (mL) Patient Weight 05/28/18 23:59 Weight 126.8 kg - General Appearance General appearance: Present: well-developed, well-nourished, chronically ill, fatigue EENT: Present: ATNC, PERRL, mucous membranes moist Neck: Present: supple Respiratory: Present: clear Cardiology: Present: edema, regular rate, regular rhythm, normal S1, normal S2 Dialysis Vascular Access: Venous Catheter (Right IJ temporary HD catheter with dressing C/D/I) Gastrointestinal: Present: normoactive bowel sounds, no tenderness Integumentary: Present: no rash, warm and dry Neurologic: Present: no focal deficit, no asterixis, alert and oriented x3 Musculoskeletal: Present: no deformities, no erythema, no cyanosis Psychiatric: Present: mood/affect appropriate, cooperative - Lab 05/29/18 03:42 05/29/18 03:42 Most recent lab results ABG pH 7.32 pH Units (7.32-7.45) 05/18/18 11:15 ABG pCO2 33 mmHg (35-45) L 05/18/18 11:15 ABG pO2 84 mmHg (85-104) L 05/18/18 11:15 ABG HCO3 17 mEq/L (21-27) L 05/18/18 11:15 ABG O2 Saturation 96 % (95-98) 05/18/18 11:15 Calcium 8.0 mg/dL (8.6-10.3) L 05/28/18 05:11 Phosphorus 3.2 mg/dL (2.7-4.5) 05/18/18 04:05 Magnesium 1.4 mg/dL (1.6-2.6) L 05/18/18 04:05 Consult Discharge Plan - Plan Referrals: Elysia Sullivan CNP [Primary Care Provider] -
[2018-05-28] MEDS: Insulin LISPRO 300 UNITS/3 ML VIAL SQ SCH ×4 (09:32→20:40)
[2018-05-28] MEDS: cefTRIAXone 2,000 MG in Water for inj. (sterile) 20 ML 20 ML IVP SCH (09:36)
[2018-05-28] MEDS: Nystatin POWDER 30 GM BOTTLE TP SCH ×2 (13:02→20:42)
--- NOTE | 2018-05-28 13:23 | Internal Med Progress Note ---
Hospitalist Progress Note - Encounter Date of Encounter: 05/28/18 Time of Encounter: 13:15 - Subjective Interval History: Pt feels good, joking about he has a buttock wound and doesn't want OT to "push him too hard." - Exam Vitals: Temp Pulse Resp BP Pulse Ox 97.8 F 117 18 115/80 98 05/28/18 11:16 05/28/18 11:16 05/28/18 11:16 05/28/18 11:16 05/28/18 11:16 Exam: General: A+O x 3, NAD Cardiovascualr: Regular rate and rhythm with no murmur, absent gallops or rubs, absent pedal edema, radial pulses 2 out of 4 Neck: Right temporary dialysis catheter without bleeding Lungs: Clear to auscultation anteriorly not in respiratory distress. no wheezes or crackles. Abdomen: Soft nontender, nondistended positive bowel sounds, absent hepatomegaly Skin: gluteal cleft maceration MSK: absent clubbing, cyanosis, joints without swelling : Nephrostomy tubes draining clear yellow urine bilaterally. Neuro: alert to self, place, situation. CN II-XII grossly intact Psych: Mood and affect good. Good insight and judgment DVT Prophylaxis: mechanical DVT prophylaxis - Summary of Assessment and Plan Summary of Assessment and Plan: (1) Septic shock Current Visit: Yes Status: Resolved Assessment and Plan: Resolved. (2) Pyonephrosis Current Visit: Yes Status: Acute Assessment and Plan: patient started on broad spectrum IV antibiotics. Was on piperacillint/tazobactam 3.375mg/IV Q8HRs IV. Urine culture sent and showed E coli, proteus penneri, and Strep sanuinis. Rec 14 day course total of antibiotics. Now on Rocephin (3) UTI (urinary tract infection) Current Visit: No Status: Acute Assessment and Plan: patient was on piperacillint/tazobactam 3.375mg/IV Q8HRs IV. Now on Rocephin. See above. Urine culture as above. (4) Diabetes mellitus Current Visit: No Status: Chronic Assessment and Plan: started on lispro low dose sliding scale. NPO. accu-checks Q6HRs. (5) Hydronephrosis Current Visit: No Status: Acute Assessment and Plan: Patient s/p b/l bilateral percutaneous nephrostomy tube placement by urology. (6) ESRD: pt is being seen by nephorlogy, plan is HD Thu or Thursday, will defer to nephrology (7) Atrial fibrillation Current Visit: No Status: Chronic Assessment and Plan: Rate controlled. Patient on multiple medications for rate control. On sotalol and diltiazem. Home medications held on admission due to hypotension Will resume rate control meds slowly. On Warfarin (8) Prostate cancer Current Visit: Yes Status: Chronic Assessment and Plan: s/p radiation about 9 years ago (9) Dispo: Await final evlaution of the nephorlogy, eluogio or not pt needs permannet HD as out pt. Mean while, PT/Ot is seeing the pt. Pt stated that he father not, but is willing to go if it's needed. Time: 35 min - Time Spent with Patient Total time spent is greater than 50% in coordination of care (as documented) at patient's floor/unit and/or counseling patient: Internal Medicine: Result - Labs CBC & Chem 7: 05/28/18 05:11 05/28/18 05:11 Labs: Short CBC 05/28/18 Range/Units 05:11 WBC 8.5 (4.3-11.1) K/mcL Hgb 8.0 L (12.9-16.9) g/dL Hct 25.4 L (37.5-50.1) % Plt Count 225 (140-400) K/mcL BMP 05/28/18 05:11 Sodium 144 Potassium 3.5 Chloride 106 Carbon Dioxide 27 BUN 18 Creatinine 2.12 H Glucose 196 H Calcium 8.0 L - ABG Interpretation ABG results: ABG ABG pH 7.32 pH Units (7.32-7.45) 05/18/18 11:15 ABG pCO2 33 mmHg (35-45) L 05/18/18 11:15 ABG pO2 84 mmHg (85-104) L 05/18/18 11:15 ABG O2 Saturation 96 % (95-98) 05/18/18 11:15 PT/INR, D-dimer PT 17.3 Seconds (9.4-12.1) H 05/28/18 05:11 Consult Discharge Plan - Plan Referrals: Elysia Sullivan CNP [Primary Care Provider] -
[2018-05-28] MEDS: 0.9 % Sodium Chloride 1,000 ML IVC SCH (17:58)
[2018-05-28] MEDS ORDERED: *HR* Warfarin 3 MG TABLET PO ONE (18:00)
[2018-05-28] MEDS: Latanoprost 2.5 ML BOTTLE BOTH EYES SCH (19:43)
[2018-05-29 04:01] LABS: Hematocrit 25.1 % (37.5-50.1); Hemoglobin 8.1 g/dL (12.9-16.9); Mean Corpuscular HGB Conc 32.3 g/dL (31.6-35.5); Mean Corpuscular Hemoglobin 28.5 pg (28.0-33.3); Mean Corpuscular Volume 88.4 fL (83.0-100.0); Mean Platelet Volume 10.9 fL (9.4-12.4); Platelet Count 230 K/mcL (140-400); Red Blood Count 2.84 M/mcL (4.19-5.50); Red Cell Distribution Width 14.9 % (11.5-14.5)
[2018-05-29 04:13] LABS: INR 1.7; Prothrombin Time 19.5 Seconds (9.4-12.1)
[2018-05-29 04:24] LABS: Calcium 8.1 mg/dL (8.6-10.3); Potassium 3.4 mEq/L (3.5-5.1)
--- NOTE | 2018-05-29 08:42 | Event Note ---
Date of Encounter: 05/29/18 Time of Encounter: 08:41 - Nephrology Event Note Nephrology chart update The patient's renal function is not severe enough for dialysis today (Thursday). He last completed dialysis on . I will be available this weekend if needed, but if his renal function remains severely poor on Thursday, then tentatively plan for a permacath. I will be available if any questions, please feel free to call or page me. Thank you
[2018-05-29] MEDS: cefTRIAXone 2,000 MG in Water for inj. (sterile) 20 ML 20 ML IVP SCH (08:53)
[2018-05-29] MEDS: Insulin LISPRO 300 UNITS/3 ML VIAL SQ SCH ×4 (08:55→23:52)
--- NOTE | 2018-05-29 12:08 | Internal Med Progress Note ---
Hospitalist Progress Note - Encounter Date of Encounter: 05/29/18 Time of Encounter: 11:58 - Subjective Interval History: Pt feels good, no other issues. - Exam Vitals: Temp Pulse Resp BP Pulse Ox 98.3 F 120 16 124/80 98 05/29/18 10:47 05/29/18 10:47 05/29/18 10:47 05/29/18 10:47 05/29/18 10:47 Exam: General: A+O x 3, NAD Cardiovascualr: Regular rate and rhythm with no murmur, absent gallops or rubs, absent pedal edema, radial pulses 2 out of 4 Neck: Right temporary dialysis catheter without bleeding Lungs: Clear to auscultation anteriorly not in respiratory distress. no wheezes or crackles. Abdomen: Soft nontender, nondistended positive bowel sounds, absent hepatomegaly Skin: gluteal cleft maceration MSK: absent clubbing, cyanosis, joints without swelling : Nephrostomy tubes draining clear yellow urine bilaterally. Neuro: alert to self, place, situation. CN II-XII grossly intact Psych: Mood and affect good. Good insight and judgment DVT Prophylaxis: mechanical DVT prophylaxis - Summary of Assessment and Plan Summary of Assessment and Plan: (1) Septic shock Current Visit: Yes Status: Resolved Assessment and Plan: Resolved. (2) Pyonephrosis Current Visit: Yes Status: Acute Assessment and Plan: patient started on broad spectrum IV antibiotics. Was on piperacillint/tazobactam 3.375mg/IV Q8HRs IV. Urine culture sent and showed E coli, proteus penneri, and Strep sanuinis. Rec 14 day course total of antibiotics. Now on Rocephin (3) UTI (urinary tract infection) Current Visit: No Status: Acute Assessment and Plan: patient was on piperacillint/tazobactam 3.375mg/IV Q8HRs IV. Now on Rocephin. See above. Urine culture as above. (4) Diabetes mellitus Current Visit: No Status: Chronic Assessment and Plan: started on lispro low dose sliding scale. NPO. accu-checks Q6HRs. (5) Hydronephrosis Current Visit: No Status: Acute Assessment and Plan: Patient s/p b/l bilateral percutaneous nephrostomy tube placement by urology. (6) ESRD: pt is being seen by nephorlogy, plan is HD Thu or Thursday, will defer to nephrology (7) Atrial fibrillation Current Visit: No Status: Chronic Assessment and Plan: Rate controlled. Patient on multiple medications for rate control. On sotalol and diltiazem. Home medications held on admission due to hypotension Will resume rate control meds slowly. On Warfarin (8) Prostate cancer Current Visit: Yes Status: Chronic Assessment and Plan: s/p radiation about 9 years ago (9) Dispo: Await final evlaution of the nephorlogy, tommyhter or not pt needs permannet HD as out pt. Mean while, PT/Ot is seeing the pt. Pt is willing to go to rehab. Time: 35 min - Time Spent with Patient Total time spent is greater than 50% in coordination of care (as documented) at patient's floor/unit and/or counseling patient: Internal Medicine: Result - Labs CBC & Chem 7: 05/29/18 03:42 05/29/18 03:42 Labs: Short CBC 05/29/18 Range/Units 03:42 WBC 8.1 (4.3-11.1) K/mcL Hgb 8.1 L (12.9-16.9) g/dL Hct 25.1 L (37.5-50.1) % Plt Count 230 (140-400) K/mcL BMP 05/29/18 03:42 Sodium 142 Potassium 3.4 L Chloride 107 Carbon Dioxide 26 BUN 20 Creatinine 2.78 H Glucose 165 H Calcium 8.1 L - ABG Interpretation ABG results: ABG ABG pH 7.32 pH Units (7.32-7.45) 05/18/18 11:15 ABG pCO2 33 mmHg (35-45) L 05/18/18 11:15 ABG pO2 84 mmHg (85-104) L 05/18/18 11:15 ABG O2 Saturation 96 % (95-98) 05/18/18 11:15 PT/INR, D-dimer PT 19.5 Seconds (9.4-12.1) H 05/29/18 03:42 Consult Discharge Plan - Plan Referrals: Nate,Elysia Kaufman CNP [Primary Care Provider] -
[2018-05-29] MEDS: Nystatin POWDER 30 GM BOTTLE TP SCH (12:11)
[2018-05-29] MEDS ORDERED: *HR* Warfarin 3 MG TABLET PO ONE (18:00)
[2018-05-30] MEDS: Latanoprost 2.5 ML BOTTLE BOTH EYES SCH ×2 (00:10→21:34)
[2018-05-30] MEDS: Nystatin POWDER 30 GM BOTTLE TP SCH ×3 (00:14→21:35)
[2018-05-30] MEDS: traMADol 50 MG TABLET PO PRN ×2 (01:22→17:32)
[2018-05-30 04:48] LABS: Hematocrit 24.6 % (37.5-50.1); Hemoglobin 7.8 g/dL (12.9-16.9); Mean Corpuscular HGB Conc 31.7 g/dL (31.6-35.5); Mean Corpuscular Hemoglobin 28.5 pg (28.0-33.3); Mean Corpuscular Volume 89.8 fL (83.0-100.0); Mean Platelet Volume 10.9 fL (9.4-12.4); Platelet Count 232 K/mcL (140-400); Red Blood Count 2.74 M/mcL (4.19-5.50); Red Cell Distribution Width 15.1 % (11.5-14.5)
[2018-05-30 04:56] LABS: INR 1.9; Prothrombin Time 21.9 Seconds (9.4-12.1)
[2018-05-30 05:07] LABS: Calcium 7.9 mg/dL (8.6-10.3); Potassium 3.5 mEq/L (3.5-5.1)
[2018-05-30] MEDS: Insulin LISPRO 300 UNITS/3 ML VIAL SQ SCH ×4 (09:53→21:31)
[2018-05-30] MEDS: cefTRIAXone 2,000 MG in Water for inj. (sterile) 20 ML 20 ML IVP SCH (09:55)
--- NOTE | 2018-05-30 10:04 | Internal Med Progress Note ---
Hospitalist Progress Note - Encounter Date of Encounter: 05/30/18 Time of Encounter: 10:03 - Subjective Interval History: PT feesl ok, no new issues. - Exam Vitals: Temp Pulse Resp BP Pulse Ox 98.2 F 115 18 136/65 98 05/30/18 07:48 05/30/18 07:48 05/30/18 07:48 05/30/18 07:48 05/30/18 07:48 Exam: General: A+O x 3, NAD Cardiovascualr: Regular rate and rhythm with no murmur, absent gallops or rubs, absent pedal edema, radial pulses 2 out of 4 Neck: Right temporary dialysis catheter without bleeding Lungs: Clear to auscultation anteriorly not in respiratory distress. no wheezes or crackles. Abdomen: Soft nontender, nondistended positive bowel sounds, absent hepatomegaly Skin: gluteal cleft maceration MSK: absent clubbing, cyanosis, joints without swelling : Nephrostomy tubes draining clear yellow urine bilaterally. Neuro: alert to self, place, situation. CN II-XII grossly intact Psych: Mood and affect good. Good insight and judgment DVT Prophylaxis: mechanical DVT prophylaxis - Summary of Assessment and Plan Summary of Assessment and Plan: (1) Septic shock Current Visit: Yes Status: Resolved Assessment and Plan: Resolved. (2) Pyonephrosis Current Visit: Yes Status: Acute Assessment and Plan: patient started on broad spectrum IV antibiotics. Was on piperacillint/tazobactam 3.375mg/IV Q8HRs IV. Urine culture sent and showed E coli, proteus penneri, and Strep sanuinis. Rec 14 day course total of antibiotics. Now on Rocephin (3) UTI (urinary tract infection) Current Visit: No Status: Acute Assessment and Plan: patient was on piperacillint/tazobactam 3.375mg/IV Q8HRs IV. Now on Rocephin. See above. Urine culture as above. (4) Diabetes mellitus Current Visit: No Status: Chronic Assessment and Plan: started on lispro low dose sliding scale. NPO. accu-checks Q6HRs. (5) Hydronephrosis Current Visit: No Status: Acute Assessment and Plan: Patient s/p b/l bilateral percutaneous nephrostomy tube placement by urology. (6) ESRD: pt is being seen by nephorlogy, plan is HD Thu or Thursday, will defer to nephrology (7) Atrial fibrillation Current Visit: No Status: Chronic Assessment and Plan: Rate controlled. Patient on multiple medications for rate control. On sotalol and diltiazem. Home medications held on admission due to hypotension Will resume rate control meds slowly. On Warfarin (8) Prostate cancer Current Visit: Yes Status: Chronic Assessment and Plan: s/p radiation about 9 years ago (9) Dispo: Await perm sheyla and then possible rehab. Time: 35 min - Time Spent with Patient Total time spent is greater than 50% in coordination of care (as documented) at patient's floor/unit and/or counseling patient: Internal Medicine: Result - Labs CBC & Chem 7: 05/30/18 04:35 05/30/18 04:35 Labs: Short CBC 05/30/18 Range/Units 04:35 WBC 6.6 (4.3-11.1) K/mcL Hgb 7.8 L (12.9-16.9) g/dL Hct 24.6 L (37.5-50.1) % Plt Count 232 (140-400) K/mcL BMP 05/30/18 04:35 Sodium 144 Potassium 3.5 Chloride 107 Carbon Dioxide 24 BUN 22 Creatinine 2.76 H Glucose 178 H Calcium 7.9 L - ABG Interpretation ABG results: ABG ABG pH 7.32 pH Units (7.32-7.45) 05/18/18 11:15 ABG pCO2 33 mmHg (35-45) L 05/18/18 11:15 ABG pO2 84 mmHg (85-104) L 05/18/18 11:15 ABG O2 Saturation 96 % (95-98) 05/18/18 11:15 PT/INR, D-dimer PT 21.9 Seconds (9.4-12.1) H 05/30/18 04:35 Consult Discharge Plan - Plan Referrals: Elysia Sullivan CNP [Primary Care Provider] -
[2018-05-30] MEDS ORDERED: *HR* Warfarin 3 MG TABLET PO ONE (18:00)
[2018-05-31 03:53] LABS: Basophils # 0.1 K/mcL (0.0-0.2); Basophils % 0.8 %; Eosinophils # 0.3 K/mcL (0.0-0.6); Eosinophils % 4.1 %; Hematocrit 24.5 % (37.5-50.1); Hemoglobin 7.6 g/dL (12.9-16.9); Immature Granulocytes % 0.8 % (0-4); Immature Platelets 4.2 % (1.1-6.1); Lymphocytes # 1.2 K/mcL (0.6-4.6); Lymphocytes % 19.9 %; Mean Corpuscular Hemoglobin 28.5 pg (28.0-33.3); Mean Corpuscular Volume 91.8 fL (83.0-100.0); Mean Platelet Volume 11.1 fL (9.4-12.4); Monocytes # 0.6 K/mcL (0.0-1.3); Monocytes % 10.1 %; Platelet Count 249 K/mcL (140-400); Red Blood Count 2.67 M/mcL (4.19-5.50); Segmented Neutrophils % 64.3 %
[2018-05-31 04:06] LABS: INR 2.1; Prothrombin Time 23.2 Seconds (9.4-12.1)
[2018-05-31 04:51] LABS: Albumin 2.6 g/dL (3.5-5.7); Bilirubin,Total 0.4 mg/dL (0.3-1.0); Calcium 7.8 mg/dL (8.6-10.3); Globulin 2.7 g/dL (2.4-3.5); Potassium 3.5 mEq/L (3.5-5.1); Total Protein 5.3 g/dL (6.4-8.9)
[2018-05-31] MEDS: Insulin LISPRO 300 UNITS/3 ML VIAL SQ SCH ×4 (09:51→20:58)
[2018-05-31] MEDS: Nystatin POWDER 30 GM BOTTLE TP SCH ×2 (09:52→20:58)
--- NOTE | 2018-05-31 10:29 | Internal Med Progress Note ---
Hospitalist Progress Note - Encounter Date of Encounter: 05/31/18 Time of Encounter: 10:25 - Subjective Interval History: PT feels OK, no new issues, and wants to know what the next step is. - Exam Vitals: Temp Pulse Resp BP Pulse Ox 98.3 F 70 16 127/67 98 05/31/18 10:03 05/31/18 10:03 05/31/18 10:03 05/31/18 10:03 05/31/18 10:03 Exam: General: A+O x 3, NAD Cardiovascualr: Regular rate and rhythm with no murmur, absent gallops or rubs, absent pedal edema, radial pulses 2 out of 4 Neck: Right temporary dialysis catheter without bleeding Lungs: Clear to auscultation anteriorly not in respiratory distress. no wheezes or crackles. Abdomen: Soft nontender, nondistended positive bowel sounds, absent hepatomegaly Skin: gluteal cleft maceration MSK: absent clubbing, cyanosis, joints without swelling : Nephrostomy tubes draining clear yellow urine bilaterally. Neuro: alert to self, place, situation. CN II-XII grossly intact Psych: Mood and affect good. Good insight and judgment DVT Prophylaxis: mechanical DVT prophylaxis - Summary of Assessment and Plan Summary of Assessment and Plan: (1) Septic shock Current Visit: Yes Status: Resolved Assessment and Plan: Resolved. (2) Pyonephrosis Current Visit: Yes Status: Acute Assessment and Plan: patient started on broad spectrum IV antibiotics. Was on piperacillint/tazobactam 3.375mg/IV Q8HRs IV. Urine culture sent and showed E coli, proteus penneri, and Strep sanuinis. Rec 14 day course total of antibiotics. Now on Rocephin Tomorrow will the be last day and will have completed the ourse. (3) UTI (urinary tract infection) Current Visit: No Status: Acute Assessment and Plan: patient was on piperacillint/tazobactam 3.375mg/IV Q8HRs IV. Now on Rocephin. See above. Urine culture as above. (4) Diabetes mellitus Current Visit: No Status: Chronic Assessment and Plan: started on lispro low dose sliding scale. NPO. accu-checks Q6HRs. (5) Hydronephrosis Current Visit: No Status: Acute Assessment and Plan: Patient s/p b/l bilateral percutaneous nephrostomy tube placement by urology. (6) ESRD: pt is being seen by nephorlogy, plan is HD Thu or Thursday, will defer to nephrology (7) Atrial fibrillation Current Visit: No Status: Chronic Assessment and Plan: Rate controlled. Patient on multiple medications for rate control. On sotalol and diltiazem. Home medications held on admission due to hypotension Will resume rate control meds slowly. On Warfarin (8) Prostate cancer Current Visit: Yes Status: Chronic Assessment and Plan: s/p radiation about 9 years ago (9) Dispo: Await perm sheyla decison and then rehab. Time: 35 min - Time Spent with Patient Total time spent is greater than 50% in coordination of care (as documented) at patient's floor/unit and/or counseling patient: Internal Medicine: Result - Labs CBC & Chem 7: 05/31/18 03:35 05/31/18 03:35 Labs: Short CBC 05/31/18 Range/Units 03:35 WBC 6.1 (4.3-11.1) K/mcL Hgb 7.6 L (12.9-16.9) g/dL Hct 24.5 L (37.5-50.1) % Plt Count 249 (140-400) K/mcL Neutrophils # 4.0 (1.6-8.9) K/mcL BMP 05/31/18 03:35 Sodium 143 Potassium 3.5 Chloride 107 Carbon Dioxide 24 BUN 24 H Creatinine 2.95 H Glucose 171 H Calcium 7.8 L Liver Function 05/31/18 Range/Units 03:35 Total Bilirubin 0.4 (0.3-1.0) mg/dL AST 10 L (13-39) Units/L ALT 8 (7-52) Units/L Alkaline Phosphatase 82 (34-104) Units/L Albumin 2.6 L (3.5-5.7) g/dL - ABG Interpretation ABG results: ABG ABG pH 7.32 pH Units (7.32-7.45) 05/18/18 11:15 ABG pCO2 33 mmHg (35-45) L 05/18/18 11:15 ABG pO2 84 mmHg (85-104) L 05/18/18 11:15 ABG O2 Saturation 96 % (95-98) 05/18/18 11:15 PT/INR, D-dimer PT 23.2 Seconds (9.4-12.1) H 05/31/18 03:35 Consult Discharge Plan - Plan Referrals: Elysia Sullivan CNP [Primary Care Provider] -
--- NOTE | 2018-05-31 10:43 | Nephrology Progress Note ---
Addendum entered and electronically signed by Ethan Doss DO 05/31/18 21:03: I examined this patient and my medical decision-making was reviewed with the Resident Physician. I agree with the documented findings, disposition and treatment plan as described except to the extent set forth below. The patient was seen and examined, and he has very stable renal function near his baseline of CKD stage IV. He will not need a permacath or chronic dialysis at this point, and so his temporary dialysis catheter should be removed. 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 Sandoval and a BMP in about one week. Thank you. Original Note: Date of Encounter: 05/31/18 Time of Encounter: 10:40 - Assessment and Plan (1) Acute kidney injury superimposed on chronic kidney disease Current Visit: Yes Status: Acute GFR is 21 today, stable. In renal recovery at this time. Ordered to remove HD line today. F/U with Dr. Sandoval in 4-6 weeks. BMP 7 days after d/c and 1 week before appointment (ordered). Avoid nephrotoxins and renal dose. Strict I/O (2) Congestive heart failure Current Visit: Yes Status: Chronic History of. Qualifiers: Heart failure type: systolic Heart failure chronicity: acute on chronic Qualified Code(s): I50.23 - Acute on chronic systolic (congestive) heart failure (3) Prostate cancer Current Visit: Yes Status: Chronic (4) Pyonephrosis Current Visit: Yes Status: Acute Per urology. (5) Hypotension Current Visit: Yes Status: Acute Stable, 127/67 Qualifiers: Hypotension type: unspecified hypotension type Qualified Code(s): I95.9 - Hypotension, unspecified (6) Sepsis Current Visit: Yes Status: Acute As above Qualifiers: Sepsis type: Escherichia coli Qualified Code(s): A41.51 - Sepsis due to Escherichia coli [E. coli] Subjective Principal diagnosis: s/p nephro tubes in IR. Interval history: Pt seen and examined, doing well. Denies nausea, vomiting, diarrhea. Denies chest pain or shortness of breath. No acute events overnight. Objective - Vital Signs Vital signs: Vital Signs Temp Pulse Resp BP Pulse Ox 05/31/18 10:03 98.3 F 70 16 127/67 98 05/31/18 07:44 97.7 F 116 18 128/87 98 05/31/18 03:46 97.9 F 115 18 134/86 97 05/30/18 23:33 97.8 F 101 19 125/81 99 05/30/18 19:12 98.6 F 102 19 121/74 93 05/30/18 16:32 98.8 F 112 19 103/69 96 05/30/18 11:51 97.9 F 109 18 114/68 97 Intake and Output 05/30/18 05/31/18 05/31/18 23:59 07:59 15:59 Intake Total 325 / 325 140 / 140 Output Total 400 / 400 350 / 350 Balance -380 / -380 -25 / 25 140 / 140 Intake: IV Fluids Oral 0 / 0 325 / 325 140 / 140 Output: Wound Drainage 400 / 400 350 / 350 Left 200 / 200 200 / 200 Right 200 / 200 150 / 150 Other: Meal Breakfast Percent of Meal Consumed 100% Stool Size Small # Bowel Movements 1 1 Weight 123.4 kg Blood Glucose* 216 156 188 - General Appearance General appearance: Present: well-developed, well-nourished EENT: Present: ATNC, hearing intact, vision intact Neck: Present: supple Respiratory: Present: clear Cardiology: Present: no edema, normal S1, normal S2 Dialysis Vascular Access: Venous Catheter (DRSG C/D/I) Gastrointestinal: Present: normoactive bowel sounds, no tenderness, no guarding Integumentary: Present: no rash, warm and dry Neurologic: Present: alert and oriented x3 Musculoskeletal: Present: no deformities, no erythema Psychiatric: Present: mood/affect appropriate, cooperative - Lab 05/31/18 03:35 05/31/18 03:35 Most recent lab results ABG pH 7.32 pH Units (7.32-7.45) 05/18/18 11:15 ABG pCO2 33 mmHg (35-45) L 05/18/18 11:15 ABG pO2 84 mmHg (85-104) L 05/18/18 11:15 ABG HCO3 17 mEq/L (21-27) L 05/18/18 11:15 ABG O2 Saturation 96 % (95-98) 05/18/18 11:15 Calcium 7.8 mg/dL (8.6-10.3) L 05/31/18 03:35 Phosphorus 3.2 mg/dL (2.7-4.5) 05/18/18 04:05 Magnesium 1.4 mg/dL (1.6-2.6) L 05/18/18 04:05 Consult Discharge Plan - Plan Referrals: Elysia Sullivan CNP [Primary Care Provider] -
[2018-05-31] MEDS ORDERED: *HR* Alteplase (Cathflo) 2 MG VIAL IVP ONE (11:20)
[2018-05-31] MEDS ORDERED: *HR* Warfarin 3 MG TABLET PO ONE (18:00)
[2018-05-31] MEDS: traMADol 50 MG TABLET PO PRN (20:56)
[2018-05-31] MEDS: Latanoprost 2.5 ML BOTTLE BOTH EYES SCH (20:57)
[2018-06-01 04:45] LABS: Basophils # 0.1 K/mcL (0.0-0.2); Basophils % 0.9 %; Eosinophils # 0.2 K/mcL (0.0-0.6); Eosinophils % 3.9 %; Hematocrit 25.9 % (37.5-50.1); Hemoglobin 7.8 g/dL (12.9-16.9); Immature Granulocytes % 0.6 % (0-4); Lymphocytes # 1.3 K/mcL (0.6-4.6); Mean Corpuscular HGB Conc 30.1 g/dL (31.6-35.5); Mean Corpuscular Hemoglobin 27.9 pg (28.0-33.3); Mean Corpuscular Volume 92.5 fL (83.0-100.0); Mean Platelet Volume 11.2 fL (9.4-12.4); Monocytes # 0.6 K/mcL (0.0-1.3); Monocytes % 10.9 %; Neutrophils # 3.2 K/mcL (1.6-8.9); Platelet Count 258 K/mcL (140-400); Segmented Neutrophils % 59.7 %
[2018-06-01 04:49] LABS: Prothrombin Time 23.1 Seconds (9.4-12.1)
[2018-06-01 04:57] LABS: Albumin 2.8 g/dL (3.5-5.7); Bilirubin,Total 0.4 mg/dL (0.3-1.0); Globulin 2.8 g/dL (2.4-3.5); Potassium 3.5 mEq/L (3.5-5.1); Total Protein 5.6 g/dL (6.4-8.9)
--- NOTE | 2018-06-01 06:45 | Event Note ---
Date of Encounter: 06/01/18 Time of Encounter: 06:44 - Nephrology Event Note Nephrology chart update The patient has roughly stable renal function and is near his baseline and CKD stage IV. I would recommend follow-up with his primary geographic information system surveyor soon, and a basic metabolic panel in 1 week. I will sign off at this time, but please feel free to call or page me with any nephrology related questions. Thank you
[2018-06-01] MEDS: Insulin LISPRO 300 UNITS/3 ML VIAL SQ SCH ×4 (08:31→20:22)
[2018-06-01] MEDS: Nystatin POWDER 30 GM BOTTLE TP SCH ×2 (08:34→20:49)
--- NOTE | 2018-06-01 10:45 | Internal Med Progress Note ---
Hospitalist Progress Note - Encounter Date of Encounter: 06/01/18 Time of Encounter: 10:44 - Subjective Interval History: Pt feels well - Exam Vitals: Temp Pulse Resp BP Pulse Ox 97.3 F L 115 18 115/75 113 06/01/18 07:53 06/01/18 07:53 06/01/18 07:53 06/01/18 07:53 06/01/18 07:53 Exam: General: A+O x 3, NAD Cardiovascualr: Regular rate and rhythm with no murmur, absent gallops or rubs, absent pedal edema, radial pulses 2 out of 4 Neck: Right temporary dialysis catheter without bleeding Lungs: Clear to auscultation anteriorly not in respiratory distress. no wheezes or crackles. Abdomen: Soft nontender, nondistended positive bowel sounds, absent hepatomegaly Skin: gluteal cleft maceration MSK: absent clubbing, cyanosis, joints without swelling : Nephrostomy tubes draining clear yellow urine bilaterally. Neuro: alert to self, place, situation. CN II-XII grossly intact Psych: Mood and affect good. Good insight and judgment DVT Prophylaxis: mechanical DVT prophylaxis - Summary of Assessment and Plan Summary of Assessment and Plan: (1) Septic shock Current Visit: Yes Status: Resolved Assessment and Plan: Resolved. (2) Pyonephrosis Current Visit: Yes Status: Acute Assessment and Plan: patient started on broad spectrum IV antibiotics. Was on piperacillint/tazobactam 3.375mg/IV Q8HRs IV. Urine culture sent and showed E coli, proteus penneri, and Strep sanuinis. Rec 14 day course total of antibiotics. Now on Rocephin Tomorrow will the be last day and will have completed the ourse. (3) UTI (urinary tract infection) Current Visit: No Status: Acute Assessment and Plan: patient was on piperacillint/tazobactam 3.375mg/IV Q8HRs IV. Now on Rocephin. See above. Urine culture as above. (4) Diabetes mellitus Current Visit: No Status: Chronic Assessment and Plan: started on lispro low dose sliding scale. NPO. accu-checks Q6HRs. (5) Hydronephrosis Current Visit: No Status: Acute Assessment and Plan: Patient s/p b/l bilateral percutaneous nephrostomy tube placement by urology. (6) ESRD: pt is being seen by nephorlogy, plan is HD Thu or Thursday, will defer to nephrology (7) Atrial fibrillation Current Visit: No Status: Chronic Assessment and Plan: Rate controlled. Patient on multiple medications for rate control. On sotalol and diltiazem. Home medications held on admission due to hypotension Will resume rate control meds slowly. On Warfarin (8) Prostate cancer Current Visit: Yes Status: Chronic Assessment and Plan: s/p radiation about 9 years ago (9) Dispo: Nephrolgoy has signed off, we will wait for the creatinine to stablize, then d/c to rehab, await insurance to approve. Time: 35min - Time Spent with Patient Total time spent is greater than 50% in coordination of care (as documented) at patient's floor/unit and/or counseling patient: Internal Medicine: Result - Labs CBC & Chem 7: 06/01/18 04:00 06/01/18 04:00 Labs: Short CBC 06/01/18 Range/Units 04:00 WBC 5.3 (4.3-11.1) K/mcL Hgb 7.8 L (12.9-16.9) g/dL Hct 25.9 L (37.5-50.1) % Plt Count 258 (140-400) K/mcL Neutrophils # 3.2 (1.6-8.9) K/mcL BMP 06/01/18 04:00 Sodium 141 Potassium 3.5 Chloride 105 Carbon Dioxide 26 BUN 25 H Creatinine 2.98 H Glucose 181 H Calcium 8.0 L Liver Function 06/01/18 Range/Units 04:00 Total Bilirubin 0.4 (0.3-1.0) mg/dL AST 10 L (13-39) Units/L ALT 8 (7-52) Units/L Alkaline Phosphatase 84 (34-104) Units/L Albumin 2.8 L (3.5-5.7) g/dL - ABG Interpretation ABG results: ABG ABG pH 7.32 pH Units (7.32-7.45) 05/18/18 11:15 ABG pCO2 33 mmHg (35-45) L 05/18/18 11:15 ABG pO2 84 mmHg (85-104) L 05/18/18 11:15 ABG O2 Saturation 96 % (95-98) 05/18/18 11:15 PT/INR, D-dimer PT 23.1 Seconds (9.4-12.1) H 06/01/18 04:00 Consult Discharge Plan - Plan Referrals: Nate,Elysia Kaufman CNP [Primary Care Provider] -
[2018-06-01] MEDS ORDERED: *HR* Warfarin 3 MG TABLET PO ONE (18:00)
[2018-06-01] MEDS: Latanoprost 2.5 ML BOTTLE BOTH EYES SCH (20:50)
[2018-06-02] MEDS ORDERED: Simethicone 80 MG TAB.CHEW PO PRN (00:07)
[2018-06-02 08:22] LABS: Basophils # 0.1 K/mcL (0.0-0.2); Basophils % 1.7 %; Eosinophils # 0.3 K/mcL (0.0-0.6); Eosinophils % 4.7 %; Hematocrit 26.9 % (37.5-50.1); Hemoglobin 8.4 g/dL (12.9-16.9); Immature Granulocytes % 0.6 % (0-4); Lymphocytes # 1.2 K/mcL (0.6-4.6); Lymphocytes % 22.7 %; Mean Corpuscular HGB Conc 31.2 g/dL (31.6-35.5); Mean Corpuscular Hemoglobin 28.2 pg (28.0-33.3); Mean Corpuscular Volume 90.3 fL (83.0-100.0); Mean Platelet Volume 11.1 fL (9.4-12.4); Monocytes # 0.5 K/mcL (0.0-1.3); Monocytes % 9.8 %; Neutrophils # 3.2 K/mcL (1.6-8.9); Platelet Count 275 K/mcL (140-400); Red Blood Count 2.98 M/mcL (4.19-5.50); Red Cell Distribution Width 15.2 % (11.5-14.5); Segmented Neutrophils % 60.5 %
[2018-06-02 08:35] LABS: INR 2.1
[2018-06-02 08:47] LABS: Albumin 2.9 g/dL (3.5-5.7); Bilirubin,Total 0.4 mg/dL (0.3-1.0); Calcium 8.4 mg/dL (8.6-10.3); Globulin 2.9 g/dL (2.4-3.5); Potassium 3.8 mEq/L (3.5-5.1); Total Protein 5.8 g/dL (6.4-8.9)
[2018-06-02] MEDS: Insulin LISPRO 300 UNITS/3 ML VIAL SQ SCH ×2 (09:47→11:49)
[2018-06-02] MEDS: Nystatin POWDER 30 GM BOTTLE TP SCH (09:48)
[2018-06-02 10:53] VITALS: BP 112/70
--- NOTE | 2018-06-02 12:01 | Discharge Summary ---
- NOTES TO OUTPATIENT PROVIDER Notes to Outpatient Provider: PCP 2-5 days, neprholgy 2 wks, IR for percutaneous tube in 4 weeks, Orders not resulted at time of discharge: Pending orders 06/03/18 04:00 Complete Blood Count [HEME] AM 0400 Comprehensive Metabolic Panel AM 0400 INR/PT [Prothrombin Time INR] [COAG] AM 0400 06/04/18 04:00 Complete Blood Count [HEME] AM 0400 Comprehensive Metabolic Panel AM 0400 INR/PT [Prothrombin Time INR] [COAG] AM 0400 Date of Encounter: 06/02/18 Time of Encounter: 11:58 - Discharge Diagnosis (1) Acute kidney injury superimposed on chronic kidney disease Priority: Primary Status: Acute Hospital course: Mr. Rojas is a 78 year old male PMH A. fib s/p pacemaker, CHF?, DM, HTN, CKD stage 3, prostate CA s/p radiation about 9 years ago, chronic UTI. Patient was sent to the ED after an incidental finding of b/l pyonephrosis following nephrostomy tube placement. As per patient he has a Hx of UTI, and had a chronic Lewis catheter which got occluded a couple of days ago. His urologist recommended to have nephrostomy tube insertion to avoid worsening of his kidney function and to prevent recurrent UTIs. Today patient had IR guided nephrostomy tube insertion, while the tubes were being inserted the radiologist noticed some pus mixed with the urine. Bilateral percutaneous antegrade pyelogram: showed Successful bilateral percutaneous nephrostomy tube placement. An unexpected finding was bilateral pyonephrosis. And the patient was sent to the ED for IV antibiotics. Pt was kept in the hospital andp t was found to have spesis, ID swa the pt and pt was on borad spectrum abx for over 2 weeks. Pt was on ceftriaxone and pt renal function worsened, and pt was put on temp dialysis, with dialysis his renal fucntion improved. Without HD, pt's creianine had been around 2.9 range, no other issues except pt is very weak and pt finally agreed to the rehab. Pt had fnished entire 14 ddays of abx, and will not need fruther abx. Sotalol had been disconintued due to the renal faliure. Pt will go on diltizem only. Time; 35 min - Time Spent with Patient Total time spent providing and/or coordinating discharge services: - Discharge Medications Prescriptions: Continue Diltiazem HCl [Tiazac] 360 mg PO DAILY Latanoprost [Xalatan] 1 drop BOTH EYES DAILY Warfarin [Coumadin] 2 mg PO QPM Ergocalciferol (VITAMIN D2) [Vitamin D] 400 unit PO DAILY Ferrous Sulfate 325 mg PO TIDWM #90 tablet Insulin Glargine,Hum.rec.anlog [Basaglar Kwikpen U-100] 31 unit SQ HS Brimonidine 0.2% [Alphagan] 1 drop LEFT EYE BID No Action Sotalol [Betapace] 120 mg PO Q12HR Home Medications: Diltiazem HCl [Tiazac] 360 mg PO DAILY 03/16/15 [History] Sotalol [Betapace] 120 mg PO Q12HR 03/16/15 [History] Ergocalciferol (VITAMIN D2) [Vitamin D] 400 unit PO DAILY 12/08/15 [History] Latanoprost [Xalatan] 1 drop BOTH EYES DAILY 12/08/15 [History] Warfarin [Coumadin] 2 mg PO QPM 12/08/15 [History] Ferrous Sulfate 325 mg PO TIDWM #90 tablet 12/10/15 [Rx] Insulin Glargine,Hum.rec.anlog [Basaglar Kwikpen U-100] 31 unit SQ HS 10/26/17 [History] Brimonidine 0.2% [Alphagan] 1 drop LEFT EYE BID 12/22/17 [History] Allergies/Adverse Reactions: Allergy/AdvReac Type Severity Reaction Status Date / Time Erythromycin Base Allergy Mild Rash Verified 05/19/18 12:00 Date of admission: 05/18/18 12:56 Primary care physician: Elysia Sullivan CNP Consults: 05/17/18 17:12 Consult to Urology [CONS] Routine Consulting Provider: [facility] Reason for Consult: pyonephrosis Time Notified: 17:12 Call Completed: Yes 05/19/18 08:30 Consult to Nephrology [CONS] Routine Consulting Provider: [facility]/SUMI/MIRIAN/SENDY Reason for Consult: worsening creatinine, BUN in setting of bilateral nephrostomy tube and prostate cancer Time Notified: 08:30 Call Completed: Yes 05/19/18 09:48 Consult to Nurse Navigator [CONS] Routine Comment: CHF 05/20/18 08:46 Consult to Wound Care [CONS] Routine Reason for Consult: skin maceration in buttock in bed bound patient Call Completed: Yes 05/20/18 16:28 Consult to Physical Therapy [CONS] Routine Comment: Evaluate, develop and implement POC Reason for Consult: weakness Does patient have active BEDREST order?: No Is patient medically & hemodynamically stable?: Yes Patient assessed for mobility or mobilized this visit?: Yes 05/20/18 16:29 Consult to Occupational Therapy [CONS] Routine Comment: Evaluate, develop and implement POC Reason for Consult: weakness Does patient have active BEDREST order?: No Is patient medically & hemodynamically stable?: Yes Patient assessed for mobility or mobilized this visit?: Yes 05/23/18 19:25 Consult to Interventional Radiology [CONS] Routine Consulting Provider: Radiology Interventional [facility] Reason for Consult: temporary IJ HD catheter placement Call Completed: No 05/24/18 11:42 Consult to [place] [CONS] Routine Reason for SW Consult: needs ecf 05/24/18 15:00 Consult to Dialysis [CONS] ONCE 05/24/18 17:40 Consult to Wound Care [CONS] Routine Reason for Consult: reassessment Call Completed: Yes 05/25/18 08:15 Consult to Dialysis [CONS] ONCE 05/26/18 11:36 Consult to [place] [CONS] Routine Reason for SW Consult: Outpatient HD chair time. 05/27/18 08:00 Consult to Dialysis [CONS] ONCE - Constitutional Vitals: Temp Pulse Resp BP Pulse Ox 98.3 F 112 18 112/70 98 06/02/18 10:52 06/02/18 10:52 06/02/18 10:52 06/02/18 10:52 06/02/18 10:52 Exam: General: A+O x 3, NAD Cardiovascualr: Regular rate and rhythm with no murmur, absent gallops or rubs, absent pedal edema, radial pulses 2 out of 4 Neck: Right temporary dialysis catheter without bleeding Lungs: Clear to auscultation anteriorly not in respiratory distress. no wheezes or crackles. Abdomen: Soft nontender, nondistended positive bowel sounds, absent hepatomegaly Skin: gluteal cleft maceration MSK: absent clubbing, cyanosis, joints without swelling : Nephrostomy tubes draining clear yellow urine bilaterally. Neuro: alert to self, place, situation. CN II-XII grossly intact Psych: Mood and affect good. Good insight and judgment - Patient Status Disposition: Transfer SNF Condition: Critical - Ambulatory Orders Ambulatory Orders: Basic Metabolic Panel [CHEM] Time Frame: 1 Week, Facility: [facility], Location: Lab Basic Metabolic Panel [CHEM] Time Frame: 6 Weeks, Facility: [facility], Location: Lab - Discharge Instructions Follow Up With: Elysia Sullivan CNP [Primary Care Provider] -
--- NOTE | 2018-06-02 12:55 | Physician Discharge Referral ---
ExtendedCare Referral Info Provider in Charge after Transfer: PCP Institutional Level of Care: Skilled - Diagnosis (1) Acute kidney injury superimposed on chronic kidney disease Priority: Primary Status: Acute - Transfer Medications Home Medications: Diltiazem HCl [Tiazac] 360 mg PO DAILY 03/16/15 [History] Sotalol [Betapace] 120 mg PO Q12HR 03/16/15 [History] Ergocalciferol (VITAMIN D2) [Vitamin D] 400 unit PO DAILY 12/08/15 [History] Latanoprost [Xalatan] 1 drop BOTH EYES DAILY 12/08/15 [History] Warfarin [Coumadin] 2 mg PO QPM 12/08/15 [History] Ferrous Sulfate 325 mg PO TIDWM #90 tablet 12/10/15 [Rx] Insulin Glargine,Hum.rec.anlog [Basaglar Kwikpen U-100] 31 unit SQ HS 10/26/17 [History] Brimonidine 0.2% [Alphagan] 1 drop LEFT EYE BID 12/22/17 [History] Allergies/Adverse Reactions: Allergy/AdvReac Type Severity Reaction Status Date / Time Erythromycin Base Allergy Mild Rash Verified 05/19/18 12:00 - Respiratory Orders Smoking Cessation: Smoking cessation has been advised. For more information, call the [place] Tobacco Quit Line at 2-831-ICYS-NOW. CERTIFICATION: I certify that the transfer of the above named patient to an Extended Care Facility is necessary for the continuing treatment of the diagnosis listed. The above information is true and accurate reflection of patient's current condition. Confidential - Redisclosure prohibited without a patient's written consent.
[2018-06-02] MEDS ORDERED: *HR* Warfarin 3 MG TABLET PO ONE (18:00)
== END 2018-06-02 14:21 | DRG 871 ==
LOC: EMEROOARM 12:56 → INTOOBSV 16:50 → ICNU 16:50 → SUATTDRO 05-18 12:56 → 2ANU 05-21 14:56
PROVIDERS: ADMIT Internal Medicine; ATTEND Internal Medicine

== ENCOUNTER 2018-10-10 03:44 | Inpatient (IN) ==
[2018-10-10] MEDS ORDERED: 0.9 % Sodium Chloride 1,000 ML IVC ONE (03:59)
[2018-10-10 04:13] LABS: Bilirubin,Urine Negative (Negative); Blood,Urine Large (Negative); Clarity,Urine Turbid (Clear); Color,Urine Red (Yellow); Glucose,Urine (UA) Normal (Normal); Ketones,Urine Trace mg/dL (Negative); Leukocyte Esterase,Urine Large (Negative); Nitrite,Urine Negative (Negative); Protein,Urine 100 mg/dL (Neg-Trace); Specific Gravity,Urine 1.012 (1.010-1.025); Urobilinogen,Urine Normal (Normal)
[2018-10-10 04:15] LABS: RBC,Urine TNTC per hpf (0-3); Squamous Epithelial Cell,Urine Many per lpf (None-Few); WBC,Urine TNTC per hpf (0-3)
--- NOTE | 2018-10-10 04:16 | Emergency Department Note ---
Disposition Clinical Impression: Acute kidney injury superimposed on chronic kidney disease UTI (urinary tract infection) Qualifiers: Urinary tract infection type: site unspecified Hematuria presence: with hematuria Qualified Code(s): N39.0 - Urinary tract infection, site not specified Anemia Qualifiers: Anemia type: unspecified type Qualified Code(s): D64.9 - Anemia, unspecified Disposition: Admitted As Inpatient Condition: Fair Referrals: Nate,Elysia Kaufman CNP [Primary Care Provider] - Forms: ED Satisfaction Letter Time of Disposition: 05:57 Male Urogenital HPI - General Chief complaint: ED Urogenital-Male Stated complaint: Trouble urinating Time Seen by Provider: 10/10/18 03:59 Source: patient, family, EMS Mode of arrival: EMS Limitations: no limitations Nursing Notes Reviewed: Yes Vital Signs Reviewed: Yes - History of Present Illness HPI Narrative: 74-year-old male with a medical history including prostate cancer several years ago, CHF, CK 83, diabetes, A. fib with a pacer, hypertension who is on Coumadin reports emergency department for evaluation of his Lewis catheter not draining. Patient has a chronic full catheter related to radiation nugent from the prostate cancer and a large prostate. He states it has not been draining over the last couple days, home health nurse came today and change the Lewis the patient still has not had any urinary output. Patient states he is bedbound, going through therapy. He has a home health n urse one time a week. He states over the last couple weeks he has noticed his urine has become more cloudy, he states "I know I have a UTI". He states a history of "my kidneys were full of pus, they put in nephrostomy tubes and I went septic and almost ". He states he would prefer for this does not happen again. Pt Subjective Complaint: other Onset (ago): day(s) Duration: constant Reports: urinary retention, hematuria. Denies: discharge, swelling, mass, rash, dysuria, fever, nausea/vomiting, incontinence - Related Data Sexually active: No Home Medications Medication Instructions Recorded Confirmed Diltiazem HCl [Tiazac] 360 mg PO DAILY 03/16/15 06/22/18 Sotalol [Betapace] 120 mg PO Q12HR 03/16/15 06/22/18 Ergocalciferol (VITAMIN D2) 400 unit PO DAILY 12/08/15 06/22/18 [Vitamin D] Latanoprost [Xalatan] 1 drop BOTH EYES DAILY 12/08/15 06/22/18 Warfarin [Coumadin] 2 mg PO QPM 12/08/15 06/22/18 Insulin Glargine,Hum.rec.anlog 31 unit SQ HS 10/26/17 06/22/18 [Basaglar Kwikpen U-100] Ferrous Sulfate 325 mg PO DAILY 06/22/18 06/22/18 Previous Rx's Medication Instructions Recorded Nystatin POWDER [Nystop] 1 appl TP BID bottle 07/05/18 Allergies Allergy/AdvReac Type Severity Reaction Status Date / Time Erythromycin Base Allergy Mild Rash Verified 10/10/18 03:49 All systems ED: reviewed and negative except as stated. Review of Systems: As Per HPI Constitutional: Denies: fever Cardiovascular: Denies: chest pain, palpitations Respiratory: Denies: cough Gastrointestinal: Denies: abdominal pain, nausea, vomiting, diarrhea, constipation, hematemesis Genitourinary: Reports: hematuria, other Musculoskeletal: Denies: back pain Past Medical History - Past Medical History Attestation: Yes The following information was validated with the patient. Source: patient Medical history: Reports: cancer, CHF, diabetes, hypertension, other Surgical history: Reports: cholecystectomy, other, pacemaker Psychiatric history: Reports: no psych history - Social History Smoking Status: Never smoker Smokeless Tobacco Status: No Alcohol use: Reports: none Drug use: Reports: none Physical Exam - General Limitations: no limitations General appearance: alert, in no apparent distress - Head Head exam: normal inspection - Eye Eye exam: Present: normal appearance - ENT ENT exam: mucous membranes moist - Neck Neck exam: Present: normal inspection, full ROM, trachea midline - Chest Chest inspection: Present: normal inspection, symmetric chest wall rise - Respiratory Respiratory exam: Present: normal lung sounds bilaterally - Cardiovascular Cardiovascular exam: Present: regular rate, normal rhythm, normal heart sounds - Male exam: Present: normal inspection. Absent: scrotal swelling - Neurological Exam Neurological exam: Present: alert, oriented X3, normal gait - Psychiatric Psychiatric exam: Present: normal affect, normal mood - Skin Skin exam: Present: warm, dry, intact, normal color Course Course Narrative: Well-developed male no acute distress. Respirations are easy and even. Patient arises slightly elevated at 100.2, non-tachycardic, normotensive. Lewis catheter to being dirty, stain, noted with dried milky residue, catheter itself appears clean. Physical exam is otherwise unremarkable. Under sterile technique nursing staff replace Lewis catheter and noted with thick, heterogenous, hematuria. Urine looks purulent. Patient tolerated procedure well. Given the elevation in temperature, patient of subjective complaints of "knowing I have a UTI" we will send for culture and urinalysis, we will obtain basic labs, blood cultures and evaluated. EKG obtained at 04:02 reveals an atrial paced rhythm ventricular rate 75 bpm, [place] interval 135 ms, QTC 581 ms. No evidence of ischemia. 0450-labs returned with elevated white blood cell count of 22.1 with a shift, baseline anemia, metabolic panel revealing a slight acute kidney injury, INR is normal, UA with evidence of an infection. Previously patient growth of Pseudomonas and Pauline for which she had Zosyn and fluconazole. Given history, elevated white count, elevated temp he will benefit from admission for IV antibiotics and monitoring. Patient is agreeable to plan of care. We have paged the hospitalist at this time. 0600-spoke with hospitalist, agreeable for mentioned in patient status. We will monitor the patient on transition at this time. Patient is very agreeable plan of care. He is doing well. Vital Signs Temperature 100.2 F H 10/10/18 03:49 Pulse Rate 72 10/10/18 03:49 Respiratory Rate 17 10/10/18 03:49 Blood Pressure 136/70 10/10/18 03:49 O2 Sat by Pulse Oximetry 97 10/10/18 03:49 Temperature 99.3 F 10/10/18 05:07 Pulse Rate 75 10/10/18 05:53 Respiratory Rate 17 10/10/18 05:53 Blood Pressure 105/60 10/10/18 05:53 O2 Sat by Pulse Oximetry 95 10/10/18 05:53 Oxygen Delivery Oxygen Delivery Room Air Urogenital-Male - Differential Diagnosis Likely: urinary tract infection, acute urinary retention - Medical Records Medical records reviewed: Yes I reviewed the patient's medical records. - Lab Data Lab results reviewed: Yes I reviewed the patient's lab results. Result diagrams: 10/10/18 04:09 10/10/18 04:09 Lab Results 10/10/18 10/10/18 10/10/18 Range/Units 04:05 04:09 04:09 WBC 22.1 H (4.3-11.1) K/mcL RBC 3.28 L (4.19-5.50) M/mcL Hgb 9.2 L (12.9-16.9) g/dL Hct 28.6 L (37.5-50.1) % MCV 87.2 (83.0-100.0) fL MCH 28.0 (28.0-33.3) pg MCHC 32.2 (31.6-35.5) g/dL RDW 14.4 (11.5-14.5) % Plt Count 315 (140-400) K/mcL MPV 9.9 (9.4-12.4) fL Immature Gran % 0.9 (0-4) % Seg Neutrophils % 92.1 % Lymphocytes % 2.1 % Monocytes % 3.1 % Eosinophils % 1.6 % Basophils % 0.2 % Neutrophils # 20.4 H (1.6-8.9) K/mcL Lymphocytes # 0.5 L (0.6-4.6) K/mcL Monocytes # 0.7 (0.0-1.3) K/mcL Eosinophils # 0.4 (0.0-0.6) K/mcL Basophils # 0.0 (0.0-0.2) K/mcL PT (9.4-12.1) Seconds INR APTT (26.0-36.0) Seconds Sodium 132 L (136-145) mEq/L Potassium 4.2 (3.5-5.1) mEq/L Chloride 104 (98-107) mEq/L Carbon Dioxide 18 L (23-29) mEq/L BUN 41 H (8-23) mg/dL Creatinine 2.84 H (0.70-1.30) mg/dL Est GFR ( Amer) 26 L (> 60) Est GFR (Non-Af Amer) 22 L (> 60) BUN/Creatinine Ratio 14 (6-26) Glucose 187 H (70-105) mg/dL Calculated Osmolality 289 (280-300) Lactic Acid (0.5-2.2) mmol/L Calcium 8.9 (8.6-10.3) mg/dL Troponin I < 0.03 (< 0.04) ng/mL Urine Color Red A (Yellow) Urine Clarity Turbid A (Clear) Urine pH 6.0 (5.0-8.0) pH Units Ur Specific [place] 1.012 (1.010-1.025) Urine Protein 100 H (Neg-Trace) mg/dL Urine Glucose (UA) Normal (Normal) mg/dL Urine Ketones Trace H (Negative) mg/dL Urine Blood Large H (Negative) Urine Nitrite Negative (Negative) Urine Bilirubin Negative (Negative) Urine Urobilinogen Normal (Normal) mg/dL Ur Leukocyte Esterase Large H (Negative) Urine Microscopic RBC TNTC H (0-3) per hpf Urine Microscopic WBC TNTC H (0-3) per hpf Ur Squamous Epith Cells Many H (None-Few) per lpf Ur Transition Epith Cell Moderate H (None-Few) per hpf Urine Bacteria Many H (None-Few) per hpf Hyaline Casts Few (None-Few) per lpf Ur Culture Indicated? YES A (NO) 10/10/18 10/10/18 Range/Units 04:09 04:09 WBC (4.3-11.1) K/mcL RBC (4.19-5.50) M/mcL Hgb (12.9-16.9) g/dL Hct (37.5-50.1) % MCV (83.0-100.0) fL MCH (28.0-33.3) pg MCHC (31.6-35.5) g/dL RDW (11.5-14.5) % Plt Count (140-400) K/mcL MPV (9.4-12.4) fL Immature Gran % (0-4) % Seg Neutrophils % % Lymphocytes % % Monocytes % % Eosinophils % % Basophils % % Neutrophils # (1.6-8.9) K/mcL Lymphocytes # (0.6-4.6) K/mcL Monocytes # (0.0-1.3) K/mcL Eosinophils # (0.0-0.6) K/mcL Basophils # (0.0-0.2) K/mcL PT 32.3 H (9.4-12.1) Seconds INR 2.8 APTT 39.3 H (26.0-36.0) Seconds Sodium (136-145) mEq/L Potassium (3.5-5.1) mEq/L Chloride (98-107) mEq/L Carbon Dioxide (23-29) mEq/L BUN (8-23) mg/dL Creatinine (0.70-1.30) mg/dL Est GFR ( Amer) (> 60) Est GFR (Non-Af Amer) (> 60) BUN/Creatinine Ratio (6-26) Glucose (70-105) mg/dL Calculated Osmolality (280-300) Lactic Acid 0.9 (0.5-2.2) mmol/L Calcium (8.6-10.3) mg/dL Troponin I (< 0.04) ng/mL Urine Color (Yellow) Urine Clarity (Clear) Urine pH (5.0-8.0) pH Units Ur Specific [place] (1.010-1.025) Urine Protein (Neg-Trace) mg/dL Urine Glucose (UA) (Normal) mg/dL Urine Ketones (Negative) mg/dL Urine Blood (Negative) Urine Nitrite (Negative) Urine Bilirubin (Negative) Urine Urobilinogen (Normal) mg/dL Ur Leukocyte Esterase (Negative) Urine Microscopic RBC (0-3) per hpf Urine Microscopic WBC (0-3) per hpf Ur Squamous Epith Cells (None-Few) per lpf Ur Transition Epith Cell (None-Few) per hpf Urine Bacteria (None-Few) per hpf Hyaline Casts (None-Few) per lpf Ur Culture Indicated? (NO) - EKG Data EKG attestation: Yes I reviewed and interpreted this EKG.
[2018-10-10 04:35] LABS: Basophils % 0.2 %; Eosinophils # 0.4 K/mcL (0.0-0.6); Eosinophils % 1.6 %; Hematocrit 28.6 % (37.5-50.1); Hemoglobin 9.2 g/dL (12.9-16.9); Immature Granulocytes % 0.9 % (0-4); Lymphocytes # 0.5 K/mcL (0.6-4.6); Lymphocytes % 2.1 %; Mean Corpuscular HGB Conc 32.2 g/dL (31.6-35.5); Mean Corpuscular Volume 87.2 fL (83.0-100.0); Mean Platelet Volume 9.9 fL (9.4-12.4); Monocytes # 0.7 K/mcL (0.0-1.3); Monocytes % 3.1 %; Neutrophils # 20.4 K/mcL (1.6-8.9); Platelet Count 315 K/mcL (140-400); Red Blood Count 3.28 M/mcL (4.19-5.50); Red Cell Distribution Width 14.4 % (11.5-14.5); Segmented Neutrophils % 92.1 %; White Blood Count 22.1 K/mcL (4.3-11.1)
[2018-10-10 04:35] LABS: Bacteria,Urine Many per hpf (None-Few); Hyaline Casts,Urine Few per lpf (None-Few); Transitional Epi Cells,Urine Moderate per hpf (None-Few)
[2018-10-10 04:39] LABS: INR 2.8; Prothrombin Time 32.3 Seconds (9.4-12.1)
[2018-10-10 04:42] LABS: Activated Partial Thrombo Time 39.3 Seconds (26.0-36.0)
[2018-10-10] MEDS ORDERED: Piperacillin/Tazobactam 3.375 GM in 0.9 % Sodium Chloride Mini Bag 100 ML IVPB ONE (04:44)
[2018-10-10 04:47] LABS: BUN/Creatinine Ratio 14 (6-26); Blood Urea Nitrogen 41 mg/dL (8-23); Calcium 8.9 mg/dL (8.6-10.3); Carbon Dioxide 18 mEq/L (23-29); Chloride 104 mEq/L (98-107); Glucose 187 mg/dL (70-105); Osmolality,Calculated 289 (280-300); Potassium 4.2 mEq/L (3.5-5.1); Sodium 132 mEq/L (136-145); eGFR For African Americans 26 (> 60); eGFR For Non-African Americans 22 (> 60)
--- NOTE | 2018-10-10 04:50 | Emergency Department Note ---
Disposition Clinical Impression: Acute kidney injury superimposed on chronic kidney disease UTI (urinary tract infection) Qualifiers: Urinary tract infection type: site unspecified Hematuria presence: with hematuria Qualified Code(s): N39.0 - Urinary tract infection, site not specified Anemia Qualifiers: Anemia type: unspecified type Qualified Code(s): D64.9 - Anemia, unspecified Disposition: Admitted As Inpatient Condition: Fair Referrals: Sullivan,Elysia Kaufman CNP [Primary Care Provider] - Forms: ED Satisfaction Letter Time of Disposition: 05:59 General Adult HPI - General Chief complaint: ED Urogenital-Male Stated complaint: Trouble urinating Time Seen by Provider: 10/10/18 03:59 Source: patient, family, EMS Mode of arrival: EMS Limitations: no limitations Nursing Notes Reviewed: Yes Vital Signs Reviewed: Yes - History of Present Illness Pain Scale: 2 - Related Data Home Medications Medication Instructions Recorded Confirmed Diltiazem HCl [Tiazac] 360 mg PO DAILY 03/16/15 10/10/18 Sotalol [Betapace] 120 mg PO Q12HR 03/16/15 10/10/18 Ergocalciferol (VITAMIN D2) 400 unit PO DAILY 12/08/15 10/10/18 [Vitamin D] Latanoprost [Xalatan] 1 drop BOTH EYES DAILY 12/08/15 10/10/18 Warfarin [Coumadin] 2 mg PO QPM 12/08/15 10/10/18 Insulin Glargine,Hum.rec.anlog 31 unit SQ HS 10/26/17 10/10/18 [Basaglar Kwikpen U-100] Ferrous Sulfate 325 mg PO DAILY 06/22/18 10/10/18 Previous Rx's Medication Instructions Recorded Nystatin POWDER [Nystop] 1 appl TP BID bottle 07/05/18 Allergies Allergy/AdvReac Type Severity Reaction Status Date / Time Erythromycin Base Allergy Mild Rash Verified 10/10/18 03:49 Constitutional: Denies: fever Cardiovascular: Denies: chest pain, palpitations Respiratory: Denies: cough Gastrointestinal: Denies: abdominal pain, nausea, vomiting, diarrhea, constipation, hematemesis Genitourinary: Reports: hematuria, other Musculoskeletal: Denies: back pain Past Medical History - Past Medical History Medical history: Reports: cancer, CHF, diabetes, hypertension, other Surgical history: Reports: cholecystectomy, other, pacemaker Psychiatric history: Reports: no psych history - Social History Smoking Status: Never smoker Smokeless Tobacco Status: No Alcohol use: Reports: none Drug use: Reports: none Physical Exam - General Limitations: no limitations General appearance: alert, in no apparent distress Course Vital Signs Temperature 100.2 F H 10/10/18 03:49 Pulse Rate 72 10/10/18 03:49 Respiratory Rate 17 10/10/18 03:49 Blood Pressure 136/70 10/10/18 03:49 O2 Sat by Pulse Oximetry 97 10/10/18 03:49 Temperature 99.3 F 10/10/18 05:07 Pulse Rate 75 10/10/18 05:07 Respiratory Rate 18 10/10/18 05:07 Blood Pressure 107/51 10/10/18 05:07 O2 Sat by Pulse Oximetry 95 10/10/18 05:07 Oxygen Delivery Oxygen Delivery Room Air Medical Decision Making - Medical Records Medical records reviewed: Yes I reviewed the patient's medical records. - Lab Data Lab results reviewed: Yes I reviewed the patient's lab results. Result diagrams: 10/10/18 04:09 10/10/18 04:09 Lab Results 10/10/18 10/10/18 10/10/18 Range/Units 04:05 04:09 04:09 WBC 22.1 H (4.3-11.1) K/mcL RBC 3.28 L (4.19-5.50) M/mcL Hgb 9.2 L (12.9-16.9) g/dL Hct 28.6 L (37.5-50.1) % MCV 87.2 (83.0-100.0) fL MCH 28.0 (28.0-33.3) pg MCHC 32.2 (31.6-35.5) g/dL RDW 14.4 (11.5-14.5) % Plt Count 315 (140-400) K/mcL MPV 9.9 (9.4-12.4) fL Immature Gran % 0.9 (0-4) % Seg Neutrophils % 92.1 % Lymphocytes % 2.1 % Monocytes % 3.1 % Eosinophils % 1.6 % Basophils % 0.2 % Neutrophils # 20.4 H (1.6-8.9) K/mcL Lymphocytes # 0.5 L (0.6-4.6) K/mcL Monocytes # 0.7 (0.0-1.3) K/mcL Eosinophils # 0.4 (0.0-0.6) K/mcL Basophils # 0.0 (0.0-0.2) K/mcL PT (9.4-12.1) Seconds INR APTT (26.0-36.0) Seconds Sodium 132 L (136-145) mEq/L Potassium 4.2 (3.5-5.1) mEq/L Chloride 104 (98-107) mEq/L Carbon Dioxide 18 L (23-29) mEq/L BUN 41 H (8-23) mg/dL Creatinine 2.84 H (0.70-1.30) mg/dL Est GFR ( Amer) 26 L (> 60) Est GFR (Non-Af Amer) 22 L (> 60) BUN/Creatinine Ratio 14 (6-26) Glucose 187 H (70-105) mg/dL Calculated Osmolality 289 (280-300) Lactic Acid (0.5-2.2) mmol/L Calcium 8.9 (8.6-10.3) mg/dL Troponin I < 0.03 (< 0.04) ng/mL Urine Color Red A (Yellow) Urine Clarity Turbid A (Clear) Urine pH 6.0 (5.0-8.0) pH Units Ur Specific [place] 1.012 (1.010-1.025) Urine Protein 100 H (Neg-Trace) mg/dL Urine Glucose (UA) Normal (Normal) mg/dL Urine Ketones Trace H (Negative) mg/dL Urine Blood Large H (Negative) Urine Nitrite Negative (Negative) Urine Bilirubin Negative (Negative) Urine Urobilinogen Normal (Normal) mg/dL Ur Leukocyte Esterase Large H (Negative) Urine Microscopic RBC TNTC H (0-3) per hpf Urine Microscopic WBC TNTC H (0-3) per hpf Ur Squamous Epith Cells Many H (None-Few) per lpf Ur Transition Epith Cell Moderate H (None-Few) per hpf Urine Bacteria Many H (None-Few) per hpf Hyaline Casts Few (None-Few) per lpf Ur Culture Indicated? YES A (NO) 10/10/18 10/10/18 Range/Units 04:09 04:09 WBC (4.3-11.1) K/mcL RBC (4.19-5.50) M/mcL Hgb (12.9-16.9) g/dL Hct (37.5-50.1) % MCV (83.0-100.0) fL MCH (28.0-33.3) pg MCHC (31.6-35.5) g/dL RDW (11.5-14.5) % Plt Count (140-400) K/mcL MPV (9.4-12.4) fL Immature Gran % (0-4) % Seg Neutrophils % % Lymphocytes % % Monocytes % % Eosinophils % % Basophils % % Neutrophils # (1.6-8.9) K/mcL Lymphocytes # (0.6-4.6) K/mcL Monocytes # (0.0-1.3) K/mcL Eosinophils # (0.0-0.6) K/mcL Basophils # (0.0-0.2) K/mcL PT 32.3 H (9.4-12.1) Seconds INR 2.8 APTT 39.3 H (26.0-36.0) Seconds Sodium (136-145) mEq/L Potassium (3.5-5.1) mEq/L Chloride (98-107) mEq/L Carbon Dioxide (23-29) mEq/L BUN (8-23) mg/dL Creatinine (0.70-1.30) mg/dL Est GFR ( Amer) (> 60) Est GFR (Non-Af Amer) (> 60) BUN/Creatinine Ratio (6-26) Glucose (70-105) mg/dL Calculated Osmolality (280-300) Lactic Acid 0.9 (0.5-2.2) mmol/L Calcium (8.6-10.3) mg/dL Troponin I (< 0.04) ng/mL Urine Color (Yellow) Urine Clarity (Clear) Urine pH (5.0-8.0) pH Units Ur Specific [place] (1.010-1.025) Urine Protein (Neg-Trace) mg/dL Urine Glucose (UA) (Normal) mg/dL Urine Ketones (Negative) mg/dL Urine Blood (Negative) Urine Nitrite (Negative) Urine Bilirubin (Negative) Urine Urobilinogen (Normal) mg/dL Ur Leukocyte Esterase (Negative) Urine Microscopic RBC (0-3) per hpf Urine Microscopic WBC (0-3) per hpf Ur Squamous Epith Cells (None-Few) per lpf Ur Transition Epith Cell (None-Few) per hpf Urine Bacteria (None-Few) per hpf Hyaline Casts (None-Few) per lpf Ur Culture Indicated? (NO) - EKG Data EKG #1 EKG attestation: Yes I reviewed and interpreted this EKG. EKG results narrative: EKG shows an atrial ventricular pacemaker with totally paced rhythm at a rate of 75. Attestation Statement - Attestation Attestation: I, Alex Bell MD, personally evaluated this patient and discussed their management with the midlevel provicer, PAC/BOX LINING MACHINE OPERATOR. I reviewed the midlevel provider's note and agree with the documented findings, medical decision making, and plan of care. 78-year-old male with chronic indwelling Lewis catheter presents to the emergency department with complaints of problems urinating for the past several days. He states that he has had decreased drainage from his catheter and leakage around the catheter. His home health nurse changed the catheter and he has had no urine output from the catheter since the change and also has increased suprapubic pain. Chills and low-grade fever. On examination patient is a well-developed obese elderly male in no acute distress. He is alert and oriented 3. There is no cyanosis or diaphoresis. Breath sounds are clear and equal bilaterally. Heart regular rate and rhythm. Abdomen is soft with mild mid lower abdominal tenderness. Bowel sounds present. Labs reviewed. WBC 22.1. Creatinine 2.8 for which is increased from his baseline. Significant UTI. EKG shows a totally paced rhythm at 75. The hospitalist, Dr. Carcamo, was consulted and accepted admission of the patient.
[2018-10-10] MEDS ORDERED: Ondansetron 4 MG/2 ML VIAL IVP ONE (04:54)
[2018-10-10 04:55] LABS: Troponin I < 0.03 ng/mL (< 0.04)
[2018-10-10] MEDS ORDERED: Acetaminophen 325 MG TABLET PO ONE (04:55)
[2018-10-10] MEDS ORDERED: Ringers Solution, Lactated 1,000 ML IVC SCH (08:15)
[2018-10-10] MEDS ORDERED: Naloxone 0.4 MG/ML INJ IVP PRN (08:15)
--- NOTE | 2018-10-10 08:32 | Internal Med History&Physical ---
Date of Encounter: 10/10/18 Time of Encounter: 08:42 Internal Medicine - H&P: HPI History of present illness: Mr. Rojas is a 78 year old male with history of chronic Lewis catheter due to radiation therapy for prostate cancer, history of renal stents, atrial fibrillation, chronic kidney disease, HF, pace maker presented for Lewis catheter not draining. Problem started a few days ago and states the issue persists even when his home health aid changed the Lewis, states related to his position changes. His urine that did come out was noted to be cloudy. His maximum temperature at home was 99 F, and he complained of nausea. In the ED he had a urinalysis consistent with UTI, tmax was 100.2, and WBC 22k. Currently in no acute distress on my exam and states he is feeling much better. Past Med Surg Social Fam HX - Past Medical History Medical history: cancer, CHF, diabetes, hypertension, other Additional medical history: irregular heart beat. prostate cancer with radiation Psychiatric history: no psych history - Past Surgical History Surgical History: cholecystectomy Additional surgical history: pacer - Social History Smoking Status: Never smoker Smokeless Tobacco Status: No Alcohol use: none Drug use: none - Family History Father Living Status: Hx Family Respiratory Disorders: Yes (Lung cancer) Hx Family Cancer: Yes (lung cancer) Mother Living Status: Hx Family Cancer: Yes (breast cancer) Internal Medicine - H&P: Meds Diltiazem HCl [Tiazac] 360 mg PO DAILY 03/16/15 [History] Sotalol [Betapace] 120 mg PO Q12HR 03/16/15 [History] Ergocalciferol (VITAMIN D2) [Vitamin D] 400 unit PO DAILY 12/08/15 [History] Latanoprost [Xalatan] 1 drop BOTH EYES DAILY 12/08/15 [History] Warfarin [Coumadin] 2 mg PO QPM 12/08/15 [History] Insulin Glargine,Hum.rec.anlog [Basaglar Kwikpen U-100] 31 unit SQ HS 10/26/17 [History] Ferrous Sulfate 325 mg PO DAILY 06/22/18 [History] Nystatin POWDER [Nystop] 1 appl TP BID bottle 07/05/18 [Rx] Allergy/AdvReac Type Severity Reaction Status Date / Time Erythromycin Base Allergy Mild Rash Verified 10/10/18 03:49 All Systems PM: A 10-system review of systems was performed and is negative for pertinent findings except as documented above in the HPI. - Constitutional Constitutional: fever(s), no chills, no night sweats - EENT Eyes: no change in vision, no discharge, no pain, no photophobia Ears: no ear discharge, no ear pain, no tinnitus Nose, mouth and throat: no dysphagia, no nasal discharge, no neck pain, no sore throat - Cardiovascular Cardiovascular ROS IM: no chest pain, no diaphoresis, no dyspnea, no lightheadedness, no palpitations, no syncope - Respiratory Respiratory: no cough, no dyspnea, no wheezing, no excessive phlegm production - Gastrointestinal Gastrointestinal: nausea, no abdominal pain, no diarrhea, no hematemesis, no hematochezia, no melena, no vomiting - Genitourinary Genitourinary ROS male: difficulty urinating, hematuria, urinary incontinence, no dysuria, no testicular pain, no urinary frequency Additional comments: Lewis catheter draining dark brown urine. - Musculoskeletal Musculoskeletal ROS IM: no numbness, no tingling - Integumentary Integumentary IM: no rash, no unusual bruising Additional comments: Dermatitis on both lower extremities - Neurological Neurological ROS: no confusion, no convulsions, no focal weakness, no numbness, no tingling, no tremor(s) - Hematologic/Lymphatic Hematologic/Lymphatic: no easy bruising - Constitutional Vitals: Temp Pulse Resp BP Pulse Ox 99.3 F 75 17 105/60 95 10/10/18 05:07 10/10/18 05:53 10/10/18 05:53 10/10/18 05:53 10/10/18 05:53 General appearance: Present: A&O X 3 Exam: . - Head Head exam: Present: atraumatic, normocephalic - Eye Eye exam: Present: PERRL, conjuntiva pink, sclera anicteric Pupils: Present: PERRL - ENT ENT exam: Present: mucous membranes dry - Neck Neck exam general surgery: Present: supple, trachea midline. Absent: lymphadenopathy - Respiratory Respiratory exam: Present: CTAB. Absent: accessory muscle use, rales, rhonchi, wheezes - Cardiovascular Cardiovascular exam: Present: RRR, +S1, +S2. Absent: diastolic murmur, gallop, rubs, systolic murmur - GI/Abdominal GI/Abdominal exam: Present: normal bowel sounds, soft, no peritoneal signs. Absent: distended, tenderness - Extremities Exam Extremities exam: Present: warm, radial pulses palpable and symmetrical. Absent: calf tenderness, cyanotic, pedal edema - Neurological Exam Neurological exam: Present: CN II-XII intact, oriented X3, no focal deficits. Absent: pronater drift, facial droop, speech deficit - Skin Skin exam: Present: dry, intact Additional comments: Dermatitis on both lower extremities Internal Med - H&P Results - Labs CBC & Chem 7: 10/10/18 04:09 10/10/18 04:09 Labs: Short CBC 10/10/18 Range/Units 04:09 WBC 22.1 H (4.3-11.1) K/mcL Hgb 9.2 L (12.9-16.9) g/dL Hct 28.6 L (37.5-50.1) % Plt Count 315 (140-400) K/mcL Neutrophils # 20.4 H (1.6-8.9) K/mcL BMP 10/10/18 04:09 Sodium 132 L Potassium 4.2 Chloride 104 Carbon Dioxide 18 L BUN 41 H Creatinine 2.84 H Glucose 187 H Calcium 8.9 Cardiac Enzymes 10/10/18 Range/Units 04:09 Troponin I < 0.03 (< 0.04) ng/mL Urine 10/10/18 Range/Units 04:05 Urine Color Red A (Yellow) Urine Clarity Turbid A (Clear) Urine pH 6.0 (5.0-8.0) pH Units Ur Specific Crosby 1.012 (1.010-1.025) Urine Protein 100 H (Neg-Trace) mg/dL Urine Glucose (UA) Normal (Normal) mg/dL - Assessment and Plan (1) Complicated UTI (urinary tract infection) Current Visit: No Status: Acute Assessment and plan: Secondary to obstruction of Lewis catheter. He has a history of multiple org anisms growing, including Pseudomonas. Has 1 SIRS criteria on admission for leukocytosis of 22 k. However, is a high risk patient to progress to sepsis. Nursing staff in ED replaced Lewis catheter and urine was noted to have thick, heterogeneous hematuria. - Continue IV antibiotics, will need emperic Pseudomonal coverage until cultures return. - Gentle IV fluid hydration. - Retroperitoneal ultrasound (2) Acute kidney injury superimposed on chronic kidney disease Current Visit: Yes Status: Acute Assessment and plan: Most likely from obstruction of Lewis catheter. Lewis catheter was changed in ED and now there is urine output. - Continue gentle IV fluid hydration - Retroperitoneal ultrasound - Recheck BMP in AM - If no improvement of renal function, may need Nephrology consult. (3) Debility Current Visit: No Status: Acute (4) Atrial fibrillation Current Visit: No Status: Chronic Assessment and plan: HR within normal limtis. Anticoagulation with coumadin Qualifiers: Atrial fibrillation type: unspecified Qualified Code(s): I48.91 - Unspecified atrial fibrillation (5) Chronic kidney disease, stage 3 Current Visit: No Status: Chronic (6) Hypertension Current Visit: No Status: Chronic Assessment and plan: Resume Cardizem with hold parameters Qualifiers: Hypertension type: essential hypertension Qualified Code(s): I10 - Essential (primary) hypertension (7) Prostate cancer Current Visit: No Status: Chronic Assessment and plan: Remote history. (8) Sacral decubitus ulcer, stage II Current Visit: No Status: Chronic Assessment and plan: Present on admission. Wound care consult. (9) DVT prophylaxis Current Visit: No Status: Acute Assessment and plan: On coumadin with therapeutic INR - Time Spent With Patient Total time spent is greater than 50% in coordination of care (as documented) at patient's floor/unit and/or counseling patient:
[2018-10-10] MEDS ORDERED: Ringers Solution, Lactated 500 ML IVC ONE ×2 (08:58→09:15)
[2018-10-10] MEDS: Diltiazem CD (24hr) 180 MG CAPSULE PO SCH (10:06)
[2018-10-10] MEDS: Nystatin POWDER 30 GM BOTTLE TP SCH ×2 (11:47→21:30)
[2018-10-10] MEDS: Latanoprost 2.5 ML BOTTLE BOTH EYES SCH (11:48)
[2018-10-10] MEDS: Insulin LISPRO 300 UNITS/3 ML VIAL SQ SCH ×3 (13:05→21:29)
[2018-10-10] MEDS: Piperacillin/Tazobactam 3.375 GM in 0.9 % Sodium Chloride Mini Bag 100 ML IVPB SCH ×2 (17:23→20:50)
[2018-10-10] MEDS ORDERED: *HR* Heparin 5,000 UNIT/ML VIAL SQ SCH (18:00)
[2018-10-11 05:31] LABS: Basophils % 0.3 %; Eosinophils # 0.5 K/mcL (0.0-0.6); Eosinophils % 3.4 %; Hematocrit 27.3 % (37.5-50.1); Hemoglobin 8.6 g/dL (12.9-16.9); Immature Granulocytes % 0.6 % (0-4); Lymphocytes # 0.9 K/mcL (0.6-4.6); Lymphocytes % 6.6 %; Mean Corpuscular HGB Conc 31.5 g/dL (31.6-35.5); Mean Corpuscular Hemoglobin 28.6 pg (28.0-33.3); Mean Corpuscular Volume 90.7 fL (83.0-100.0); Mean Platelet Volume 9.9 fL (9.4-12.4); Monocytes # 0.8 K/mcL (0.0-1.3); Monocytes % 5.4 %; Neutrophils # 11.9 K/mcL (1.6-8.9); Platelet Count 315 K/mcL (140-400); Red Blood Count 3.01 M/mcL (4.19-5.50); Red Cell Distribution Width 14.6 % (11.5-14.5); Segmented Neutrophils % 83.7 %; White Blood Count 14.2 K/mcL (4.3-11.1)
[2018-10-11 05:38] LABS: INR 3.1; Prothrombin Time 35.1 Seconds (9.4-12.1)
[2018-10-11 05:53] LABS: Calcium 8.7 mg/dL (8.6-10.3)
[2018-10-11] MEDS: Piperacillin/Tazobactam 3.375 GM in 0.9 % Sodium Chloride Mini Bag 100 ML IVPB SCH ×2 (06:14→18:19)
[2018-10-11] MEDS: Insulin LISPRO 300 UNITS/3 ML VIAL SQ SCH ×4 (07:52→20:52)
[2018-10-11] MEDS: Diltiazem CD (24hr) 180 MG CAPSULE PO SCH (08:14)
[2018-10-11] MEDS: Latanoprost 2.5 ML BOTTLE BOTH EYES SCH ×2 (08:17→20:52)
--- NOTE | 2018-10-11 08:38 | Internal Med Progress Note ---
<Earle Hamm - Last Filed: 10/11/18 14:29> Hospitalist Progress Note - Encounter Date of Encounter: 10/11/18 - Exam Vitals: Temp Pulse Resp BP Pulse Ox 98.6 F 76 17 120/67 94 10/11/18 11:38 10/11/18 11:38 10/11/18 11:38 10/11/18 11:38 10/11/18 11:38 - Assessment and Plan (1) Chronic kidney disease, stage 3 Current Visit: No Status: Chronic (2) Hypertension Current Visit: No Status: Chronic (3) Acute kidney injury superimposed on chronic kidney disease Current Visit: Yes Status: Acute (4) Complicated UTI (urinary tract infection) Current Visit: No Status: Acute (5) DVT prophylaxis Current Visit: No Status: Acute (6) Atrial fibrillation Current Visit: No Status: Chronic (7) Debility Current Visit: No Status: Acute (8) Sacral decubitus ulcer, stage II Current Visit: No Status: Chronic (9) Prostate cancer Current Visit: No Status: Chronic (10) UTI (urinary tract infection) Current Visit: Yes Status: Acute Assessment and Plan: Present on admission (11) A-fib Current Visit: No Status: Chronic - Time Spent with Patient Total time spent is greater than 50% in coordination of care (as documented) at patient's floor/unit and/or counseling patient: Internal Medicine: Result - Labs CBC & Chem 7: 10/11/18 04:30 10/11/18 04:30 Labs: Short CBC 10/11/18 Range/Units 04:30 WBC 14.2 H (4.3-11.1) K/mcL Hgb 8.6 L (12.9-16.9) g/dL Hct 27.3 L (37.5-50.1) % Plt Count 315 (140-400) K/mcL Neutrophils # 11.9 H (1.6-8.9) K/mcL BMP 10/11/18 04:30 Sodium 137 Potassium 4.0 Chloride 106 Carbon Dioxide 21 L BUN 38 H Creatinine 2.46 H Glucose 120 H Calcium 8.7 - ABG Interpretation ABG results: PT/INR, D-dimer PT 35.1 Seconds (9.4-12.1) H 10/11/18 04:30 - Impressions Impressions Retroperitoneum Ultrasound 10/11/18 09:00 IMPRESSION: Moderate to severe bilateral hydronephrosis. This is new since previous ultrasound examination on 05/18/2018. The findings were sent to the Radiology Results Communication Center at 9:37 am on 10/11/2018to be communicated to a licensed caregiver. RECOMMENDATIONS: Consider follow-up CT abdomen and pelvis examination to exclude obstructing or compressing lesion. D/ / Alden Garcia MD / Alden Garcia MD Interpreting Provider: Alden Garcia MD Abdomen/Pelvis CT 10/11/18 11:24 IMPRESSION: 1. [id number] right with moderate left hydroureteronephrosis extending to the bladder. No obstructing stone. Nephrostomy tubes have been removed when compared to the prior CT. 2. No other acute abdominal or pelvic abnormality on this unenhanced study. 3. Trace ascites with mild subcutaneous edema. D/ / 10/11/2018 12:16:07 Madeline Garcia MD / harshad Interpreting Provider: Madeline Garcia MD Consult Discharge Plan - Plan Referrals: Elysia Sullivan CNP [Primary Care Provider] - - Attending Attestation I examined this patient and my medical decision-making was reviewed with the Resident Physician on 10/11/18. I agree with the documented findings, disposition and treatment plan as described except to the extent set forth below. Mr Rojas is currently hospitalized for UTI and obstruction. He remains moderate to high risk due to potential for worsening clinical status. Mr Rojas just returned from ultrasound. He feels OK. No fever or chills. No CP or SOB. Exam: ALert Comfortable. NC. EOMI. Mucus membranes dry. Neck supple. Heart not tachy. No wheeze. Abd soft. No edema. Moves all extremities. No rash. Plan: US shows hydronephorosis. Urology consult. Continue IV abx for CAUTI - present on admission. <Jermaine Sherwood - Last Filed: 10/11/18 15:47> Hospitalist Progress Note - Encounter Date of Encounter: 10/11/18 Time of Encounter: 09:38 - Subjective Interval History: Pt was seen and examined at bedside. No acute events overnight. Patient does not have any complaints this morning. Has bergman placed, went for US this morning. Denies any erythema or tenderness around catheter site. Denies chest pain, SOB, palpitations, abdominal pain, constipation, diarrhea. No n/v/f/c. - Exam Vitals: Temp Pulse Resp BP Pulse Ox 98.6 F 75 17 144/78 95 10/11/18 07:13 10/11/18 07:13 10/11/18 07:13 10/11/18 07:13 10/11/18 07:13 Exam: GEN: Well-appearing, NAD, conversant. HEAD: Normocephalic, atraumatic. EYES: PERRL, EOMI, anicteric. ENT: MMM. oropharynx without erythema or drainage. NECK: Supple. No LAD. No stiffness or restricted ROM. No tracheal deviation. HEART: Regular rate and regular rhythm, normal S1/S2, no m/r/g. LUNGS: CTAB, good air exchange bilaterally. No wheezing, rubs, or rhonchi. ABDO: Soft, nontender, nondistended with active bowel sounds. : No suprapubic tenderness or CVA tenderness. Draining dark yellow-brown urine into Bergman bag. BACK: No obvious stepoffs or deformities. EXT: Without cyanosis, clubbing or edema. SKIN: Warm and dry without any rash. NEURO: Grossly nonfocal. Alert and oriented, moving all 4 extremities. CN not formally tested but appear grossly intact. PSYCH: Normal affect, no depressed or anxious mood. - Assessment and Plan (1) Complicated UTI (urinary tract infection) Current Visit: Yes Status: Acute Assessment and Plan: Secondary to obstruction of Bergman catheter. Patient has had a history of multiple organisms, including pseudomonas. Patient had initial white count of 22, down to 14 today. Still considered high risk for sepsis. In the ED nursing staff replaced Bergman catheter and urine was noted to have thick, heterogeneous hematuria. 10/11 retroperitoneal ultrasound showed new moderate to severe bilateral hydronephrosis. - Continue IV antibiotics with zosyn (day 2) for empiric pseudomonal coverage - Urine cultures pending, preliminary for gram-negative rods - Gentle IV fluid hydration - Follow up CT AP w/o to assess for obstructing mass/lesion - Urology c/s: is following, pending recs to discuss nephrostomy tube placement (2) Acute kidney injury superimposed on chronic kidney disease Current Visit: Yes Status: Acute Assessment and Plan: Most likely resulting from obstruction of Bergman catheter. Bergman catheter was exchanged in the emergency department and now there is urine output. - Continue gentle IV fluid hydration - Recheck BMP in the AM - BUN/Cr improved today at 38/2.46 - Consider nephrology consult if no improvement in renal function (3) Chronic kidney disease, stage 3 Current Visit: Yes Status: Chronic Assessment and Plan: See plan above. (4) Hypertension Current Visit: Yes Status: Chronic Assessment and Plan: Resuming home cardizem 360 mg by mouth daily - Will hold if low blood pressures. (5) Atrial fibrillation Current Visit: No Status: Chronic Assessment and Plan: Currently asymptomatic. Heart rate is within normal limits. - On anticoagulation with coumadin (6) Prostate cancer Current Visit: No Status: Chronic Assessment and Plan: Remote history. Patient had undetectable PSA in July 2017. (7) Debility Current Visit: No Status: Acute Assessment and Plan: Chronic issue. PT/OT consult. (8) Sacral decubitus ulcer, stage II Current Visit: No Status: Chronic Assessment and Plan: Present on admission. Wound care consult. DVT Prophylaxis: On Coumadin with therapeutic INR. - Time Spent with Patient Total time spent is greater than 50% in coordination of care (as documented) at patient's floor/unit and/or counseling patient: less than 15 minutes Plan of Care Discussed with: patient Internal Medicine: Result - Labs CBC & Chem 7: 10/11/18 04:30 10/11/18 04:30 Labs: Short CBC 10/11/18 Range/Units 04:30 WBC 14.2 H (4.3-11.1) K/mcL Hgb 8.6 L (12.9-16.9) g/dL Hct 27.3 L (37.5-50.1) % Plt Count 315 (140-400) K/mcL Neutrophils # 11.9 H (1.6-8.9) K/mcL BMP 10/11/18 04:30 Sodium 137 Potassium 4.0 Chloride 106 Carbon Dioxide 21 L BUN 38 H Creatinine 2.46 H Glucose 120 H Calcium 8.7 - ABG Interpretation ABG results: PT/INR, D-dimer PT 35.1 Seconds (9.4-12.1) H 10/11/18 04:30 <Earle Hamm A - Last Filed: 10/11/18 14:29> (2) Hypertension Qualifiers: Hypertension type: essential hypertension Qualified Code(s): I10 - Essential (primary) hypertension (6) Atrial fibrillation Qualifiers: Atrial fibrillation type: unspecified Qualified Code(s): I48.91 - Unspecified atrial fibrillation (10) UTI (urinary tract infection) Qualifiers: Urinary tract infection type: catheter-associated UTI Indwelling urinary catheter type: indwelling urethral catheter Encounter type: subsequent encounter Qualified Code(s): T83.511D - Infection and inflammatory reaction due to indwelling urethral catheter, subsequent encounter; N39.0 - Urinary tract infection, site not specified (11) A-fib Qualifiers: Atrial fibrillation type: chronic Qualified Code(s): I48.2 - Chronic atrial fibrillation <Jermaine Sherwood F - Last Filed: 10/11/18 15:47> (4) Hypertension Qualifiers: Hypertension type: essential hypertension Qualified Code(s): I10 - Essential (primary) hypertension (5) Atrial fibrillation Qualifiers: Atrial fibrillation type: unspecified Qualified Code(s): I48.91 - Unspecified atrial fibrillation
--- NOTE | 2018-10-11 12:34 | Urology - Consult Note ---
<Rivka Monroy - Last Filed: 10/11/18 12:27> Date of Encounter: 10/11/18 Time of Encounter: 12:00 - Assessment and Plan (1) Acute kidney injury superimposed on chronic kidney disease Current Visit: Yes Status: Acute Assessment and plan: Patient is a 78-year-old male who presents with acute kidney injury superimposed on chronic kidney disease. Serum creatinine is elevated at 2.46. Patient also has bilateral hydronephrosis. Patient elected to have nephrostomy tubes removed secondary to recurrent infection. Dr. Beach will be in to reevaluate patient and possibly discuss nephrostomy tube placement if renal function fails to improve or acutely worsens. (2) UTI (urinary tract infection) Current Visit: Yes Status: Acute Assessment and plan: Patient is a 78-year-old male who presents with a urinary tract infection. Vital signs are stable and afebrile, although, patient sustained a maximum temperature to 100.2F on admission. White blood cell count is 14.2. Preliminary urine culture is positive for gram-negative rods. Patient is receiving IV Zosyn. Qualifiers: Urinary tract infection type: site unspecified Hematuria presence: with hematuria Qualified Code(s): N39.0 - Urinary tract infection, site not specified; N39.0 - Urinary tract infection, site not specified (3) Hydronephrosis Current Visit: Yes Status: Acute Assessment and plan: Patient is a 78-year-old male who presents with moderate to severe bilateral hy dronephrosis. Patient has a history of prostate cancer treated by radiation, and he now has a neurogenic bladder. Patient elected to remove nephrostomy tubes and go back to an indwelling Lewis catheter in August 2018. Patient had his indwelling Lewis catheter replaced in the emergency department, and it is now draining well without leaking. I discussed my concern with the hydronephrosis revealed by CT and ultrasound in conjunction with worsening renal function. Dr. Beach will be in to reevaluate patient and discuss possible nephrostomy tube placement if renal function continues to decline. Qualifiers: Hydronephrosis type: other Qualified Code(s): N13.39 - Other hydronephrosis Urology CN:HPI Consult date: 10/11/18 Reason for consult Urology: Hydronephrosis (hx neurogenic bladder, prostate cancer) Requesting physician: Jermaine Sherwood History of present illness: Patient is a 78-year-old male who presents with a history of moderate to severe bilateral hydronephrosis and a urinary tract infection. Mr. Rojas is well- known to our service, and he is an established patient of Dr. Vázquez. Patient has a past medical history significant for prostate cancer for which he has undergone radiation. Patient has a neurogenic bladder and previously elected to proceed with bilateral nephrostomy tubes versus an indwelling Lewis catheter. Initial nephrostomy tubes were placed in April 2018. Unfortunately, patient experienced multiple infections requiring hospitalization, and he elected to have them removed in August [address] Vázquez. Patient reports a 2 day history of fever, chills, weakness and leaking around his urinary catheter. He presented to the emergency department where he underwent both CT of the abdomen and pelvis and renal ultrasound. Patient was found to have moderate to severe bilateral hydronephrosis without obstructing calculi. Currently, patient is sitting upright in bed in no apparent distress, and he denies any fever, chills or flank pain. Lewis catheter is indwelling and draining cloudy, light yellow urine into bedside bag. Preliminary urine culture is positive for gram-negative rods, and patient is receiving IV Zosyn. PSA from July 2017 is undetectable, and patient denies any known family history of prostate cancer. Past Med Surg Social Fam HX - Past Medical History Medical history: cancer, CHF, diabetes, hypertension, other Additional medical history: irregular heart beat. prostate cancer with radiation Psychiatric history: no psych history - Past Surgical History Surgical History: cholecystectomy Additional surgical history: pacer - Social History Smoking Status: Never smoker Smokeless Tobacco Status: No Alcohol use: none Drug use: none - Family History Father Living Status: Hx Family Respiratory Disorders: Yes (Lung cancer) Hx Family Cancer: Yes (lung cancer) Mother Living Status: Hx Family Cancer: Yes (breast cancer) Medications and Allergies Sotalol [Betapace] 80 mg PO BID 03/16/15 [History] Latanoprost [Xalatan] 1 drop BOTH EYES HS 12/08/15 [History] Warfarin [Coumadin] 2 mg PO QPM 12/08/15 [History] Insulin Glargine,Hum.rec.anlog [Basaglar Kwikpen U-100] 31 unit SQ HS 10/26/17 [History] Ferrous Sulfate 325 mg PO DAILY 06/22/18 [History] Cholecalciferol (Vitamin D3) [Vitamin D] 1,000 unit PO DAILY 10/11/18 [History] Desitin (Zinc Oxide) [Desitin Diaper Rash 40 % Paste] 1 appl TP BID 10/11/18 [History] Diltiazem HCl [Cardizem Cd] 360 mg PO DAILY 10/11/18 [History] Nystatin POWDER [Nystop] 1 appl TP 2-3XD PRN 10/11/18 [History] Allergy/AdvReac Type Severity Reaction Status Date / Time Erythromycin Base Allergy Mild Rash Verified 10/10/18 03:49 ciprofloxacin [From Cipro] Allergy See Verified 10/11/18 17:35 Comments Review of Systems - Constitutional chills, fever(s), weakness - EENT Nose, mouth and throat: no dizziness, no headache(s) - Cardiovascular no chest pain, no diaphoresis - Respiratory no cough, no dyspnea - Gastrointestinal nausea, no abdominal pain, no vomiting - Genitourinary difficulty urinating, no dysuria, no flank pain, no hematuria, no urinary frequency, no urinary hesitancy, no urinary incontinence, no urinary urgency - Musculoskeletal no back pain, no muscle weakness - Integumentary no erythema, no rash - Neurological no confusion, no syncope - Psychiatric no anxiety, no confusion - Hematologic/Lymphatic no easy bleeding, no easy bruising - Allergic/Immunologic no throat swelling, no wheezing Exam Initial Vital Signs Temp Pulse Resp BP Pulse Ox 100.2 F H 72 17 136/70 97 10/10/18 03:49 10/10/18 03:49 10/10/18 03:49 10/10/18 03:49 10/10/18 03:49 - General physical appearance Present: no distress, no pain - Eyes Present: PERRL, normal ocular movement - ENT Present: no congestion, decreased hearing - Neck Present: no masses, trachea midline, no lymphadenopathy - Respiratory Present: normal respiratory effort - Cardiovascular Cardiovascular exam IM: RRR - Abdomen Abdomen: Present: soft, non tender. Absent: distended - Genitourinary other (Lewis catheter is indwelling and draining cloudy, light yellow urine into bedside bag; no CVAT) - Integumentary Present: no rash, no abnormal pigmentation - Neurologic Present: normal coordination - Musculoskeletal Present: other (Normal posture) Urology Results - Labs 10/11/18 04:30 10/11/18 04:30 Abnormal lab results WBC 14.2 K/mcL (4.3-11.1) H 10/11/18 04:30 RBC 3.01 M/mcL (4.19-5.50) L 10/11/18 04:30 Hgb 8.6 g/dL (12.9-16.9) L 10/11/18 04:30 Hct 27.3 % (37.5-50.1) L 10/11/18 04:30 MCHC 31.5 g/dL (31.6-35.5) L 10/11/18 04:30 RDW 14.6 % (11.5-14.5) H 10/11/18 04:30 Neutrophils # 11.9 K/mcL (1.6-8.9) H 10/11/18 04:30 Lymphocytes # 0.5 K/mcL (0.6-4.6) L 10/10/18 04:09 PT 35.1 Seconds (9.4-12.1) H 10/11/18 04:30 APTT 39.3 Seconds (26.0-36.0) H 10/10/18 04:09 Sodium 132 mEq/L (136-145) L 10/10/18 04:09 Carbon Dioxide 21 mEq/L (23-29) L 10/11/18 04:30 BUN 38 mg/dL (8-23) H 10/11/18 04:30 Creatinine 2.46 mg/dL (0.70-1.30) H 10/11/18 04:30 Est GFR ( Amer) 31 (> 60) L 10/11/18 04:30 Est GFR (Non-Af Amer) 26 (> 60) L 10/11/18 04:30 Glucose 120 mg/dL (70-105) H 10/11/18 04:30 POC Glucose 144 mg/dL (70-99) H 10/10/18 21:28 Urine Color Red (Yellow) A 10/10/18 04:05 Urine Clarity Turbid (Clear) A 10/10/18 04:05 Urine Protein 100 mg/dL (Neg-Trace) H 10/10/18 04:05 Urine Ketones Trace mg/dL (Negative) H 10/10/18 04:05 Urine Blood Large (Negative) H 10/10/18 04:05 Ur Leukocyte Esterase Large (Negative) H 10/10/18 04:05 Urine Microscopic RBC TNTC per hpf (0-3) H 10/10/18 04:05 Urine Microscopic WBC TNTC per hpf (0-3) H 10/10/18 04:05 Ur Squamous Epith Cells Many per lpf (None-Few) H 10/10/18 04:05 Ur Transition Epith Cell Moderate per hpf (None-Few) H 10/10/18 04:05 Urine Bacteria Many per hpf (None-Few) H 10/10/18 04:05 Ur Culture Indicated? YES (NO) A 10/10/18 04:05 Diabetes panel 10/11/18 Range/Units 04:30 Sodium 137 (136-145) mEq/L Potassium 4.0 (3.5-5.1) mEq/L Chloride 106 (98-107) mEq/L Carbon Dioxide 21 L (23-29) mEq/L BUN 38 H (8-23) mg/dL Creatinine 2.46 H (0.70-1.30) mg/dL Glucose 120 H (70-105) mg/dL Calcium 8.7 (8.6-10.3) mg/dL Calcium panel 10/11/18 Range/Units 04:30 Calcium 8.7 (8.6-10.3) mg/dL Pituitary panel 10/11/18 Range/Units 04:30 Sodium 137 (136-145) mEq/L Potassium 4.0 (3.5-5.1) mEq/L Chloride 106 (98-107) mEq/L Carbon Dioxide 21 L (23-29) mEq/L BUN 38 H (8-23) mg/dL Creatinine 2.46 H (0.70-1.30) mg/dL Glucose 120 H (70-105) mg/dL Calcium 8.7 (8.6-10.3) mg/dL Adrenal panel 10/11/18 Range/Units 04:30 Sodium 137 (136-145) mEq/L Potassium 4.0 (3.5-5.1) mEq/L Chloride 106 (98-107) mEq/L Carbon Dioxide 21 L (23-29) mEq/L BUN 38 H (8-23) mg/dL Creatinine 2.46 H (0.70-1.30) mg/dL Glucose 120 H (70-105) mg/dL Calcium 8.7 (8.6-10.3) mg/dL All other labs normal. - Imaging CT scan - abdomen: report reviewed, image reviewed CT scan - pelvis: report reviewed, image reviewed US - kidney/bladder: report reviewed, image reviewed Consult Discharge Plan - Plan Referrals: Elysia Sullivan CNP [Primary Care Provider] - <Marck Beach - Last Filed: 10/11/18 19:48> Date of Encounter: 10/11/18 Urology CN:AMELIE History of present illness: Patient was seen and examined independently. Agree with the plan as written by Rivka Monroy. Patient's urine has cleared after catheter change yesterday. Awaiting final culture results. CT scan showed significant hydronephrosis but decompressed bladder. We will await repeat serum creatinine tomorrow. Patient is aware that if his serum creatinine fails to improve he may need bilateral nephrostomy tubes placed. Exam Initial Vital Signs Temp Pulse Resp BP Pulse Ox 100.2 F H 72 17 136/70 97 10/10/18 03:49 10/10/18 03:49 10/10/18 03:49 10/10/18 03:49 10/10/18 03:49 Urology Results - Labs 10/11/18 04:30 10/11/18 04:30 Abnormal lab results WBC 14.2 K/mcL (4.3-11.1) H 10/11/18 04:30 RBC 3.01 M/mcL (4.19-5.50) L 10/11/18 04:30 Hgb 8.6 g/dL (12.9-16.9) L 10/11/18 04:30 Hct 27.3 % (37.5-50.1) L 10/11/18 04:30 MCHC 31.5 g/dL (31.6-35.5) L 10/11/18 04:30 RDW 14.6 % (11.5-14.5) H 10/11/18 04:30 Neutrophils # 11.9 K/mcL (1.6-8.9) H 10/11/18 04:30 Lymphocytes # 0.5 K/mcL (0.6-4.6) L 10/10/18 04:09 PT 35.1 Seconds (9.4-12.1) H 10/11/18 04:30 APTT 39.3 Seconds (26.0-36.0) H 10/10/18 04:09 Sodium 132 mEq/L (136-145) L 10/10/18 04:09 Carbon Dioxide 21 mEq/L (23-29) L 10/11/18 04:30 BUN 38 mg/dL (8-23) H 10/11/18 04:30 Creatinine 2.46 mg/dL (0.70-1.30) H 10/11/18 04:30 Est GFR ( Amer) 31 (> 60) L 10/11/18 04:30 Est GFR (Non-Af Amer) 26 (> 60) L 10/11/18 04:30 Glucose 120 mg/dL (70-105) H 10/11/18 04:30 POC Glucose 144 mg/dL (70-99) H 10/10/18 21:28 Urine Color Red (Yellow) A 10/10/18 04:05 Urine Clarity Turbid (Clear) A 10/10/18 04:05 Urine Protein 100 mg/dL (Neg-Trace) H 10/10/18 04:05 Urine Ketones Trace mg/dL (Negative) H 10/10/18 04:05 Urine Blood Large (Negative) H 10/10/18 04:05 Ur Leukocyte Esterase Large (Negative) H 10/10/18 04:05 Urine Microscopic RBC TNTC per hpf (0-3) H 10/10/18 04:05 Urine Microscopic WBC TNTC per hpf (0-3) H 10/10/18 04:05 Ur Squamous Epith Cells Many per lpf (None-Few) H 10/10/18 04:05 Ur Transition Epith Cell Moderate per hpf (None-Few) H 10/10/18 04:05 Urine Bacteria Many per hpf (None-Few) H 10/10/18 04:05 Ur Culture Indicated? YES (NO) A 10/10/18 04:05 Diabetes panel 10/11/18 Range/Units 04:30 Sodium 137 (136-145) mEq/L Potassium 4.0 (3.5-5.1) mEq/L Chloride 106 (98-107) mEq/L Carbon Dioxide 21 L (23-29) mEq/L BUN 38 H (8-23) mg/dL Creatinine 2.46 H (0.70-1.30) mg/dL Glucose 120 H (70-105) mg/dL Calcium 8.7 (8.6-10.3) mg/dL Calcium panel 10/11/18 Range/Units 04:30 Calcium 8.7 (8.6-10.3) mg/dL Pituitary panel 10/11/18 Range/Units 04:30 Sodium 137 (136-145) mEq/L Potassium 4.0 (3.5-5.1) mEq/L Chloride 106 (98-107) mEq/L Carbon Dioxide 21 L (23-29) mEq/L BUN 38 H (8-23) mg/dL Creatinine 2.46 H (0.70-1.30) mg/dL Glucose 120 H (70-105) mg/dL Calcium 8.7 (8.6-10.3) mg/dL Adrenal panel 10/11/18 Range/Units 04:30 Sodium 137 (136-145) mEq/L Potassium 4.0 (3.5-5.1) mEq/L Chloride 106 (98-107) mEq/L Carbon Dioxide 21 L (23-29) mEq/L BUN 38 H (8-23) mg/dL Creatinine 2.46 H (0.70-1.30) mg/dL Glucose 120 H (70-105) mg/dL Calcium 8.7 (8.6-10.3) mg/dL All other labs normal.
--- NOTE | 2018-10-11 14:09 | Electrocardiograph Report ---
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
[2018-10-11] MEDS: Nystatin POWDER 30 GM BOTTLE TP SCH ×2 (15:21→20:53)
[2018-10-11] MEDS ORDERED: Glycerin RECTAL Suppository RC PRN (16:40)
[2018-10-12] MEDS: Piperacillin/Tazobactam 3.375 GM in 0.9 % Sodium Chloride Mini Bag 100 ML IVPB SCH ×2 (05:31→16:20)
[2018-10-12 06:27] LABS: Basophils % 0.4 %; Eosinophils # 0.6 K/mcL (0.0-0.6); Hematocrit 27.6 % (37.5-50.1); Hemoglobin 8.7 g/dL (12.9-16.9); Immature Granulocytes % 0.7 % (0-4); Lymphocytes # 0.9 K/mcL (0.6-4.6); Mean Corpuscular HGB Conc 31.5 g/dL (31.6-35.5); Mean Corpuscular Hemoglobin 28.1 pg (28.0-33.3); Mean Platelet Volume 9.9 fL (9.4-12.4); Monocytes # 0.7 K/mcL (0.0-1.3); Monocytes % 7.7 %; Neutrophils # 6.7 K/mcL (1.6-8.9); Platelet Count 313 K/mcL (140-400); Red Cell Distribution Width 14.5 % (11.5-14.5); Segmented Neutrophils % 74.2 %; White Blood Count 9.1 K/mcL (4.3-11.1)
[2018-10-12 06:34] LABS: INR 2.4; Prothrombin Time 27.3 Seconds (9.4-12.1)
[2018-10-12 06:46] LABS: Calcium 8.9 mg/dL (8.6-10.3); Potassium 4.4 mEq/L (3.5-5.1)
[2018-10-12] MEDS: Diltiazem CD (24hr) 180 MG CAPSULE PO SCH (08:04)
[2018-10-12] MEDS: Insulin LISPRO 300 UNITS/3 ML VIAL SQ SCH ×4 (08:05→20:34)
[2018-10-12] MEDS: Nystatin POWDER 30 GM BOTTLE TP SCH ×4 (08:05→20:38)
--- NOTE | 2018-10-12 08:31 | Internal Med Progress Note ---
<Earle Hamm - Last Filed: 10/12/18 13:48> Hospitalist Progress Note - Encounter Date of Encounter: 10/12/18 - Exam Vitals: Temp Pulse Resp BP Pulse Ox 98.7 F 76 17 128/66 95 10/12/18 11:59 10/12/18 11:59 10/12/18 11:59 10/12/18 11:59 10/12/18 11:59 - Assessment and Plan (1) Chronic kidney disease, stage 3 Current Visit: Yes Status: Chronic (2) Hypertension Current Visit: Yes Status: Chronic (3) Acute kidney injury superimposed on chronic kidney disease Current Visit: Yes Status: Acute (4) Complicated UTI (urinary tract infection) Current Visit: Yes Status: Acute (5) DVT prophylaxis Current Visit: No Status: Acute (6) Atrial fibrillation Current Visit: No Status: Chronic (7) Debility Current Visit: No Status: Acute (8) Sacral decubitus ulcer, stage II Current Visit: No Status: Chronic (9) Prostate cancer Current Visit: No Status: Chronic (10) UTI (urinary tract infection) Current Visit: Yes Status: Acute (11) A-fib Current Visit: No Status: Chronic - Time Spent with Patient Total time spent is greater than 50% in coordination of care (as documented) at patient's floor/unit and/or counseling patient: Internal Medicine: Result - Labs CBC & Chem 7: 10/12/18 05:43 10/12/18 05:43 Labs: Short CBC 10/12/18 Range/Units 05:43 WBC 9.1 (4.3-11.1) K/mcL Hgb 8.7 L (12.9-16.9) g/dL Hct 27.6 L (37.5-50.1) % Plt Count 313 (140-400) K/mcL Neutrophils # 6.7 (1.6-8.9) K/mcL BMP 10/12/18 05:43 Sodium 136 Potassium 4.4 Chloride 107 Carbon Dioxide 23 BUN 34 H Creatinine 2.40 H Glucose 175 H Calcium 8.9 - ABG Interpretation ABG results: PT/INR, D-dimer PT 27.3 Seconds (9.4-12.1) H 10/12/18 05:43 Consult Discharge Plan - Plan Referrals: Elysia Sullivan CNP [Primary Care Provider] - - Attending Attestation The history, physical exam, and medical decision making was performed by the medical student either while I was physically present and actively involved or I personally re-performed the exam and medical decision making. I have verified the accuracy of the medical student's documentation with regards to the history, physical exam findings, and medical decision making on 10/12/18. Mr Rojas is currently admitted for acute CAUTI and renal failure. His culture has MDRO Klebsiella. He remains moderate to high risk due to potential for worsening clinical status. Mr Rojas is feeling OK. No fever or chills. No CP or SOB. No abd pain. Exam: Alert. Comfortable. Mucus membranes dry. NC. EOMI. Neck supple. Heart not tachy. No wheeze. ABd soft. Plan: 1. MDR Kleb UTI - Continue IV Zosyn. Will need course of IV abx - will have ID see. ? home versus SNF. 2. CAUTI 3. Prostate cancer 4. CKD Further diagnoses and plan as above. <Jermaine Sherwood F - Last Filed: 10/12/18 14:06> Hospitalist Progress Note - Encounter Date of Encounter: 10/12/18 - Exam Vitals: Temp Pulse Resp BP Pulse Ox 98.7 F 76 17 128/66 95 10/12/18 11:59 10/12/18 11:59 10/12/18 11:59 10/12/18 11:59 10/12/18 11:59 - Assessment and Plan (1) Complicated UTI (urinary tract infection) Current Visit: Yes Status: Acute (2) Acute kidney injury superimposed on chronic kidney disease Current Visit: Yes Status: Acute (3) Chronic kidney disease, stage 3 Current Visit: Yes Status: Chronic (4) Hypertension Current Visit: Yes Status: Chronic (5) Atrial fibrillation Current Visit: No Status: Chronic (6) Prostate cancer Current Visit: No Status: Chronic (7) Debility Current Visit: No Status: Acute (8) Sacral decubitus ulcer, stage II Current Visit: No Status: Chronic (9) Hydronephrosis Current Visit: No Status: Acute (10) Obesity Current Visit: Yes Status: Acute (11) Diabetes mellitus Current Visit: No Status: Chronic DVT Prophylaxis: On warfarin - Time Spent with Patient Total time spent is greater than 50% in coordination of care (as documented) at patient's floor/unit and/or counseling patient: less than 15 minutes Plan of Care Discussed with: patient Internal Medicine: Result - Labs CBC & Chem 7: 10/12/18 05:43 10/12/18 05:43 Labs: Short CBC 10/12/18 Range/Units 05:43 WBC 9.1 (4.3-11.1) K/mcL Hgb 8.7 L (12.9-16.9) g/dL Hct 27.6 L (37.5-50.1) % Plt Count 313 (140-400) K/mcL Neutrophils # 6.7 (1.6-8.9) K/mcL BMP 10/12/18 05:43 Sodium 136 Potassium 4.4 Chloride 107 Carbon Dioxide 23 BUN 34 H Creatinine 2.40 H Glucose 175 H Calcium 8.9 - ABG Interpretation ABG results: PT/INR, D-dimer PT 27.3 Seconds (9.4-12.1) H 10/12/18 05:43 <Reece Zayas - Last Filed: 10/12/18 16:56> Hospitalist Progress Note - Encounter Date of Encounter: 10/12/18 Time of Encounter: 08:31 - Subjective Interval History: Rich Rojas is a 78 y/o male with multiple comorbidities admitted for urinary tract infection. Pt seen and examined today. Pt has no complaints at this time. States he feels much better since starting antibiotics. Pt denies headaches, fever, chills. Denies pain at cath site. Urine turbid, without hematuria. 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 Pt otherwise denies chest pain, shortness of breath, abdominal pain, nausea, vomiting. Pt does have sacral ulcer, wound care consulted and helping with management. - Exam Vitals: Temp Pulse Resp BP Pulse Ox 98.3 F 77 16 143/75 94 10/12/18 06:33 10/12/18 06:33 10/12/18 06:33 10/12/18 06:33 10/12/18 06:33 Exam: GEN: Well-appearing, NAD, conversant. HEAD: Normocephalic, atraumatic. EYES: PERRL, EOMI, anicteric. ENT: MMM. oropharynx without erythema or drainage. NECK: Supple. No LAD. No stiffness or restricted ROM. No tracheal deviation. HEART: Regular rate and regular rhythm, pt with pacemaker, atrial paced. normal S1/S2, no m/r/g. LUNGS: CTAB, good air exchange bilaterally. No wheezing, rubs, or rhonchi. ABDO: Soft, nontender, nondistended with active bowel sounds. : No suprapubic tenderness or CVA tenderness. No significant erythema in groin, Nystatin powder applied. Draining yellow urine into Bergman bag, increased turbidity. BACK: No obvious stepoffs or deformities. EXT: Without cyanosis, clubbing or edema. SKIN: Warm and dry without any rash. NEURO: Grossly nonfocal. Alert and oriented, moving all 4 extremities. CN not formally tested but appear grossly intact. PSYCH: Normal affect, no depressed or anxious mood. - Assessment and Plan (1) Complicated UTI (urinary tract infection) Current Visit: Yes Status: Acute Assessment and Plan: -Pt is chronic bergman d/t history of prostate cancer s/p radiation treatment -Presented with fever, chills, and leakage from cath site -UA showed significant hematuria, increased WBC, RBC, squamous, eipthelial and numerous bacterial cells; likely suspect UTI vs pyelo or cystitis -Abdominal US showed b/l hydronephrosis; CT Abd + for L hydronephrosis, no stones noted -Pt empirically started on Zosyn, culture showed MDRO Klebsiella, sensitive to Zosyn, ertapenem, tobramycin, and gentamycin -leukocytosis resolved, 22.1 on presentation; 9.1 today -Considering placing on ertapenem for easier dosing and anticipated compliance -Consult to ID placed for outpatient follow up -Urology consulted (2) Acute kidney injury superimposed on chronic kidney disease Current Visit: Yes Status: Acute Assessment and Plan: -likely suspect outlet obstruction causing bilateral injury and hydronephrosis -baseline Cr ~2 per recent admissions -improving Cr 2.84 on admission to 2.4 today -nephro consult not necessary at this time, may consider if need for nephrostomy tube if renal function fails to improve or worsens -encourage oral hydration (3) Hydronephrosis Current Visit: Yes Status: Acute Assessment and Plan: -history of prostate cancer, s/p radiation; pt with neurogenic bladder -renal stents placed Apr 2018-Aug 2018, removed d/t recurring infections -abdominal US showed b/l hydronephrosis; CT Abd + for L hydronephrosis, no stones noted -appreciating urology recommendations in management (4) Sacral decubitus ulcer, stage II Current Visit: Yes Status: Chronic Assessment and Plan: -wound care consulted to assist with management (5) Leukocytosis Current Visit: Yes Status: Acute Assessment and Plan: -resolving, 22.1 on admission down to 9.1 today (6) Prostate cancer Current Visit: No Status: Chronic Assessment and Plan: -history of prostate cancer s/p radiation tx (7) Atrial fibrillation Current Visit: No Status: Chronic Assessment and Plan: -pt with pacer, regular atrial paced rhythm -coumadin initially withheld in case of procedure -will resume coumadin today -diltiazem 360mg qd, sotalol 80mg qd (8) Obesity Current Visit: Yes Status: Chronic (9) Debility Current Visit: No Status: Acute Assessment and Plan: -PT/OT consulted (10) Hypertension Current Visit: Yes Status: Chronic Assessment and Plan: -blood pressure currently controlled and within normal limits -continue current home medication regimin (11) Diabetes mellitus Current Visit: Yes Status: Chronic Assessment and Plan: -accucheck low dose sliding scale insulin protocol with meals and at bedtime (12) DVT prophylaxis Current Visit: No Status: Acute Assessment and Plan: -to resume warfarin DVT Prophylaxis: On warfarin - Time Spent with Patient Total time spent is greater than 50% in coordination of care (as documented) at patient's floor/unit and/or counseling patient: 25 - 35 minutes Internal Medicine: Result - Labs CBC & Chem 7: 10/12/18 05:43 10/12/18 05:43 Labs: Short CBC 10/12/18 Range/Units 05:43 WBC 9.1 (4.3-11.1) K/mcL Hgb 8.7 L (12.9-16.9) g/dL Hct 27.6 L (37.5-50.1) % Plt Count 313 (140-400) K/mcL Neutrophils # 6.7 (1.6-8.9) K/mcL BMP 10/12/18 05:43 Sodium 136 Potassium 4.4 Chloride 107 Carbon Dioxide 23 BUN 34 H Creatinine 2.40 H Glucose 175 H Calcium 8.9 - ABG Interpretation ABG results: PT/INR, D-dimer PT 27.3 Seconds (9.4-12.1) H 10/12/18 05:43 - Impressions Impressions Retroperitoneum Ultrasound 10/11/18 09:00 IMPRESSION: Moderate to severe bilateral hydronephrosis. This is new since previous ultrasound examination on 05/18/2018. The findings were sent to the Radiology Results Communication [facility] at 9:37 am on 10/11/2018to be communicated to a licensed caregiver. RECOMMENDATIONS: Consider follow-up CT abdomen and pelvis examination to exclude obstructing or compressing lesion. D/ / Alden Garcia MD / Alden Garcia MD Interpreting Provider: Alden Garcia MD Abdomen/Pelvis CT 10/11/18 11:24 IMPRESSION: 1. [id number] right with moderate left hydroureteronephrosis extending to the bladder. No obstructing stone. Nephrostomy tubes have been removed when compared to the prior CT. 2. No other acute abdominal or pelvic abnormality on this unenhanced study. 3. Trace ascites with mild subcutaneous edema. D/ / 10/11/2018 12:16:07 Madeline Garcia MD / harshad Interpreting Provider: Madeline Garcia MD <Earle Hamm - Last Filed: 10/12/18 13:48> (2) Hypertension Qualifiers: Hypertension type: essential hypertension Qualified Code(s): I10 - Essential (primary) hypertension (6) Atrial fibrillation Qualifiers: Atrial fibrillation type: unspecified Qualified Code(s): I48.91 - Unspecified atrial fibrillation (10) UTI (urinary tract infection) Qualifiers: Urinary tract infection type: catheter-associated UTI Indwelling urinary catheter type: indwelling urethral catheter Encounter type: subsequent encounter Qualified Code(s): T83.511D - Infection and inflammatory reaction due to indwelling urethral catheter, subsequent encounter; N39.0 - Urinary tract infection, site not specified (11) A-fib Qualifiers: Atrial fibrillation type: chronic Qualified Code(s): I48.2 - Chronic atrial fibrillation <Jermaine Sherwood F - Last Filed: 10/12/18 14:06> (4) Hypertension Qualifiers: Hypertension type: essential hypertension Qualified Code(s): I10 - Essential (primary) hypertension (5) Atrial fibrillation Qualifiers: Atrial fibrillation type: unspecified Qualified Code(s): I48.91 - Unspecified atrial fibrillation (9) Hydronephrosis Qualifiers: Hydronephrosis type: other Qualified Code(s): N13.39 - Other hydronephrosis (11) Diabetes mellitus Qualifiers: Diabetes mellitus type: type 2 Diabetes mellitus penitentiary insulin use: without penitentiary use Diabetes mellitus complication status: without complication Qualified Code(s): E11.9 - Type 2 diabetes mellitus without complications <Reece Zayas A - Last Filed: 10/12/18 16:56> (3) Hydronephrosis Qualifiers: Hydronephrosis type: other Qualified Code(s): N13.39 - Other hydronephrosis (7) Atrial fibrillation Qualifiers: Atrial fibrillation type: unspecified Qualified Code(s): I48.91 - Unspecified atrial fibrillation (10) Hypertension Qualifiers: Hypertension type: essential hypertension Qualified Code(s): I10 - Essential (primary) hypertension (11) Diabetes mellitus Qualifiers: Diabetes mellitus type: type 2 Diabetes mellitus penitentiary insulin use: without vermin exterminator use Diabetes mellitus complication status: with neurologic complications
[2018-10-12] MEDS ORDERED: Warfarin perPT PO PRN (18:00)
[2018-10-12] MEDS ORDERED: *HR* Warfarin 2 MG TABLET PO ONE (18:00)
[2018-10-12] MEDS: Latanoprost 2.5 ML BOTTLE BOTH EYES SCH (20:36)
[2018-10-13] MEDS: Piperacillin/Tazobactam 3.375 GM in 0.9 % Sodium Chloride Mini Bag 100 ML IVPB SCH ×2 (00:26→08:23)
[2018-10-13 07:05] LABS: Basophils # 0.1 K/mcL (0.0-0.2); Basophils % 0.8 %; Eosinophils # 0.7 K/mcL (0.0-0.6); Eosinophils % 10.4 %; Hematocrit 26.8 % (37.5-50.1); Hemoglobin 8.4 g/dL (12.9-16.9); Immature Granulocytes % 1.2 % (0-4); Lymphocytes % 14.4 %; Mean Corpuscular HGB Conc 31.3 g/dL (31.6-35.5); Mean Corpuscular Hemoglobin 27.9 pg (28.0-33.3); Mean Platelet Volume 9.6 fL (9.4-12.4); Monocytes # 0.6 K/mcL (0.0-1.3); Neutrophils # 4.3 K/mcL (1.6-8.9); Platelet Count 341 K/mcL (140-400); Red Blood Count 3.01 M/mcL (4.19-5.50); Red Cell Distribution Width 14.5 % (11.5-14.5); Segmented Neutrophils % 64.2 %; White Blood Count 6.7 K/mcL (4.3-11.1)
[2018-10-13 07:10] LABS: INR 2.3; Prothrombin Time 26.2 Seconds (9.4-12.1)
--- NOTE | 2018-10-13 07:10 | Urology Progress Note ---
Date of Encounter: 10/12/18 Time of Encounter: 07:08 - Assessment and Plan (1) Complicated UTI (urinary tract infection) Current Visit: Yes Status: Acute Assessment and plan: continue with tx per primary team. may need to get ID involved. (2) Acute renal failure Current Visit: No Status: Acute Assessment and plan: serum creatinine stable at this time. patients cath draining well. ok to dc from urology standpoint. f/u in 2-3 weeks. Qualifiers: Acute renal failure type: unspecified Qualified Code(s): N17.9 - Acute kidney failure, unspecified Progress Note Narrative: this is late entry for patient being seen on 10/12/18. patient had been doing well. feeling better. serum creatinine stabilizing at this time. ucx showing mdr klebsiella Objective Initial Vital Signs Temp Pulse Resp BP Pulse Ox 100.2 F H 72 17 136/70 97 10/10/18 03:49 10/10/18 03:49 10/10/18 03:49 10/10/18 03:49 10/10/18 03:49 - General physical appearance Present: well developed, well nourished - Abdomen Present: soft. Absent: tender - Musculoskeletal Present: normal posture - Labs 10/12/18 05:43 10/12/18 05:43 Consult Discharge Plan - Plan Referrals: Elysia Sullivan CNP [Primary Care Provider] -
[2018-10-13 07:28] LABS: Calcium 8.8 mg/dL (8.6-10.3)
[2018-10-13] MEDS: Insulin LISPRO 300 UNITS/3 ML VIAL SQ SCH (08:24)
[2018-10-13] MEDS ORDERED: Diltiazem CD (24hr) 180 MG CAPSULE PO SCH (09:00)
[2018-10-13] MEDS: Nystatin POWDER 30 GM BOTTLE TP SCH ×3 (10:10→15:53)
[2018-10-13] MEDS: Diltiazem CD (24hr) 180 MG CAPSULE PO SCH (10:10)
--- NOTE | 2018-10-13 10:45 | Infectious Disease Consult ---
Infectious Disease-Consult - Encounter Date/Time Date of Encounter: 10/13/18 Time of Encounter: 11:30 - Data of Consult Patient: new to practice Reason for consult: UTI Consult date: 10/13/18 Requesting Physician: Kristian Solis Primary Care Provider: Elysia Sullivan CNP - HPI HPI: Mr. Rojas is a 78-year-old male with remote history of prostate cancer status post radiation resulting in neurogenic bladder requiring chronic Lewis catheter, CHF, chronic kidney disease, diabetes, A. fib, hypertension. The patient was admitted to the hospital 10/10/18 for acute kidney injury on chronic kidney disease, UTI, and anemia. We are consulted 10/13/18 for further workup and treatment recommendations for UTI. Briefly, the patient is a 78-year-old male with past medical history as stated above. The patient presented to the emergency department with complaints of decreased urine output from his Lewis catheter and suprapubic pain. His home health nurse had exchanged his Lewis catheter at home and his urine output had gone down significantly. Upon arrival, he had a low-grade temp. He was otherwise hemodynamically stable. He had leukocytosis and an acute kidney injury. Troponin and lactic acid were normal. Urinalysis was positive for pyuria. Blood cultures were obtained 2 sets. The emergency department staff exchanged his Lewis catheter and was noted to have purulent drainage. He was started empirically on IV Zosyn and admitted to the hospital for further evaluation. Since admission, the patient has been afebrile hemodynamically stable. His leukocytosis has resolved. His acute kidney injury has improved. He had a retroperitoneal ultrasound that showed moderate to severe bilateral hydro ureteronephrosis. He then had a CT of the abdomen and pelvis that also showed moderate to severe left hydroureteronephrosis. Urology was consulted and since the patient's acute kidney injury is improving, they have opted not to pursue any surgical intervention at this time. Urine cultures positive for multidrug- resistant Klebsiella pneumoniae. Currently he is on IV Zosyn. We have been asked to evaluate and make further recommendations. During my exam today, the patient states that about 5 hours prior to admission, he began to experience fevers with chills and rigors. Denies any headache or neck pain. Denies any chest pain, shortness of breath, or cough. Reports some intermittent nausea with vomiting prior to admission, but denies any at this time. Denies abdominal pain or flank pain. States his Lewis at home was not draining anything and it was leaking around catheter. Denies oral thrush or skin rashes. States his appetite is better. States overall he feels about 50% improved. The patient lives at home with his . 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 He denies tobacco, alcohol, or illicit drug use. Denies any recent travel. Denies chronic infectious diseases. - ROS Review of Systems: All systems reviewed and no additional remarkable complaints except as stated. - Results CBC & Chem 7: 10/13/18 06:17 10/13/18 06:17 - Line Documentation Line Documentation: Lewis Catheter - Exam Vitals: Temp Pulse Resp BP Pulse Ox 98.3 F 75 16 130/65 95 10/13/18 07:32 10/13/18 07:32 10/13/18 07:32 10/13/18 07:32 10/13/18 07:32 Exam: Head: Atraumatic, normal inspection, normocephalic. Eye: EOMI, PERRLA, no scleral icterus noted. ENT: Mucous membranes moist. No odontogenic infection noted. Neck: Normal inspection, no meningismus. Respiratory: Clear to auscultation. No rales, respiratory distress, rhonchi, or wheezes noted. Cardiovascular: Regular rate and rhythm, S1 and S2 audible. No murmurs, rubs, or gallops. GI: Soft, obese, normal bowel sounds. Non-tender. Lewis catheter draining clear yellow urine. Extremities:No joint swelling, pedal edema, or tenderness noted. Back: Normal inspection. No vertebral tenderness noted. No CVAT noted. Neurological: Alert, oriented 3, no focal deficits. Psychiatric: normal affect, normal mood. Skin: Dry, intact, warm. Normal color. Erythema noted to the buttocks, groin folds, and perineal region. Sotalol [Betapace] 80 mg PO BID 03/16/15 [History] Latanoprost [Xalatan] 1 drop BOTH EYES HS 12/08/15 [History] Warfarin [Coumadin] 2 mg PO QPM 12/08/15 [History] Insulin Glargine,Hum.rec.anlog [Rogeraglpatti Alford U-100] 31 unit SQ HS 10/26/17 [History] Ferrous Sulfate 325 mg PO DAILY 06/22/18 [History] Cholecalciferol (Vitamin D3) [Vitamin D] 1,000 unit PO DAILY 10/11/18 [History] Desitin (Zinc Oxide) [Desitin Diaper Rash 40 % Paste] 1 appl TP BID 10/11/18 [History] Diltiazem HCl [Cardizem Cd] 360 mg PO DAILY 10/11/18 [History] Nystatin POWDER [Nystop] 1 appl TP 2-3XD PRN 10/11/18 [History] Ertapenem [INVanz] 1,000 mg IVPB DAILY 9 Days #9 vial 10/13/18 [Rx] Allergy/AdvReac Type Severity Reaction Status Date / Time Erythromycin Base Allergy Mild Rash Verified 10/10/18 03:49 ciprofloxacin [From Cipro] Allergy See Verified 10/11/18 17:35 Comments - Assessment and Plan (1) Severe sepsis Current Visit: No Status: Resolved The patient had 2 sepsis criteria with an acute kidney injury. Likely secondary to UTI. Improved. Leukocytosis resolved. Afebrile. Renal function improved. Blood cultures drawn 10/10/18 are no growth to date 2 sets. SNOMED Code(s): 05233501 (2) UTI (urinary tract infection) Current Visit: Yes Status: Acute Causative organism: Multidrug resistant Klebsiella pneumoniae. Likely secondary to chronic indwelling Lewis catheter. Lewis exchanged in the emergency department. Currently on IV Zosyn. Qualifiers: Urinary tract infection type: catheter-associated UTI Indwelling urinary catheter type: indwelling urethral catheter Encounter type: subsequent encounter Qualified Code(s): T83.511D - Infection and inflammatory reaction due to indwelling urethral catheter, subsequent encounter; N39.0 - Urinary tract infection, site not specified SNOMED Code(s): 49749691 (3) Acute kidney injury superimposed on chronic kidney disease Current Visit: Yes Status: Acute Likely multifactorial: Abscess plus post-renal obstruction. Improved. Continue to trend. Does adjust antibiotics and avoid nephrotoxins as able. SNOMED Code(s): 86086086 (4) Hydronephrosis Current Visit: Yes Status: Acute Likely secondary to nondraining Lewis catheter. CT of the abdomen and pelvis noted moderate to severe left hydroureteral nephrosis. The patient has a history of bilateral nephrostomy tube placement, and opted to have the tubes removed due to chronic recurrent infections. At this time, urology does not feel that the patient requires surgical intervention. Qualifiers: Hydronephrosis type: other Qualified Code(s): N13.39 - Other hydronephrosis SNOMED Code(s): 24728034 (5) A-fib Current Visit: No Status: Chronic Qualifiers: Atrial fibrillation type: chronic Qualified Code(s): I48.2 - Chronic atrial fibrillation SNOMED Code(s): 31862435 (6) Diabetes mellitus Current Visit: Yes Status: Chronic Recommend aggressive glucose monitoring and control. Management per the primary team. Qualifiers: Diabetes mellitus type: type 2 Diabetes mellitus terminal press operator insulin use: without terminal press operator use Diabetes mellitus complication status: with neurologic complications SNOMED Code(s): 96842872 (7) Hypertension Current Visit: Yes Status: Chronic Qualifiers: Hypertension type: essential hypertension Qualified Code(s): I10 - Essential (primary) hypertension SNOMED Code(s): 01410158 (8) Sacral decubitus ulcer, stage II Current Visit: Yes Status: Chronic Turning and offloading per nursing protocol. Wound care for dressing change recommendations. SNOMED Code(s): 197687491, 011635758 - Recommendations Recommendations: Await blood cultures to finalize. Continue Zosyn 3.375 g IV every 8 hours. On discharge, we will plan to transition to IV ertapenem for ease of dosing in the home setting. We will need to receive a dose of IV ertapenem prior to discharge. Duration of treatment depends on the clinical picture, but likely a total of 14 days. Consult VAT for EPIV placement once ready for discharge. business services representative to assist with discharge planning. Monitor renal function and dose-adjust antibiotics. Past Med Surg Social Fam HX - Past Medical History Attestation: Yes The following information was validated with the patient. Source: patient, old records reviewed, nursing notes reviewed Medical history: cancer, CHF, diabetes, hypertension, other Additional medical history: irregular heart beat. prostate cancer with radiation Psychiatric history: no psych history - Past Surgical History Surgical History: cholecystectomy Additional surgical history: pacer - Social History Smoking Status: Never smoker Smokeless Tobacco Status: No Alcohol use: none Drug use: none Occupational status: retired Current living situation: Home, With Family Activity Level: Bed bound Recent Out of Country Travel Within the Last 8 Weeks: No Exposure or Possible Exposure to Illness During Travel: No - Family History Father Living Status: Hx Family Respiratory Disorders: Yes (Lung cancer) Hx Family Cancer: Yes (lung cancer) Mother Living Status: Hx Family Cancer: Yes (breast cancer) Consult Discharge Plan - Plan Referrals: Elysia Sullivan CNP [Primary Care Provider] - Prescriptions: Ertapenem [INVanz] 1,000 mg IVPB DAILY 9 Days #9 vial
[2018-10-13] MEDS ORDERED: Insulin LISPRO 300 UNITS/3 ML VIAL SQ SCH (11:30)
[2018-10-13] MEDS ORDERED: Ertapenem 1,000 MG in 0.9 % Sodium Chloride Mini Bag 100 ML IVPB ONE (14:08)
--- NOTE | 2018-10-13 14:47 | Physician Discharge Referral ---
Home Health/Hosp Referral Info Transfer to: Home Health Attending Provider: Dr. Kristian Solis Provider in Charge Post Discharge: PCP - Diagnosis (1) Complicated UTI (urinary tract infection) Priority: Primary Status: Acute (2) Acute kidney injury superimposed on chronic kidney disease Priority: Secondary Status: Acute (3) Chronic kidney disease, stage 3 Priority: Secondary Status: Chronic (4) Hypertension Priority: Secondary Status: Chronic (5) Atrial fibrillation Priority: Secondary Status: Chronic (6) Prostate cancer Priority: Secondary Status: Chronic (7) Debility Priority: Secondary Status: Acute (8) Sacral decubitus ulcer, stage II Priority: Secondary Status: Chronic (9) Hydronephrosis Priority: Secondary Status: Acute (10) Obesity Priority: Secondary Status: Chronic (11) Diabetes mellitus Priority: Secondary Status: Chronic - Respiratory Orders None Smoking Cessation: Smoking cessation has been advised. For more information, call the [place] Tobacco Quit Line at 8-434-HFLE-NOW. - Diet/Nutrition Diet/Nutrition Orders: Renal - Activity Activity Orders: Ambulate (As tolerated.) - Services Needed Following services are medically necessary services: Nursing, Physical Therapy, Occupational Therapy, Home Infusion (Needed for IV ertapenem for the next 9 days.) - Transfer Medications Prescriptions: Ertapenem [INVanz] 1,000 mg IVPB DAILY 9 Days #9 vial Home Medications: Sotalol [Betapace] 80 mg PO BID 03/16/15 [History] Latanoprost [Xalatan] 1 drop BOTH EYES HS 12/08/15 [History] Warfarin [Coumadin] 2 mg PO QPM 12/08/15 [History] Insulin Glargine,Hum.rec.anlog [Basaglar Kwikpen U-100] 31 unit SQ HS 10/26/17 [History] Ferrous Sulfate 325 mg PO DAILY 06/22/18 [History] Cholecalciferol (Vitamin D3) [Vitamin D3] 1,000 unit PO DAILY 10/11/18 [History] Desitin (Zinc Oxide) [Desitin] 1 appl TP BID 10/11/18 [History] Diltiazem HCl [Cardizem Cd] 360 mg PO DAILY 10/11/18 [History] Nystatin POWDER [Nystop] 1 appl TP 2-3XD PRN 10/11/18 [History] Ertapenem [INVanz] 1,000 mg IVPB DAILY 9 Days #9 vial 08/07/19 [Rx] Allergies/Adverse Reactions: Allergy/AdvReac Type Severity Reaction Status Date / Time Erythromycin Base Allergy Mild Rash Verified 10/10/18 03:49 ciprofloxacin [From Cipro] Allergy See Verified 10/11/18 17:35 Comments Certification: Further, I certify that my clinical findings support that this patient is homebound (i.e. absences from home require considerable and taxing effort and are for medical reasons or jain services or infrequently or short duration when for other reasons) because: Homebound Reason: Patient requires assistance of a person or device to safely leave home, Post-surgery restriction and or conditions limit ability to leave home Attestation: My signature below is to certify that this patient is under my care and that I, or nurse practitioner, or a physician's grants and contracts assistant working with me, has a [id number] encounter with this patient.
--- NOTE | 2018-10-13 14:53 | Discharge Summary ---
- NOTES TO OUTPATIENT PROVIDER Notes to Outpatient Provider: The patient was admitted to the hospital for a urinary tract infection and obstruction of a chronic Lewis catheter. A new Lewis catheter was placed. The patient was initially treated with a course of Zosyn, then transitioned to ertapenem. Throughout his hospital stay, he has had symptomatic improvement and improvement of renal function. Urology was consulted and no surgical intervention was necessary. Please follow-up with urology in 2-3 weeks' time. Please also check a BMP at 1 week and at 6 weeks to evaluate renal function. Please continue the course of ertapenem for an additional 9 days, out of 10 days total with the assistance of home health nurse. At this time patient only has blood cultures pending. Orders not resulted at time of discharge: Pending orders 10/10/18 05:27 Culture,Blood [BC] Stat Date of Encounter: 10/13/18 Time of Encounter: 14:50 - Discharge Diagnosis (1) Complicated UTI (urinary tract infection) Priority: Primary Status: Acute (2) Acute kidney injury superimposed on chronic kidney disease Priority: Secondary Status: Acute (3) Chronic kidney disease, stage 3 Priority: Secondary Status: Chronic (4) Hypertension Priority: Secondary Status: Chronic Qualifiers: Hypertension type: essential hypertension Qualified Code(s): I10 - Essential (primary) hypertension (5) Atrial fibrillation Priority: Secondary Status: Chronic Qualifiers: Atrial fibrillation type: unspecified Qualified Code(s): I48.91 - Unspecified atrial fibrillation (6) Prostate cancer Priority: Secondary Status: Chronic (7) Debility Priority: Secondary Status: Acute (8) Sacral decubitus ulcer, stage II Priority: Secondary Status: Chronic (9) Hydronephrosis Priority: Secondary Status: Acute Qualifiers: Hydronephrosis type: other Qualified Code(s): N13.39 - Other hydronephrosis (10) Obesity Priority: Secondary Status: Chronic Qualifiers: Obesity type: unspecified obesity type Obesity classification: unspecified obesity classification Serious obesity comorbidity presence: without serious comorbidity Qualified Code(s): E66.9 - Obesity, unspecified (11) Diabetes mellitus Priority: Secondary Status: Chronic Qualifiers: Diabetes mellitus type: type 2 Diabetes mellitus buttermaker continuous churn insulin use: without chcf use Diabetes mellitus complication status: with neurologic complications Diabetes mellitus complication detail: with unspecified neuropathy Qualified Code(s): E11.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 Rojas is a 78 year old male with history of chronic Lewis catheter due to radiation therapy for prostate cancer, history of renal stents, atrial fibrillation, chronic kidney disease, HF, pace maker presented for Lewis catheter not draining. Problem started a few days ago and states the issue persists even when his home health aid changed the Lewis, states related to his position changes. His urine that did come out was noted to be cloudy. His maximum temperature at home was 99 F, and he complained of nausea. In the ED he had a urinalysis consistent with UTI, tmax was 100.2, and WBC 22k. Currently in no acute distress on my exam and states he is feeling much better. For the patient's complicated UTI secondary to chronic Lewis catheter obstruction, patient was treated for 3 days on Zosyn. As per ID immunizations, patient was transitioned to ertapenem. To continue the course outpatient with home health for 9 days. Patient initially presented with fever, chills but has had significant improvement since admission. Urine culture showed MDR O Klebsiella that was sensitive to Zosyn, ertapenem, tobramycin, gentamicin. Leukocytosis has resolved at 9.1 today. Urology was consulted during the course of the patient's stay, decided no acute intervention was necessary. Patient's renal function has been improving and will not need nephrostomy tubes. A retroperitoneal ultrasound was performed which showed moderate to severe bilateral hydronephrosis that was new. Follow-up CT abdomen and pelvis again showed moderate to severe bilateral hydronephrosis extending to the bladder. No obstructing stones visualized. No other acute abnormalities. Wound care was consult to assist with management of sacral decubitus ulcer. Patient did have a history of atrial fibrillation on a pacer. Patient was resumed on Coumadin and diltiazem. Sotalol. Was not symptomatic. Blood pressure was well controlled during his stay on home medication regimen. At discharge patient is stable with no signs of infection. Patient was provided information to continue IV ertapenem for the next 9 days. He will follow-up with his primary care provider and urology. Return precautions were provided. Patient will also get follow-up BMPs to track renal function over the next 1-6 weeks. Discharge discussed with: patient, nurse Time spent discussing smoking cessation with patient: 3 to 10 minutes - Time Spent with Patient Total time spent providing and/or coordinating discharge services: Time spent: Less than 30 minutes - Discharge Medications Prescriptions: New Ertapenem [INVanz] 1,000 mg IVPB DAILY 9 Days #9 vial Continued Sotalol [Betapace] 80 mg PO BID Latanoprost [Xalatan] 1 drop BOTH EYES HS Warfarin [Coumadin] 2 mg PO QPM Insulin Glargine,Hum.rec.anlog [Basaglar Kwikpen U-100] 31 unit SQ HS Ferrous Sulfate 325 mg PO DAILY Desitin (Zinc Oxide) [Desitin] 1 appl TP BID Diltiazem HCl [Cardizem Cd] 360 mg PO DAILY Cholecalciferol (Vitamin D3) [Vitamin D3] 1,000 unit PO DAILY Nystatin POWDER [Nystop] 1 appl TP 2-3XD PRN PRN Reason: BED SORES Home Medications: Sotalol [Betapace] 80 mg PO BID 03/16/15 [History] Latanoprost [Xalatan] 1 drop BOTH EYES HS 12/08/15 [History] Warfarin [Coumadin] 2 mg PO QPM 12/08/15 [History] Insulin Glargine,Hum.rec.anlog [Basaglar Kwikpen U-100] 31 unit SQ HS 10/26/17 [History] Ferrous Sulfate 325 mg PO DAILY 06/22/18 [History] Cholecalciferol (Vitamin D3) [Vitamin D3] 1,000 unit PO DAILY 10/11/18 [History] Desitin (Zinc Oxide) [Desitin] 1 appl TP BID 10/11/18 [History] Diltiazem HCl [Cardizem Cd] 360 mg PO DAILY 10/11/18 [History] Nystatin POWDER [Nystop] 1 appl TP 2-3XD PRN 10/11/18 [History] Ertapenem [INVanz] 1,000 mg IVPB DAILY 9 Days #9 vial 10/13/18 [Rx] Allergies/Adverse Reactions: Allergy/AdvReac Type Severity Reaction Status Date / Time Erythromycin Base Allergy Mild Rash Verified 10/10/18 03:49 ciprofloxacin [From Cipro] Allergy See Verified 10/11/18 17:35 Comments Date of admission: 10/12/18 13:32 Primary care physician: Elysia Sullivan CNP Consults: 10/10/18 08:47 Consult to Wound Care [CONS] Routine Reason for Consult: sacral decub ulcer Call Completed: No 10/11/18 11:42 Consult to Urology [CONS] Routine Consulting Provider: Urology Kelly Reason for Consult: UTI, b/l hydronephrosis Call Completed: Yes 10/12/18 14:43 Consult to Occupational Therapy [CONS] Routine Comment: Evaluate, develop and implement POC Reason for Consult: debility Does patient have active BEDREST order?: No Is patient medically & hemodynamically stable?: Yes Consult to Physical Therapy [CONS] Routine Comment: Evaluate, develop and implement POC Reason for Consult: debility Does patient have active BEDREST order?: No Is patient medically & hemodynamically stable?: Yes 10/12/18 15:04 Consult to Infectious Diseases [CONS] Routine Consulting Provider: Infectious Disease Kelly Reason for Consult: UTI Call Completed: Yes Discharging clinician: Kristian Solis Anticipated date of discharge: 10/13/18 - Constitutional Vitals: Temp Pulse Resp BP Pulse Ox 97.9 F 76 16 130/72 96 10/13/18 12:08 10/13/18 12:08 10/13/18 12:08 10/13/18 12:08 10/13/18 12:08 General appearance: Present: A&O X 3 Exam: GEN: Well-appearing, NAD, conversant. HEAD: Normocephalic, atraumatic. EYES: PERRL, EOMI, anicteric. ENT: MMM. oropharynx without erythema or drainage. NECK: Supple. No LAD. No stiffness or restricted ROM. No tracheal deviation. HEART: Regular rate and regular rhythm, pt with pacemaker, atrial paced. normal S1/S2, no m/r/g. LUNGS: CTAB, good air exchange bilaterally. No wheezing, rubs, or rhonchi. ABDO: Soft, nontender, nondistended with active bowel sounds. : No suprapubic tenderness or CVA tenderness. No significant erythema in groin, Nystatin powder applied. Draining clear yellow urine into Lewis bag. BACK: No obvious stepoffs or deformities. EXT: Without cyanosis, clubbing or edema. SKIN: Warm and dry without any rash. NEURO: Grossly nonfocal. Alert and oriented, moving all 4 extremities. CN not formally tested but appear grossly intact. PSYCH: Normal affect, no depressed or anxious mood. - Patient Status Disposition: Home Health Service Condition: Good Functional capacity at discharge: bed bound Overall status at discharge: patient is progressing back to baseline - Discharge Instructions Instructions: Urinary Tract Infection in Men (DC), Deep Venous Thrombosis (DC) Follow Up With: Marck Beach MD [Partnered Physician] - (Web request entered. Office will call with date and time of appointment.) Elysia Sullivan CNP [Primary Care Provider] - (Web request entered. Office will call with date and time of appointment.) Additional Instructions: You have been admitted to the hospital for a urinary tract infection and a obstructed Lewis catheter. The Lewis catheter was exchanged. You are treated with Zosyn for 3 days and ertapenem for 1 day. You will continue to take ertapenem for the next 9 days with the assistance of a home health nurse as prescribed for further treatment of your urinary tract infection. Please follow-up with your primary care provider in the next 2-3 days to discuss your hospitalization and for further evaluation and management. Please follow-up with your urologist in the next 2-3 weeks to discuss her hospitalization and further management of urinary tract infection, renal function, Lewis management. Please also return in the next week and 6 weeks to the laboratory at the hospital to check a metabolic panel blood test to assess your renal function. Please return to the emergency department if you have worsening of your symptoms, for example if you have significant chest pain, shortness of breath, fevers, chills, urinary obstruction, or if you develop other symptoms. - Diet and Activity Activity: increase activity as tolerated, resume usual activities as tolerated Diet: diabetic diet
[2018-10-13 17:29] VITALS: BP 131/63
[2018-10-13] MEDS ORDERED: *HR* Warfarin 2 MG TABLET PO ONE (18:00)
[2018-10-14] MEDS ORDERED: Ertapenem 1,000 MG in 0.9 % Sodium Chloride Mini Bag 100 ML IVPB SCH (11:42)
[2018-10-14] MEDS ORDERED: Ertapenem 1,000 MG in 0.9 % Sodium Chloride Mini Bag 100 ML IVPB ONE (14:02)
== END 2018-10-13 18:49 | disposition home health service (06) | DRG 698 ==
LOC: EMEROOARM 03:44 → 3ANU 03:44 → SUATTDRO 06:06 → 3ANU 06:29 → SUATTDRO 10-12 13:32
PROVIDERS: ADMIT Internal Medicine; ATTEND Internal Medicine

== ENCOUNTER 2018-10-24 09:19 | Observation (INO) ==
[2018-10-24 09:56] LABS: Bilirubin,Urine Negative (Negative); Blood,Urine Small (Negative); Clarity,Urine Clear (Clear); Color,Urine Yellow (Yellow); Glucose,Urine (UA) Normal (Normal); Ketones,Urine Negative (Negative); Leukocyte Esterase,Urine Moderate (Negative); Nitrite,Urine Negative (Negative); Protein,Urine 30 mg/dL (Neg-Trace); Specific Gravity,Urine 1.014 (1.010-1.025); Urobilinogen,Urine Normal (Normal)
[2018-10-24 09:59] LABS: Bacteria,Urine None Seen per hpf (None-Few); Hyaline Casts,Urine None Seen per lpf (None-Few); Squamous Epithelial Cell,Urine Many per lpf (None-Few); WBC,Urine 50-100 per hpf (0-3)
[2018-10-24 10:07] LABS: Basophils # 0.1 K/mcL (0.0-0.2); Basophils % 0.7 %; Eosinophils # 0.7 K/mcL (0.0-0.6); Hematocrit 31.1 % (37.5-50.1); Hemoglobin 9.6 g/dL (12.9-16.9); Immature Granulocytes % 0.5 % (0-4); Lymphocytes # 1.2 K/mcL (0.6-4.6); Mean Corpuscular HGB Conc 30.9 g/dL (31.6-35.5); Mean Corpuscular Hemoglobin 27.7 pg (28.0-33.3); Mean Corpuscular Volume 89.6 fL (83.0-100.0); Mean Platelet Volume 9.7 fL (9.4-12.4); Monocytes # 0.6 K/mcL (0.0-1.3); Monocytes % 7.3 %; Neutrophils # 5.7 K/mcL (1.6-8.9); Platelet Count 316 K/mcL (140-400); Red Blood Count 3.47 M/mcL (4.19-5.50); Red Cell Distribution Width 15.2 % (11.5-14.5); Segmented Neutrophils % 69.5 %; White Blood Count 8.2 K/mcL (4.3-11.1)
[2018-10-24 10:14] LABS: INR 2.4; Prothrombin Time 27.3 Seconds (9.4-12.1)
[2018-10-24 10:27] LABS: Alanine Aminotransferase 28 Units/L (7-52); Albumin 3.2 g/dL (3.5-5.7); Alkaline Phosphatase 232 Units/L (34-104); Aspartate Amino Transferase 76 Units/L (13-39); BUN/Creatinine Ratio 10 (6-26); Bilirubin,Direct 0.2 mg/dL (0.0-0.2); Bilirubin,Indirect 0.3 mg/dL (0.0-1.2); Bilirubin,Total 0.5 mg/dL (0.3-1.0); Blood Urea Nitrogen 20 mg/dL (8-23); Calcium 9.1 mg/dL (8.6-10.3); Carbon Dioxide 25 mEq/L (23-29); Chloride 109 mEq/L (98-107); Globulin 3.2 g/dL (2.4-3.5); Glucose 99 mg/dL (70-105); Osmolality,Calculated 301 (280-300); Phosphorous 3.7 mg/dL (2.7-4.5); Potassium 3.7 mEq/L (3.5-5.1); Sodium 144 mEq/L (136-145); Total Protein 6.4 g/dL (6.4-8.9); Troponin I < 0.03 ng/mL (< 0.04); eGFR For African Americans 39 (> 60); eGFR For Non-African Americans 33 (> 60)
[2018-10-24] MEDS ORDERED: Piperacillin/Tazobactam 3.375 GM in 0.9 % Sodium Chloride Mini Bag 100 ML IVPB ONE (12:44)
[2018-10-24] MEDS ORDERED: Mag Hydrox/Al Hydrox/Simeth 30 ML UDC PO PRN (13:10)
[2018-10-24] MEDS ORDERED: Acetaminophen 325 MG TABLET PO PRN (13:10)
[2018-10-24] MEDS ORDERED: Naloxone 0.4 MG/ML INJ IVP PRN (13:10)
[2018-10-24] MEDS ORDERED: MOM Conc 10 ML UD.LIQ PO PRN (13:10)
[2018-10-24] MEDS ORDERED: Nystatin POWDER 30 GM BOTTLE TP PRN (18:00)
[2018-10-24] MEDS ORDERED: Melatonin 3 MG TABLET PO PRN (18:42)
[2018-10-24] MEDS ORDERED: Haloperidol Lactate 5 MG/ML VIAL IVP ONE (20:37)
[2018-10-24] MEDS ORDERED: *HR* Promethazine 25 MG/ML VIAL IVP PRN (20:38)
[2018-10-24] MEDS ORDERED: *HR* Warfarin 2 MG TABLET PO ONE (20:41)
[2018-10-24] MEDS: Desitin (Zinc Oxide) 56 GM TUBE TP SCH (21:11)
[2018-10-24] MEDS: Insulin DETEMIR 100 UNIT/ML X5UNITS SQ SCH (21:12)
[2018-10-24] MEDS: Piperacillin/Tazobactam 3.375 GM in 0.9 % Sodium Chloride Mini Bag 100 ML IVPB SCH (23:05)
[2018-10-24] MEDS: Latanoprost 2.5 ML BOTTLE BOTH EYES SCH (23:09)
[2018-10-25] MEDS ORDERED: Haloperidol Lactate 5 MG/ML VIAL IVP ONE (01:40)
[2018-10-25] MEDS ORDERED: *HR* Promethazine 25 MG/ML VIAL IVP ONE (01:41)
[2018-10-25 05:51] LABS: Hematocrit 31.5 % (37.5-50.1); Hemoglobin 9.8 g/dL (12.9-16.9); Mean Corpuscular HGB Conc 31.1 g/dL (31.6-35.5); Mean Corpuscular Hemoglobin 27.9 pg (28.0-33.3); Mean Corpuscular Volume 89.7 fL (83.0-100.0); Mean Platelet Volume 9.8 fL (9.4-12.4); Platelet Count 297 K/mcL (140-400); Red Blood Count 3.51 M/mcL (4.19-5.50); Red Cell Distribution Width 15.3 % (11.5-14.5); White Blood Count 8.2 K/mcL (4.3-11.1)
[2018-10-25 05:57] LABS: INR 2.1; Prothrombin Time 24.1 Seconds (9.4-12.1)
[2018-10-25 06:05] LABS: Potassium 3.7 mEq/L (3.5-5.1)
[2018-10-25] MEDS ORDERED: Dextrose Gel 15 GM/37.5 ML TUBE PO PRN ×2 (06:56)
[2018-10-25] MEDS ORDERED: *HR* Dextrose 50 % in Water (Syg) 50 ML SYRINGE IVP PRN (06:56)
[2018-10-25] MEDS ORDERED: D5% in Water 1,000 ML IVC PRN (06:56)
[2018-10-25] MEDS: Cholecalciferol (D-3) 1,000 UNIT (25MCG) TABLET PO SCH (08:15)
[2018-10-25] MEDS: DilTIAZem CD (24hr) 180 MG CAP.ER.24H PO SCH (08:15)
[2018-10-25] MEDS: Piperacillin/Tazobactam 3.375 GM in 0.9 % Sodium Chloride Mini Bag 100 ML IVPB SCH (08:16)
[2018-10-25] MEDS ORDERED: Aminoglycoside Consult 1 EACH MC ONE (08:29)
[2018-10-25] MEDS: Desitin (Zinc Oxide) 56 GM TUBE TP SCH ×2 (10:22→21:54)
[2018-10-25] MEDS ORDERED: EPINEPHrine 1 MG/ML VIAL IM ONE (15:20)
[2018-10-25] MEDS ORDERED: methylPREDNISolone 125 MG/2 ML VIAL IVP ONE (15:30)
[2018-10-25] MEDS: Famotidine 20 MG/2 ML VIAL IVP SCH (15:39)
[2018-10-25] MEDS ORDERED: 0.9 % Sodium Chloride 500 ML IVC ONE (15:41)
[2018-10-25] MEDS ORDERED: methylPREDNISolone 125 MG/2 ML VIAL IVP SCH (16:00)
[2018-10-25] MEDS ORDERED: EPINEPHrine 1 MG/ML VIAL IM PRN (16:50)
[2018-10-25] MEDS ORDERED: *HR* Warfarin 2 MG TABLET PO ONE (18:00)
[2018-10-25] MEDS ORDERED: Warfarin perPT PO PRN (18:00)
[2018-10-25] MEDS: Insulin DETEMIR 100 UNIT/ML X5UNITS SQ SCH (22:21)
[2018-10-25] MEDS: Latanoprost 2.5 ML BOTTLE BOTH EYES SCH (22:21)
[2018-10-26 06:26] LABS: Hematocrit 33.6 % (37.5-50.1); Mean Corpuscular HGB Conc 29.8 g/dL (31.6-35.5); Mean Corpuscular Hemoglobin 27.9 pg (28.0-33.3); Mean Corpuscular Volume 93.9 fL (83.0-100.0); Mean Platelet Volume 9.7 fL (9.4-12.4); Platelet Count 302 K/mcL (140-400); Red Blood Count 3.58 M/mcL (4.19-5.50); Red Cell Distribution Width 15.4 % (11.5-14.5); White Blood Count 7.5 K/mcL (4.3-11.1)
[2018-10-26 06:33] LABS: INR 2.5; Prothrombin Time 28.4 Seconds (9.4-12.1)
[2018-10-26 06:44] LABS: Albumin 3.3 g/dL (3.5-5.7); Bilirubin,Total 0.4 mg/dL (0.3-1.0); Calcium 9.2 mg/dL (8.6-10.3); Globulin 3.3 g/dL (2.4-3.5); Potassium 4.7 mEq/L (3.5-5.1); Total Protein 6.6 g/dL (6.4-8.9)
[2018-10-26 06:49] LABS: Lymphocytes # 0.8 K/mcL (0.6-4.6); Monocytes # 0.2 K/mcL (0.0-1.3); Neutrophils # 6.5 K/mcL (1.6-8.9); Platelet Estimate Normal (Normal)
[2018-10-26 06:50] LABS: Macrocytosis Present (Not Present); Polychromasia 1+ (Not Present)
[2018-10-26 06:51] LABS: Anisocytosis 1+ (Not Present)
[2018-10-26] MEDS: DilTIAZem CD (24hr) 180 MG CAP.ER.24H PO SCH (11:21)
[2018-10-26] MEDS: Cholecalciferol (D-3) 1,000 UNIT (25MCG) TABLET PO SCH (11:21)
[2018-10-26] MEDS: Desitin (Zinc Oxide) 56 GM TUBE TP SCH ×2 (11:22→21:42)
[2018-10-26] MEDS: Famotidine 20 MG/2 ML VIAL IVP SCH (17:45)
[2018-10-26] MEDS: Insulin LISPRO 300 UNITS/3 ML VIAL SQ SCH ×2 (17:49→21:41)
[2018-10-26] MEDS ORDERED: *HR* Warfarin 3 MG TABLET PO ONE (18:00)
[2018-10-26] MEDS: Insulin DETEMIR 100 UNIT/ML X5UNITS SQ SCH (21:41)
[2018-10-26] MEDS: Latanoprost 2.5 ML BOTTLE BOTH EYES SCH (21:42)
[2018-10-27] MEDS: methylPREDNISolone 125 MG/2 ML VIAL IVP SCH ×4 (00:22→23:45)
[2018-10-27 05:57] LABS: Basophils % 0.1 %; Hematocrit 30.9 % (37.5-50.1); Hemoglobin 9.3 g/dL (12.9-16.9); Immature Granulocytes % 0.7 % (0-4); Lymphocytes # 0.5 K/mcL (0.6-4.6); Lymphocytes % 4.3 %; Mean Corpuscular HGB Conc 30.1 g/dL (31.6-35.5); Mean Corpuscular Hemoglobin 28.3 pg (28.0-33.3); Mean Corpuscular Volume 93.9 fL (83.0-100.0); Mean Platelet Volume 9.6 fL (9.4-12.4); Monocytes # 0.2 K/mcL (0.0-1.3); Monocytes % 1.6 %; Platelet Count 317 K/mcL (140-400); Red Blood Count 3.29 M/mcL (4.19-5.50); Red Cell Distribution Width 15.9 % (11.5-14.5); Segmented Neutrophils % 93.3 %
[2018-10-27 06:01] LABS: Neutrophils # 11.5 K/mcL (1.6-8.9); White Blood Count 12.3 K/mcL (4.3-11.1)
[2018-10-27 06:17] LABS: Albumin 3.3 g/dL (3.5-5.7); Albumin/Globulin Ratio 1.1 (1.1-2.2); Bilirubin,Total 0.3 mg/dL (0.3-1.0); INR 5.1; Magnesium 2.5 mg/dL (1.6-2.6); Phosphorous 7.1 mg/dL (2.7-4.5); Potassium 4.9 mEq/L (3.5-5.1); Prothrombin Time 57.7 Seconds (9.4-12.1); Total Protein 6.3 g/dL (6.4-8.9)
[2018-10-27] MEDS: Insulin LISPRO 300 UNITS/3 ML VIAL SQ SCH ×4 (09:05→20:34)
[2018-10-27 09:31] LABS: INR 5.1; Prothrombin Time 57.6 Seconds (9.4-12.1)
[2018-10-27] MEDS: DilTIAZem CD (24hr) 180 MG CAP.ER.24H PO SCH (12:09)
[2018-10-27] MEDS: Cholecalciferol (D-3) 1,000 UNIT (25MCG) TABLET PO SCH (12:10)
[2018-10-27 14:12] LABS: INR 5.2; Prothrombin Time 59.6 Seconds (9.4-12.1)
[2018-10-27 14:26] LABS: Adenovirus Not Detected (Not Detect); Coronavirus 229E Not Detected (Not Detect); Coronavirus HKU1 Not Detected (Not Detect); Coronavirus NL63 Not Detected (Not Detect); Coronavirus OC43 Not Detected (Not Detect); Human Metapneumovirus Not Detected (Not Detect)
[2018-10-27 14:27] LABS: Bordetella Pertussis Not Detected (Not Detect); Chlamydophila pneumoniae Not Detected (Not Detect); Human Rhinovirus/Enterovirus Not Detected (Not Detect); Influenza A Subtype 2009 H1 Not Detected (Not Detect); Influenza B Not Detected (Not Detect); Mycoplasma pneumoniae Not Detected (Not Detect); Parainfluenza Virus 1 Not Detected (Not Detect); Parainfluenza Virus 2 Not Detected (Not Detect); Parainfluenza Virus 3 Not Detected (Not Detect); Parainfluenza Virus 4 Not Detected (Not Detect); Respiratory Syncytial Virus Not Detected (Not Detect)
[2018-10-27] MEDS: Famotidine 20 MG/2 ML VIAL IVP SCH (16:02)
[2018-10-27] MEDS: Desitin (Zinc Oxide) 56 GM TUBE TP SCH ×2 (16:03→20:33)
[2018-10-27 18:48] LABS: Rheumatoid Factor < 10 IU/mL (Less than 14)
[2018-10-27 18:55] LABS: Procalcitonin 0.13 ng/mL (0.00-0.15)
[2018-10-27] MEDS: Latanoprost 2.5 ML BOTTLE BOTH EYES SCH (20:34)
[2018-10-27] MEDS: Insulin DETEMIR 100 UNIT/ML X5UNITS SQ SCH (20:34)
[2018-10-28 06:07] LABS: Hematocrit 29.8 % (37.5-50.1); Hemoglobin 9.4 g/dL (12.9-16.9); Immature Granulocytes % 0.4 % (0-4); Lymphocytes # 0.3 K/mcL (0.6-4.6); Lymphocytes % 3.4 %; Mean Corpuscular HGB Conc 31.5 g/dL (31.6-35.5); Mean Corpuscular Hemoglobin 28.2 pg (28.0-33.3); Mean Corpuscular Volume 89.5 fL (83.0-100.0); Mean Platelet Volume 9.6 fL (9.4-12.4); Monocytes # 0.1 K/mcL (0.0-1.3); Monocytes % 1.2 %; Neutrophils # 8.9 K/mcL (1.6-8.9); Platelet Count 276 K/mcL (140-400); Red Blood Count 3.33 M/mcL (4.19-5.50); Red Cell Distribution Width 15.8 % (11.5-14.5); White Blood Count 9.4 K/mcL (4.3-11.1)
[2018-10-28 06:24] LABS: Albumin 3.2 g/dL (3.5-5.7); Bilirubin,Total 0.3 mg/dL (0.3-1.0); Calcium 9.1 mg/dL (8.6-10.3); Globulin 3.3 g/dL (2.4-3.5); Potassium 4.3 mEq/L (3.5-5.1); Total Protein 6.5 g/dL (6.4-8.9)
[2018-10-28 06:25] LABS: INR 5.3; Prothrombin Time 59.8 Seconds (9.4-12.1)
[2018-10-28] MEDS ORDERED: *HR* Phytonadione 10 MG/ML AMPUL SQ ONE ×2 (07:50→07:52)
[2018-10-28] MEDS: Cholecalciferol (D-3) 1,000 UNIT (25MCG) TABLET PO SCH (08:14)
[2018-10-28] MEDS: DilTIAZem CD (24hr) 180 MG CAP.ER.24H PO SCH (08:14)
[2018-10-28] MEDS: methylPREDNISolone 125 MG/2 ML VIAL IVP SCH ×3 (08:15→23:49)
[2018-10-28] MEDS: Insulin LISPRO 300 UNITS/3 ML VIAL SQ SCH ×4 (08:17→21:50)
[2018-10-28] MEDS: *HR* Phytonadione 5 MG TABLET PO ONE ×2 (11:45→12:06)
[2018-10-28] MEDS: Desitin (Zinc Oxide) 56 GM TUBE TP SCH ×2 (17:43→21:55)
[2018-10-28] MEDS: Insulin DETEMIR 100 UNIT/ML X5UNITS SQ SCH (21:52)
[2018-10-28] MEDS: Latanoprost 2.5 ML BOTTLE BOTH EYES SCH (21:58)
[2018-10-29 04:12] LABS: Hematocrit 31.9 % (37.5-50.1); Hemoglobin 9.7 g/dL (12.9-16.9); Immature Granulocytes % 0.3 % (0-4); Lymphocytes # 0.3 K/mcL (0.6-4.6); Lymphocytes % 4.2 %; Mean Corpuscular HGB Conc 30.4 g/dL (31.6-35.5); Mean Corpuscular Volume 92.2 fL (83.0-100.0); Mean Platelet Volume 9.7 fL (9.4-12.4); Monocytes # 0.1 K/mcL (0.0-1.3); Monocytes % 1.3 %; Neutrophils # 7.1 K/mcL (1.6-8.9); Platelet Count 224 K/mcL (140-400); Red Blood Count 3.46 M/mcL (4.19-5.50); Red Cell Distribution Width 15.8 % (11.5-14.5); Segmented Neutrophils % 94.2 %; White Blood Count 7.5 K/mcL (4.3-11.1)
[2018-10-29 04:19] LABS: INR 3.8
[2018-10-29 04:24] LABS: Prothrombin Time 43.8 Seconds (9.4-12.1)
[2018-10-29 04:30] LABS: Calcium 9.1 mg/dL (8.6-10.3); Phosphorous 3.7 mg/dL (2.7-4.5); Potassium 4.2 mEq/L (3.5-5.1)
[2018-10-29] MEDS ORDERED: Ringers Solution, Lactated 1,000 ML IVC SCH (07:30)
[2018-10-29] MEDS: Cholecalciferol (D-3) 1,000 UNIT (25MCG) TABLET PO SCH (09:04)
[2018-10-29] MEDS: DilTIAZem CD (24hr) 180 MG CAP.ER.24H PO SCH (09:05)
[2018-10-29] MEDS: Desitin (Zinc Oxide) 56 GM TUBE TP SCH ×2 (09:07→21:43)
[2018-10-29] MEDS: methylPREDNISolone 125 MG/2 ML VIAL IVP SCH ×2 (09:07→21:42)
[2018-10-29] MEDS: Insulin LISPRO 300 UNITS/3 ML VIAL SQ SCH ×4 (09:07→21:42)
[2018-10-29] MEDS: Latanoprost 2.5 ML BOTTLE BOTH EYES SCH (23:59)
[2018-10-30] MEDS: Insulin DETEMIR 100 UNIT/ML X5UNITS SQ SCH ×2 (00:02→20:33)
[2018-10-30 04:43] LABS: Basophils % 0.1 %; Hematocrit 33.8 % (37.5-50.1); Hemoglobin 10.4 g/dL (12.9-16.9); Immature Granulocytes % 0.2 % (0-4); Lymphocytes # 0.3 K/mcL (0.6-4.6); Lymphocytes % 2.7 %; Mean Corpuscular HGB Conc 30.8 g/dL (31.6-35.5); Mean Corpuscular Hemoglobin 27.9 pg (28.0-33.3); Mean Corpuscular Volume 90.6 fL (83.0-100.0); Mean Platelet Volume 10.1 fL (9.4-12.4); Monocytes # 0.2 K/mcL (0.0-1.3); Monocytes % 1.7 %; Neutrophils # 9.4 K/mcL (1.6-8.9); Platelet Count 261 K/mcL (140-400); Red Blood Count 3.73 M/mcL (4.19-5.50); Red Cell Distribution Width 15.7 % (11.5-14.5); Segmented Neutrophils % 95.3 %; White Blood Count 9.8 K/mcL (4.3-11.1)
[2018-10-30 04:52] LABS: INR 3.4
[2018-10-30 05:03] LABS: Albumin 3.1 g/dL (3.5-5.7); Bilirubin,Total 0.3 mg/dL (0.3-1.0); Globulin 3.1 g/dL (2.4-3.5); Magnesium 2.4 mg/dL (1.6-2.6); Potassium 3.9 mEq/L (3.5-5.1); Total Protein 6.2 g/dL (6.4-8.9)
[2018-10-30] MEDS: DilTIAZem CD (24hr) 180 MG CAP.ER.24H PO SCH (08:14)
[2018-10-30] MEDS: Cholecalciferol (D-3) 1,000 UNIT (25MCG) TABLET PO SCH (08:14)
[2018-10-30] MEDS: methylPREDNISolone 125 MG/2 ML VIAL IVP SCH (08:14)
[2018-10-30] MEDS: Insulin LISPRO 300 UNITS/3 ML VIAL SQ SCH ×4 (08:15→20:32)
[2018-10-30] MEDS: Desitin (Zinc Oxide) 56 GM TUBE TP SCH ×2 (09:09→20:33)
[2018-10-30 11:32] LABS: ANA IgG by ELISA NONE DETECTED (None Detected)
[2018-10-30] MEDS: Latanoprost 2.5 ML BOTTLE BOTH EYES SCH (20:33)
[2018-10-31 08:51] LABS: Basophils % 0.1 %; Hemoglobin 10.2 g/dL (12.9-16.9); Immature Granulocytes % 0.4 % (0-4); Lymphocytes # 0.5 K/mcL (0.6-4.6); Lymphocytes % 3.2 %; Mean Corpuscular HGB Conc 30.9 g/dL (31.6-35.5); Mean Corpuscular Hemoglobin 28.8 pg (28.0-33.3); Mean Corpuscular Volume 93.2 fL (83.0-100.0); Mean Platelet Volume 10.5 fL (9.4-12.4); Monocytes # 0.4 K/mcL (0.0-1.3); Monocytes % 2.8 %; Neutrophils # 13.4 K/mcL (1.6-8.9); Platelet Count 238 K/mcL (140-400); Red Blood Count 3.54 M/mcL (4.19-5.50); Red Cell Distribution Width 15.4 % (11.5-14.5); Segmented Neutrophils % 93.5 %; White Blood Count 14.3 K/mcL (4.3-11.1)
[2018-10-31] MEDS: Insulin LISPRO 300 UNITS/3 ML VIAL SQ SCH ×4 (08:52→20:39)
[2018-10-31] MEDS: Cholecalciferol (D-3) 1,000 UNIT (25MCG) TABLET PO SCH (08:52)
[2018-10-31] MEDS: DilTIAZem CD (24hr) 180 MG CAP.ER.24H PO SCH (08:53)
[2018-10-31] MEDS: Desitin (Zinc Oxide) 56 GM TUBE TP SCH ×2 (08:53→20:39)
[2018-10-31 08:58] LABS: Albumin 2.4 g/dL (3.5-5.7); Albumin/Globulin Ratio 1.1 (1.1-2.2); Bilirubin,Total 0.3 mg/dL (0.3-1.0); Calcium 7.5 mg/dL (8.6-10.3); Globulin 2.1 g/dL (2.4-3.5); Potassium 3.5 mEq/L (3.5-5.1); Total Protein 4.5 g/dL (6.4-8.9)
[2018-10-31] MEDS ORDERED: methylPREDNISolone 125 MG/2 ML VIAL IVP SCH (09:00)
[2018-10-31 11:03] LABS: INR 2.5
[2018-10-31] MEDS ORDERED: Warfarin perPT PO PRN (18:00)
[2018-10-31] MEDS ORDERED: *HR* Warfarin 1 MG TABLET PO ONE (18:00)
[2018-10-31] MEDS: Latanoprost 2.5 ML BOTTLE BOTH EYES SCH (20:39)
[2018-10-31] MEDS: Insulin DETEMIR 100 UNIT/ML X5UNITS SQ SCH (21:21)
[2018-11-01 02:25] LABS: Basophils % 0.1 %; Hematocrit 33.4 % (37.5-50.1); Hemoglobin 10.5 g/dL (12.9-16.9); Immature Granulocytes % 0.6 % (0-4); Lymphocytes # 0.5 K/mcL (0.6-4.6); Lymphocytes % 2.8 %; Mean Corpuscular HGB Conc 31.4 g/dL (31.6-35.5); Mean Corpuscular Hemoglobin 28.8 pg (28.0-33.3); Mean Corpuscular Volume 91.5 fL (83.0-100.0); Mean Platelet Volume 11.1 fL (9.4-12.4); Monocytes % 6.4 %; Neutrophils # 14.6 K/mcL (1.6-8.9); Platelet Count 231 K/mcL (140-400); Red Blood Count 3.65 M/mcL (4.19-5.50); Red Cell Distribution Width 15.5 % (11.5-14.5); Segmented Neutrophils % 90.1 %; White Blood Count 16.2 K/mcL (4.3-11.1)
[2018-11-01 02:32] LABS: INR 2.2; Prothrombin Time 25.4 Seconds (9.4-12.1)
[2018-11-01 02:40] LABS: Albumin 2.9 g/dL (3.5-5.7); Bilirubin,Total 0.3 mg/dL (0.3-1.0); Calcium 8.9 mg/dL (8.6-10.3); Globulin 2.8 g/dL (2.4-3.5); Potassium 4.1 mEq/L (3.5-5.1); Total Protein 5.7 g/dL (6.4-8.9)
[2018-11-01] MEDS: DilTIAZem CD (24hr) 180 MG CAP.ER.24H PO SCH (09:03)
[2018-11-01] MEDS: Insulin LISPRO 300 UNITS/3 ML VIAL SQ SCH ×4 (09:03→20:48)
[2018-11-01] MEDS: Cholecalciferol (D-3) 1,000 UNIT (25MCG) TABLET PO SCH (09:03)
[2018-11-01] MEDS: Desitin (Zinc Oxide) 56 GM TUBE TP SCH ×2 (09:04→20:51)
[2018-11-01 11:14] LABS: Bilirubin,Urine Negative (Negative); Blood,Urine Moderate (Negative); Clarity,Urine Turbid (Clear); Color,Urine Yellow (Yellow); Glucose,Urine (UA) 250 mg/dL (Normal); Ketones,Urine Negative (Negative); Leukocyte Esterase,Urine Large (Negative); Nitrite,Urine Negative (Negative); PH,Urine 5.5 pH Units (5.0-8.0); Protein,Urine 30 mg/dL (Neg-Trace); Specific Gravity,Urine 1.018 (1.010-1.025); Urobilinogen,Urine Normal (Normal)
[2018-11-01 11:16] LABS: Squamous Epithelial Cell,Urine Many per lpf (None-Few); WBC,Urine TNTC per hpf (0-3)
[2018-11-01 11:34] LABS: Bacteria,Urine Moderate per hpf (None-Few); Hyaline Casts,Urine None Seen per lpf (None-Few); Yeast,Urine Many per hpf (None Seen)
[2018-11-01] MEDS ORDERED: *HR* Warfarin 1 MG TABLET PO ONE (18:00)
[2018-11-01] MEDS: Insulin DETEMIR 100 UNIT/ML X5UNITS SQ SCH (20:48)
[2018-11-01] MEDS: Latanoprost 2.5 ML BOTTLE BOTH EYES SCH (20:48)
[2018-11-02 02:16] LABS: Basophils % 0.2 %; Eosinophils # 0.1 K/mcL (0.0-0.6); Eosinophils % 0.5 %; Hemoglobin 10.1 g/dL (12.9-16.9); Immature Granulocytes % 1.4 % (0-4); Lymphocytes # 0.9 K/mcL (0.6-4.6); Lymphocytes % 5.9 %; Mean Corpuscular HGB Conc 32.6 g/dL (31.6-35.5); Mean Corpuscular Hemoglobin 28.9 pg (28.0-33.3); Mean Corpuscular Volume 88.6 fL (83.0-100.0); Mean Platelet Volume 10.8 fL (9.4-12.4); Monocytes % 6.7 %; Neutrophils # 12.5 K/mcL (1.6-8.9); Nucleated Red Blood Cells 0.1 /100 WBC (0); Platelet Count 200 K/mcL (140-400); Red Cell Distribution Width 15.4 % (11.5-14.5); Segmented Neutrophils % 85.3 %; White Blood Count 14.6 K/mcL (4.3-11.1)
[2018-11-02 02:23] LABS: Prothrombin Time 22.9 Seconds (9.4-12.1)
[2018-11-02 02:35] LABS: Albumin 2.7 g/dL (3.5-5.7); Bilirubin,Total 0.3 mg/dL (0.3-1.0); Calcium 8.6 mg/dL (8.6-10.3); Globulin 2.6 g/dL (2.4-3.5); Potassium 4.3 mEq/L (3.5-5.1); Total Protein 5.3 g/dL (6.4-8.9)
[2018-11-02] MEDS: Insulin LISPRO 300 UNITS/3 ML VIAL SQ SCH ×4 (08:13→20:36)
[2018-11-02] MEDS: Cholecalciferol (D-3) 1,000 UNIT (25MCG) TABLET PO SCH (09:14)
[2018-11-02] MEDS: DilTIAZem CD (24hr) 180 MG CAP.ER.24H PO SCH (09:14)
[2018-11-02] MEDS ORDERED: Meropenem 1,000 MG in Water for inj. (sterile) 20 ML IVP SCH ×2 (11:00→18:47)
[2018-11-02] MEDS: Desitin (Zinc Oxide) 56 GM TUBE TP SCH ×2 (11:29→20:36)
[2018-11-02] MEDS ORDERED: *HR* Warfarin 3 MG TABLET PO ONE (18:00)
[2018-11-02] MEDS: Latanoprost 2.5 ML BOTTLE BOTH EYES SCH (20:35)
[2018-11-02] MEDS: Insulin DETEMIR 100 UNIT/ML X5UNITS SQ SCH (20:36)
[2018-11-02] MEDS: Meropenem 1,000 MG in Water for inj. (sterile) 20 ML IVP SCH (22:57)
[2018-11-03 07:59] LABS: Basophils # 0.1 K/mcL (0.0-0.2); Basophils % 0.3 %; Eosinophils # 0.4 K/mcL (0.0-0.6); Eosinophils % 2.7 %; Hematocrit 30.6 % (37.5-50.1); Hemoglobin 9.9 g/dL (12.9-16.9); Immature Granulocytes % 2.8 % (0-4); Lymphocytes # 0.8 K/mcL (0.6-4.6); Lymphocytes % 5.5 %; Mean Corpuscular HGB Conc 32.4 g/dL (31.6-35.5); Mean Corpuscular Hemoglobin 28.4 pg (28.0-33.3); Mean Corpuscular Volume 87.7 fL (83.0-100.0); Mean Platelet Volume 11.2 fL (9.4-12.4); Monocytes % 6.3 %; Neutrophils # 12.7 K/mcL (1.6-8.9); Platelet Count 222 K/mcL (140-400); Red Blood Count 3.49 M/mcL (4.19-5.50); Red Cell Distribution Width 15.7 % (11.5-14.5); Segmented Neutrophils % 82.4 %; White Blood Count 15.4 K/mcL (4.3-11.1)
[2018-11-03 08:07] LABS: INR 1.6; Prothrombin Time 18.1 Seconds (9.4-12.1)
[2018-11-03 08:18] LABS: Calcium 8.9 mg/dL (8.6-10.3); Potassium 3.8 mEq/L (3.5-5.1)
[2018-11-03] MEDS: Insulin LISPRO 300 UNITS/3 ML VIAL SQ SCH ×3 (09:25→18:03)
[2018-11-03] MEDS: DilTIAZem CD (24hr) 180 MG CAP.ER.24H PO SCH (09:27)
[2018-11-03] MEDS: Cholecalciferol (D-3) 1,000 UNIT (25MCG) TABLET PO SCH (09:28)
[2018-11-03] MEDS: Desitin (Zinc Oxide) 56 GM TUBE TP SCH (09:28)
[2018-11-03] MEDS: Meropenem 1,000 MG in Water for inj. (sterile) 20 ML IVP SCH (12:57)
[2018-11-03 14:11] VITALS: BP 106/70
[2018-11-03] MEDS ORDERED: *HR* Warfarin 2 MG TABLET PO ONE (18:00)
== END 2018-11-03 20:35 | disposition home health service (06) | DRG 698 ==
LOC: EMEROOARM 09:19 → 3ANU 09:19 → SUATTDRO 13:23 → 3ANU 13:48
PROVIDERS: ADMIT Internal Medicine; ATTEND Internal Medicine

== ENCOUNTER 2019-12-23 02:41 | Inpatient (IN) ==
[2019-12-23] MEDS ORDERED: 0.9 % Sodium Chloride 500 ML IVC ONE (02:56)
[2019-12-23 03:48] LABS: Basophils % 0.1 %; Eosinophils # 0.1 K/mcL (0.0-0.6); Eosinophils % 0.3 %; Hematocrit 25.6 % (37.5-50.1); Hemoglobin 7.9 g/dL (12.9-16.9); Lymphocytes # 0.5 K/mcL (0.6-4.6); Lymphocytes % 3.1 %; Mean Corpuscular HGB Conc 30.9 g/dL (31.6-35.5); Mean Corpuscular Volume 84.2 fL (83.0-100.0); Mean Platelet Volume 9.4 fL (9.4-12.4); Monocytes # 0.7 K/mcL (0.0-1.3); Monocytes % 4.6 %; Neutrophils # 13.8 K/mcL (1.6-8.9); Platelet Count 354 K/mcL (140-400); Red Blood Count 3.04 M/mcL (4.19-5.50); Red Cell Distribution Width 15.9 % (11.5-14.5); Segmented Neutrophils % 89.9 %; White Blood Count 15.4 K/mcL (4.3-11.1)
[2019-12-23 04:01] LABS: Activated Partial Thrombo Time 75.5 Seconds (26.0-36.0)
[2019-12-23 04:07] LABS: Clarity,Urine Turbid (Clear); Color,Urine Red (Yellow); Glucose,Urine (UA) Normal (Normal)
[2019-12-23 04:08] LABS: Bilirubin,Urine Negative (Negative); Blood,Urine Large (Negative); Ketones,Urine Negative (Negative); Leukocyte Esterase,Urine Large (Negative); Nitrite,Urine Positive (Negative); PH,Urine 8.5 pH Units (5.0-8.0); Protein,Urine >=600 mg/dL (Neg-Trace); Specific Gravity,Urine 1.017 (1.010-1.025); Urobilinogen,Urine Normal (Normal)
[2019-12-23 04:12] LABS: Alanine Aminotransferase 15 Units/L (7-52); Albumin 2.2 g/dL (3.5-5.7); Albumin/Globulin Ratio 0.6 (1.1-2.2); Alkaline Phosphatase 99 Units/L (34-104); Aspartate Amino Transferase 16 Units/L (13-39); BUN/Creatinine Ratio 26 (6-26); Bilirubin,Direct 0.2 mg/dL (0.0-0.2); Bilirubin,Indirect 0.1 mg/dL (0.0-1.0); Bilirubin,Total 0.3 mg/dL (0.3-1.0); Blood Urea Nitrogen 65 mg/dL (8-23); Calcium 8.2 mg/dL (8.6-10.3); Carbon Dioxide 19 mEq/L (23-29); Chloride 104 mEq/L (98-107); Globulin 3.8 g/dL (2.4-3.5); Glucose 277 mg/dL (70-105); Osmolality,Calculated 301 (280-300); Potassium 4.3 mEq/L (3.5-5.1); Sodium 131 mEq/L (136-145); Troponin I < 0.03 ng/mL (< 0.04); eGFR For African Americans 30 (> 60); eGFR For Non-African Americans 25 (> 60)
[2019-12-23 04:18] LABS: INR 10.4; Prothrombin Time 112.2 Seconds (9.4-12.1)
[2019-12-23] MEDS ORDERED: *HR* Phytonadione 10 MG/ML AMPUL SQ ONE ×2 (04:21→08:16)
[2019-12-23] MEDS ORDERED: cefTRIAXone 1,000 MG in Water for inj. (sterile) 10 ML IVP ONE (04:52)
[2019-12-23] MEDS ORDERED: Azithromycin 500 MG in 0.9 % Sodium Chloride 250 ML IVPB ONE (04:53)
[2019-12-23] MEDS ORDERED: 0.9 % Sodium Chloride 1,000 ML IVC ONE ×2 (05:04→07:49)
[2019-12-23] MEDS ORDERED: 0.9 % Sodium Chloride 250 ML ONE ×2 (05:57→20:04)
[2019-12-23] MEDS ORDERED: *HR* HYDROcodone/Acet 5/325 mg TABLET PO ONE (06:17)
[2019-12-23] MEDS ORDERED: *HR* HYDROcodone/Acet 5/325 mg TABLET PO PRN (07:23)
[2019-12-23] MEDS ORDERED: Naloxone 0.4 MG/ML INJ IVP PRN (07:23)
[2019-12-23] MEDS ORDERED: D5% in Water 1,000 ML IVC PRN (07:27)
[2019-12-23] MEDS ORDERED: Dextrose Gel 15 GM/37.5 ML TUBE PO PRN ×2 (07:27)
[2019-12-23] MEDS ORDERED: *HR* Dextrose 50 % in Water (Vial) 50 ML VIAL IVP PRN (07:27)
[2019-12-23] MEDS ORDERED: Insulin LISPRO 300 UNITS/3 ML VIAL SQ SCH (07:30)
[2019-12-23] MEDS ORDERED: 0.9 % Sodium Chloride 1,000 ML IVC SCH ×2 (07:30→08:21)
[2019-12-23] MEDS ORDERED: Meropenem 1,000 MG in 0.9 % Sodium Chloride Mini Bag 100 ML IVPB SCH (08:00)
[2019-12-23] MEDS ORDERED: Norepinephrine 4 MG/254 ML IV.SOLN IVC SCH (08:45)
[2019-12-23] MEDS: Vasopressin 40 UNIT in D5% in Water 100 ML IVC SCH (09:28)
[2019-12-23 09:37] LABS: Hematocrit 27.9 % (37.5-50.1); Hemoglobin 8.7 g/dL (12.9-16.9); Mean Corpuscular HGB Conc 31.2 g/dL (31.6-35.5); Mean Corpuscular Hemoglobin 27.7 pg (28.0-33.3); Mean Corpuscular Volume 88.9 fL (83.0-100.0); Mean Platelet Volume 9.8 fL (9.4-12.4); Platelet Count 386 K/mcL (140-400); Red Blood Count 3.14 M/mcL (4.19-5.50); Red Cell Distribution Width 15.9 % (11.5-14.5)
[2019-12-23 09:38] LABS: White Blood Count 29.1 K/mcL (4.3-11.1)
[2019-12-23] MEDS ORDERED: *HR* FentaNYL (PF) 100 MCG/2 ML VIAL ONE (09:41)
[2019-12-23] MEDS ORDERED: *HR* Midazolam HCl 5 MG/5 ML VIAL IVP ONE (09:47)
[2019-12-23 09:53] LABS: INR 12.6
[2019-12-23 09:54] LABS: Albumin 2.1 g/dL (3.5-5.7); Albumin/Globulin Ratio 0.6 (1.1-2.2); Bilirubin,Total 0.3 mg/dL (0.3-1.0); Calcium 7.9 mg/dL (8.6-10.3); Globulin 3.5 g/dL (2.4-3.5); Potassium 3.9 mEq/L (3.5-5.1); Total Protein 5.6 g/dL (6.4-8.9)
[2019-12-23] MEDS ORDERED: FentaNYL (PF) 1,000 MCG/100 ML IV.SOLN IVC SCH (10:00)
[2019-12-23] MEDS ORDERED: Midazolam HCl 50 MG/100 ML IV.SOLN IVC SCH (10:00)
[2019-12-23 10:07] LABS: Monocytes # 0.6 K/mcL (0.0-1.3); Neutrophils # 28.5 K/mcL (1.6-8.9)
[2019-12-23 10:08] LABS: Platelet Estimate Normal (Normal)
[2019-12-23 10:09] LABS: Anisocytosis 1+ (Not Present)
[2019-12-23 10:15] LABS: ABG Base Excess -6 mEq/L (-2 to 3); ABG HCO3 19 mEq/L (21-27); ABG Oxygen Saturation 96 % (95-98); ABG PCO2 34 mmHg (35-45); ABG PH 7.35 pH Units (7.32-7.45); ABG PO2 82 mmHg (85-104); ABG TCO2 20 mEq/L (20-26); Blood Gas VT 500 cc
[2019-12-23] MEDS: Midazolam HCl 50 MG/100 ML IV.SOLN IVC SCH (10:16)
[2019-12-23] MEDS: FentaNYL (PF) 1,000 MCG/100 ML IV.SOLN IVC SCH ×2 (10:16→20:15)
[2019-12-23] MEDS: Hydrocortisone Sodium Succ 100 MG/2 ML VIAL IVP SCH ×3 (10:20→23:39)
[2019-12-23] MEDS ORDERED: Artificial Tears SOLN 15 ML BOTTLE BOTH EYES PRN (12:56)
[2019-12-23] MEDS: Norepinephrine 8 MG in 0.9 % Sodium Chloride 250 ML IVC SCH ×2 (13:45→18:33)
[2019-12-23] MEDS ORDERED: Vancomycin 1,500 MG/265 ML IV.SOLN IVPB SCH (14:00)
[2019-12-23] MEDS: Insulin LISPRO 300 UNITS/3 ML VIAL SQ SCH ×4 (14:14→23:39)
[2019-12-23] MEDS: Pantoprazole 40 MG VIAL IVP SCH (14:21)
[2019-12-23] MEDS ORDERED: Vancomycin 1 EACH in 0.9 % Sodium Chloride 250 ML IVPB PRN (15:00)
[2019-12-23 15:38] LABS: ABG Base Excess -10 mEq/L (-2 to 3); ABG HCO3 15 mEq/L (21-27); ABG Oxygen Saturation 98 % (95-98); ABG PCO2 29 mmHg (35-45); ABG PH 7.32 pH Units (7.32-7.45); ABG PO2 104 mmHg (85-104); ABG TCO2 16 mEq/L (20-26); Blood Gas Modality ASSIST CONTROL; Blood Gas VT 500 cc
[2019-12-23] MEDS: Artificial Tears SOLN 15 ML BOTTLE BOTH EYES SCH ×3 (16:09→23:38)
[2019-12-23] MEDS: Meropenem 1,000 MG in 0.9 % Sodium Chloride Mini Bag 100 ML IVPB SCH (16:09)
[2019-12-23] MEDS ORDERED: 0.9 % Sodium Chloride 500 ML ONE (16:20)
[2019-12-23 16:57] LABS: Bilirubin,Urine Small (Negative); Blood,Urine Large (Negative); Clarity,Urine Turbid (Clear); Color,Urine Other (Yellow); Glucose,Urine (UA) 100 mg/dL (Normal); Ketones,Urine Trace mg/dL (Negative); Leukocyte Esterase,Urine Large (Negative); Nitrite,Urine Positive (Negative); PH,Urine 8.5 pH Units (5.0-8.0); Protein,Urine >=300 mg/dL (Neg-Trace); Urobilinogen,Urine Normal (Normal)
[2019-12-23 17:20] LABS: INR 12.8; Prothrombin Time 137.5 Seconds (9.4-12.1)
[2019-12-23] MEDS ORDERED: Pantoprazole 40 MG VIAL IVP SCH (18:00)
[2019-12-23 19:56] LABS: Enterococcus by PCR Not Detected (Not Detect); Staphylococcus by PCR Not Detected (Not Detect); blaKPC Carbapenem-Resist Gene Not Detected (Not Detect); mecA Methicillin-Resist Gene DETECTED (Not Detect); vanA/B Vancomycin-Resist Genes Not Detected (Not Detect)
[2019-12-23 19:57] LABS: Acinetobacter baumannii by PCR Not Detected (Not Detect); Candida albicans by PCR Not Detected (Not Detect); Candida glabrata by PCR Not Detected (Not Detect); Candida krusei by PCR Not Detected (Not Detect); Candida parapsilosis by PCR Not Detected (Not Detect); Candida tropicalis by PCR Not Detected (Not Detect); Enterobacter cloacae Cmplx PCR Not Detected (Not Detect); Enterobacteriaceae by PCR Not Detected (Not Detect); Escherichia coli by PCR Not Detected (Not Detect); Klebsiella oxytoca by PCR Not Detected (Not Detect); Klebsiella pneumoniae by PCR Not Detected (Not Detect); Proteus by PCR Not Detected (Not Detect); Pseudomonas aeruginosa by PCR Not Detected (Not Detect); Serratia marcescens by PCR Not Detected (Not Detect); Staphylococcus aureus by PCR DETECTED (Not Detect); Streptococcus agalactiae(B)PCR Not Detected (Not Detect); Streptococcus by PCR Not Detected (Not Detect); Streptococcus pneumoniae PCR Not Detected (Not Detect); Streptococcus pyogenes (A) PCR Not Detected (Not Detect)
[2019-12-23] MEDS: Chlorhexidine Rinse 15 ML MOUTHWASH MM SCH (20:36)
[2019-12-23 23:56] LABS: INR 1.7; Prothrombin Time 19.2 Seconds (9.4-12.1)
[2019-12-24] MEDS: Meropenem 1,000 MG in 0.9 % Sodium Chloride Mini Bag 100 ML IVPB SCH ×2 (03:06→15:03)
[2019-12-24] MEDS: Artificial Tears SOLN 15 ML BOTTLE BOTH EYES SCH ×6 (03:07→23:50)
[2019-12-24 03:58] LABS: ABG Base Excess -6 mEq/L (-2 to 3); ABG HCO3 17 mEq/L (21-27); ABG Oxygen Saturation 100 % (95-98); ABG PCO2 26 mmHg (35-45); ABG PH 7.43 pH Units (7.32-7.45); ABG PO2 183 mmHg (85-104); ABG TCO2 18 mEq/L (20-26); Blood Gas VT 500 cc
[2019-12-24 04:00] LABS: Activated Partial Thrombo Time 28.1 Seconds (26.0-36.0); INR 1.5; Prothrombin Time 16.7 Seconds (9.4-12.1)
[2019-12-24 04:09] LABS: Calcium 8.4 mg/dL (8.6-10.3); Magnesium 1.9 mg/dL (1.6-2.6); Potassium 3.8 mEq/L (3.5-5.1)
[2019-12-24] MEDS: Insulin LISPRO 300 UNITS/3 ML VIAL SQ SCH ×4 (05:51→23:51)
[2019-12-24 06:07] LABS: Hemoglobin 8.8 g/dL (12.9-16.9); Red Blood Count 3.36 M/mcL (4.19-5.50); White Blood Count 29.8 K/mcL (4.3-11.1)
[2019-12-24 06:08] LABS: Basophils # 0.1 K/mcL (0.0-0.2); Basophils % 0.2 %; Hematocrit 29.1 % (37.5-50.1); Immature Granulocytes % 2.4 % (0-4); Lymphocytes # 0.6 K/mcL (0.6-4.6); Lymphocytes % 2.1 %; Mean Corpuscular HGB Conc 30.2 g/dL (31.6-35.5); Mean Corpuscular Hemoglobin 26.2 pg (28.0-33.3); Mean Corpuscular Volume 86.6 fL (83.0-100.0); Mean Platelet Volume 9.6 fL (9.4-12.4); Monocytes # 0.8 K/mcL (0.0-1.3); Monocytes % 2.5 %; Neutrophils # 8.2 K/mcL (1.6-8.9); Platelet Count 442 K/mcL (140-400); Red Cell Distribution Width 15.9 % (11.5-14.5); Segmented Neutrophils % 27.6 %
[2019-12-24] MEDS: Midazolam HCl 50 MG/100 ML IV.SOLN IVC SCH (06:41)
[2019-12-24] MEDS: Phenylephrine 10 MG in 0.9 % Sodium Chloride 250 ML IVC SCH ×2 (06:48→08:11)
[2019-12-24] MEDS: FentaNYL (PF) 1,000 MCG/100 ML IV.SOLN IVC SCH (06:58)
[2019-12-24] MEDS: Hydrocortisone Sodium Succ 100 MG/2 ML VIAL IVP SCH ×3 (07:01→23:53)
[2019-12-24] MEDS: Pantoprazole 40 MG VIAL IVP SCH (07:01)
[2019-12-24] MEDS: Chlorhexidine Rinse 15 ML MOUTHWASH MM SCH ×2 (07:02→20:55)
[2019-12-24] MEDS: Vasopressin 40 UNIT in D5% in Water 100 ML IVC SCH (07:02)
[2019-12-24 07:06] LABS: Platelet Estimate Normal (Normal)
[2019-12-24] MEDS: Norepinephrine 8 MG in 0.9 % Sodium Chloride 250 ML IVC SCH (07:08)
[2019-12-24] MEDS ORDERED: Perflutren Lipid Microsphere 1.3 ML in 0.9 % Sodium Chloride 8.7 ML IVP PRN (09:35)
[2019-12-24] MEDS: *HR* Heparin 5,000 UNIT/ML VIAL SQ SCH ×2 (14:19→20:56)
[2019-12-24] MEDS ORDERED: Vancomycin 1,500 MG/265 ML IV.SOLN IVPB ONE (15:16)
[2019-12-25] MEDS: FentaNYL (PF) 1,000 MCG/100 ML IV.SOLN IVC SCH ×2 (01:14→16:01)
[2019-12-25] MEDS: Meropenem 1,000 MG in 0.9 % Sodium Chloride Mini Bag 100 ML IVPB SCH ×2 (03:28→15:16)
[2019-12-25] MEDS: Vasopressin 40 UNIT in D5% in Water 100 ML IVC SCH (03:28)
[2019-12-25 03:29] LABS: ABG Base Excess -7 mEq/L (-2 to 3); ABG HCO3 17 mEq/L (21-27); ABG Oxygen Saturation 97 % (95-98); ABG PCO2 26 mmHg (35-45); ABG PH 7.41 pH Units (7.32-7.45); ABG PO2 88 mmHg (85-104); ABG TCO2 17 mEq/L (20-26); Blood Gas VT 500 cc
[2019-12-25] MEDS: Norepinephrine 8 MG in 0.9 % Sodium Chloride 250 ML IVC SCH (03:41)
[2019-12-25] MEDS: Artificial Tears SOLN 15 ML BOTTLE BOTH EYES SCH ×4 (03:43→15:17)
[2019-12-25 03:53] LABS: Hematocrit 29.6 % (37.5-50.1); Hemoglobin 9.3 g/dL (12.9-16.9); Mean Corpuscular HGB Conc 31.4 g/dL (31.6-35.5); Mean Corpuscular Hemoglobin 26.9 pg (28.0-33.3); Mean Corpuscular Volume 85.5 fL (83.0-100.0); Mean Platelet Volume 10.1 fL (9.4-12.4); Platelet Count 390 K/mcL (140-400); Red Blood Count 3.46 M/mcL (4.19-5.50)
[2019-12-25 03:58] LABS: VBG Ionized Calcium 1.28 mmol/L (1.15-1.35)
[2019-12-25 04:01] LABS: INR 1.7; Prothrombin Time 19.6 Seconds (9.4-12.1)
[2019-12-25 04:09] LABS: Calcium 8.7 mg/dL (8.6-10.3); Magnesium 2.1 mg/dL (1.6-2.6); Phosphorous 4.4 mg/dL (2.7-4.5); Potassium 3.7 mEq/L (3.5-5.1)
[2019-12-25] MEDS: *HR* Heparin 5,000 UNIT/ML VIAL SQ SCH ×2 (06:08→14:14)
[2019-12-25] MEDS: Insulin LISPRO 300 UNITS/3 ML VIAL SQ SCH ×2 (06:08→11:43)
[2019-12-25] MEDS: Pantoprazole 40 MG VIAL IVP SCH (07:49)
[2019-12-25] MEDS: Hydrocortisone Sodium Succ 100 MG/2 ML VIAL IVP SCH (07:49)
[2019-12-25] MEDS: Chlorhexidine Rinse 15 ML MOUTHWASH MM SCH (07:49)
[2019-12-25] MEDS: Midazolam HCl 50 MG/100 ML IV.SOLN IVC SCH (11:28)
[2019-12-25] MEDS ORDERED: Albuterol 2.5 MG/3 ML NEBULIZER IH PRN (11:55)
[2019-12-25] MEDS: Phenylephrine 10 MG in 0.9 % Sodium Chloride 250 ML IVC SCH (14:13)
[2019-12-25 15:15] VITALS: BP 97/57
[2019-12-25] MEDS: Ipratropium/Albuterol Neb 3 ML IH SCH (15:47)
[2019-12-25] MEDS ORDERED: Hydrocortisone Sodium Succ 100 MG/2 ML VIAL IVP SCH (16:00)
== END 2019-12-25 16:09 | disposition short-term general hospital (02) | DRG 698 ==
LOC: CDU 02:41 → EMEROOARM 02:41 → ICNU 09:55
PROVIDERS: ADMIT Internal Medicine; ATTEND Family Medicine

== ENCOUNTER 2020-01-30 11:47 | Inpatient (IN) ==
[2020-01-30] MEDS ORDERED: DilTIAZem 50 MG/50 ML IV.SOLN IVC SCH (12:15)
[2020-01-30 12:30] LABS: Hemoglobin 8.8 g/dL (12.9-16.9)
[2020-01-30 12:32] LABS: Basophils % 0.1 %; Eosinophils # 0.1 K/mcL (0.0-0.6); Eosinophils % 0.5 %; Hematocrit 29.8 % (37.5-50.1); Immature Granulocytes % 1.4 % (0-4); Lymphocytes # 0.4 K/mcL (0.6-4.6); Lymphocytes % 4.1 %; Mean Corpuscular HGB Conc 29.5 g/dL (31.6-35.5); Mean Corpuscular Hemoglobin 27.7 pg (28.0-33.3); Mean Corpuscular Volume 93.7 fL (83.0-100.0); Mean Platelet Volume 10.7 fL (9.4-12.4); Monocytes # 0.5 K/mcL (0.0-1.3); Monocytes % 5.3 %; Neutrophils # 8.5 K/mcL (1.6-8.9); Platelet Count 233 K/mcL (140-400); Red Blood Count 3.18 M/mcL (4.19-5.50); Red Cell Distribution Width 19.9 % (11.5-14.5); Segmented Neutrophils % 88.6 %; White Blood Count 9.6 K/mcL (4.3-11.1)
[2020-01-30 12:41] LABS: Activated Partial Thrombo Time 44.9 Seconds (26.0-36.0)
[2020-01-30 12:52] LABS: INR 6.6; Prothrombin Time 72.2 Seconds (9.4-12.1)
[2020-01-30 12:55] LABS: Albumin 2.6 g/dL (3.5-5.7); Albumin/Globulin Ratio 0.9 (1.1-2.2); Bilirubin,Direct 0.2 mg/dL (0.0-0.2); Bilirubin,Indirect 0.4 mg/dL (0.0-1.0); Bilirubin,Total 0.6 mg/dL (0.3-1.0); Calcium 8.1 mg/dL (8.6-10.3); Globulin 2.9 g/dL (2.4-3.5); Magnesium 1.8 mg/dL (1.6-2.6); Phosphorous 3.1 mg/dL (2.7-4.5); Potassium 3.8 mEq/L (3.5-5.1); Total Protein 5.5 g/dL (6.4-8.9); Troponin I 0.04 ng/mL (< 0.04)
[2020-01-30 13:35] LABS: Bacteria,Urine Moderate per hpf (None-Few); Bilirubin,Urine Negative (Negative); Blood,Urine Trace (Negative); Clarity,Urine Ex.Turbid (Clear); Color,Urine Orange (Yellow); Glucose,Urine (UA) Normal (Normal); Ketones,Urine Negative (Negative); Leukocyte Esterase,Urine Large (Negative); Nitrite,Urine Negative (Negative); Protein,Urine >=300 mg/dL (Neg-Trace); RBC,Urine 15-30 per hpf (0-3); Specific Gravity,Urine 1.018 (1.010-1.025); Urobilinogen,Urine Normal (Normal); WBC,Urine TNTC per hpf (0-3)
[2020-01-30] MEDS ORDERED: Meropenem 1,000 MG in Water for inj. (sterile) 20 ML IVP ONE (13:48)
[2020-01-30 14:04] LABS: Platelet Estimate Normal (Normal)
[2020-01-30 14:05] LABS: Anisocytosis 2+ (Not Present); Polychromasia 1+ (Not Present)
[2020-01-30] MEDS ORDERED: Amiodarone Premix 360 MG/200 ML BAG IVC ONE (14:14)
[2020-01-30] MEDS ORDERED: Amiodarone Premix 150 MG/100 ML BAG IVPB ONE (14:14)
[2020-01-30] MEDS: Meropenem 1,000 MG in Water for inj. (sterile) 20 ML IVP SCH ×2 (14:45→18:06)
[2020-01-30] MEDS ORDERED: Naloxone 0.4 MG/ML INJ IVP PRN (15:18)
[2020-01-30] MEDS ORDERED: Mag Hydrox/Al Hydrox/Simeth 30 ML UDC PO PRN (15:44)
[2020-01-30] MEDS ORDERED: Ondansetron ODT 4 MG TAB.RAPDIS SL PRN (15:44)
[2020-01-30] MEDS ORDERED: *HR* Metoprolol 5 MG/5 ML VIAL IVP ONE (16:15)
[2020-01-30] MEDS ORDERED: *HR* Dextrose 50 % in Water (Vial) 50 ML VIAL IVP PRN (17:30)
[2020-01-30] MEDS ORDERED: D5% in Water 1,000 ML IVC PRN (17:30)
[2020-01-30] MEDS ORDERED: Dextrose Gel 15 GM/37.5 ML TUBE PO PRN ×2 (17:30)
[2020-01-30] MEDS: Amiodarone Premix 360 MG/200 ML BAG IVC SCH (20:14)
[2020-01-30] MEDS: Insulin LISPRO 300 UNITS/3 ML VIAL SQ SCH (21:15)
[2020-01-30] MEDS: Nystatin POWDER 30 GM BOTTLE TP SCH (21:16)
[2020-01-30] MEDS: Latanoprost 2.5 ML BOTTLE BOTH EYES SCH (23:11)
[2020-01-31 00:43] LABS: Basophils % 0.2 %; Eosinophils % 0.3 %; Hematocrit 29.5 % (37.5-50.1); Hemoglobin 8.7 g/dL (12.9-16.9); Immature Granulocytes % 1.3 % (0-4); Lymphocytes # 0.3 K/mcL (0.6-4.6); Lymphocytes % 2.7 %; Mean Corpuscular HGB Conc 29.5 g/dL (31.6-35.5); Mean Corpuscular Hemoglobin 28.1 pg (28.0-33.3); Mean Corpuscular Volume 95.2 fL (83.0-100.0); Mean Platelet Volume 10.3 fL (9.4-12.4); Monocytes # 0.7 K/mcL (0.0-1.3); Monocytes % 6.9 %; Neutrophils # 9.1 K/mcL (1.6-8.9); Platelet Count 206 K/mcL (140-400); Segmented Neutrophils % 88.6 %; White Blood Count 10.3 K/mcL (4.3-11.1)
[2020-01-31 00:44] LABS: Alanine Aminotransferase 9 Units/L (7-52); Albumin 2.5 g/dL (3.5-5.7); Albumin/Globulin Ratio 0.9 (1.1-2.2); Alkaline Phosphatase 65 Units/L (34-104); Aspartate Amino Transferase 10 Units/L (13-39); BUN/Creatinine Ratio 28 (6-26); Bilirubin,Total 0.5 mg/dL (0.3-1.0); Blood Urea Nitrogen 40 mg/dL (8-23); Calcium 7.9 mg/dL (8.6-10.3); Carbon Dioxide 20 mEq/L (23-29); Chloride 106 mEq/L (98-107); Globulin 2.7 g/dL (2.4-3.5); Glucose 177 mg/dL (70-105); Osmolality,Calculated 294 (280-300); Potassium 3.9 mEq/L (3.5-5.1); Sodium 135 mEq/L (136-145); Total Protein 5.2 g/dL (6.4-8.9); Troponin I < 0.03 ng/mL (< 0.04); eGFR For African Americans 58 (> 60); eGFR For Non-African Americans 48 (> 60)
[2020-01-31 00:47] LABS: Prothrombin Time 86.8 Seconds (9.4-12.1)
[2020-01-31] MEDS: Meropenem 1,000 MG in Water for inj. (sterile) 20 ML IVP SCH ×3 (03:59→15:45)
[2020-01-31 07:16] LABS: Prothrombin Time 24.3 Seconds (9.4-12.1)
[2020-01-31 07:17] LABS: INR 2.1
[2020-01-31] MEDS: Insulin LISPRO 300 UNITS/3 ML VIAL SQ SCH ×4 (07:35→20:38)
[2020-01-31] MEDS: Nystatin POWDER 30 GM BOTTLE TP SCH ×3 (07:36→23:28)
[2020-01-31] MEDS ORDERED: Dexamethasone 4 MG/ML VIAL IVP SCH (09:00)
[2020-01-31] MEDS ORDERED: *HR* Amiodarone 200 MG TABLET PO SCH (09:00)
[2020-01-31] MEDS: Amiodarone Premix 360 MG/200 ML BAG IVC SCH ×2 (09:13→21:07)
[2020-01-31] MEDS ORDERED: Vancomycin 1,500 MG/265 ML IV.SOLN IVPB SCH (15:00)
[2020-01-31] MEDS ORDERED: *HR* HYDROmorphone (PF) 1 MG/ML SYRINGE IVP ONE (18:18)
[2020-01-31] MEDS ORDERED: DOPAMINE HCL IVC ONE (19:08)
[2020-01-31] MEDS: Latanoprost 2.5 ML BOTTLE BOTH EYES SCH (20:38)
[2020-01-31] MEDS ORDERED: *HR* Etomidate 40 MG/20 ML VIAL IVP ONE (21:46)
[2020-01-31] MEDS ORDERED: *HR* FentaNYL (PF) 100 MCG/2 ML VIAL ONE (21:46)
[2020-01-31] MEDS ORDERED: *HR* Propofol 200 MG/20 ML VIAL IVP ONE (21:47)
[2020-01-31] MEDS ORDERED: *HR* Rocuronium Bromide 50 MG/5 ML VIAL ONE (21:48)
[2020-01-31] MEDS ORDERED: *HR* Vasopressin 20 UNIT/ML VIAL ONE (21:56)
[2020-01-31] MEDS ORDERED: Ondansetron 4 MG/2 ML VIAL ONE (22:47)
[2020-01-31] MEDS ORDERED: Acetaminophen IV 1,000 MG/100 ML INFUS..BTL ONE (23:12)
[2020-02-01] MEDS: Meropenem 1,000 MG in Water for inj. (sterile) 20 ML IVP SCH (02:27)
[2020-02-01 03:05] LABS: Acinetobacter baumannii by PCR Not Detected (Not Detect); Candida albicans by PCR Not Detected (Not Detect); Candida glabrata by PCR Not Detected (Not Detect); Candida krusei by PCR Not Detected (Not Detect); Candida parapsilosis by PCR Not Detected (Not Detect); Candida tropicalis by PCR Not Detected (Not Detect); Enterobacter cloacae Cmplx PCR Not Detected (Not Detect); Enterobacteriaceae by PCR Not Detected (Not Detect); Enterococcus by PCR Not Detected (Not Detect); Escherichia coli by PCR Not Detected (Not Detect); Klebsiella oxytoca by PCR Not Detected (Not Detect); Klebsiella pneumoniae by PCR Not Detected (Not Detect); Proteus by PCR Not Detected (Not Detect); Pseudomonas aeruginosa by PCR Not Detected (Not Detect); Serratia marcescens by PCR Not Detected (Not Detect); Staphylococcus aureus by PCR Not Detected (Not Detect); Staphylococcus by PCR DETECTED (Not Detect); Streptococcus agalactiae(B)PCR Not Detected (Not Detect); Streptococcus by PCR Not Detected (Not Detect); Streptococcus pneumoniae PCR Not Detected (Not Detect); Streptococcus pyogenes (A) PCR Not Detected (Not Detect); mecA Methicillin-Resist Gene DETECTED (Not Detect)
[2020-02-01 04:20] LABS: Basophils % 0.1 %; Hematocrit 28.7 % (37.5-50.1); Hemoglobin 8.5 g/dL (12.9-16.9); Immature Granulocytes % 0.9 % (0-4); Lymphocytes # 0.1 K/mcL (0.6-4.6); Lymphocytes % 0.8 %; Mean Corpuscular HGB Conc 29.6 g/dL (31.6-35.5); Mean Corpuscular Hemoglobin 27.4 pg (28.0-33.3); Mean Corpuscular Volume 92.6 fL (83.0-100.0); Mean Platelet Volume 10.4 fL (9.4-12.4); Monocytes # 0.2 K/mcL (0.0-1.3); Monocytes % 1.9 %; Platelet Count 187 K/mcL (140-400); Segmented Neutrophils % 96.3 %
[2020-02-01 04:22] LABS: Neutrophils # 11.6 K/mcL (1.6-8.9)
[2020-02-01 04:39] LABS: Albumin 2.4 g/dL (3.5-5.7); Albumin/Globulin Ratio 0.8 (1.1-2.2); Anisocytosis 1+ (Not Present); Bilirubin,Total 0.5 mg/dL (0.3-1.0); Calcium 7.9 mg/dL (8.6-10.3); Globulin 2.9 g/dL (2.4-3.5); Platelet Estimate Normal (Normal); Potassium 4.2 mEq/L (3.5-5.1); Total Protein 5.3 g/dL (6.4-8.9)
[2020-02-01] MEDS ORDERED: 0.9 % Sodium Chloride 250 ML IVC ONE (05:15)
[2020-02-01] MEDS ORDERED: Naloxone 0.4 MG/ML INJ IVP PRN (07:36)
[2020-02-01] MEDS ORDERED: Ondansetron ODT 4 MG TAB.RAPDIS SL PRN (07:36)
[2020-02-01] MEDS ORDERED: D5% in Water 1,000 ML IVC PRN (07:36)
[2020-02-01] MEDS ORDERED: Mag Hydrox/Al Hydrox/Simeth 30 ML UDC PO PRN (07:36)
[2020-02-01] MEDS ORDERED: Dextrose Gel 15 GM/37.5 ML TUBE PO PRN ×2 (07:36)
[2020-02-01] MEDS ORDERED: Amiodarone Premix 360 MG/200 ML BAG IVC SCH (07:36)
[2020-02-01] MEDS ORDERED: Meropenem 1,000 MG in Water for inj. (sterile) 20 ML IVP SCH (08:00)
[2020-02-01] MEDS: Insulin LISPRO 300 UNITS/3 ML VIAL SQ SCH ×4 (08:04→21:27)
[2020-02-01] MEDS: Nystatin POWDER 30 GM BOTTLE TP SCH ×3 (08:59→21:29)
[2020-02-01] MEDS ORDERED: Dexamethasone 4 MG/ML VIAL IVP SCH (09:00)
[2020-02-01] MEDS: *HR* Amiodarone 200 MG TABLET PO SCH (09:05)
[2020-02-01] MEDS: Fluconazole 100 MG TABLET PO SCH (14:18)
[2020-02-01] MEDS ORDERED: Vancomycin 1,500 MG/265 ML IV.SOLN IVPB SCH (15:00)
[2020-02-01] MEDS: Cefepime HCl 2,000 MG in Water for inj. (sterile) 20 ML IVP SCH (17:14)
[2020-02-01] MEDS ORDERED: levoFLOXacin 750 MG/150 ML 750 MG/150 ML BAG IVPB SCH (18:00)
[2020-02-01] MEDS: Latanoprost 2.5 ML BOTTLE BOTH EYES SCH (21:28)
[2020-02-01] MEDS: Insulin DETEMIR 100 UNIT/ML X5UNITS SQ SCH (21:35)
[2020-02-02 04:10] LABS: Hematocrit 27.9 % (37.5-50.1); Hemoglobin 8.2 g/dL (12.9-16.9); Mean Corpuscular HGB Conc 29.4 g/dL (31.6-35.5); Mean Corpuscular Hemoglobin 27.2 pg (28.0-33.3); Mean Corpuscular Volume 92.4 fL (83.0-100.0); Mean Platelet Volume 10.3 fL (9.4-12.4); Platelet Count 183 K/mcL (140-400); Red Blood Count 3.02 M/mcL (4.19-5.50); Red Cell Distribution Width 19.9 % (11.5-14.5); White Blood Count 13.4 K/mcL (4.3-11.1)
[2020-02-02 04:18] LABS: INR 1.8; Prothrombin Time 20.1 Seconds (9.4-12.1)
[2020-02-02 04:27] LABS: Calcium 7.9 mg/dL (8.6-10.3); Potassium 4.9 mEq/L (3.5-5.1)
[2020-02-02] MEDS: Cefepime HCl 2,000 MG in Water for inj. (sterile) 20 ML IVP SCH (05:49)
[2020-02-02] MEDS: *HR* Amiodarone 200 MG TABLET PO SCH (08:40)
[2020-02-02] MEDS: Metoprolol XL (24 HR) Succ 50 MG TAB.ER.24H PO SCH ×2 (08:40→23:13)
[2020-02-02] MEDS: Fluconazole 100 MG TABLET PO SCH (08:40)
[2020-02-02] MEDS: Insulin LISPRO 300 UNITS/3 ML VIAL SQ SCH ×4 (08:41→22:13)
[2020-02-02] MEDS: Nystatin POWDER 30 GM BOTTLE TP SCH ×2 (08:41→16:42)
[2020-02-02] MEDS ORDERED: Metoprolol XL (24 HR) Succ 50 MG TAB.ER.24H PO SCH (09:00)
[2020-02-02] MEDS: *HR* Heparin 5,000 UNIT/ML VIAL SQ SCH ×2 (14:49→23:13)
[2020-02-02] MEDS: Cefepime HCl 1,000 MG in Water for inj. (sterile) 10 ML IVP SCH (18:00)
[2020-02-02] MEDS: Insulin DETEMIR 100 UNIT/ML X5UNITS SQ SCH (23:12)
[2020-02-02] MEDS: Latanoprost 2.5 ML BOTTLE BOTH EYES SCH (23:13)
[2020-02-02 23:19] LABS: ABG Base Excess -7 mEq/L (-2 to 3); ABG HCO3 20 mEq/L (21-27); ABG Oxygen Saturation 80 % (95-98); ABG PCO2 45 mmHg (35-45); ABG PH 7.25 pH Units (7.32-7.45); ABG PO2 52 mmHg (85-104); ABG TCO2 21 mEq/L (20-26)
[2020-02-02] MEDS ORDERED: Haloperidol Lactate 5 MG/ML VIAL IM ONE (23:52)
[2020-02-03 00:51] LABS: Calcium 7.9 mg/dL (8.6-10.3)
[2020-02-03] MEDS ORDERED: levoFLOXacin 750 MG/150 ML 750 MG/150 ML BAG IVPB SCH ×2 (01:00→18:00)
[2020-02-03] MEDS ORDERED: Haloperidol Lactate 5 MG/ML VIAL IM ONE (04:41)
[2020-02-03] MEDS ORDERED: *HR* LORazepam 2 MG/ML VIAL ONE (05:27)
[2020-02-03] MEDS: *HR* Heparin 5,000 UNIT/ML VIAL SQ SCH ×3 (05:41→22:11)
[2020-02-03] MEDS: Cefepime HCl 1,000 MG in Water for inj. (sterile) 10 ML IVP SCH ×2 (05:42→18:01)
[2020-02-03] MEDS: Dexmedetomidine HCl 400 MCG/100 ML MLS IVC SCH (05:59)
[2020-02-03 07:02] LABS: Hematocrit 26.7 % (37.5-50.1); Hemoglobin 8.2 g/dL (12.9-16.9); Mean Corpuscular HGB Conc 30.7 g/dL (31.6-35.5); Mean Corpuscular Hemoglobin 27.6 pg (28.0-33.3); Mean Corpuscular Volume 89.9 fL (83.0-100.0); Mean Platelet Volume 10.5 fL (9.4-12.4); Platelet Count 171 K/mcL (140-400); Red Blood Count 2.97 M/mcL (4.19-5.50); White Blood Count 11.8 K/mcL (4.3-11.1)
[2020-02-03 07:24] LABS: Potassium 4.8 mEq/L (3.5-5.1)
[2020-02-03] MEDS: Insulin LISPRO 300 UNITS/3 ML VIAL SQ SCH ×3 (09:03→18:42)
[2020-02-03] MEDS: Nystatin POWDER 30 GM BOTTLE TP SCH ×4 (09:03→19:51)
[2020-02-03] MEDS: *HR* Amiodarone 200 MG TABLET PO SCH (09:03)
[2020-02-03] MEDS: Metoprolol XL (24 HR) Succ 50 MG TAB.ER.24H PO SCH ×2 (09:04→19:22)
[2020-02-03 11:29] LABS: ABG Base Excess -7 mEq/L (-2 to 3); ABG HCO3 19 mEq/L (21-27); ABG Oxygen Saturation 100 % (95-98); ABG PCO2 37 mmHg (35-45); ABG PH 7.32 pH Units (7.32-7.45); ABG PO2 190 mmHg (85-104); ABG TCO2 20 mEq/L (20-26); Blood Gas Modality ASSIST CONTROL; Blood Gas VT 500 cc
[2020-02-03] MEDS: Norepinephrine 4 MG/254 ML IV.SOLN IVC SCH ×2 (11:55→21:10)
[2020-02-03] MEDS: *HR* Dextrose 50 % in Water (Vial) 50 ML VIAL IVP PRN ×2 (11:58→18:43)
[2020-02-03] MEDS: Midazolam HCl 50 MG/100 ML IV.SOLN IVC SCH (12:03)
[2020-02-03] MEDS ORDERED: *HR* Midazolam HCl 2 MG/2 ML VIAL IVP ONE (12:07)
[2020-02-03] MEDS ORDERED: Artificial Tears SOLN 15 ML BOTTLE BOTH EYES PRN (17:29)
[2020-02-03 18:42] LABS: ABG Base Excess -8 mEq/L (-2 to 3); ABG HCO3 17 mEq/L (21-27); ABG Oxygen Saturation 98 % (95-98); ABG PCO2 31 mmHg (35-45); ABG PH 7.35 pH Units (7.32-7.45); ABG PO2 102 mmHg (85-104); ABG TCO2 18 mEq/L (20-26); Blood Gas Modality ASSIST CONTROL; Blood Gas VT 500 cc
[2020-02-03] MEDS: Chlorhexidine Rinse 15 ML MOUTHWASH MM SCH (19:22)
[2020-02-03] MEDS: Latanoprost 2.5 ML BOTTLE BOTH EYES SCH (19:50)
[2020-02-03] MEDS: Artificial Tears SOLN 15 ML BOTTLE BOTH EYES SCH (19:53)
[2020-02-03] MEDS: Insulin DETEMIR 100 UNIT/ML X5UNITS SQ SCH (19:54)
[2020-02-03 20:55] LABS: VBG Ionized Calcium 1.09 mmol/L (1.15-1.35)
[2020-02-03 21:01] LABS: Potassium 4.4 mEq/L (3.5-5.1)
[2020-02-04] MEDS: Artificial Tears SOLN 15 ML BOTTLE BOTH EYES SCH ×6 (00:02→20:55)
[2020-02-04] MEDS: Insulin LISPRO 300 UNITS/3 ML VIAL SQ SCH ×4 (00:02→18:10)
[2020-02-04] MEDS: Dexmedetomidine HCl 400 MCG/100 ML MLS IVC SCH ×2 (00:03→20:56)
[2020-02-04] MEDS: Midazolam HCl 50 MG/100 ML IV.SOLN IVC SCH ×2 (02:07→15:24)
[2020-02-04 03:20] LABS: Hematocrit 27.8 % (37.5-50.1); Hemoglobin 8.6 g/dL (12.9-16.9); Mean Corpuscular HGB Conc 30.9 g/dL (31.6-35.5); Mean Corpuscular Hemoglobin 27.6 pg (28.0-33.3); Mean Corpuscular Volume 89.1 fL (83.0-100.0); Mean Platelet Volume 10.5 fL (9.4-12.4); Platelet Count 177 K/mcL (140-400); Red Blood Count 3.12 M/mcL (4.19-5.50); Red Cell Distribution Width 19.9 % (11.5-14.5); White Blood Count 14.3 K/mcL (4.3-11.1)
[2020-02-04 03:32] LABS: Calcium 7.6 mg/dL (8.6-10.3); Potassium 4.2 mEq/L (3.5-5.1)
[2020-02-04 05:01] LABS: ABG Base Excess -8 mEq/L (-2 to 3); ABG HCO3 16 mEq/L (21-27); ABG Oxygen Saturation 92 % (95-98); ABG PCO2 28 mmHg (35-45); ABG PH 7.37 pH Units (7.32-7.45); ABG PO2 64 mmHg (85-104); ABG TCO2 17 mEq/L (20-26); Blood Gas Modality ASSIST CONTROL; Blood Gas VT 500 cc
[2020-02-04] MEDS: Cefepime HCl 1,000 MG in Water for inj. (sterile) 10 ML IVP SCH ×2 (06:12→18:13)
[2020-02-04] MEDS: *HR* Heparin 5,000 UNIT/ML VIAL SQ SCH ×3 (06:12→20:54)
[2020-02-04] MEDS: Chlorhexidine Rinse 15 ML MOUTHWASH MM SCH ×2 (08:53→20:54)
[2020-02-04] MEDS: Pantoprazole 40 MG VIAL IVP SCH (08:53)
[2020-02-04] MEDS: Norepinephrine 4 MG/254 ML IV.SOLN IVC SCH ×3 (08:56→19:31)
[2020-02-04] MEDS ORDERED: IVABRADINE HCL 7.5 MG TABLET PO SCH (10:00)
[2020-02-04] MEDS: Metoprolol XL (24 HR) Succ 50 MG TAB.ER.24H PO SCH ×2 (10:26→20:55)
[2020-02-04] MEDS: Nystatin POWDER 30 GM BOTTLE TP SCH ×3 (10:26→20:55)
[2020-02-04] MEDS ORDERED: Aspirin Enteric Coated 81 MG Tablet PO SCH (15:30)
[2020-02-04] MEDS ORDERED: Phenylephrine 10 MG in 0.9 % Sodium Chloride 250 ML IVC SCH (15:45)
[2020-02-04] MEDS: Doxycycline 100 MG in 0.9 % Sodium Chloride Mini Bag 100 ML IVPB SCH (18:13)
[2020-02-04] MEDS: Insulin DETEMIR 100 UNIT/ML X5UNITS SQ SCH (20:56)
[2020-02-04] MEDS: Latanoprost 2.5 ML BOTTLE BOTH EYES SCH (20:57)
[2020-02-05] MEDS: Artificial Tears SOLN 15 ML BOTTLE BOTH EYES SCH ×7 (00:51→23:55)
[2020-02-05] MEDS: Insulin LISPRO 300 UNITS/3 ML VIAL SQ SCH ×5 (00:52→23:56)
[2020-02-05] MEDS: Norepinephrine 4 MG/254 ML IV.SOLN IVC SCH ×4 (01:07→18:20)
[2020-02-05 04:41] LABS: ABG Base Excess -12 mEq/L (-2 to 3); ABG HCO3 14 mEq/L (21-27); ABG Oxygen Saturation 92 % (95-98); ABG PCO2 32 mmHg (35-45); ABG PH 7.25 pH Units (7.32-7.45); ABG PO2 73 mmHg (85-104); ABG TCO2 15 mEq/L (20-26); Blood Gas VT 500 cc
[2020-02-05 04:49] LABS: VBG Ionized Calcium 1.14 mmol/L (1.15-1.35)
[2020-02-05 04:59] LABS: Basophils % 0.1 %; Eosinophils % 0.1 %; Hematocrit 29.3 % (37.5-50.1); Immature Granulocytes % 0.9 % (0-4); Lymphocytes # 0.5 K/mcL (0.6-4.6); Lymphocytes % 2.9 %; Mean Corpuscular HGB Conc 30.7 g/dL (31.6-35.5); Mean Corpuscular Hemoglobin 27.4 pg (28.0-33.3); Mean Corpuscular Volume 89.3 fL (83.0-100.0); Mean Platelet Volume 10.6 fL (9.4-12.4); Monocytes # 0.2 K/mcL (0.0-1.3); Monocytes % 0.9 %; Neutrophils # 15.2 K/mcL (1.6-8.9); Platelet Count 159 K/mcL (140-400); Red Blood Count 3.28 M/mcL (4.19-5.50); Red Cell Distribution Width 20.1 % (11.5-14.5); Segmented Neutrophils % 95.1 %
[2020-02-05] MEDS: Midazolam HCl 50 MG/100 ML IV.SOLN IVC SCH ×2 (05:02→19:28)
[2020-02-05] MEDS: *HR* Heparin 5,000 UNIT/ML VIAL SQ SCH ×3 (05:23→20:39)
[2020-02-05] MEDS: Doxycycline 100 MG in 0.9 % Sodium Chloride Mini Bag 100 ML IVPB SCH ×2 (05:23→17:38)
[2020-02-05] MEDS: Cefepime HCl 1,000 MG in Water for inj. (sterile) 10 ML IVP SCH ×2 (05:24→17:36)
[2020-02-05 05:28] LABS: Albumin 2.2 g/dL (3.5-5.7); Albumin/Globulin Ratio 0.8 (1.1-2.2); Bilirubin,Total 0.4 mg/dL (0.3-1.0); Calcium 8.3 mg/dL (8.6-10.3); Globulin 2.9 g/dL (2.4-3.5); Magnesium 2.1 mg/dL (1.6-2.6); Phosphorous 5.3 mg/dL (2.7-4.5); Potassium 4.5 mEq/L (3.5-5.1); Total Protein 5.1 g/dL (6.4-8.9)
[2020-02-05] MEDS: Nystatin POWDER 30 GM BOTTLE TP SCH ×3 (08:53→20:42)
[2020-02-05] MEDS: Sodium Bicarbonate 150 MEQ in D5% in Water 1,000 ML IVC SCH (08:53)
[2020-02-05] MEDS: Pantoprazole 40 MG VIAL IVP SCH (08:54)
[2020-02-05] MEDS: Chlorhexidine Rinse 15 ML MOUTHWASH MM SCH ×2 (08:54→20:39)
[2020-02-05] MEDS: Aspirin 81 MG TAB.CHEW PO SCH (08:55)
[2020-02-05] MEDS: *HR* Amiodarone 200 MG TABLET PO SCH (08:59)
[2020-02-05] MEDS ORDERED: IVABRADINE HCL 7.5 MG TABLET PO SCH (09:00)
[2020-02-05 14:43] LABS: Calcium 8.1 mg/dL (8.6-10.3); Potassium 4.2 mEq/L (3.5-5.1)
[2020-02-05] MEDS: Dexmedetomidine HCl 400 MCG/100 ML MLS IVC SCH (17:39)
[2020-02-05] MEDS: Latanoprost 2.5 ML BOTTLE BOTH EYES SCH (20:40)
[2020-02-05] MEDS: Insulin DETEMIR 100 UNIT/ML X5UNITS SQ SCH (20:41)
[2020-02-05 22:11] LABS: ABG Base Excess -7 mEq/L (-2 to 3); ABG HCO3 17 mEq/L (21-27); ABG Oxygen Saturation 91 % (95-98); ABG PCO2 25 mmHg (35-45); ABG PH 7.42 pH Units (7.32-7.45); ABG PO2 57 mmHg (85-104); ABG TCO2 17 mEq/L (20-26); Blood Gas Modality ASSIST CONTROL; Blood Gas VT 500 cc
[2020-02-06] MEDS: Sodium Bicarbonate 150 MEQ in D5% in Water 1,000 ML IVC SCH (00:31)
[2020-02-06] MEDS: Norepinephrine 4 MG/254 ML IV.SOLN IVC SCH ×4 (00:32→19:34)
[2020-02-06 04:25] LABS: VBG Ionized Calcium 1.15 mmol/L (1.15-1.35)
[2020-02-06] MEDS: Artificial Tears SOLN 15 ML BOTTLE BOTH EYES SCH ×6 (04:28→23:39)
[2020-02-06] MEDS: Insulin LISPRO 300 UNITS/3 ML VIAL SQ SCH ×4 (04:28→23:39)
[2020-02-06 04:29] LABS: ABG Base Excess -5 mEq/L (-2 to 3); ABG HCO3 20 mEq/L (21-27); ABG Oxygen Saturation 97 % (95-98); ABG PCO2 34 mmHg (35-45); ABG PH 7.38 pH Units (7.32-7.45); ABG PO2 88 mmHg (85-104); ABG TCO2 21 mEq/L (20-26); Blood Gas VT 500 cc
[2020-02-06 04:29] LABS: Basophils % 0.1 %; Eosinophils # 0.2 K/mcL (0.0-0.6); Eosinophils % 2.2 %; Hematocrit 25.2 % (37.5-50.1); Hemoglobin 7.9 g/dL (12.9-16.9); Immature Granulocytes % 0.8 % (0-4); Lymphocytes # 0.5 K/mcL (0.6-4.6); Lymphocytes % 5.5 %; Mean Corpuscular HGB Conc 31.3 g/dL (31.6-35.5); Mean Corpuscular Hemoglobin 27.5 pg (28.0-33.3); Mean Corpuscular Volume 87.8 fL (83.0-100.0); Mean Platelet Volume 10.6 fL (9.4-12.4); Monocytes # 0.2 K/mcL (0.0-1.3); Monocytes % 1.8 %; Neutrophils # 8.6 K/mcL (1.6-8.9); Platelet Count 150 K/mcL (140-400); Red Blood Count 2.87 M/mcL (4.19-5.50); Red Cell Distribution Width 19.9 % (11.5-14.5); Segmented Neutrophils % 89.6 %; White Blood Count 9.6 K/mcL (4.3-11.1)
[2020-02-06 04:45] LABS: Activated Partial Thrombo Time 58.6 Seconds (26.0-36.0)
[2020-02-06 04:48] LABS: Albumin/Globulin Ratio 0.8 (1.1-2.2); Bilirubin,Total 0.4 mg/dL (0.3-1.0); Calcium 7.8 mg/dL (8.6-10.3); Globulin 2.4 g/dL (2.4-3.5); Magnesium 1.9 mg/dL (1.6-2.6); Phosphorous 3.9 mg/dL (2.7-4.5); Potassium 3.5 mEq/L (3.5-5.1); Total Protein 4.4 g/dL (6.4-8.9)
[2020-02-06] MEDS: Doxycycline 100 MG in 0.9 % Sodium Chloride Mini Bag 100 ML IVPB SCH ×2 (05:01→17:16)
[2020-02-06] MEDS: Cefepime HCl 1,000 MG in Water for inj. (sterile) 10 ML IVP SCH ×2 (05:01→17:19)
[2020-02-06] MEDS: *HR* Heparin 5,000 UNIT/ML VIAL SQ SCH ×2 (05:02→11:47)
[2020-02-06 05:54] LABS: INR 6.7; Prothrombin Time 73.9 Seconds (9.4-12.1)
[2020-02-06] MEDS: Nystatin POWDER 30 GM BOTTLE TP SCH ×3 (08:11→19:36)
[2020-02-06] MEDS: Aspirin 81 MG TAB.CHEW PO SCH (08:15)
[2020-02-06] MEDS: Pantoprazole 40 MG VIAL IVP SCH (08:15)
[2020-02-06] MEDS: *HR* Amiodarone 200 MG TABLET PO SCH (08:15)
[2020-02-06] MEDS: Chlorhexidine Rinse 15 ML MOUTHWASH MM SCH ×2 (08:15→19:37)
[2020-02-06] MEDS: Dexmedetomidine HCl 400 MCG/100 ML MLS IVC SCH ×2 (08:16→10:52)
[2020-02-06] MEDS: Midazolam HCl 50 MG/100 ML IV.SOLN IVC SCH (08:23)
[2020-02-06 09:49] LABS: INR 7.6; Prothrombin Time 83.4 Seconds (9.4-12.1)
[2020-02-06] MEDS: FentaNYL (PF) 1,000 MCG/100 ML IV.SOLN IVC SCH (11:51)
[2020-02-06 12:36] LABS: INR 7.1; Prothrombin Time 77.5 Seconds (9.4-12.1)
[2020-02-06 13:32] LABS: Hemoglobin 8.1 g/dL (12.9-16.9)
[2020-02-06] MEDS: Latanoprost 2.5 ML BOTTLE BOTH EYES SCH (20:07)
[2020-02-06] MEDS: Insulin DETEMIR 100 UNIT/ML X5UNITS SQ SCH (20:21)
[2020-02-06 20:38] LABS: Hematocrit 27.9 % (37.5-50.1); Hemoglobin 8.6 g/dL (12.9-16.9)
[2020-02-06] MEDS ORDERED: *HR* Metoprolol 5 MG/5 ML VIAL IVP PRN (20:50)
[2020-02-06 22:11] LABS: Activated Partial Thrombo Time 38.2 Seconds (26.0-36.0); INR 1.4; Prothrombin Time 16.2 Seconds (9.4-12.1)
[2020-02-07] MEDS: Dexmedetomidine HCl 400 MCG/100 ML MLS IVC SCH (02:36)
[2020-02-07] MEDS: Norepinephrine 4 MG/254 ML IV.SOLN IVC SCH (03:46)
[2020-02-07] MEDS: Artificial Tears SOLN 15 ML BOTTLE BOTH EYES SCH ×2 (03:54→08:07)
[2020-02-07 04:36] LABS: Basophils % 0.1 %; Eosinophils # 0.3 K/mcL (0.0-0.6); Eosinophils % 3.1 %; Hematocrit 25.9 % (37.5-50.1); Hemoglobin 7.9 g/dL (12.9-16.9); Lymphocytes # 0.7 K/mcL (0.6-4.6); Lymphocytes % 8.2 %; Mean Corpuscular HGB Conc 30.5 g/dL (31.6-35.5); Mean Corpuscular Hemoglobin 26.6 pg (28.0-33.3); Mean Corpuscular Volume 87.2 fL (83.0-100.0); Mean Platelet Volume 10.9 fL (9.4-12.4); Monocytes # 0.3 K/mcL (0.0-1.3); Neutrophils # 7.3 K/mcL (1.6-8.9); Nucleated Red Blood Cells 0.2 /100 WBC (0); Platelet Count 124 K/mcL (140-400); Red Blood Count 2.97 M/mcL (4.19-5.50); Red Cell Distribution Width 20.3 % (11.5-14.5); Segmented Neutrophils % 84.6 %; White Blood Count 8.7 K/mcL (4.3-11.1)
[2020-02-07 04:38] LABS: ABG Base Excess -6 mEq/L (-2 to 3); ABG HCO3 18 mEq/L (21-27); ABG Oxygen Saturation 93 % (95-98); ABG PCO2 29 mmHg (35-45); ABG PH 7.41 pH Units (7.32-7.45); ABG PO2 65 mmHg (85-104); ABG TCO2 19 mEq/L (20-26); Blood Gas Modality ASSIST CONTROL; Blood Gas VT 500 cc
[2020-02-07 04:39] LABS: VBG Ionized Calcium 1.17 mmol/L (1.15-1.35)
[2020-02-07 04:53] LABS: INR 1.3; Prothrombin Time 14.6 Seconds (9.4-12.1)
[2020-02-07 04:58] LABS: Albumin/Globulin Ratio 0.7 (1.1-2.2); Bilirubin,Total 0.5 mg/dL (0.3-1.0); Globulin 2.7 g/dL (2.4-3.5); Magnesium 1.9 mg/dL (1.6-2.6); Phosphorous 3.8 mg/dL (2.7-4.5); Potassium 3.5 mEq/L (3.5-5.1); Total Protein 4.7 g/dL (6.4-8.9)
[2020-02-07] MEDS: Cefepime HCl 1,000 MG in Water for inj. (sterile) 10 ML IVP SCH (05:31)
[2020-02-07] MEDS: Doxycycline 100 MG in 0.9 % Sodium Chloride Mini Bag 100 ML IVPB SCH (05:31)
[2020-02-07] MEDS: Insulin LISPRO 300 UNITS/3 ML VIAL SQ SCH (05:52)
[2020-02-07] MEDS: Pantoprazole 40 MG VIAL IVP SCH (08:07)
[2020-02-07] MEDS: *HR* Amiodarone 200 MG TABLET PO SCH (08:07)
[2020-02-07] MEDS: Aspirin 81 MG TAB.CHEW PO SCH (08:07)
[2020-02-07] MEDS: Chlorhexidine Rinse 15 ML MOUTHWASH MM SCH (08:07)
[2020-02-07] MEDS: Nystatin POWDER 30 GM BOTTLE TP SCH (08:08)
[2020-02-07] MEDS: FentaNYL (PF) 1,000 MCG/100 ML IV.SOLN IVC SCH (08:41)
[2020-02-07] MEDS ORDERED: *HR* FentaNYL (PF) 100 MCG/2 ML VIAL IVP PRN (10:51)
[2020-02-07] MEDS ORDERED: Haloperidol Lactate 5 MG/ML VIAL IVP PRN (10:52)
[2020-02-07] MEDS ORDERED: *HR* LORazepam 2 MG/ML VIAL IVP PRN (10:52)
[2020-02-07] MEDS ORDERED: Atropine Sulfate 1% 40 DROP/2 ML BOTTLE SL PRN (10:53)
[2020-02-07 11:59] VITALS: BP 87/65
== END 2020-02-07 12:08 | disposition expired | DRG 853 ==
LOC: 2NENU 11:47 → EMEROOARM 11:47 → SUATTDRO 15:19 → 2NENU 17:30 → SUATTDRO 01-31 16:10 → 3ANU 02-02 11:22 → 2NENU 02-03 04:26
PROVIDERS: ADMIT Family Medicine; ATTEND Internal Medicine